=== PATIENT | female | born 1945 | race Caucasian/White ===

== ENCOUNTER → 2025-05-14 13:10 | Outpatient (REF) | payer MEDICARE, SELFPAY ==
[2025-05-14 14:29] LABS: % Basophils 0.3 % (0-2); % Eosinophils 0.1 % (0-6); % Immature Granulocytes 0.3 % (0-0.5); % Lymphocytes 11.7 % (20.5-51.1); % Monocytes 5.8 % (1.7-9.3); % Neutrophils 81.8 % (42.2-75.2); Absolute Lymphocytes 1.4 10^3/uL (1.2-3.4); Absolute Monocytes 0.7 10^3/uL (0.1-0.6); Absolute Neutrophils 9.8 10^3/uL (1.4-6.5); Hematocrit 43.5 % (37.0-47.0); Hemoglobin 14.5 g/dL (12.0-16.0); Mean Corp Hgb Conc. 33.3 g/dL (33.0-37.0); Mean Corpuscular Hgb 29.4 pg (27.0-31.0); Mean Corpuscular Volume 88.1 fL (81.0-99.0); Nucleated Red Blood Cells % 0 %; Platelet Count 439 10^3/uL (130-400); Red Blood Cell Count 4.94 10^6/uL (4.20-5.40); Red Cell Dist. Width 12.4 % (11.5-14.5); White Blood Cell Count 11.9 10^3/uL (4.8-10.8)
[2025-05-14 15:08] LABS: ALT (SGPT) 12 U/L (0-35); AST (SGOT) 21 U/L (14-36); Albumin 4.4 g/dl (3.5-5.0); Alkaline Phosphatase 45 U/L (38-126); Blood Urea Nitrogen 21 mg/dl (7-17); Calcium 9.8 mg/dl (8.4-10.2); Carbon Dioxide 26 mmol/L (22-30); Chloride 102 mmol/L (98-107); Glucose 108 mg/dl (70-99); Potassium 4.7 mmol/L (3.5-5.1); Sodium 138 mmol/L (135-145); Total Bilirubin 0.8 mg/dl (0.2-1.3); Total Protein 7.2 g/dl (6.3-8.2); eGFR > 60.00
== END ==
LOC: REG 13:10
PROVIDERS: ATTENDING PHYSICIAN Physician Assistant Medical
DX: R10.30 Lower abdominal pain, unspecified (principal); K59.09 Other constipation; K62.5 Hemorrhage of anus and rectum; R63.4 Abnormal weight loss; I95.89 Other hypotension; Z68.21 Body mass index [BMI] 21.0-21.9, adult
CPT/HCPCS: 36415; 80053; 85025

== ENCOUNTER → 2025-05-15 15:21 | Outpatient (REF) | payer MEDICARE, SELFPAY | LOC: RAD 15:21 | PROVIDERS: ATTENDING PHYSICIAN Physician Assistant Medical | DX: R10.30 Lower abdominal pain, unspecified (principal); K59.09 Other constipation; K62.5 Hemorrhage of anus and rectum; R63.4 Abnormal weight loss; I95.89 Other hypotension | CPT/HCPCS: 74177; Q9967 ==

== ENCOUNTER 2025-05-16 09:50 | Emergency (ER) | payer MEDICARE, SELFPAY ==
[2025-05-16 09:52] VITALS: BP 102/79
--- NOTE | 2025-05-16 10:05 | ED.GENMED ---
History of Present Illness
General
Chief Complaint: Abdominal Pain
Time Seen by Provider: 05/16/25 10:05
History of Present Illness
History of Present Illness:
TIME OF INITIAL EVALUATION
- 10:10 AM
REVIEW OF OLD RECORDS
- History of high blood pressure
I also reviewed the CAT scan report from yesterday that showed:
1. 4.9 cm mixed cystic and solid mass in the left ovary most consistent with LEFT OVARIAN MALIGNANCY (either extension of endometrial cancer or primary ovarian cancer).
2. Large 9.4 cm irregular shaped low-attenuation mass in the endometrium suggesting ENDOMETRIAL CANCER with extension through the uterine wall and into the right adnexa. A necrotic uterine leiomyoma is an alternative diagnostic possibility.
3. 5.4 cm RIGHT ADNEXAL MASS which could be extension of endometrial cancer or primary ovarian malignancy.
4. Minimal peritoneal fluid in the pelvis.
5. Mild colitis in the sigmoid colon and rectum.
6. Severe diverticulosis in the sigmoid colon.
7. Small enhancing hepatic lesions (metastases or small hemangiomas).
8. Severe discogenic degenerative disease at L5/S1.
Note:
CHIEF COMPLAINT(S)
Abdominal pain, weakness, but without palpitations.
HISTORY OF PRESENT ILLNESS
The patient is a 79-year-old female presenting with several months history of increasing weakness, significant abdominal pain, and vaginal bleeding, with a recent exacerbation of symptoms. There is associated anorexia and unintentional weight loss
(approximately 40 pounds). She reports a loss of taste and smell dating back to a previous COVID-19 infection. On a recent CT scan, findings suggest a possible malignancy originating in the uterus and spreading to the ovaries. The patient initially
consulted a primary care physician who recommended further evaluation and imaging. She was scheduled to follow up with an oncologist. However, she presented to the emergency department today due to worsening symptoms and anxiety surrounding the
imaging results.
The patient is currently experiencing supra ventricular tachycardia with a heart rate of approximately 200 beats per minute. She denies a history of atrial fibrillation or prior episodes of supra ventricular tachycardia. She was previously on
lisinopril for hypertension but has been discontinued on this medication for an unclear duration. She reports a recent blood pressure of 90/70 mmHg.
ADDITIONAL HISTORY OBTAINED FROM SOURCES OTHER THAN THE PATIENT
According to the patient, the CT scan findings were suggestive of cancer in the uterus and ovaries.
SOCIAL DETERMINANTS AFFECTING HEALTH
The patient mentioned residing within a close proximity to the hospital on [facility].
REVIEW OF SYSTEMS
- Cardiovascular: Reports palpitations; heart rate elevated at approximately 200 bpm.
- Gastrointestinal: Abdominal pain; no appetite; unintentional weight loss.
- Neurological: No reports of dizziness or altered mental status.
- General: Weakness; significant fatigue.
PHYSICAL EXAM
- Abdomen: Mild lower abdominal tenderness
- General: Well appearing in no distress
- HEENT: Moist oral mucosa
- Cardiovascular: No murmurs, tachycardic heart rate, regular rhythm, No chest wall tenderness
- Pulmonary: No respiratory distress, breath sounds are clear and equal
- Neurologic: Excellent strength all extremities, no coordination deficits
- Psychiatric: Appropriate mental status, normal insight and judgement
- Extremities: Nontender, no edema, moves all extremities equally
- Skin: No rash, no lesions
PLAN
1. Administer adenosine to manage the supra ventricular tachycardia.
2. Repeat blood work.
3. Address pain management as needed. Consider opioid prescription upon discharge if necessary.
4. Schedule follow-up with oncology as planned.
5. Consider additional imaging or referral as necessary based on current findings and response to initial interventions.
DIFFERENTIAL DIAGNOSIS
The Differential Diagnosis includes, in no particular order and is not limited to:
1. Uterine cancer
2. Ovarian cancer
3. Metastatic disease
4. Infection-related tachycardia
5. Hyperthyroidism
6. Anxiety-related palpitations
7. Cardiac arrhythmia (e.g., atrial fibrillation)
8. Ischemic heart disease
9. Adrenal insufficiency
10. Electrolyte imbalance
11. SVT
RADIOLOGY
- Not indicated
EKG
- SVT, rate of 198, QRS approximately 120 ms (I disagree with computer interpretation of 162 ms), left axis deviation
LABS
- White count 12.8, hemoglobin 16.1
UPDATE
- As I walked in the room initially, the ER nurses were trying vagal maneuvers however these were unsuccessful
- At 10:20 AM, the patient received 6 mg of adenosine and successfully converted to a sinus rhythm after a rather long pause, remains slightly hypotensive and hypotension was noted at the office 2 days ago and discontinued the lisinopril at that time
�She has a appointment to see Dr. Cárdenas on Sunday regarding the abnormal CT concerning for gynecologic malignancy
- Repeat EKG after chemical cardioversion showed sinus 102, inferior Q waves, poor R wave progression, QRS 74 ms
SUMMARY OF ENCOUNTER
The patient presented with increasing weakness, abdominal pain, and palpitations. Blood sugar was noted to be elevated over 200 mg/dL.
DISPOSITION
The patient was advised to schedule follow-ups with Dr. Boothe for abdominal concerns and a goggles assembler due to a history of supra ventricular tachycardia (SVT) episodes.
EMERGENCY TREATMENTS ADMINISTERED
A prescription for a narcotic pain medication was provided for pain management.
MEDICATION RECONCILIATION
The patient was taken off lisinopril and metformin recently. Prescription for pain was offered for abdominal discomfort.
PLAN
Prescribe a narcotic for pain management and recommend taking Merelax to prevent constipation if narcotics are used. Encourage follow-up with primary care doctor for elevated blood sugar management and goggles assembler for SVT follow-up.
FOLLOW-UP INSTRUCTIONS
Follow up with Dr. Cárdenas for continued abdominal pain management, and with a goggles assembler for SVT. Discuss elevated blood sugar with primary care physician.
MEDICAL DECISION MAKING
1. Number & Complexity of Problems: Chronic conditions affecting care include hypertension and potential newly uncontrolled blood sugar levels.
2. Data Reviewed: Blood test reviewed with elevated blood sugar level noted.
3. Risk: Consideration of outpatient management due to unremarkable work-up aside from blood sugar and pain management needs. Social determinants include proximity to hospital for follow-up accessibility.
PATHOLOGIES TO CONSIDER
- Uterine and ovarian cancer due to prior imaging suspicions.
- Uncontrolled diabetes due to elevated blood sugar.
- Cardiac arrhythmia due to supra ventricular tachycardia episode.
Did not place patient on beta-hernan or calcium channel hernan as blood pressure remains slightly low. I informed patient of the high blood sugar and need for PMD follow-up.
Past History
Past History
ED Past Medical History: HTN
ED Past Surgical History: None
Social History
Tobacco: Non-smoker
Phy Exam
Physical Exam
Physical Exam:
See HPI
Course
Orders/Labs/Results
Orders:
Orders
05/16/25 09:58
Electrocardiogram (*1) Urgent
Reason for Study: Tachycardia
EKG- Treatment ONCE
05/16/25 10:14
Complete Blood Count/With Diff Urgent
Comprehensive Metabolic Panel Urgent
Troponin I Urgent
05/16/25 10:17
Adenosine [Adenocard] 6 mg .ROUTE .STK-MED ONE
05/16/25 10:20
Adenosine [Adenocard] 6 mg IV NOW STA
05/16/25 10:23
Adenosine [Adenocard] 6 mg IV NOW STA
05/16/25 10:27
Electrocardiogram (*1) Urgent
Reason for Study: Tachycardia
EKG- Treatment ONCE
05/16/25 10:44
0.9% Sodium Chloride 1000 ml [Nss] 1,000 ml IV BOLUS
Abnormal Lab Results
05/16/25
10:14
WBC 12.8 H 10^3/uL
(4.8-10.8)
RBC 5.54 H 10^6/uL
(4.20-5.40)
Hgb 16.1 H g/dL
(12.0-16.0)
Hct 47.5 H %
(37.0-47.0)
MPV 10.5 H fL
(7.4-10.4)
Absolute Neuts (auto) 10.5 H 10^3/uL
(1.4-6.5)
Neutrophils % 81.5 H %
(42.2-75.2)
Lymphocytes % 13.4 L %
(20.5-51.1)
Carbon Dioxide 19 L mmol/L
(22-30)
BUN 19 H mg/dl
(7-17)
Glucose 219 H mg/dl
(70-99)
05/16/25 10:14
05/16/25 10:14
Vital Signs
Pulse: 98
Initial and Last Documented VS:
Initial Vital Signs
Temp Resp BP Pulse Ox
36.6 C 18 102/79 94
05/16/25 09:52 05/16/25 09:52 05/16/25 09:52 05/16/25 09:52
Last Documented Vital Signs
Temp Pulse Resp BP Pulse Ox
36.6 C 88 13 98/85 99
05/16/25 09:52 05/16/25 11:15 05/16/25 11:15 05/16/25 10:49 05/16/25 11:15
*Pulse Oximetry
SaO2: 94
Oxygen Mode of Delivery: Room air
Patient hypoxic: no
*Bilingual Speech Language Pathologist Interpretation
Rate: tachycardiac
Interpretation: abnormal
Heart Rate: 200
Rhythm: SVT
*Critical Care Note
Total Time (30-74mins, 75-104mins- exclusive of procedures): 60 minutes
comment:
The patient arrived with a heart rate of 200. She was mildly hypotensive. Adenosine emergently given successfully and heart rate markedly improved. Vital signs closely monitored throughout stay in the emergency department.
ED Attending Note
-
Portions of this chart may have been created with voice recognition software.� Occasional wrong word or��sound alike� substitutions may have occurred due to the inherent limitations of voice recognition software.
Discharge Plan
Departure
Patient Disposition: Home (Routine Discharge)
Date of Disposition: 05/16/25
Time of Disposition: 11:30
Patient with high blood pressure during this ER visit?: Yes
Discharge Problem:
SVT (supraventricular tachycardia)
Instructions: Supraventricular tachycardia (SVT)
Prescriptions:
New
tramadol 50 mg tablet
50 mg PO BID PRN (Reason: Pain) Qty: 20 0RF
No Action
hydrocodone-acetaminophen [[place]] 1 EACH tablet
1 ea PO Q8 PRN (Reason: Moderate to severe pain) Qty: 10 0RF
Referrals:
Sherry Kirby MD [Family Provider, Gynecology]
Bry Escoto MD [Active, Cardiology]
Aleksandr Cárdenas MD [Active, CREATIVE PERFUMER Oncology]
Activity Restrictions/Additional Instructions:
Your initial EKG showed a SVT rhythm with rate of 200. We gave you 6 mg of adenosine and you were converted back to a normal sinus rhythm. I have given you the contact information for a local goggles assembler to follow-up with. In order to prevent
SVT from recurring, I commonly placed people on medicine to slow your heart rate down. However your blood pressure remains a little bit too low to do this safely.
Your blood sugar is high and I would like you discuss metformin use with your primary care physician again. Your blood sugar here is 219.
I am sending a prescription for tramadol to help with the pain to your pharmacy�I recommend you take some like MiraLAX now prevent constipation.
Return here if worse or other concerns.
Interventions
Interventions:
*Risk Screen - Suicide Last Done: 05/16/25 09:52
*General Assessment Last Done: 05/16/25 09:52
*Neglect/Abuse Screening Last Done: 05/16/25 09:52
ZB-Xmomfs-Bppdtndxoj Assessment Last Done: 05/16/25 10:05
Discharge Date and Time
Print Language: ALBANIAN
[2025-05-16 10:20] VITALS: BMI 23.3
[2025-05-16] MEDS: ADENOCARD 6 MG IV (10:23)
[2025-05-16 10:24] LABS: % Basophils 0.2 % (0-2); % Eosinophils 0.2 % (0-6); % Immature Granulocytes 0.3 % (0-0.5); % Lymphocytes 13.4 % (20.5-51.1); % Monocytes 4.4 % (1.7-9.3); % Neutrophils 81.5 % (42.2-75.2); Absolute Lymphocytes 1.7 10^3/uL (1.2-3.4); Absolute Monocytes 0.6 10^3/uL (0.1-0.6); Absolute Neutrophils 10.5 10^3/uL (1.4-6.5); Hematocrit 47.5 % (37.0-47.0); Hemoglobin 16.1 g/dL (12.0-16.0); Mean Corp Hgb Conc. 33.9 g/dL (33.0-37.0); Mean Corpuscular Hgb 29.1 pg (27.0-31.0); Mean Corpuscular Volume 85.7 fL (81.0-99.0); Mean Platelet Volume 10.5 fL (7.4-10.4); Nucleated Red Blood Cells % 0 %; Platelet Count 329 10^3/uL (130-400); Red Blood Cell Count 5.54 10^6/uL (4.20-5.40); Red Cell Dist. Width 12.5 % (11.5-14.5); White Blood Cell Count 12.8 10^3/uL (4.8-10.8)
[2025-05-16 10:26] VITALS: BP 96/75
[2025-05-16] MEDS: NSS 1000 IV (10:44)
[2025-05-16 10:49] VITALS: BP 98/85
[2025-05-16 10:55] LABS: AST (SGOT) 23 U/L (14-36); Albumin 4.4 g/dl (3.5-5.0); Alkaline Phosphatase 51 U/L (38-126); Blood Urea Nitrogen 19 mg/dl (7-17); Calcium 9.9 mg/dl (8.4-10.2); Carbon Dioxide 19 mmol/L (22-30); Chloride 104 mmol/L (98-107); Estimated Creatinine Clearance 47 ml/min; Glucose 219 mg/dl (70-99); Potassium 4.6 mmol/L (3.5-5.1); Sodium 137 mmol/L (135-145); eGFR > 60.00
[2025-05-16 11:05] LABS: ALT (SGPT) < 30 U/L (0-35)
[2025-05-16 11:06] LABS: Troponin I < 0.012 ng/ml
[2025-05-16 12:01] VITALS: BP 103/67
== END 2025-05-16 12:03 | disposition home or self-care (01) ==
LOC: EMR 09:50
PROVIDERS: EMERGENCY PHYSICIAN Emergency Medicine; FAMILY PHYSICIAN Obstetrics & Gynecology Gynecology
DX: I47.10 Supraventricular tachycardia, unspecified (principal); I10 Essential (primary) hypertension; R10.9 Unspecified abdominal pain
CPT/HCPCS: 96374; 96361; 99284; 80053; 84484; 85025; 93005; J0153

== ENCOUNTER 2025-05-18 13:26 | Inpatient (IN) | payer MEDICARE, SELFPAY ==
[2025-05-18 09:59] VITALS: BP 152/93
[2025-05-18 10:40] LABS: % Basophils 0.3 % (0-2); % Eosinophils 0.3 % (0-6); % Immature Granulocytes 0.5 % (0-0.5); % Lymphocytes 11.2 % (20.5-51.1); % Monocytes 4.9 % (1.7-9.3); % Neutrophils 82.8 % (42.2-75.2); Absolute Immature Granulocytes 0.1 10^3/uL (0-0.05); Absolute Lymphocytes 1.1 10^3/uL (1.2-3.4); Absolute Monocytes 0.5 10^3/uL (0.1-0.6); Absolute Neutrophils 7.7 10^3/uL (1.4-6.5); Hematocrit 41.8 % (37.0-47.0); Hemoglobin 14.4 g/dL (12.0-16.0); Mean Corp Hgb Conc. 34.4 g/dL (33.0-37.0); Mean Corpuscular Hgb 29.3 pg (27.0-31.0); Mean Corpuscular Volume 85.1 fL (81.0-99.0); Mean Platelet Volume 10.1 fL (7.4-10.4); Nucleated Red Blood Cells % 0 %; Platelet Count 410 10^3/uL (130-400); Red Blood Cell Count 4.91 10^6/uL (4.20-5.40); Red Cell Dist. Width 12.2 % (11.5-14.5); White Blood Cell Count 9.4 10^3/uL (4.8-10.8)
--- NOTE | 2025-05-18 11:15 | ED.GENMED ---
History of Present Illness
General
Chief Complaint: Weakness
Source: patient and records
Exam Limitations: none
Time Seen by Provider: 05/18/25 10:58
History of Present Illness
History of Present Illness:
79yoF with a history of hypertension presenting for evaluation of weakness. Patient has been experiencing weight loss, lower abdominal discomfort, and vaginal bleeding for the past several months. She has lost about 50 to 60 pounds within the past
year. She was seen by her PCP and was sent for a CT scan which she completed [address] revealed 'Large 9.4 cm irregular shaped low-attenuation mass in the endometrium suggesting ENDOMETRIAL CANCER with extension through the uterine wall and
into the right adnexa. A necrotic uterine leiomyoma is an alternative diagnostic possibility. 4.9 cm mixed cystic and solid mass in the left ovary most consistent with LEFT OVARIAN MALIGNANCY (either extension of endometrial cancer or primary
ovarian cancer). 5.4 cm RIGHT ADNEXAL MASS which could be extension of endometrial cancer or primary ovarian malignancy.' Her PCP was going to reach out to broadcast traffic coordinator/onc today to help expedite an appointment. Patient became increasingly anxious at home
and states she has been feeling weaker so decided to come to the ED. She is not eating and is having issues with constipation. She was prescribed Tramadol 2 days ago for pain which does seem to help.
Past History
Past History
ED Past Medical History: HTN
ED Past Surgical History: None
Social History
Tobacco: Non-smoker
Phy Exam
Physical Exam
Physical Exam:
Chronically ill appearing, no apparent distress
General Physical Exam
General Presentation: no apparent distress
General Skin: warm and dry
General Habitus: normal
General Mental: alert
ENT Exam
ENT Exam: normocephalic
Cardiovascular Exam
Cardiovascular Exam: regular rate/rhythm
Pulmonary Exam
Pulmonary Exam: lungs clear, no respiratory distress, no rales, no crackles, no rhonchi and no wheezing
Gastrointestinal Exam
Gastrointestinal Exam: soft and other (+Lower abdominal tenderness)
Neurological Exam
Neurological Exam: alert
[place] Coma Scale
Eye Opening: Spontaneous
Verbal Response: Oriented
Motor Response: Obeys Commands
GCS Total Score: 15
Skin Exam
Skin Exam: warm/dry
Psychiatric Exam
Psychiatric Exam: anxious
Course
Orders/Labs/Results
Orders:
Orders
05/18/25 10:32
Complete Blood Count/With Diff Urgent
Comprehensive Metabolic Panel Urgent
TSH Urgent
Comment: ADD
05/18/25 11:01
Electrocardiogram (*1) Urgent
Reason for Study: Fatigue / Weakness
EKG- Treatment ONCE
05/18/25 13:10
D-Dimer Routine
05/18/25 13:19
Admit/Transfer Patient As Directed
Co-Sign Provider:
Level of Care: Inpatient admission
Assign to:: Telemetry
Physician / Group: Ellyn
Diagnosis: SVT, endometrial mass
Reason for Telemetry: Arrhythmia
Date to Stop Telemetry: 05/21/25
Time to Stop Telemetry: 11:00
Reason for Hospitalization: Gynecology consult, cardiology consult
Expected length of stay greater than two midnights?: Yes
ELOS- Estimated Length of Stay in days: 2
I certify the patient meets the requirements for IP care: Yes
PRN Pain Medication Management As Directed
May give lesser potent ordered pain med per pt: Yes
preference::
Protocol:: Medication orders for pain may be administered in a
manner that supports deferring to patient preference
when the pt is:
- Requesting an ordered lesser potent pain medication.
Least to most potent pain medications are defined
as: acetaminophen < NSAID < tramadol < opioids
(morphine, oxycodone, hydromorphone).
- Requesting a lesser dose of the same medication IF
ORDERED.
- Requesting a less intrusive route of administration
if both routes are prescribed by the provider (PO <
IV).
05/18/25 13:20
Code Status As Directed
Resuscitation Status: Full Code
05/18/25 13:22
Add On- LAB Routine
Tests Added?: TSH
05/21/25 11:00
DC Protocol for Telemetry ONCE
Abnormal Lab Results
05/18/25
10:32
Plt Count 410 H D 10^3/uL
(130-400)
Abs Immat Gran (auto) 0.1 H 10^3/uL
(0-0.05)
Absolute Neuts (auto) 7.7 H 10^3/uL
(1.4-6.5)
Absolute Lymphs (auto) 1.1 L 10^3/uL
(1.2-3.4)
Neutrophils % 82.8 H %
(42.2-75.2)
Lymphocytes % 11.2 L %
(20.5-51.1)
05/18/25 10:32
Vital Signs
Initial and Last Documented VS:
Initial Vital Signs
Temp Pulse Resp Pulse Ox
98.6 F 121 18 100
05/18/25 09:58 05/18/25 09:58 05/18/25 09:58 05/18/25 09:58
Last Documented Vital Signs
Temp Pulse Resp BP Pulse Ox
98.6 F 89 16 136/80 100
05/18/25 09:58 05/18/25 12:32 05/18/25 12:32 05/18/25 12:32 05/18/25 12:32
MDM/Problems Addressed
Differential Diagnosis Includes:
79yoF here with weakness. Has been having weight loss, vaginal bleeding, abd pain x several months. Outpatient CT 3 days ago showed evidence of endometrial vs. ovarian cancer. States she feels weaker and more anxious so came to the ED. HR 121 on
arrival. She is chronically ill appearing in no apparent distress. Differential diagnosis includes but is not limited to: malignancy, failure to thrive, dehydration
I called and spoke with Dr. Cárdenas. Given that she has had 2 ED visits in the past 48 hours with worsening weakness, will admit for further workup. Dr. Cárdenas is planning on a D&C this week for tissue diagnosis.
*Pulse Oximetry
SaO2: 99
Oxygen Mode of Delivery: Room air
Patient hypoxic: no (100%)
*Critical Care Note
Total Time (30-74mins, 75-104mins- exclusive of procedures): Not Applicable
ED Attending Note
-
Portions of this chart may have been created with voice recognition software.� Occasional wrong word or��sound alike� substitutions may have occurred due to the inherent limitations of voice recognition software.
Discharge Plan
Departure
Patient Disposition: Admit
Date of Disposition: 05/18/25
Time of Disposition: 12:08
Presentation/result/management discussed w/ accepting MD/DO: Hospitalist
Discharge Problem:
Generalized weakness, Uterine mass
Prescriptions:
No Action
hydrocodone-acetaminophen [[place]] 1 EACH tablet
1 ea PO Q8 PRN (Reason: Moderate to severe pain) Qty: 10 0RF
tramadol 50 mg tablet
50 mg PO BID PRN (Reason: Pain) Qty: 20 0RF
Referrals:
Justine Kirby PA-C [Family Provider, Family Practice]
Interventions
Interventions:
*Risk Screen - Suicide Last Done: 05/18/25 10:34
*General Assessment Last Done: 05/18/25 10:34
*Neglect/Abuse Screening Last Done: 05/18/25 10:34
*ED- Fall Risk Assessment Last Done: 05/18/25 10:34
*ED COVID-19 Vaccine History Last Done: 05/18/25 10:34
ED- Cardiac Assessment Last Done: 05/18/25 10:34
ED- Neurological Assessment Last Done: 05/18/25 10:34
ED- Pulmonary Assessment Last Done: 05/18/25 10:34
Discharge Date and Time
Print Language: BAHAMIAN
[2025-05-18 12:32] VITALS: BP 136/80
--- NOTE | 2025-05-18 13:22 | HPS.HSE ---
Family Physician
-
Family Physician: Justine Kirby
Chief Complaint
-
Weakness, weight loss, vaginal bleeding
History of Present Illness
79-year-old female complaining of 8 months worth of progressive weakness, weight loss and vaginal bleeding. States she has lost about 40 to 45 pounds over the past 8 months. Initially attributed the weight loss to loss of sense of taste and smell
from COVID infection several years ago. However, 2 months ago her appetite went down significantly. She does not eat organized meals during the day but snacks throughout the day and estimates she consumes 1500 audelia daily.
Started noticing vaginal bleeding over the past few months as well. Does not have a police service technician. Saw her primary care provider and a CT of the abdomen/pelvis was done last week that was concerning for possible endometrial versus ovarian cancer.
Primary care provider was trying to arrange for her to follow-up with gynecologic-oncology but patient decided to come into the emergency room today due to her concern.
Denies exertional chest pain or shortness of breath.
She was seen in the emergency room on May 16 for evaluation of abdominal pain. Noted to be in SVT that broke with adenosine. CT scan results were noted. She was discharged from the emergency room with a prescription for tramadol and
recommendation to follow-up with PCP regarding the abnormal CT finding.
Medical History
Past Medical History
Past Medical History: Reports None
Past Surgical History: Reports None
Social History
Tobacco: Non-smoker
Alcohol: Occasional
Drug: None
Personal:
Living: Alone
Family History
Family History: Not pertinent
Allergies / Home Medications
Allergies reflects when Allergies were last updated in [facility].
Home Medications with original date entered in [facility]
Allergy/Medication List:
Allergies
Allergy/AdvReac Type Severity Reaction Status Date / Time
Sulfa (Sulfonamide Allergy Unknown Verified 05/16/25 09:52
Antibiotics)
Home Medications
tramadol 50 mg tablet 50 mg PO BID PRN Pain #20 tabs 05/16/25
Review of Systems
-
History Source: Patient
A 12 point ROS was completed and negative except as noted: Yes
Physical Exam
Vital Signs
Vital Signs
Temp Pulse Resp BP Pulse Ox
98.6 F 89 16 136/80 100
05/18/25 09:58 05/18/25 12:32 05/18/25 12:32 05/18/25 12:32 05/18/25 12:32
Physical Exam
General: Well Developed, Well Nourished, No Apparent Distress and Comfortable
HEENT: NormoCephalic, Anicteric and Moist mucous membranes
Respiratory: Clear
Cardiac: S1/S2 and Regular Rhythm
Breast: Deferred by me
GI: Non Distended and Tender (Lower abdomen)
Genito-urinary: Deferred by me
Musculoskeletal: No Clubbing, No Cyanosis and No Edema
Skin: Warm and Dry
Neuro: AO x 3
Hematologic/Lymphatic: No Lymphadenopathy
Psych: Calm
Laboratory Results
-
05/18/25 10:32
Impression/Plan
-
Endometrial mass -concerning for primary endometrial cancer with extension to ovaries. CT scan results noted. Will admit to telemetry. Consult [facility] oncology. Anticipate D&C procedure possibly tomorrow. Discussed with Dr. Cárdenas.
Presentation with significant weight loss, generalized weakness, anorexia, vaginal bleeding concerning.
SVT -noted on recent evaluation in the emergency room. No recurrence. She denied any symptoms with the SVT. Check TSH. Monitor on telemetry. Check D-dimer and if elevated will check CT chest.
Full code
[2025-05-18 13:31] LABS: D-Dimer 0.42 ug/mlFEU (0.00-0.50)
[2025-05-18 13:34] LABS: ALT (SGPT) 16 U/L (0-35); AST (SGOT) 22 U/L (14-36); Albumin 4.4 g/dl (3.5-5.0); Alkaline Phosphatase 52 U/L (38-126); Blood Urea Nitrogen 12 mg/dl (7-17); Calcium 9.7 mg/dl (8.4-10.2); Carbon Dioxide 20 mmol/L (22-30); Chloride 104 mmol/L (98-107); Glucose 111 mg/dl (70-99); Potassium 3.9 mmol/L (3.5-5.1); Sodium 137 mmol/L (135-145); Total Bilirubin 0.9 mg/dl (0.2-1.3); eGFR > 60.00
--- NOTE | 2025-05-18 14:00 | CON.CAR ---
Addendum entered and electronically signed by Yaron Alonso MD 05/18/25 18:24:
79 yo female with PMH of paroxysmal SVT is admitted with concern for endometrial cancer. We are consulted for pre op risk assessment. She exercises regularly at gym and with development trainer, and had no anginal sxs. Exam with RRR, no murmurs, no edema. Echo:
EF 55%, mild AR. EKG: NSR.
She can proceed to parts sales manager surgery at low cardiac risk.
Paroxysmal SVT. Stable in sinus. Monitor on tele. Continue Toprol XL.
Original Note:
Consultation
Consultation Request
Date/Time Consultation Requested: 05/18/25 1313
Date/Time Consultation Performed: 05/18/25 1400
Requesting Provider: Chani HUNG
Performing Provider: Nilsa SRINIVASAN for Dr. Alonso
Reason for Consultation: SVT, pre-op cardiovascular risk assessment
Medical History
-
Chief Complaint: weakness, weight loss, pelvic pain, vaginal bleeding
History of Present Illness:
79 y/o with hypertension and preDM (lisinopril and metformin stopped recently) who presents for pelvic pain, weight loss (40 lbs), vaginal bleeding, and weakness noted over the past 6-8 months. She saw her PCP last week and CT scan was ordered and
showed ovarian and endometrial lesions (details below). Per ER provider, parts sales manager/onc is planning for D&C this admission. We are consulted since pSVT was noted at recent ER visit. She received adenosine as well as IV fluids. She was not symptomatic. EKG
shows SR here.
Past Medical History
Past Medical History: HTN and Other (as above)
Social History
Tobacco: Non-Smoker
Alcohol: Occasional
Personal:
Allergies / Home Medications
Allergy/AdvReac Type Severity Reaction Status Date / Time
Sulfa (Sulfonamide Allergy Unknown Verified 05/16/25 09:52
Antibiotics)
�Medication �Instructions �Recorded �Confirmed �Type
hydrocodone 5 mg-acetaminophen 325 1 ea PO Q8 PRN Moderate to severe 05/10/20 Rx
mg tablet (Animas) pain #10 tabs
tramadol 50 mg tablet 50 mg PO BID PRN Pain #20 tabs 05/16/25 Rx
Review of Systems
-
History Source: Patient
All other systems: Negative unless noted
Constitutional: Weight Loss
: Bleeding and Other (pelvic pain)
Neurological: Weakness
Physical Exam
Vital Signs
Temp Pulse Resp BP Pulse Ox
98.6 F 89 16 136/80 100
05/18/25 09:58 05/18/25 12:32 05/18/25 12:32 05/18/25 12:32 05/18/25 12:32
Lab Results
05/18/25 10:32
05/18/25 10:32
Physical Exam
General: Well Developed, Well Nourished and No Apparent Distress
HEENT: Normocephalic and Anicteric
Respiratory: Clear and Non Labored Respirations
Cardiac: Regular Rhythm
Musculoskeletal: No Edema
Skin: Warm and Dry
Neuro: AO x 3
Psych: Calm
Impression / Plan
-
Endometrial and ovarian lesions:
-concerning for cancer, which is threat to life
-Abdomen/Pelvis CT: 4.9 cm mixed cystic and solid mass in the left ovary most consistent with LEFT OVARIAN MALIGNANCY (either extension of endometrial cancer or primary ovarian cancer). Large 9.4 cm irregular shaped low-attenuation mass in the
endometrium suggesting ENDOMETRIAL CANCER with extension through the uterine wall and into the right adnexa. A necrotic uterine leiomyoma is an alternative diagnostic possibility. 5.4 cm RIGHT ADNEXAL MASS which could be extension of endometrial
cancer or primary ovarian malignancy. Minimal peritoneal fluid in the pelvis. Mild colitis in the sigmoid colon and rectum. Severe diverticulosis in the sigmoid colon. Small enhancing hepatic lesions (metastases or small hemangiomas). Severe
discogenic degenerative disease at L5/S1.
-parts sales manager/onc following and planned for D&C this admit. Pre-procedure cardiac risk assessment: patient denies any previous cardiac history (no hx CAD or CHF). She is quite active and goes to the gym routinely- last on Sunday. She does treadmill,
stairs, rowing and has no CP or SOB. SVT was demonstrated over the weekend. Will initiate metoprolol. We will obtain echo. Follow telemetry.
pSVT:
-noted on recent ER visit, s/p adenosine
-now in SR
-will start Toprol XL 25 mg PO daily
-TSH pending
-I ordered echo
HTN:
-lisinopril recently stopped as OP, but she did take a 20 mg pill today
-monitor with addition of metoprolol
Hx PreDM:
-no longer on metformin
Data Reviewed
-
EKG: Tracing Personally Visualized and interpreted (NSR)
CT Scan: Report Reviewed by me (CT scan as noted)
Medical Tests (Nuc Med, Echo etc): Other (echo)
Labs: Labs Reviewed by me
--- NOTE | 2025-05-18 14:02 | PHANOTE ---
05/18/2025, per pt., they were told to stop taking their Lisinopril 20 mg daily and their Metformin ER 500 mg Q48H last (05/14/2025) by their PCP.
--- NOTE | 2025-05-18 14:17 | CM ---
CM reviewed chart and met with pt bedside in ED. Pt lives alone, does not have any local family.
Multistory home, [address], first floor full BA, 2nd floor BR.
Independent in ADLs, personal care and ambulation at baseline. No DME in home. Still driving.
No hx VN or SNF, denies financial insecurities.
PCP: Justien Kirby
Pharmacy: [facility]
Discharge plan: Anticipate home pending ongoing medical evaluation
[2025-05-18 16:01] VITALS: BP 105/77
[2025-05-18] MEDS: TOPROL XL 25 MG PO (16:14)
--- NOTE | 2025-05-18 16:31 | PTCARENOTE ---
Pt arrived from ED at 1600. Pt walked from stretcher to bed. Pt was orientated to room/unit and assessed. Pt has no current complaints. Plan of care ongoing
--- NOTE | 2025-05-18 17:22 | W.CON.GYNONC ---
Consultation
-
Date/Time Consultation Requested: 05/18/2025
Date/Time Consultation Performed: 05/18/2025
Requesting Provider: Robyn
Performing Provider: Aleksandr Cárdenas
Reason for Consultation: Uterine malignancy
Chief Complaint
-
Postmenopausal bleeding, Left adnexal mass
History of Present Illness
79-year-old white female presents to ER with weakness, 2 days after she presented with similar findings, and had episode of SVT, treated with adenosine. She is actually complaining of 8 months worth of progressive weakness, weight loss and
vaginal bleeding. States she has lost about 40 to 45 pounds over the past 8 months. Initially attributed the weight loss to loss of sense of taste and smell from COVID infection several years ago. However, 2 months ago her appetite went down
significantly. She does not eat much of anything during the day but snacks throughout the day and estimates she consumes 1500 audelia daily.
Started noticing vaginal bleeding over the past few months as well. She cannot remember last time she saw a director of field coordination.
Saw her primary care provider and a CT of the abdomen/pelvis was done last week that was concerning for possible endometrial versus ovarian cancer.
Primary care provider was trying to arrange for her to follow-up with me but patient decided to come into the emergency room today due to her concern.
Denies exertional chest pain or shortness of breath.
As stated above, She was seen in the emergency room on May 16 for evaluation of abdominal pain. Noted to be in SVT that broke with adenosine.
Past Medical History: weight loss, SVT, HTN (was on lisinopril till last week), pre diabetes (on metformin)
Past Surgical History: Reports None
Social History
Tobacco: Non-smoker
Alcohol: Occasional
Drug: None
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
Living: Alone
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
Family History
Not pertinent
Allergies Sulfa
Meds: tramadol prn
Medical History
Family History
Family History: Reviewed & Not Pertinent
Allergies
Allergies reflect when allergies were last updated in [facility].
Sulfa (Sulfonamide Antibiotics) Allergy (Verified 05/16/25 09:52)
Unknown
Review of Systems
-
A 12 point Review of Systems was completed except as noted: Yes
Constitutional: Reports Weight Loss and Fatigue
Physical Exam
Vital Signs / I&O
Vitals
Temp Pulse Resp BP Pulse Ox
99.6 F 92 18 105/77 99
05/18/25 16:01 05/18/25 16:14 05/18/25 16:01 05/18/25 16:14 05/18/25 16:01
Physical Exam
General: Poor Appetite
Respiratory: Clear and Non Labored Respirations
Cardiac: S1/S2 and Regular Rhythm
GI: Soft, Non Tender and Non Distended
Genito-urinary: No Costovertebral Tend
Musculoskeletal: No Clubbing, No Cyanosis and No Edema
Skin: Warm and Dry
Neuro: Awake, Alert and Oriented
Hematologic/Lymphatic: No Lymphadenopathy
Psych: Calm and Intact Judgement
Results
-
05/18/25 10:32
05/18/25 10:32
[facility]
[address] [place] [address]
[phone]
Patient Name: ROVERTO SALAS
: 1945
Unit Number: [id number]
Age/Sex: 79/F
Patient
Location: RAD
Order Provider: Justine Ruiz
Exam Service Date: 05/15/25

Diagnostic Imaging Report
SignedOrder #:[id number]
Exams: CT Abd/pelvis W Iv Cont
CPT: 92201
PROCEDURES: CT Abd/pelvis W Iv Cont
CLINICAL INDICATION: Lower abdominal pain and constipation for 6 months.
TECHNIQUE: A CT examination of the abdomen and pelvis was performed following the administration of nonionic intravenous contrast. Oral contrast was not administered. Coronal and sagittal reformatted images were obtained. Automatic exposure control
radiation dose reduction technology was utilized.
COMPARISON: Comparison is made with a prior CT examination of the abdomen and pelvis performed 07/25/2022.
FINDINGS:
CHEST: The heart is normal in size. There is a small pericardial effusion. There is mild calcific atherosclerotic plaque and tortuosity in the thoracic aorta. There is a 7 mm calcified pulmonary granuloma in the anteromedial basilar segment of the
left lower lobe. There is no focal airspace opacity suspicious for pneumonia. There are no pleural effusions.
ABDOMEN: The liver is normal in size with the right lobe measuring 16.4 cm in length. There are small number of low attenuation cysts in the left lobe of the liver measuring up to 2.2 cm in size. There are 4.8 and 9.3 mm enhancing lesions in the
anterior segment of the right lobe the liver.
The gallbladder and bile ducts appear normal. There is mild diffuse pancreatic parenchymal atrophy. The spleen is normal in size. There is a small 4 mm splenule in the splenic hilum. There is no mesenteric lymphadenopathy.
The adrenal glands appear normal. There is mild bilateral renal cortical volume loss. There is no hydronephrosis in either kidney. There are small number of small subcentimeter bilateral renal cysts. There is no abnormal perinephric edema or fluid.
There is mild calcific atherosclerotic plaque in the abdominal aorta. There is no abdominal aortic aneurysm.
There is mild mucosal thickening and mucosal hyperenhancement in the gastric fundus and body. There is mild circumferential wall thickening in the gastric antrum. There is a 1.9 cm air-filled diverticulum protruding medially from the second portion
of duodenum. The jejunal small bowel loops appear normal. There is no upper abdominal ascites or pneumoperitoneum.
PELVIS: There is no abnormal small bowel wall thickening or distention. The appendix appears normal. There is a moderate amount of fecal material in the cecum and proximal ascending colon. There is mild circumferential wall thickening throughout the
transverse colon, descending colon, sigmoid colon, and rectum which is greatest in the distal sigmoid colon and rectum and most consistent with a mild colitis. There is severe diverticulosis throughout the sigmoid colon. There is a minimal amount of
peritoneal fluid in the pelvis.
There is a 4.7 x 4.9 x 4.7 cm mixed cystic and solid mass in the left ovary which appears to contain solid enhancing mural nodules consistent with malignancy. There is an irregular shaped low-attenuation mass in the endometrium measuring 4.0 x 5.3 x
9.4 cm in AP, transverse, and craniocaudal dimensions suggesting endometrial cancer which appears to extend through the right posterolateral wall of the uterus and into the right adnexa. A right adnexal mass located adjacent to the uterus measures
5.4 x 4.4 x 3.7 cm in size and contains small calcifications.
The urinary bladder appears normal. There is a mildly asymmetrically enlarged left-sided pelvic sidewall lymph node measuring 6 mm in size (axial image #68, series #201).
SKELETON: There is a mild right convex curvature of the lower thoracic spine and mild left convex curvature of the lower lumbar spine. There is moderate discogenic degenerative disease at L5/S1 and mild discogenic degenerative disease at the other
lumbar levels. There is mild multilevel discogenic degenerative disease throughout the lower thoracic spine. There is mild bilateral osteoarthritis of the sacroiliac joints. There are minimal degenerative changes of the pubic symphysis. There is
minimal bilateral osteoarthritis of the hips.
IMPRESSION:
1. 4.9 cm mixed cystic and solid mass in the left ovary most consistent with LEFT OVARIAN MALIGNANCY (either extension of endometrial cancer or primary ovarian cancer).
2. Large 9.4 cm irregular shaped low-attenuation mass in the endometrium suggesting ENDOMETRIAL CANCER with extension through the uterine wall and into the right adnexa. A necrotic uterine leiomyoma is an alternative diagnostic possibility.
3. 5.4 cm RIGHT ADNEXAL MASS which could be extension of endometrial cancer or primary ovarian malignancy.
4. Minimal peritoneal fluid in the pelvis.
5. Mild colitis in the sigmoid colon and rectum.
6. Severe diverticulosis in the sigmoid colon.
7. Small enhancing hepatic lesions (metastases or small hemangiomas).
8. Severe discogenic degenerative disease at L5/S1.
In accordance with Act 112, known as the Patient Test Results Information Act, a letter will be sent to the patient which notifies the patient that a significant abnormality may exist. The letter will be sent within approximately 20 days of the
date the results were sent to the ordering health care practitioner.
Electronically signed by Thomas Magaña MD, 05/15/2025 4:31 PM
Data Reviewed
-
Diagnostic Radiology: Image personally visualized and interpreted
CT Scan: Image personally visualized and interpreted
Medical Tests (Nuc Med, Echo, EKG etc): Image personally visualized and interpreted
Lab Data: Labs Reviewed
Impression / Plan
-
79 yo presenting with abnormal weight loss, vaginal bleeding, arrythmia
1. Endometrial mass
CT abnormality is noted
-concerning for primary endometrial cancer with extension to ovaries.
I plan to exam under anesthesia, pap, and also D&C procedure possibly tomorrow.
NPO after MN
need ancef for pre op antibiotics
2. Presentation with significant weight loss, generalized weakness, anorexia, I dont see advanced ca on CT, but needs further investgation including GI eval, TSH, CT chest
3. SVT -noted on recent evaluation in the emergency room. No recurrence. Check TSH. Monitor on telemetry. Check D-dimer and if elevated will check CT chest.
need a formal cardiology evaluation for pre op eval and clearance
4. Full code
[2025-05-18 18:00] LABS: TSH 1.45 uIU/ml (0.47-4.68)
[2025-05-18 19:15] VITALS: BP 117/72
[2025-05-18] MEDS: ULTRAM 50 MG PO (22:26)
[2025-05-18 23:24] VITALS: BP 106/68
[2025-05-19] VITALS (11 sets, daily range): BP systolic 99–141; BP diastolic 62–85; PULSE 77; O2SAT 100; BMI 22.0
[2025-05-19] MEDS: TOPROL XL 25 MG PO (07:28)
[2025-05-19 09:13] LABS: CEA 2.17 ng/ml
[2025-05-19 09:17] LABS: Glycohemoglobin (HgbA1c) 5.7 % (4.0-5.6)
--- NOTE | 2025-05-19 12:36 | CM ---
Patient seen at bedside
PT eval today-no needs
PLAN: home, no needs when medially stable
drove self
--- NOTE | 2025-05-19 12:55 | PTOTSP ---
Patient demonstrates safe and independent mobility, no skilled physical therapy needs at this time.
--- NOTE | 2025-05-19 13:07 | W.PN.HOSP.TC ---
Today's Communication/Plan
-
Await procedure
Discharge
Assessment / Plan
Assessment / Plan
Gen-AAOx3, NAD
HEENT-NC, AT, anicteric, clear oral mm
Neck-supple
CV-reg, no M, +S1/S2
Lungs-clear B/L
Abd-soft, NT, ND
Ext-no edema
Musculoskeletal-no cyanosis, clubbing
Skin-warm and dry
Neuro-grossly non-focal
Psych-calm, cooperative
Endometrial mass -presentation with postmenopausal vaginal bleeding, significant weight loss, generalized weakness, anorexia, vaginal bleeding concerning. Not anemic based on labs.
Imaging (CT & MRI) concerning for primary endometrial cancer with extension to ovaries. CT chest negative for PE, metastasis.
Awaiting D&C procedure today. NPO. Appreciate BUSINESS ADMINISTRATION PROFESSOR oncology input.
SVT -noted on recent evaluation in the emergency room. No recurrence. She denied any symptoms with the SVT. Continue Toprol-XL.
TSH 1.4. Echocardiogram with LVEF 55%, normal RV size and function, mild AR. Cardiology input noted.
Impaired fasting glucose -hemoglobin A1c improved, 5.7%. Taken off of metformin a week ago by PCP. Improvement in A1c likely attributed to significant weight loss.
Essential hypertension -improved with weight loss. Taken off of lisinopril last week by PCP.
Full code
Dispo -anticipate discharge later today after BUSINESS ADMINISTRATION PROFESSOR procedure. Close outpatient follow-up.
Anticipated Discharge: Today
Subjective/Interval History
-
Date of Service: May 19, 2025
Patient seen and examined. No complaints. Still with mild vaginal bleeding.
Objective Data
-
Vital Signs:
Vital Signs
Temp Pulse Resp BP Pulse Ox
98.3 F 73 19 110/75 98
05/19/25 10:58 05/19/25 10:58 05/19/25 10:58 05/19/25 10:58 05/19/25 10:58
I&O
05/18/25 05/19/25 05/20/25
06:59 06:59 06:59
Intake Total 240 / 240
Balance 240 / 240
Review of Systems
-
History Source: Patient
All other systems: Reviewed and negative
[2025-05-19 13:29] LABS: CA 125 33.3 U/mL (0-35)
[2025-05-19] MEDS: DILAUDID 0.25 MG IV ×2 (15:53→16:03)
--- NOTE | 2025-05-19 16:07 | W.PN.GYNONC ---
Today's Communication
-
This patient may be discharged following the procedure, I will make arrangements for her to return back to the office in 1 week for follow-up
Impression / Plan
-
79 yo presenting with abnormal weight loss, vaginal bleeding, arrythmia
1. Endometrial mass
I will proceed with a D&C and exam under anesthesia today to evaluate the abnormality involving the uterus but I do suspect malignancy.
Additional workup including chest CT does not reveal any evidence of metastatic disease and there is no pulmonary embolism
Etiology of the left adnexal mass is unclear, it may be a metastatic lesion from the uterine cancer, CA125 is within the normal range although slightly elevated at 33.
2. Presentation with significant weight loss, generalized weakness, anorexia,
I have discussed her CT scan findings including suggestion of diverticulitis with Dr. Rhina Vargas, she does not feel any urgent intervention while at the hospital is necessary however she will make arrangement for her to be seen in the office in 48
hours and hopefully a GI workup including EGD colonoscopy can be scheduled in an urgent manner to further assess the CT scan findings
3. SVT -noted on recent evaluation in the emergency room. No recurrence.
Formal evaluation including echocardiogram and note from Dr. Alonso was seen and reviewed
She appears to be stable for planned procedures, no significant abnormality was commented upon
4. Full code
Subjective / Interval History
-
Hospital day #2, she did not sleep well last night because of her roommate being uncomfortable and loud. She has had continued vaginal bleeding overnight. She was able to tolerate some dinner and has been n.p.o. most day
Objective Data
-
Lab Results:
05/18/25 10:32
05/18/25 10:32
MRI Pelvis:
UTERUS: The uterus measures 9.3 x 5.1 x 6.7 cm. There is a 3.3 x 1.7 x 2.7 cm T2 hypointense, hypoenhancing lesion within the posterior aspect of the uterine fundus which likely represents an intramural fibroid. There is a T1 and T2 heterogeneous
enhancing mass which measures approximately 4.7 x 4.3 x 5.9 cm within the endometrium which appears to extend towards the left adnexa.
RIGHT OVARY: No definite lesions.
LEFT OVARY: There is a 5.1 x 4.7 x 5.1 cm mixed cystic and solid mass of the left adnexa with an enhancing mural component. This lesion abuts the urinary bladder without definite invasion. Mildly prominent left pelvic/iliac lymph nodes measuring 7
mm in short axis (series 801 image 75) and 6 mm in short axis (series 801 image 65).

Diagnostic Imaging Report
SignedOrder #:[id number]
Exams: CT Chest PE Study
Contrast-enhanced CTA of the chest 05/18/2025 8:35 PM
History: Weight loss; ovarian/endometrial masses
Comparison: None
Technique: Contrast-enhanced CT of the chest with thin section, early arterial phase images according to the pulmonary embolism protocol. Patient received nonionic contrast. Sagittal and coronal reconstructed images are obtained. 3-D reconstruction
was performed with an independent workstation to better delineate the clinically suspected abnormality on CT of the pulmonary arteries. Automatic exposure control radiation dose reduction technology was utilized.
Findings:
No filling defects in the pulmonary arteries to suggest pulmonary embolism.
Branching Order Level of the Most Proximal Level of Pulmonary Embolus: None.
No thoracic aortic aneurysm. No pulmonary nodules, areas of airspace disease, pleural or pericardial effusions, or enlarged lymph nodes in the thorax. Heart is not enlarged.
Chronic proximal right humerus deformity.
Visualized portion of the upper abdomen is unremarkable.
IMPRESSION:
1. No evidence of pulmonary embolism.
2. No significant abnormality identified in the chest, as described above.
Physical Exam
Vital Signs / I&O
Vitals
Temp Pulse Resp BP Pulse Ox
98.1 F 71 13 109/63 100
05/19/25 15:40 05/19/25 16:00 06/24/25 16:00 05/19/25 16:00 05/19/25 16:00
I&O
05/17/25 05/18/25 05/19/25 05/20/25
06:59 06:59 06:59 06:59
Intake Total 240 / 240
Balance 240 / 240
Physical Exam
General: Well Developed and No Apparent Distress
Respiratory: Clear and Non Labored Respirations
Cardiac: S1/S2 and Regular Rhythm
GI: Soft, Non Tender and Non Distended
--- NOTE | 2025-05-19 16:12 | OR.RPT ---
Operative Report
Operative Report
Date of procedure: May 19, 2025
Primary Surgeon: Aleksandr Cárdenas
Assisting Surgeon: Tabatha Herr PA-C
Pre-op Diagnosis: Endometrial mass on CT imaging concerning for malignancy, postmenopausal vaginal bleeding
Post-op Diagnosis: Endometrial malignancy pending final pathology
Procedure Performed: Exam under anesthesia, LEEP biopsy of the cervix, fractional dilation and curettage, Pap smear
Anesthesia Type: General , LMA intubation
Specimen / Cultures: Tissue coming from cervical canal, Pap smear, endocervical curettage, endometrial curettage #1 and #2, LEEP biopsy of cervix at transformation zone
Estimated Blood Loss: 50 cc
Complications: None
Operative Findings: Exam under anesthesia reveals external genitalia including anus urethra and vulvar tissues within normal limits. Bimanual exam reveals the cervical tissue to be grossly normal with the cervical canal dilated, the cervix tissue
is very firm to palpation suggestive of tumor infiltration, parametria is without any evidence of disease and the uterus is otherwise mobile at 10 weeks size. There is prominence of left adnexa 5 to 6 cm in size, rectal canal is without any
evidence of mucosal abnormality and large amount of solid stool present in the vault. Urethral meatus has small caruncle, otherwise normal.
Procedure in detail. This patient was taken to the operating room and placed in supine position, general anesthesia was administered and LMA intubation was performed she was placed in lithotomy position using yellowfin stirrups I cleansed and scrub
the external genitalia and then performed an exam under anesthesia and Pap smear. I went ahead and prepped the vagina perineum and lower abdomen and upper thighs with Betadine solution and she was draped. Timeout procedure was carried out she
received 2 g of Ancef for prophylaxis. The findings are noted above. During the examination a large tubular tissue which might have been old clot was extracted from the endocervical canal as was submitted as tissue emanating from cervical canal.
Anterior lip of the cervix was grasped with single-tooth tenaculum. The cervical canal was gradually dilated up to 27 Hegar dilator easily there appears to be a masslike structure in the lower uterine segment on the right side deviating the canal
slightly to the left. Endocervical curetting was obtained and submitted separately to pathology. Sharp curettage of the endometrial canal was performed and tissue submitted in 2 separate specimens first 1 for frozen section which reveals a mixture
of solid and glandular area consistent with likely endometrial cancer, further histology to be determined on final pathology. Once the curettage was completed, we used a 10 mm loop and performed a biopsy of cervix at the level of transformation
zone and submitted that separately to pathology. I used a rollerball cautery to cauterize the bed of the LEEP biopsy procedure. Monsel solution was applied to the cervix. The cervix was visualized and observed and there was minimal to no
bleeding. All instruments were removed patient was awakened and returned back to recovery room stable awake and extubated condition. Counts of laps instruments and needle was correct x 2. I was present and scrubbed for entire procedure as
dictated.
Disposition: To PACU stable awake extubated
--- NOTE | 2025-05-19 16:44 | W.DS.TRANS ---
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
-
Discharge Instructions:
Discharge Diagnosis/Procedures Postmenopausal vaginal bleeding, endometrial
mass, supraventricular tachycardia
Diet Regular
Activity As tolerated
Driving Restrictions No driving for 24 hours
Bathing Restrictions None
Instructions:
Stand-Alone Forms:
Changes to Home Medications: No
Discharge Medications:
DC Medications w/original date entered in [facility]
tramadol 50 mg tablet 50 mg PO BIDPRN PRN lower abdominal pain 05/18/25
metoprolol succinate 25 mg tablet,extended release 24 hr 25 mg PO DAILY #30 tabs 05/19/25
Home Medication Changes
Pending Results: No
--- NOTE | 2025-05-19 16:45 | PTCARENOTE ---
Pt ordered d/c. Per doctor, pt cannot leave tonight unless picked up, due to getting anesthesia. Pt unable to get a ride from someone. Hospitalist notified that pt cannot get a ride and will have to stay the night.
[2025-05-20 03:00] VITALS: BP 134/78
[2025-05-20 07:00] VITALS: BP 116/73
[2025-05-20] MEDS: TOPROL XL 25 MG PO (09:15)
--- NOTE | 2025-05-20 09:25 | CM ---
MD entered order for discharge.
Spoke with pt she said she was ready
She said she will drive herself.
Offered VN she declined.
PLAN Home no needs
[2025-05-22 21:15] LABS: HPV, High Risk Not Detected; HPV, High Risk Source Cervical
--- NOTE | 2025-05-26 04:54 | W.CON.GYNONC ---
Consultation
-
Date/Time Consultation Performed: 05/26/2025 5 AM
Performing Provider: Aleksandr Cárdenas
Chief Complaint
-
endometrial ca
History of Present Illness
79�year�old�G0�white�female�who�was�initially�seen�in�the�hospital�Julianna�23,�2024,�admitted�through�the�emergency�room�with weakness�as�well�as�symptoms�of�vaginal�bleeding.�Of�note�the�patient�had�been�seen�in�the�emergency�room�2�days�prior�to�that
for�an�episode�of�SVT�which�was�treated�with�adenosine.�She�has�had�8�months�of�progressive�weakness�weight�loss�associated with�vaginal�bleeding�and�does�report�about�40�pound�weight�loss.�She�attributes�that�to�loss�of�taste�and�smell�from�COVID
infection�several�years�ago�that�has�not�resolved.�It�has�been�well�over�8�to�10�years�since�she�saw�her�law librarian�prior�to�moving to�this�area. Patient�had�a�CT�chest�abdomen�and�pelvis
MRI�of�the�pelvis�was�performed�revealing�uterus�to�be�9.3�x�5.1�x�6.7�cm,�there�is�a�3.3�cm�hypointense�lesion�posterior�aspect�of
the�uterus�likely�representing�a�fibroid.�There�is�an�enhancing�mass�measuring�4.7�x�5.9�cm�within�the�endometrium�toward�the�left
adnexa.�Left�ovary�is�5.1�cm�with�mixed�cystic�and�solid�region�and�enhancing�mural�nodules.�There�is�prominent�left�pelvic�and�iliac
lymph�nodes�measuring�7�mm�in�short�axis�and�6�mm�in�short�axis�bladder�is�without�any�distinct�lesions.�Overall�impression�is
that�there�is�a�heterogeneously�enhancing�mass�through�the�endometrium�extending�toward�left�adnexa�suggestive�of�malignancy.
Patient�was�taken�to�the�operating�room�for�D&C�on�Julianna�24,�findings�were�significant�for�normal�anus�urethra�and�vulva,�cervical
tissues�grossly�normal�but�the�cervix�is�very�firm�to�palpation�suggestive�of�tumor�infiltration,�uterus�is�about�10�weeks�in�size,�the
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
A. Endometrium, curettage (#1):
? Favor carcinosarcoma. See comment.
Comment: The curettage specimen shows a malignant biphasic cell proliferation composed of
carcinomatous elements (high-grade endometrioid endometrial carcinoma) admixed with more
solid necrotic sarcomatous-like elements. A panel of immunohistochemical stains is performed
on sections from block A2. Aleman-keratin is positive in the carcinomatous component and is
negative in the sarcomatous-like component. p16 is positive in the sarcomatous-like component
and is negative in the carcinomatous component. p53 shows wild-type (non-mutated) staining in
the endometrioid component and strong, diffuse positivity (mutated) in the sarcomatous
component. Vimentin is positive in both components and a desmin is negative in both
components. MSI testing by immunohistochemistry is interpreted as no loss of nuclear
expression of MMR
proteins (MLH1, MSH2, MSH6, and PMS2). These results show low probability of
microsatellite instability-high (MSI-H). Background nonneoplastic tissue/internal control with
intact nuclear expression are present.
Estrogen receptor (ER) status: POSITIVE (approximately 30% of cells with strong to moderate
nuclear positivity in endometrioid component, negative in sarcomatous component).
Progesterone receptor (UT) status: POSITIVE (approximately 30% of cells with strong to
moderate nuclear positivity in endometrioid component, negative in sarcomatous component).
B. Cervix, biopsy:
? Predominantly blood, fibrin, necrosis and scant tumor morphologically similar to part A
(both components).
C. Cervix, biopsy:
Patient: ROVERTO STARKEY Specimen #: [id number]
Medical Record #[id number]
2 of 3
? Tumor morphologically similar to the carcinomatous (endometrioid) component in part
A. See comment.
Comment: p16 is negative and vimentin shows areas of positivity.
D. Endocervix, curettage:
? Tumor morphologically similar to part A (carcinomatous endometrioid component).
E. Endometrium, curettage (#2):
? Tumor morphologically similar to part A (both components)
During�the�course�of�hospitalization�she�was�seen�by�cardiology�and�Dr.�Patient�commented�about�echocardiogram�which�was normal�indicating�EF�55%�mild�AR�and�normal�sinus�rhythm.�She�was�placed�on�Toprol�XL�during�the�course�of�hospital�stay.
Past�medical�history�weight�loss,�SVT,�hypertension�was�on�lisinopril,�prediabetes�previously�was�on�metformin
past�surgical�history�D&C�Julianna�23
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
family�history�negative
Medical History
Allergies
Allergies reflect when allergies were last updated in [facility].
Sulfa (Sulfonamide Antibiotics) Allergy (Verified 05/22/25 13:03)
RASH/HIGH TEMP
Physical Exam
Vital Signs / I&O
Vitals
Temp Pulse Resp BP Pulse Ox
97.4 F 68 17 116/73 98
05/20/25 07:00 05/20/25 09:15 05/20/25 07:00 05/20/25 09:15 05/20/25 07:00
Physical Exam
General:�Well�developed,�well�nourished�patient.�In�no�acute�distress. Head:�Atraumatic�and�normocephalic. Neck:�No�thyromegaly.�No�cervical�lymphadenopathy. Lungs:�Clear�to�auscultation.�Good�air�movement�bilaterally.
Cardiac:�Regular�rate.�Regular�rhythm.�No�murmurs�appreciated. Right�Breast:�No�masses�or�dimpling.�No�nipple�discharge. Left�Breast:�No�masses�or�dimpling.�No�nipple�discharge. Abdomen:�Abdomen�is�soft.�Non�tender�to�palpation.�Non�distended.
Extremities:�No�edema. Hematologic/Lymphatic:�No�palpable�lymphadenopathy. Roverto Martinez, 1945 Page 2 of 4 Musculoskeletal:�Normal�range�of�motion.�Strength�and�Tone�are�normal. Skin:Non�jaundiced.�No�petechia.�No�purpura.
Neurologic:�Speech�is�fluent.�Normal�gait�and�station.�Cranial�nerves�intact.
Results
-
05/18/25 10:32
05/18/25 10:32
Impression / Plan
-
This�patient�has�a�confirmed�diagnosis�of�carcinosarcoma�of�endometrium,�there�may�be�evidence�of�left�sided�ovarian�metastasis.
There�is�no�obvious�evidence�of�other�metastasis�as�per�CT�chest�abdomen�and�pelvis.�We�have�agreed�to�proceed�with�definitive
treatment�with�surgery�which�would�include�robotic�assisted�total�laparoscopic�hysterectomy�bilateral�salpingo�oophorectomy�pelvic washings,�excision�of�sentinel�lymph�nodes�omental�biopsy.
Risk�of�surgery�including�infection�bleeding�injury�to�adjacent�organs�DVT�pulmonary�embolism�and�cardiovascular�complications were�discussed�and�reviewed Surgery�is�tentatively�scheduled�for�Alison�
Instructions�related�to�the�surgery�was�provided�to�the�patient�in�written�format�and�the�patient�has�already�been�contacted�for�PAT
We�discussed�that�most�patients�with�a�diagnosis�of�uterine�carcinosarcoma�will�require�postoperative�adjuvant�treatment.�She�is aware�that�combination�of�chemotherapy�as�well�as�postoperative�adjuvant�treatment�may�be�necessary
--- NOTE | 2025-05-26 15:51 | W.SUR.PREOP ---
Pre-Operative Surgical Note
-
I have examined this patient prior to the performance of the scheduled procedure.
The patient's condition is unchanged from the time of the current History and
Physical and the patient is able to undergo the scheduled procedure.
--- NOTE | 2025-05-26 15:51 | OR.RPT ---
Operative Report
Operative Report
Date of procedure: May 26, 2025
Primary Surgeon: Aleksandr Cárdenas
Assisting Surgeon: Tabatha Herr PA-C
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
Procedure Performed:
Robotic assisted tumor cytoreduction including total laparoscopic hysterectomy, bilateral salpingo-oophorectomy, partial omentectomy, excision of multiple peritoneal surfaces pelvic washings [id number]
Injection of cervix with ICG dye, bilateral, for mapping and identification of sentinel lymph [id number]
Robotic assisted laparoscopic bilateral pelvic lymphadenectomy
Robotic assisted laparoscopic appendectomy
Mini laparotomy for extraction of specimens
Anesthesia Type: General Endotracheal intubation, TAP block
Specimen / Cultures: Pelvic washings, left and right gutter, anterior cul-de-sac, posterior cul-de-sac, right pelvic peritoneum, sacral promontory peritoneum, right and left pelvic lymph nodes, omentum, left tube and ovary, appendix, uterus with
cervix and right tube and ovary
Estimated Blood Loss: 150 cc
Complications: None
Operative Findings: Upper abdomen including liver stomach right and left diaphragms omentum right and left paracolic gutters are unremarkable. There is no evidence of ascites however there is evidence of peritoneal white nodularity involving right
and left paracolic gutter just at the level of pelvic brim, there is extension of disease in the anterior and posterior cul-de-sac as well as right pelvic peritoneum, retroperitoneal lymph nodes appear to be within normal limits. Appendix has a
curled appearance at its tip with evidence of tumor. There was evidence of tumor implant on the sacral promontory. I did not see any obvious omental involvement. Multiple loops of bowel were examined and there is some evidence of implants on loop
of ileum versus inflammation. At the completion of surgery all visible disease has been removed but given the extent of disease that was encountered I would not be surprised if there is additional peritoneal implants present.
Operative procedure in detail: This patient was taken to the operating room and placed in supine position. General anesthesia was administered and she was intubated without any difficulty, her arms were wrapped after appropriate IV placements with
foam and placed along the patient's side, her neck and head and shoulders were properly supported. She was placed in lithotomy position using yellowfin stirrups and prepped in the abdomen perineum and vagina. Patient was draped. Timeout procedure
was carried out, she received Ancef and Flagyl for prophylaxis. Brady catheter was inserted under sterile condition for drainage of the bladder. Following this uterine manipulator boiler operator helper type with 3.0 centimeter SHIRA ring was placed in the
uterine cavity wich sounded to 12 cm, and around the cervix, vaginal cuff occluder was insufflated. Prior to placement of uterine manipulator the cervix was injected with ICG dye on the right and left side, total of 4 cc at 3 and 9:00 stations and
will 5 and 10 mm deep locations.
Attention was turned abdominally. Veress needle was inserted in the left upper quadrant in the abdomen and insufflation with CO2 gas was performed. 8 mm Xi robotic port was inserted 25 mm cephalad to symphysis pubis and survey of the abdomen was
performed with the findings noted above. Under direct visualization 8 mm XI robotic ports were placed in the right and left upper abdomen as well as right and left lateral abdomen.
We then performed injection of the transverse abdominal plane block under direct visualization with ropivacaine and Decadron mixture 2 fingerbreadths below the right and left lateral subcostal margin as well as mid abdomen. Once this was completed
the patient was placed in Trendelenburg 28 degrees and robotic system was docked. First I excised portions of the peritoneum involving right and left paracolic gutter where there were visible areas of abnormality. I released the adhesions of the
sigmoid colon to the left pelvis and cecum to the right pelvis. Right and left round ligaments were sealed and divided anterior and posterior leaves of the broad ligament were dissected open the course of the ureter was identified bilaterally in
the retroperitoneum. Avascular window was created between ovary and ureter. There was evidence of tumor on the peritoneum covering both infundibulopelvic ligaments and this was resected as part of the bilateral salpingo-oophorectomy.On both sides
IP ligament was sealed and divided 3 times. The left ovary was enlarged at about 6 cm and the left tube and ovary was detached from the uterus and it was placed in an endoscopic bag and kept in the abdomen for future retrieval. This was eventually
removed through the vaginal cuff once the uterine specimen had been detached from the vagina. The right tube and ovary was somewhat stuck with tumor involvement grossly to the lateral aspect of the uterus and it was left attached to the uterus. I
was able to remove the entire peritoneum along the right pelvic sidewall opened the peritoneum in the posterior cul-de-sac and after development of bladder flap on the right side the ovary was able to be moved. I visualized the course of the ureter
on both sides while doing this and the ureter.
I attempted mapping the sentinel lymph node and I was unsuccessful in mapping the sentinel lymph node. I removed the entire lymphatic tissue between bifurcation of common iliac vessels down to the level of deep circumflex iliac artery and vein and
then removed lymph nodes in the obturator fossa bilaterally anterior to the obturator nerve and also along the hypogastric vessel and along the external iliac vein these lymph nodes were labeled as right and left pelvic lymph nodes none of the lymph
nodes were suspicious for malignancy. Good hemostasis was present. There was no injury to blood vessels nerves or ureter.
Bladder flap was sharply developed and advanced below the cervicovaginal junction. Portion of the anterior cul-de-sac was submitted to pathology because of involvement with tumor. I also explored the posterior cul-de-sac and was able to remove
substantial amount of tumor here without needing to actually perform a sigmoid resection I was able to remove some of the posterior cul-de-sac fat anterior to the rectosigmoid and submitted that together to pathology. Uterine vessels followed by
cardinal ligaments followed by uterosacral ligaments were serially sealed and divided circumferential incision was made over the SHIRA ring and the cervix was detached from the vagina. Uterus and cervix with bilateral tubes and ovaries were placed in
a specimen bag which was kept in the abdomen we could not remove the uterus because of size of it.
I performed an omentectomy for the infracolic portion of the omentum, I went ahead and removed the omentum through the vagina. Portions of the omentum was also attached to the cecum and this left in situ. I examined the appendix and noted presence
of tumor at the appendiceal tip. Mesoappendix was sealed and divided with vessel sealer. Stapler was introduced through the vagina and we stapled across the cecum using a vascular stapler and the appendix was removed and submitted to pathology.
Following this we turned our attention to the the vaginal cuff which was was repaired with 0 Vicryl suture ligature at the right and left apices using [id number] technique. I did use V-Loc suture to close the vagina from right to left and back
to left to right. Excellent hemostasis was present across all pedicles. good hemostasis was present throughout. The pelvis was irrigated copiously and all instruments were removed. Pneumoperitoneum was released. All instruments were removed
the port sites at the skin level were closed with 4-0 Monocryl in a subcuticular fashion. Vagina was inspected and there was no evidence of other lacerations. We went ahead and made an 8 cm low transverse incision 2 fingerbreadths above the
symphysis pubis on the abdomen and opened subcutaneous fat fascia and the rectus muscle and opened the peritoneum. We removed the specimen bag containing uterus cervix right tubes and ovaries and then repaired the fascia primarily with a
STRATAFIX symmetric suture in 2 layers. Subcutaneous tissue was closed with a 3-0 Monocryl in a subcutaneous fashion. Skin closure here was completed with 4-0 Monocryl in a subcuticular fashion. Brady catheter was removed. Patient was awakened
extubated and returned back to recovery room stable awake and extubated condition counts of laps instruments and needle was correct x 2. I was present and scrubbed for entire procedure as dictated above.
Disposition: To PACU stable awake and extubated
== END 2025-05-20 09:48 | disposition home or self-care (01) | DRG 744 ==
LOC: 3 WEST ACU 13:26
PROVIDERS: ADMITTING PHYSICIAN Hospitalist; CONSULT PHYSICIAN Hospitalist; CONSULT PHYSICIAN Internal Medicine; CONSULT PHYSICIAN Internal Medicine Cardiovascular Disease; CONSULT PHYSICIAN Obstetrics & Gynecology Gynecologic Oncology; EMERGENCY PHYSICIAN Student in an Organized Health Care Education/Training Program; FAMILY PHYSICIAN Physician Assistant Medical
PROC: 0UDB7ZX Extraction of Endometrium, Via Natural or Artificial Opening, Diagnostic (ICD-10-PCS; 2025-05-19)
PROC: 0UBC7ZX Excision of Cervix, Via Natural or Artificial Opening, Diagnostic (ICD-10-PCS; 2025-05-19)
DX: C54.1 Malignant neoplasm of endometrium (principal); I47.10 Supraventricular tachycardia, unspecified; D25.9 Leiomyoma of uterus, unspecified; I10 Essential (primary) hypertension; N95.0 Postmenopausal bleeding
CPT/HCPCS: 88305; 88332; 71275; 72197; 80053; 82378; 83036; 84443; 84484; 85025; 85379; 86304; 87624; 88331; 88341; 88342; 88360; 93005; 93306; 96361; 96374; 97161; 99284; A9575; G0123; Q9967

== ENCOUNTER 2025-05-26 06:43 | Day surgery (SDC) | payer MEDICARE, SELFPAY ==
--- NOTE | 2025-05-25 11:54 | PTCARENOTE ---
Abnormal ECG done 05/23/[address] Spencer, no futher interventions required.
[2025-05-26] VITALS (12 sets, daily range): BP systolic 104–147; BP diastolic 60–91; BMI 21.0
[2025-05-26] MEDS: NORMOSOL-R/PLASMALYTE-A 1000 IV (10:45)
[2025-05-26] MEDS: NEURONTIN 300 MG PO (10:53)
[2025-05-26] MEDS: TYLENOL 1000 MG PO (10:53)
[2025-05-26] MEDS: HEPARIN 5000 UNITS SC (12:20)
[2025-05-26 16:05] LABS: Glucose - Point of Care 121 mg/dl (70-99)
--- NOTE | 2025-05-26 16:34 | CON.CAR ---
Addendum entered and electronically signed by Bry Escoto MD 05/26/25 17:15:
I saw and examined the patient.
The [employer] 1 [employer]RU 6 VISITING TEACHER's note was reviewed and I agree with the note.
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 Surgery has been
completed. At the time of emergence from anesthesia, she had SVT, received adenosine, and converted.
She has no new symptoms.
- increase metop to bid
- being monitored over night
Original Note:
Consultation
Consultation Request
Date/Time Consultation Requested: 05/26/2025 16:00
Date/Time Consultation Performed: 05/26/2025 16:30
Requesting Provider: Dr. Cárdenas
Performing Provider: CRAIG Washington for Dr. Escoto
Reason for Consultation: PSVT
Medical History
-
Chief Complaint: SDS
History of Present Illness:
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
Surgery has been completed. At the time of emergence from anesthesia, she had SVT. She was given intravenous adenosine. Cardiology was asked to consult regarding her arrhythmia. She has no symptoms when she has SVT.
Past Medical History
Past Medical History: Arrhythmias (PSVT), HTN, Hypercholesterolemia and Other (Prediabetes)
Past Surgical History: Gynecological
Social History
Tobacco: Non-Smoker
Alcohol: Occasional
Personal:
Employment: Retired
Family History
Family History: Reviewed & Not Pertinent
Allergies / Home Medications
Allergy/AdvReac Type Severity Reaction Status Date / Time
Sulfa (Sulfonamide Allergy RASH/HIGH Verified 05/26/25 10:41
Antibiotics) TEMP
�Medication �Instructions �Recorded �Confirmed �Type
tramadol 50 mg tablet 50 mg PO BIDPRN PRN lower 05/18/25 05/26/25 History
abdominal pain
metoprolol succinate 25 mg 25 mg PO DAILY #30 tabs 05/19/25 05/26/25 Rx
tablet,extended release 24 hr
polyethylene glycol 3350 17 gram 17 g PO DAILY 05/26/25 05/26/25 History
oral powder packet (Miralax)
Physical Exam
Vital Signs
Temp Pulse Resp BP Pulse Ox
97.1 F 71 13 132/60 100
05/26/25 16:03 05/26/25 16:15 05/26/25 16:15 05/26/25 16:15 05/26/25 16:05
Physical Exam
General: Well Developed, Well Nourished, No Apparent Distress and Comfortable
HEENT: Normocephalic, Anicteric and Moist Mucous Membranes
Respiratory: Clear and Non Labored Respirations
Cardiac: S1/S2 and Regular Rhythm
Breast: Deferred by me
GI: Soft, Non Tender, Non Distended and Normal Bowel Sounds
Rectal: Deferred by Provider
Genito-urinary: No Costovertebral Tender
Musculoskeletal: No Clubbing, No Cyanosis and No Edema
Skin: Warm and Dry
Neuro: AO x 3
Hematologic/Lymphatic: No Lymphadenopathy
Psych: Calm
Impression / Plan
-
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
Outpatient chef de partie: Dr. Alonso
PSVT
- Given adenosine, now in sinus rhythm
- Increase metoprolol succinate from 25 mg daily to twice daily
- Consider ablation as an outpatient after she recovers from surgery
Uterine carcinosarcoma with metastasis to left ovary, peritoneum and appendix - OR 05/26/[address] Cárdenas
- Robotic assisted tumor cytoreduction including total laparoscopic hysterectomy, bilateral salpingo-oophorectomy, partial omentectomy, excision of multiple peritoneal surfaces pelvic washings
- Robotic assisted laparoscopic bilateral pelvic lymphadenectomy
- Robotic assisted laparoscopic appendectomy
- Mini laparotomy for extraction of specimens
Hypertension, BP stable current medical therapy, increase metoprolol as above
Prediabetes mellitus, per primary
SUBJECTIVE:
As above.
DATA:
Transthoracic echocardiogram, 04/2025:
Normal LV size and function with no regional wall motion abnormalities.
LVEF is 55% by visual estimation.
Normal right ventricular size and function.
Mild aortic regurgitation.
Estimated pulmonary artery pressure of 15-20 mmHg assuming a right atrial
pressure of 3 mmHg.
No prior study available for comparison.
Data Reviewed
-
EKG: Other (Ordered by me)
Medical Tests (Nuc Med, Echo etc): Report Reviewed by me
Labs: Labs Reviewed by me
Old Records: Reviewed
[2025-05-26 16:50] LABS: Hematocrit 43.0 % (37.0-47.0); Hemoglobin 14.3 g/dL (12.0-16.0); Mean Corp Hgb Conc. 33.3 g/dL (33.0-37.0); Mean Corpuscular Volume 87.8 fL (81.0-99.0); Nucleated Red Blood Cells % 0 %; Platelet Count 384 10^3/uL (130-400); Red Cell Dist. Width 12.4 % (11.5-14.5)
[2025-05-26] MEDS: DILAUDID 0.5 MG IV (17:00)
[2025-05-26 17:08] LABS: Blood Urea Nitrogen 13 mg/dl (7-17); Calcium 8.2 mg/dl (8.4-10.2); Carbon Dioxide 24 mmol/L (22-30); Chloride 102 mmol/L (98-107); Estimated Creatinine Clearance 63 ml/min; Glucose 134 mg/dl (70-99); Magnesium 2.0 mg/dl (1.6-2.3); Potassium 4.3 mmol/L (3.5-5.1); Sodium 135 mmol/L (135-145); eGFR > 60.00
--- NOTE | 2025-05-26 17:31 | CON.HOSP ---
Addendum entered and electronically signed by Dayne Baldwin MD 05/26/25 18:10:
Calcium minimally decreased but we do not have an albumin level to know corrected levels-as abundant of caution we will give 1 g of IV calcium gluconate.
Original Note:
Consultation
-
Date/Time Consultation Requested: 05/26/2025
Date/Time Consultation Performed: 05/26/2025
Requesting Provider: Aleksandr Meraz
Performing Provider: Dr. Baldwin
Reason for Consultation: SVT
Family Physician
-
Family Physician: Justine Kirby
Chief Complaint
-
SVT
History of Present Illness
Patient 79 years old female with history of SVT, hypertension, prediabetes mellitus, uterine carcinosarcoma with metastasis to the left ovary peritoneum and appendix, presented to the hospital for robotic assisted total assisted tumor cytoreduction
with total laparoscopic hysterectomy, bilateral salpingo-oophorectomy, partial omentectomy, extraction of multiple peritoneal surfaces pelvic washings, injection of cervix with ICG dye, bilateral, for mapping and identification of sentinel lymph
nodes, bilateral pelvic lymphadenectomy, appendectomy, mini laparotomy for extraction specimens. She presented back in April this year with postmenopausal vaginal bleed and underwent workup that led to this elective surgery. She underwent surgery
by ELECTRIC METER TESTER HELPER oncology today and after anesthesia patient had episode of SVT and she was giving adenosine and broke into normal sinus rhythm. She denies chest pain shortness of breath palpitations diaphoresis syncope or near syncope. Cardiology consulted
and hospitalist consulted as well for further evaluation.
Medical History
Past Medical History
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
Past Surgical History: Reports Other (Robotic assisted total laparoscopic hysterectomy.)
Social History
Tobacco: Non-smoker
Alcohol: Occasional
Drug: None
Family History
Family History: Reviewed & Not Pertinent
Allergies / Home Medications
Allergies reflects when Allergies were last updated in [facility].
Home Medications with original date entered in [facility]
Allergy/Medication List:
Allergies
Allergy/AdvReac Type Severity Reaction Status Date / Time
Sulfa (Sulfonamide Allergy RASH/HIGH Verified 05/26/25 10:41
Antibiotics) TEMP
Home Medications
tramadol 50 mg tablet 50 mg PO BIDPRN PRN lower abdominal pain 05/18/25
metoprolol succinate 25 mg tablet,extended release 24 hr 25 mg PO DAILY #30 tabs 05/19/25
polyethylene glycol 3350 17 gram oral powder packet (Miralax) 17 g PO DAILY 05/26/25
Review of Systems
-
A 12 point Review of Systems was completed except as noted: Yes
Physical Exam
Vital Signs
Vital Signs
Temp Pulse Resp BP Pulse Ox
97.1 F 80 9 137/85 100
05/26/25 16:03 05/26/25 17:15 05/26/25 17:15 05/26/25 17:15 05/26/25 17:15
Physical exam:
General: Acutely ill
HEENT: Normocephalic, Atraumatic and Moist Mucous Membranes
Respiratory: Clear to Auscultation; Negative Wheezes, Rales or Rhonchi
Cardiac: Regular Rhythm and S1/S2
GI: Soft, Nontender and Nondistended
Musculoskeletal: No Clubbing, No Cyanosis and No Edema
Neuro: Awake, Alert and Oriented, no gross neurological deficits
Psych: Calm
Physical Exam
General: Other
Laboratory Results
-
Laboratory Results
05/26/25 16:42
05/26/25 16:36
Data Reviewed
-
Lab Data: Labs Reviewed
Impression / Plan
-
IMPRESSION:
Patient 79 years old female history of multiple comorbidities came to the for elective surgery and complicated by SVT.
PLAN:
Perioperative supraventricular tachycardia:
Giving adenosine and back to NSR
Given high risk of recurrence increase beta-hernan, metoprolol succinate to 25 mg twice a day
Cardiac monitoring
Keep potassium above 4 and magnesium above 2
Reviewed latest echocardiogram last month with normal EF, mild aortic regurgitation.
Cardiology consulted
Discussed with oncology ELECTRIC METER TESTER HELPER today
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
Status post robotic assisted tumor cytoreduction with total laparoscopic hysterectomy, bilateral salpingo-oophorectomy, partial omentectomy, extraction of multiple peritoneal surfaces pelvic washings, bilateral pelvic lymphadenectomy, appendectomy,
mini laparotomy for extraction specimens.
Postop care
Oncology ELECTRIC METER TESTER HELPER on board
DVT prophylaxis:
Lovenox SQ
CODE STATUS:
Full code
Time spent 55 minutes
[2025-05-26] MEDS: CALCIUM GLUCONATE 100 IV (18:25)
[2025-05-26] MEDS: NSS 1000 IV (18:25)
--- NOTE | 2025-05-26 18:41 | PTCARENOTE ---
Patient admitted from PACu post total abdominal hysterectomy and BSO with appendectomy.She denies any pain. All laparoscopic sites are intact without drainage.Vital signs are stable.The patient is in her bed with the call bustillos in reach.
[2025-05-26] MEDS: TYLENOL 650 MG PO (19:29)
[2025-05-26] MEDS: MOTRIN 600 MG PO (19:29)
[2025-05-26] MEDS: TOPROL XL 25 MG PO (19:31)
[2025-05-26] MEDS: LOVENOX 40 MG SC (19:31)
[2025-05-26] MEDS: COLACE 100 MG PO (19:37)
[2025-05-26] MEDS: MOTRIN PO (21:44)
[2025-05-26] MEDS: TYLENOL PO (21:45)
[2025-05-27] MEDS: MOTRIN 600 MG PO ×3 (01:19→13:15)
[2025-05-27] MEDS: TYLENOL 650 MG PO ×3 (01:19→13:15)
[2025-05-27 03:25] VITALS: BP 96/58
--- NOTE | 2025-05-27 05:38 | W.PN.GYNONC ---
Today's Communication
-
check labs
awaiting input by cardiology and hospitalist teams
likely dc home
Impression / Plan
-
she is stable without further arrythmia overnight
check labs
will ask PT to evaluate
continue metoprolol,BID as per cardiology
dc home this afternoon
she has advanced uterine ca (endometrial ca, carcinosarcoma) and understands she will need systemic therapy (chemo and immune checkpoint inhibitor)
Subjective / Interval History
-
PODD1 s/p Robotic TLH BSO, Oment, Appy and tumor debulking, PLND
Operative findings and procedures discussed with patient
she was observed overnight due to SVT noted at emergence from anesthsia (also had an episode in ER on 05/16)
pain is under control, she is voiding ok
Objective Data
-
Lab Results:
labs drawn this am, pending
Physical Exam
Vital Signs / I&O
Vitals
Temp Pulse Resp BP Pulse Ox
98 F 67 16 96/58 99
05/27/25 03:25 05/27/25 03:25 05/27/25 03:25 05/27/25 03:25 05/27/25 03:25
I&O
05/24/25 05/25/25 05/26/25 05/27/25
06:59 06:59 06:59 06:59
Intake Total 400 / 400
Balance 400 / 400
Physical Exam
General: No Apparent Distress and Comfortable
Respiratory: Clear
Cardiac: S1/S2 and Regular Rhythm
GI: Soft, Non Tender and Other (port sites and minilap incision are intact)
Musculoskeletal: No Clubbing, No Cyanosis and No Edema
Skin: Warm
Neuro: AO x 3
[2025-05-27 06:06] LABS: Hematocrit 35.8 % (37.0-47.0); Hemoglobin 12.0 g/dL (12.0-16.0)
[2025-05-27 06:28] LABS: Blood Urea Nitrogen 20 mg/dl (7-17); Calcium 9.1 mg/dl (8.4-10.2); Carbon Dioxide 26 mmol/L (22-30); Chloride 106 mmol/L (98-107); Estimated Creatinine Clearance 55 ml/min; Glucose 146 mg/dl (70-99); Potassium 4.9 mmol/L (3.5-5.1); Sodium 135 mmol/L (135-145); eGFR > 60.00
[2025-05-27 07:05] VITALS: BP 105/73
[2025-05-27] MEDS: NSS IV (09:43)
[2025-05-27] MEDS: TOPROL XL 25 MG PO (09:44)
[2025-05-27] MEDS: COLACE 100 MG PO (09:44)
[2025-05-27] MEDS: PROTONIX 40 MG PO (09:44)
--- NOTE | 2025-05-27 10:06 | W.PN.CD ---
Today's Communication / Plan
-
stable from cardiac perspective on Torpol XL 25mg bid
we will arrange for follow up with us
please call us with additional questions
Impression / Plan
-
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
Outpatient sweet dough mixer: Dr. Alonso
Paroxysmal SVT
- Given adenosine post op, now in sinus rhythm
- Increased metoprolol succinate from 25 mg daily to twice daily
- Consider ablation as an outpatient after she recovers from surgery
Uterine carcinosarcoma with metastasis to left ovary, peritoneum and appendix - OR 05/26/[address] Cárdenas
- Robotic assisted tumor cytoreduction including total laparoscopic hysterectomy, bilateral salpingo-oophorectomy, partial omentectomy, excision of multiple peritoneal surfaces pelvic washings
- Robotic assisted laparoscopic bilateral pelvic lymphadenectomy
- Robotic assisted laparoscopic appendectomy
- Mini laparotomy for extraction of specimens
Hypertension, BP stable current medical therapy, increase metoprolol as above
Prediabetes mellitus, per primary
DATA:
Transthoracic echocardiogram, 04/2025:
Normal LV size and function with no regional wall motion abnormalities.
LVEF is 55% by visual estimation.
Normal right ventricular size and function.
Mild aortic regurgitation.
Estimated pulmonary artery pressure of 15-20 mmHg assuming a right atrial
pressure of 3 mmHg.
No prior study available for comparison.
Physical Exam
Vital Signs/Labs
Vital Signs
Temp Pulse Resp BP Pulse Ox
98.5 F 81 16 105/73 99
05/27/25 07:05 05/27/25 07:05 05/27/25 07:05 05/27/25 07:05 05/27/25 07:05
05/26/25 05/27/25 05/28/25
06:59 06:59 06:59
Actual Weight 59 kg
05/27/25 05:48
05/27/25 05:48
Magnesium 2.0 mg/dl (1.6-2.3) 05/26/25 16:36
Physical Exam
Constitutional: No acute distress and Comfortable
EENT: Moist mucous membranes
Cardiovascular: Rhythm & rate is regular, Pedal edema is absent, JVD pressure is normal and Systolic murmur absent
Respiratory: Respiratory effort normal and Lungs clear to auscul.
Neuro/Psych: AO x 3
Data Reviewed
-
Date of Service: May 27, 2025
EKG: Other (Tele: SR 80s)
Labs: Labs Reviewed by me
--- NOTE | 2025-05-27 10:21 | W.PN.HOSP.TC ---
Today's Communication/Plan
-
Discharge planning
Assessment / Plan
Assessment / Plan
Physical exam:
General: Well Developed, Well Nourished and No Apparent Distress
HEENT: Normocephalic, Atraumatic and Moist Mucous Membranes
Respiratory: Clear to Auscultation; Negative Wheezes, Rales or Rhonchi
Cardiac: Regular Rhythm and S1/S2
GI: Soft, Nontender and Nondistended
Musculoskeletal: No Clubbing, No Cyanosis and No Edema
Neuro: Awake, Alert and Oriented
Psych: Calm
A/P:
Perioperative supraventricular tachycardia:
Giving adenosine and back to NSR
Given high risk of recurrence increase beta-hernan, metoprolol succinate to 25 mg twice a day
Cardiac monitoring
Keep potassium above 4 and magnesium above 2
Reviewed latest echocardiogram last month with normal EF, mild aortic regurgitation.
Cardiology consulted
Discussed with oncology ENERGY EFFICIENCY SPECIALIST
Okay for discharge from our standpoint
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
Status post robotic assisted tumor cytoreduction with total laparoscopic hysterectomy, bilateral salpingo-oophorectomy, partial omentectomy, extraction of multiple peritoneal surfaces pelvic washings, bilateral pelvic lymphadenectomy, appendectomy,
mini laparotomy for extraction specimens.
Postop care
Oncology ENERGY EFFICIENCY SPECIALIST on board
DVT prophylaxis:
Lovenox SQ
CODE STATUS:
Full code
Anticipated Discharge: Today
Subjective/Interval History
-
Date of Service: May 27, 2025
No new complaints
Objective Data
-
Labs:
Laboratory Results
05/27/25
05:48
Hgb 12.0
Hct 35.8 L
Sodium 135
Potassium 4.9
Chloride 106
Carbon Dioxide 26
BUN 20 H
Creatinine 0.8
Glucose 146 H
Calcium 9.1
Vital Signs:
Vital Signs
Temp Pulse Resp BP Pulse Ox
98.5 F 81 16 105/73 99
05/27/25 07:05 05/27/25 07:05 05/27/25 07:05 05/27/25 07:05 05/27/25 07:05
I&O
05/26/25 05/27/25 05/28/25
06:59 06:59 06:59
Intake Total 400 / 400
Balance 400 / 400
--- NOTE | 2025-05-27 11:04 | PTCARENOTE ---
Patient ambulating in room with a steady gait. Patient tolerating regular diet. No c/o pain, just mild tenderness relieved with Tylenol & Motrin.
[2025-05-27 11:25] VITALS: BP 125/75; PULSE 70; O2SAT 100
--- NOTE | 2025-05-27 11:36 | PTOTSP ---
PATIENT INDEPENDENT WITH MOBILITY ON LEVEL SURFACES WELL ELEVATIONS. PATIENT WITHOUT COMPLAINTS OF PAIN ONLY 'PRESSURE' IN LOWER ABDOMEN. PATIENT DOES NOT APPEAR TO HAVE ANY CONCERNS REGARDING DISCHARGE TO HOME. WILL DISCHARGE FROM P.T.
SERVICES.
[2025-05-27 11:43] VITALS: BP 108/64
--- NOTE | 2025-05-27 15:56 | CM ---
Patient seen at bedside
IA completed
outpatient
discharged to home today
Lives alone in 2 story home, 1 step to enter, flight 12 steps to bed/bathroom
PLOF: Independent
Denies DME
Denies VN/Rehab
Denies insecurities
PCP: Justine Harding
Pharmacy: [facility]
PLAN: home, no needs
friend to transport
--- NOTE | 2025-06-01 22:22 | W.CON.GYNONC ---
Consultation
-
Date/Time Consultation Performed: 06/01/2025
Performing Provider: Lori Cárdenas
Reason for Consultation: epigastric pain
Chief Complaint
-
epigastric pain
History of Present Illness
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 She is presenting for evaluation of abdominal pain.
Patient states she has been doing well postoperatively. She has been taking Tylenol and ibuprofen which she has never taken in her life. She started to develop a 'discomfort' in her epigastric region yesterday. She denies any true pain in the
area. She is also experiencing some belching. Patient called me earlier and I told to go to the ED for evaluation.
Patient does not believe her pain is related to her surgery because she is not having any pain in the lower abdomen.
She denies any chest pain, shortness of breath, fevers, chills, vomiting, difficulty urinating, diarrhea.
She has been eating well until today and her Last bowel movement was yesterday.
Medical History
Past Medical History
Additional Past Medical History:
SVT, HTN
Past Surgical History: Reports Appendectomy and Gynocological
Social History
Tobacco: Non-smoker
Alcohol: Occasional
Drug: None
Personal:
Living: Alone
Employment: Retired
Allergies
Allergies reflect when allergies were last updated in [facility].
Sulfa (Sulfonamide Antibiotics) Allergy (Verified 05/26/25 10:41)
RASH/HIGH TEMP
Physical Exam
Vital Signs / I&O
Vitals
Temp Pulse Resp BP Pulse Ox
98.5 F 68 16 108/64 99
05/27/25 11:43 05/27/25 11:43 05/27/25 11:43 05/27/25 11:43 05/27/25 11:43
Physical Exam
General: Well Developed and No Apparent Distress
HEENT: Normocephalic
Respiratory: Clear and Non Labored Respirations
Cardiac: S1/S2 and Regular Rhythm
GI: Soft, Non Distended, Normal Bowel Sounds and Other (port incisions ok not draining, minilap incision is intact)
Neuro: Awake, Alert and Oriented
Results
-
05/27/25 05:48
05/27/25 05:48
[facility]
[address] [place] [address] ABHILASH Alvarez [address]
[phone]
Patient Name: ROVERTO STARKEY
: 1945
Unit Number: [id number]
Age/Sex: 79/F
Patient
Location: EMR
Order Provider: Chani Love PA-C
Exam Service Date: 06/01/25

Diagnostic Imaging Report
SignedOrder #:[id number]
Exams: CT Abd/pel W Iv And Oral Contr
CPT: 51581
PROCEDURES: CT Abd/pel W Iv And Oral Contr
CLINICAL INDICATION: Epigastric abdominal pain. Nausea. Weakness. Poor appetite. Recent hysterectomy, bilateral salpingo-oophorectomy, and appendectomy 05/25/2025.
TECHNIQUE: A CT examination of the abdomen and pelvis was performed following the administration of nonionic intravenous contrast. Oral contrast was administered. Coronal and sagittal reformatted images were obtained. Automatic exposure control
radiation dose reduction technology was utilized.
COMPARISON: Comparison is made with an MRI examination of the pelvis performed 05/18/[address] examination of the abdomen and pelvis performed 05/15/2025.
FINDINGS:
CHEST: The heart is normal in size. There is a small pericardial effusion. There is an 8 mm calcified pulmonary granuloma in the anteromedial basilar segment of the left lower lobe. There are no pleural effusions.
ABDOMEN: There is a small to moderate amount of pneumoperitoneum in the right upper quadrant of the abdomen anterior to the liver. The liver is top normal in size measuring 17.6 cm in length. There is mild diffusely decreased attenuation throughout
the liver suggesting mild diffuse hepatic steatosis. There is a 2.4 x 1.9 cm cyst in the medial segment of the left lobe of the liver and a small 5.5 mm low-attenuation lesion in the anterior segment of the right lobe of the liver.
The gallbladder, bile ducts, and pancreas appear normal. The spleen is normal in size. There is a small 4.2 mm splenule in the left upper quadrant of the abdomen. There is no mesenteric or retroperitoneal lymphadenopathy. There is mild calcific
atherosclerotic plaque in the abdominal aorta without evidence for aneurysmal dilatation. The adrenal glands appear normal. There is mild to moderate bilateral renal cortical volume loss. There is no hydronephrosis in either kidney. There are a
small number of small subcentimeter cysts in both kidneys.
The stomach is moderately distended with air and contrast material. There is a large amount of submucosal edema in the first and second portions of the duodenum which has markedly increased since 05/15/2025. There is a small amount of extraluminal
air around the gastric antrum and duodenum. There is no upper abdominal ascites.
The jejunal small bowel loops appear normal. There is a large amount of soft tissue emphysema in the right anterior abdominal wall and in the subcutaneous fat of the right flank.
PELVIS: There is no abnormal small bowel wall thickening or distention. There is been an appendectomy. Oral contrast reaches level of the terminal ileum. There is a mild amount of circumferential wall thickening in the cecum and ascending colon.
There is mild air distention of the transverse colon. There is moderate diverticulosis in the descending colon and sigmoid colon. The rectum is moderately distended with air.
There is evidence for recent hysterectomy and bilateral salpingo-oophorectomy (MICHELLE-BSO). There is a small amount of extraperitoneal air in the posterior pelvis posterior to the rectum. There is a 1.8 x 5.9 x 2.6 cm loculated fluid collection in the
pelvic cul-de-sac which appears to demonstrate rim enhancement. The urinary bladder appears normal. There is no pelvic lymphadenopathy.
SKELETON: There is a mild left convex curvature of the lower lumbar spine. There is moderate discogenic degenerative disease at L5/S1. There is mild discogenic degenerative disease in the lower thoracic spine. There is mild bilateral osteoarthritis
of the sacroiliac joints.
IMPRESSION:
1. MODERATE PNEUMOPERITONEUM in the right upper quadrant of the abdomen and new severe submucosal edema in the 1st and 2nd portions of the duodenum. Diagnostic possibilities are (1) an acute perforated duodenal or distal gastric ulcer or (2)
residual pneumoperitoneum from recent surgery.
2. Recent MICHELLE-BSO and appendectomy.
3. Large amount of soft tissue emphysema in the right anterior and lateral abdominal wall.
4. Mild extraperitoneal air in the pelvis.
5. 5.9 cm loculated fluid collection in the pelvic cul-de-sac (either an abscess or seroma).
6. Moderate diverticulosis in the descending and sigmoid colon.
The findings were communicated to Gemini Henao DO of the Emergency Department on 06/01/2025 at 9:17 PM through [facility].
Electronically signed by Thomas Magaña MD, 06/01/2025 9:26 PM
Impression / Plan
-
POD6 s/p robotic TLH BSO, Oment, APpy, PLND
she has epigastric pain, pneumoperitoneum, dilated stomach with A/F level
there is leukocytosis 17K, thrombocytosis 500k, labs looks like dehydrtaed
I am concerned about possible bowel perforation, but cannot see any extravsation of po contrast
air is more than i would expect 1 week post op but it is possible it is due to laparoscopy
I consulted general surgery , Dr Lambert
given she does not look toxic, and has normal pulse, no fever, I would manage non operatively with
NPO
NGT
IVF
Zosyn for empiric abx
blood and urine culture, add lactate
serial abdominal exam and repeat imaging
Planning to admit to hospitalist given issues she has had related to SVT (recurrent last 2 weeks)
Lori
== END 2025-05-27 14:16 | disposition home or self-care (01) ==
LOC: SDS 06:43
PROVIDERS: Student in an Organized Health Care Education/Training Program; ATTENDING PHYSICIAN Obstetrics & Gynecology Gynecologic Oncology; CONSULT PHYSICIAN Hospitalist; FAMILY PHYSICIAN Physician Assistant Medical
DX: C54.1 Malignant neoplasm of endometrium (principal); C79.62 Secondary malignant neoplasm of left ovary; C18.1 Malignant neoplasm of appendix; C77.5 Secondary and unspecified malignant neoplasm of intrapelvic lymph nodes; C79.61 Secondary malignant neoplasm of right ovary; C79.82 Secondary malignant neoplasm of genital organs; Z17.1 Estrogen receptor negative status [ER-]
CPT/HCPCS: 38571; 58571; 38900; 44970; 80048; 82330; 82962; 83735; 84100; 85014; 85018; 85025; 86900; 86901; 88112; 88304; 88305; 88307; 88309; 88341; 88342; 88360; 93005; 97116; 97162; J0153

== ENCOUNTER 2025-06-02 00:40 | Inpatient (IN) | payer MEDICARE, SELFPAY ==
[2025-06-01] VITALS (7 sets, daily range): BP systolic 130–151; BP diastolic 73–89; BMI 21.8
[2025-06-01 17:02] LABS: Hematocrit 40.1 % (37.0-47.0); Hemoglobin 13.7 g/dL (12.0-16.0); Mean Corp Hgb Conc. 34.2 g/dL (33.0-37.0); Mean Corpuscular Volume 85.5 fL (81.0-99.0); Nucleated Red Blood Cells % 0 %; Platelet Count 508 10^3/uL (130-400); Red Cell Dist. Width 12.6 % (11.5-14.5)
[2025-06-01 17:14] LABS: ALT (SGPT) 16 U/L (0-35); AST (SGOT) 18 U/L (14-36); Albumin 3.9 g/dl (3.5-5.0); Alkaline Phosphatase 54 U/L (38-126); Blood Urea Nitrogen 24 mg/dl (7-17); Calcium 10.5 mg/dl (8.4-10.2); Carbon Dioxide 23 mmol/L (22-30); Chloride 104 mmol/L (98-107); Glucose 149 mg/dl (70-99); Lipase 47 U/L (23-300); Potassium 4.2 mmol/L (3.5-5.1); Sodium 136 mmol/L (135-145); Total Protein 6.8 g/dl (6.3-8.2); eGFR > 60.00
--- NOTE | 2025-06-01 17:15 | ED.GENMED ---
History of Present Illness
<Chani Love PA-C - Last Filed: 06/01/25 23:19>
General
Chief Complaint: Abdominal Pain
Source: patient and records
Exam Limitations: none
Time Seen by Provider: 06/01/25 17:12
History of Present Illness
History of Present Illness:
79yoF with a history of uterine cancer s/p total hysterectomy on 05/26/[address] Cárdenas and hypertension presenting for evaluation of abdominal pain. Patient states she has been doing well postoperatively. She has been taking Tylenol and ibuprofen
which she has never taken in her life. She started to develop a 'discomfort' in her epigastric region yesterday. She denies any true pain in the area. She is also experiencing some belching. Patient called her surgeon and was told to go to the
ED for evaluation. Patient does not believe her pain is related to her surgery because she is not having any pain in the lower abdomen. She denies any chest pain, shortness of breath, fevers, chills, vomiting, difficulty urinating, diarrhea. Last
bowel movement was yesterday.
Past History
<Chani Love PA-C - Last Filed: 06/01/25 23:19>
Past History
ED Past Medical History: HTN
ED Past Surgical History: None
Social History
Tobacco: Non-smoker
Phy Exam
<Chani Love PA-C - Last Filed: 06/01/25 23:19>
General Physical Exam
General Presentation: well appearing and no apparent distress
General Skin: warm and dry
General Habitus: normal and elderly
General Mental: alert
ENT Exam
ENT Exam: normocephalic
Cardiovascular Exam
Cardiovascular Exam: regular rate/rhythm
Pulmonary Exam
Pulmonary Exam: lungs clear, no respiratory distress, no rales, no crackles, no rhonchi and no wheezing
Gastrointestinal Exam
Gastrointestinal Exam: non tender, soft, non distended, surgical scar and other (Surgical incisions c/d/i. Abdomen soft, non-distended. No significant tenderness to palpation.)
Neurological Exam
Neurological Exam: alert
[place] Coma Scale
Eye Opening: Spontaneous
Verbal Response: Oriented
Motor Response: Obeys Commands
GCS Total Score: 15
Skin Exam
Skin Exam: normal color and warm/dry
Psychiatric Exam
Psychiatric Exam: normal mood/affect
Course
<Chani Love PA-C - Last Filed: 06/01/25 23:19>
Orders/Labs/Results
Orders:
Orders
06/01/25 16:46
Complete Blood Count/With Diff Urgent
Comprehensive Metabolic Panel Urgent
Lipase Urgent
06/01/25 17:33
Electrocardiogram (*1) Urgent
Reason for Study: Abdominal Pain
CT Abd/pel W Iv And Oral Contr Urgent
Comment:
Reason For Exam: epigastric pain, recent hysterectomy
EKG- Treatment ONCE
Iohexol [Omnipaque] See Protocol PO NOW STA
06/01/25 18:07
Troponin I Urgent
06/01/25 18:57
Electrocardiogram (*1) Urgent
Reason for Study: Abdominal Pain
EKG- Treatment ONCE
06/01/25 21:17
Troponin I Urgent
06/01/25 21:59
0.9% Sodium Chloride 1000 ml [Nss] 1,000 ml IV BOLUS
Piperacillin/Tazo 4.5 Gram [Zosyn] 4.5 gram in 100 ml IV NOW
06/01/25 22:13
Lactate Level [Lactic Acid] Urgent
Blood Culture Q30M
[facility] Source: Blood/Venous
Specimen Description:
Blood Culture Q30M
[facility] Source: Blood/Venous
Specimen Description:
06/01/25 22:17
NG Tube [GI tube insertion- Treatment] ONCE
06/01/25 22:18
FOOD PRODUCTION MANAGER Oncology Consult Urgent
Consulting Provider: Aleksandr Cárdenas
Was physician already notified: Yes
06/01/25 22:34
Urinalysis Reflex To Culture Urgent
06/01/25 22:39
Pantoprazole [Protonix IV] 40 mg IV NOW STA
Abnormal Lab Results
06/01/25
16:46
WBC 17.2 H 10^3/uL
(4.8-10.8)
Plt Count 508 H D 10^3/uL
(130-400)
Abs Immat Gran (auto) 0.1 H 10^3/uL
(0-0.05)
Absolute Neuts (auto) 15.3 H 10^3/uL
(1.4-6.5)
Neutrophils % 88.7 H %
(42.2-75.2)
Lymphocytes % 6.9 L %
(20.5-51.1)
BUN 24 H mg/dl
(7-17)
Glucose 149 H mg/dl
(70-99)
Calcium 10.5 H mg/dl
(8.4-10.2)
06/01/25 16:46
06/01/25 16:46
Vital Signs
Initial and Last Documented VS:
Initial Vital Signs
Temp Pulse Resp BP Pulse Ox
98.3 F 94 18 130/89 99
06/01/25 15:19 06/01/25 15:19 06/01/25 15:19 06/01/25 15:19 06/01/25 15:19
Last Documented Vital Signs
Temp Pulse Resp BP Pulse Ox
98.4 F 75 16 136/86 97
06/01/25 22:05 06/01/25 22:05 06/01/25 20:15 06/01/25 22:05 06/01/25 22:05
<Lynda Brady MD - Last Filed: 06/01/25 22:03>
Orders/Labs/Results
Orders:
Orders
06/01/25 16:46
Complete Blood Count/With Diff Urgent
Comprehensive Metabolic Panel Urgent
Lipase Urgent
06/01/25 17:33
Electrocardiogram (*1) Urgent
Reason for Study: Abdominal Pain
CT Abd/pel W Iv And Oral Contr Urgent
Comment:
Reason For Exam: epigastric pain, recent hysterectomy
EKG- Treatment ONCE
Iohexol [Omnipaque] See Protocol PO NOW STA
06/01/25 18:07
Troponin I Urgent
06/01/25 18:57
Electrocardiogram (*1) Urgent
Reason for Study: Abdominal Pain
EKG- Treatment ONCE
06/01/25 21:17
Troponin I Urgent
06/01/25 21:59
0.9% Sodium Chloride 1000 ml [Nss] 1,000 ml IV BOLUS
Piperacillin/Tazo 4.5 Gram [Zosyn] 4.5 gram in 100 ml IV NOW
06/01/25 22:13
Lactate Level [Lactic Acid] Urgent
Blood Culture Q30M
[facility] Source: Blood/Venous
Specimen Description:
Blood Culture Q30M
[facility] Source: Blood/Venous
Specimen Description:
06/01/25 22:17
NG Tube [GI tube insertion- Treatment] ONCE
06/01/25 22:18
FOOD PRODUCTION MANAGER Oncology Consult Urgent
Consulting Provider: Aleksandr Cárdenas
Was physician already notified: Yes
06/01/25 22:34
Urinalysis Reflex To Culture Urgent
06/01/25 22:39
Pantoprazole [Protonix IV] 40 mg IV NOW STA
Abnormal Lab Results
06/01/25
16:46
WBC 17.2 H 10^3/uL
(4.8-10.8)
Plt Count 508 H D 10^3/uL
(130-400)
Abs Immat Gran (auto) 0.1 H 10^3/uL
(0-0.05)
Absolute Neuts (auto) 15.3 H 10^3/uL
(1.4-6.5)
Neutrophils % 88.7 H %
(42.2-75.2)
Lymphocytes % 6.9 L %
(20.5-51.1)
BUN 24 H mg/dl
(7-17)
Glucose 149 H mg/dl
(70-99)
Calcium 10.5 H mg/dl
(8.4-10.2)
06/01/25 16:46
06/01/25 16:46
Vital Signs
Initial and Last Documented VS:
Initial Vital Signs
Temp Pulse Resp BP Pulse Ox
98.3 F 94 18 130/89 99
06/01/25 15:19 06/01/25 15:19 06/01/25 15:19 06/01/25 15:19 06/01/25 15:19
Last Documented Vital Signs
Temp Pulse Resp BP Pulse Ox
98.4 F 75 16 136/86 97
06/01/25 22:05 06/01/25 22:05 06/01/25 20:15 06/01/25 22:05 06/01/25 22:05
Zaidalt;Chani Love PA-C - Last Filed: 06/01/25 23:19>
MDM/Problems Addressed
Differential Diagnosis Includes:
79yoF here with epigastric discomfort and belching x 1 day. Hx of hysterectomy 6 days ago. VSS. She is well appearing in no distress. Abdominal exam is benign without any significant tenderness or distention. Differential diagnosis includes but is
not limited to: GERD, PUD, pancreatitis, biliary colic, postoperative complication, ACS
Initial ED plan: Labs obtained in triage. Leukocytosis noted with a white count of 17.2. Lipase and LFTs are normal. Will check troponin/EKG and CT abdomen.
<Chani Love PA-C - Last Filed: 06/01/25 23:19>
*Pulse Oximetry
SaO2: 99
Oxygen Mode of Delivery: Room air
Patient hypoxic: no (99%)
*EKG
Interpreted by ED Provider?: Yes
EKG Intrepretation Date: 06/01/25
Heart Rate: 74
Rate: normal
Rhythm: sinus
[place]: normal axis
Interval: normal interval
QRS Pattern: low voltage
Ischemia: no ischemia
*Critical Care Note
Total Time (30-74mins, 75-104mins- exclusive of procedures): Not Applicable
<Chani Love PA-C - Last Filed: 06/01/25 23:19>
Update Note
Update Note:
EKG shows normal sinus rhythm with low voltage QRS. No ischemic changes appreciated. Initial troponin 0.027. CT reveals moderate pneumoperitoneum in the right upper quadrant with new severe submucosal edema of the 1st and 2nd portions of the
duodenum. Diagnostic possibilities include an acute perforated duodenal/gastric ulcer or residual pneumoperitoneum from recent surgery. I called and spoke with Dr. Cárdenas to discuss and Dr. Cárdenas spoke with Dr. Brown. Patient reports very mild
pain on reassessment, rating it as a 2-3/10 in severity. She describes feeling 'air' in her abdomen and feels that she needs Tums. Dr. Cárdenas recommends IV Zosyn, blood cultures, NPO, IV fluids, and NG tube. Patient admitted to the hospitalist
service for further management.
ED Attending Note
<Chani Love PA-C - Last Filed: 06/01/25 23:19>
-
Portions of this chart may have been created with voice recognition software.� Occasional wrong word or��sound alike� substitutions may have occurred due to the inherent limitations of voice recognition software.
<Lynda Brady MD - Last Filed: 06/01/25 22:03>
ED Attending Note
Patient seen and examined by attending physician: Yes
I performed the substantive portion of visit, reviewed & personally made and approve the management plan that is documented in note by myself or WANDA.: Yes
ED Attending Note:
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 She describes the discomfort as
a 2 out of 10, and slightly worse since arrival here. She says that she is burping a lot and it feels like the discomfort she has is 'like air'. She does not typically take nonsteroidals but has started postoperatively, estimates 1 tablet of Advil
4 times a day. She denies vomiting, fever, chills, chest pain, shortness of breath, back pain. On exam, patient awake alert pleasant. She has minimal epigastric tenderness to palpation without associated rebound or guarding. Incisions clean dry
and intact. No lower abdominal tenderness to palpation. CT report reviewed, labs reviewed. No fever, worsening leukocytosis noted along with curious CT report. Unclear correlation given minimal symptoms. Leilani HUNG discussed with FOOD PRODUCTION MANAGER surgeon
Tl who will discuss directly with general surgery.
Discharge Plan
Departure
Patient Disposition: Admit
Date of Disposition: 06/01/25
Time of Disposition: 22:33
Presentation/result/management discussed w/ accepting MD/DO: Hospitalist
Discharge Problem:
Pneumoperitoneum, Epigastric pain
Prescriptions:
No Action
tramadol 50 mg tablet
50 mg PO BIDPRN PRN (Reason: lower abdominal pain)
polyethylene glycol 3350 [Miralax] 17 gram Powder In Packet
17 g PO DAILY
metoprolol succinate 25 mg Tablet Extended Release 24 Hr
25 mg PO BID Qty: 60 0RF
Referrals:
Justine Kirby PA-C [Family Provider, Family Practice]
Interventions
Interventions:
*Risk Screen - Suicide Last Done: 06/01/25 15:19
*General Assessment Last Done: 06/01/25 15:19
*Neglect/Abuse Screening Last Done: 06/01/25 15:19
HI-Cozzzf-Vagvskjpaf Assessment Last Done: 06/01/25 18:00
Discharge Date and Time
Print Language: TELUGU
[2025-06-01] MEDS: OMNIPAQUE 50 ML PO (18:00)
[2025-06-01 18:54] LABS: Troponin I 0.027 ng/ml
[2025-06-01 21:51] LABS: Troponin I 0.026 ng/ml
[2025-06-01] MEDS: ZOSYN 100 IV (22:13)
[2025-06-01] MEDS: NSS 1000 IV (22:13)
[2025-06-01] MEDS: PROTONIX IV 40 MG IV (22:45)
--- NOTE | 2025-06-01 22:47 | HPS.HSE ---
Family Physician
-
Family Physician: Justine Kirby
Chief Complaint
-
Epigastric pain
History of Present Illness
The patient is a 79-year-old female with past medical history significant for endometrial cancer status post robotic TLH BSO on May [address] Cárdenas,who presents to the ED secondary to epigastric abdominal pain and belching, associated with nausea
and anorexia for prior 2. She notes that she was doing well postoperatively and has been taking Tylenol and ibuprofen (1 tablet of each, 4 x per day). She started having epigastric region abdominal discomfort yesterday. Her pain she calls
'discomfort level' is 2 out of 10. She called the surgeon who asked her to go to the emergency department for evaluation. In the emergency department she is found on CT scan to have moderate pneumoperitoneum in the right upper quadrant of the
abdomen and new severe submucosal edema in the 1st and 2nd portions of the duodenum, large amount of soft tissue emphysema in the right anterior and lateral abdominal wall, mild extraperitoneal air in the pelvis, 5.9 cm loculated fluid collection in
the pelvic cul-de-sac, moderate diverticulosis in the descending and sigmoid colon. The ED provider discussed the patient with Dr. Cárdenas and Dr. Brown (General Surgery) who discussed admission, n.p.o. status, IV Zosyn, NG tube. LA level is
normal.
Medical History
Past Medical History
Past Medical History: Reports Cancer (endometrial), HTN (not currently taking metoprolol) and Other (SVT)
Past Surgical History: Reports Gynocological (Robotic MICHELLE/BSO 05/26 )
Social History
Tobacco: Non-smoker
Alcohol: Occasional
Drug: None
Personal:
Living: Alone
Family History
Family History: Not pertinent
Allergies / Home Medications
Allergies reflects when Allergies were last updated in [facility].
Home Medications with original date entered in [facility]
Allergy/Medication List:
Allergies
Allergy/AdvReac Type Severity Reaction Status Date / Time
Sulfa (Sulfonamide Allergy RASH/HIGH Verified 05/26/25 10:41
Antibiotics) TEMP
Home Medications
tramadol 50 mg tablet 50 mg PO BIDPRN PRN lower abdominal pain 05/18/25
polyethylene glycol 3350 17 gram oral powder packet (Miralax) 17 g PO DAILY 05/26/25
metoprolol succinate 25 mg tablet,extended release 24 hr 25 mg PO BID #60 tabs 05/27/25 - not taking this currently
Review of Systems
-
A 12 point ROS was completed and negative except as noted: Yes
Physical Exam
Vital Signs
Vital Signs
Temp Pulse Resp BP Pulse Ox
98.4 F 75 16 136/86 97
06/01/25 22:05 06/01/25 22:05 06/01/25 20:15 06/01/25 22:05 06/01/25 22:05
Physical Exam
General: Well Developed, Well Nourished, No Apparent Distress, Comfortable and Conversant
HEENT: NormoCephalic, Anicteric and Moist mucous membranes
Respiratory: Clear
Cardiac: S1/S2 and Regular Rhythm
GI: Soft, Non Tender, Non Distended, Normal Bowel Sounds and Flat
Musculoskeletal: No Clubbing, No Cyanosis and No Edema
Skin: Warm and Dry
Neuro: AO x 3, No Motor Deficits and Nonfocal/grossly intact
Psych: Calm
Laboratory Results
-
06/01/25 16:46
06/01/25 16:46
Laboratory Results
Lactic Acid 1.2 mmol/L (0.7-2.0) 06/01/25 22:13
Total Bilirubin 0.9 mg/dl (0.2-1.3) 06/01/25 16:46
AST 18 U/L (14-36) 06/01/25 16:46
ALT 16 U/L (0-35) 06/01/25 16:46
Alkaline Phosphatase 54 U/L (38-126) 06/01/25 16:46
Troponin I 0.026 ng/ml 06/01/25 21:17
Lipase 47 U/L (23-300) 06/01/25 16:46
Data Reviewed
-
CT Scan: Report Reviewed by me (as per HPI)
Impression/Plan
-
IMPRESSION:
The patient is a 79-year-old female with past medical history significant for endometrial cancer status post robotic TLH BSO on May [address] Cárdenas,who presents to the ED secondary to epigastric abdominal pain and belching, associated with nausea
and anorexia. She notes that she was doing well postoperatively and has been taking Tylenol and ibuprofen. She started having epigastric region abdominal discomfort yesterday. Her pain level is 2 out of 10. She called the surgeon who asked her
to go to the emergency department for evaluation. In the emergency department she is found on CT scan to have moderate pneumoperitoneum in the right upper quadrant of the abdomen and new severe submucosal edema in the 1st and 2nd portions of the
duodenum, large amount of soft tissue emphysema in the right anterior and lateral abdominal wall, mild extraperitoneal air in the pelvis, 5.9 cm loculated fluid collection in the pelvic cul-de-sac, moderate diverticulosis in the descending and
sigmoid colon. The ED provider discussed the patient with Dr. Cárdenas and Dr. Brown who discussed admission, n.p.o. status, IV Zosyn, NG tube.
# Moderate pneumoperitoneum status post robotic TLH BSO on May 26 for endometrial cancer
- Dr. Cárdenas and Dr. Brown are aware of the patient and recommended the patient be admitted, n.p.o. status, NG tube placement, IV Zosyn
-LA level is normal, repeat if signs/symptoms warrant repeat lab
-blood and urine cx pending
-Consider GI consultation pending clinical course
-SUBSTATION OPERATOR HELPER GENERATION consultation is placed and appreciated and appreciated
-IV fluids 125 mL per hour x 2 bags and monitor I/O
-NG tube to intermittent (low) suction
-NPO
-supportive care prn
-BMP and Mg in am
# Endometrial CA s/p Robotic MICHELLE BSO 05/26
-Dr. Cárdenas on consult
#HTN-hold metoprolol for now and monitor BP, may requiring IV BP meds while NPO
#Hx SVT - tele monitoring overnight
DVT proph-SCDs
GERD proph-IV PPI
Full Code
[2025-06-02] VITALS (12 sets, daily range): BP systolic 119–147; BP diastolic 69–86
[2025-06-02] MEDS: NSS 1000 IV ×3 (01:51→23:21)
[2025-06-02 04:11] LABS: Hematocrit 34.2 % (37.0-47.0); Hemoglobin 11.5 g/dL (12.0-16.0); Mean Corp Hgb Conc. 33.6 g/dL (33.0-37.0); Mean Corpuscular Volume 86.6 fL (81.0-99.0); Nucleated Red Blood Cells % 0 %; Platelet Count 462 10^3/uL (130-400); Red Cell Dist. Width 12.5 % (11.5-14.5)
[2025-06-02 04:16] LABS: Urine Character Clear (Clear)
[2025-06-02 04:20] LABS: INR 1.10; PT 14.5 Sec (11.4-14.6)
[2025-06-02 04:30] LABS: Blood Urea Nitrogen 22 mg/dl (7-17); Calcium 9.0 mg/dl (8.4-10.2); Carbon Dioxide 22 mmol/L (22-30); Chloride 106 mmol/L (98-107); Estimated Creatinine Clearance 63 ml/min; Glucose 110 mg/dl (70-99); Magnesium 1.6 mg/dl (1.6-2.3); Potassium 4.0 mmol/L (3.5-5.1); Sodium 136 mmol/L (135-145); eGFR > 60.00
[2025-06-02 04:47] LABS: Urine Red Blood Cell None Seen /HPF (0-2); Urine Squamous Cell >30 /LPF (Few)
[2025-06-02] MEDS: ZOSYN 50 IV ×4 (06:32→23:22)
--- NOTE | 2025-06-02 07:43 | CON.GS ---
Addendum entered and electronically signed by Juvenal Marquez MD 06/02/25 16:50:
Patient seen and examined.
Patient is a 79 yo F with a PMH of HTN, SVT, and endometrial cancer s/p robotic MICHELLE, BSO, appendectomy, partial omentectomy, pelvic lymphadenectomy, and removal of peritoneal implants on 05/26/2025. Ms. Rhodes states that she has been
recovering well with little to no discomfort. On Sunday (05/30) she states that she began to develop upper abdominal discomfort and distention. No nausea or vomiting. No fevers or chills. Her symptoms worsened on Sunday prompting her to call
Dr. Boothe who referred her to the ED. She reports passing flatus as recent as today. Last bowel movement was yesterday. Currently her symptoms have completely resolved. She notes significant improvement after NGT placement.
Gen: NAD
HEENT: minimal gastric outputs
Abd: soft, NT/ND, non-peritoneal, incisions c/d/i - no erythema, ecchymosis or drainage
Labs, CT scan and rectal contrast enema reviewed
Patient is a 79 yo F p/w abdominal pain POD 7 after a robotic MICHELLE, BSO, appendectomy, partial omentectomy, pelvic lymphadenectomy, and removal of peritoneal implants by Dr. Cárdenas
Difficult to tell the exact source of her abdominal discomfort, however, given the location of her discomfort and rapid improvement following NGT placement, would have to say the most likely possibility is duodenitis with delayed gastric emptying
combined with residual pneumoperitoneum from her recent procedure. Given the degree of pneumoperitoneum (intra-abdominal, intramuscular, and subcutaneous), would expect that she would have significantly more pain and symptoms if this was due to a
true perforation. Would also not expect rapid improvement in her symptoms with NGT decompression and a single dose of PPI or antibiotics. Differential also includes potential injury to other viscera (SB or colon), however, also less likely given
the lack of leakage of oral contrast both on CT scan and contrast enema. Of note, she does have some fluid within the pelvis, which may represent a possible abscess especially in light of her rectal implant removal; no leakage or perforation seen
on contrast enema.
Given her completely normal and benign abdominal exam as well as improvement over the past 24 hours we will plan on an NGT clamp trial with potential removal if no residual symptoms. Would maintain on sips for today. Can advance diet as tolerated
tomorrow if no further symptoms. Would continue on a PPI to treat any potential gastritis or duodenitis. Would continue with abx given elevated WBC and pelvic fluid collection.
-- No plans for surgical intervention at this time
-- Clamp trial of NGT
-- Abx: Zosyn
-- GI: PPI
Original Note:
Medical History
-
Chief Complaint: abdominal pain
History of Present Illness:
79yoF [facility] endometrial cancer s/p H BSO 05/26/25 presenting with abdominal pain, anorexia, and reflux. CT demonstrating pneumoperitoneum, fluid, submucosal edema, and soft tissue emphysemal.
MODERATE PNEUMOPERITONEUM in the right upper quadrant of the abdomen and new severe submucosal edema in the 1st and 2nd portions of the duodenum. Diagnostic possibilities are (1) an acute perforated duodenal or distal gastric ulcer or (2) residual
pneumoperitoneum from recent surgery.
2. Recent MICHELLE-BSO and appendectomy.
3. Large amount of soft tissue emphysema in the right anterior and lateral abdominal wall.
4. Mild extraperitoneal air in the pelvis.
5. 5.9 cm loculated fluid collection in the pelvic cul-de-sac (either an abscess or seroma).
6. Moderate diverticulosis in the descending and sigmoid colon.
Pt recently had TSH BSO on 05/26/25 with appropriate post op healing. She reports she was able to resume normal activities and felt well until Sunday05/31/25 when she began feeling abdominal pain and severe reflux gradually build throughout the day.
Due to the onset of symptoms, her gynecologists instructed her to present to the ED.
Pt reports discomfort and pain subsided with placement of NG. Pt continued to have belching and reflux while in the room. NG draining dark brown fluid. Denies nausea, vomiting, pain. Continues to urinate appropriately. Regular BM except yesterday.
She reports she has been able to get up on her own for the bathroom and ambulate sufficiently. Denies recent medication changes. Since surgery, she reports taking 1 pill regular strength advil and 1 tylenol every 4 hours.
No PSH or PMH before hysterectomy last week. Takes no home medications.
Bout of SVT since surgery. Pt deneis palpitations or prior history.
Past Medical History
Past Medical History: Other (endometrial cancer)
Past Surgical History: Gynecological ([facility] BSO)
Allergies / Home Medications
Allergy/AdvReac Type Severity Reaction Status Date / Time
Sulfa (Sulfonamide Allergy RASH/HIGH Verified 05/26/25 10:41
Antibiotics) TEMP
�Medication �Instructions �Recorded �Confirmed �Type
tramadol 50 mg tablet 50 mg PO BIDPRN PRN lower 05/18/25 05/26/25 History
abdominal pain
polyethylene glycol 3350 17 gram 17 g PO DAILY 05/26/25 05/26/25 History
oral powder packet (Miralax)
metoprolol succinate 25 mg 25 mg PO BID #60 tabs 05/27/25 05/26/25 Rx
tablet,extended release 24 hr
Review of Systems
-
History Source: Patient
All other systems: Negative unless noted
Constitutional: No Symptoms
EENT: No Symptoms
Cardiac: No Symptoms
: No Symptoms
Musculoskeletal: No Symptoms
Skin: No Symptoms
Neurological: No Symptoms
A 10 point review of systems was completed, and was negative except as per HPI.
Physical Exam
Vital Signs
Temp Pulse Resp BP Pulse Ox
99 F 73 15 142/74 97
06/02/25 00:49 06/02/25 06:30 06/02/25 06:30 06/02/25 06:00 06/01/25 22:05
06/01/25 06/02/25 06/03/25
06:59 06:59 06:59
Actual Weight 61.3 kg
Body Mass Index (BMI) 21.8
Lab Results
06/02/25 03:55
06/02/25 03:55
WBC 15.3 10^3/uL (4.8-10.8) H 06/02/25 03:55
Hgb 11.5 g/dL (12.0-16.0) L 06/02/25 03:55
Hct 34.2 % (37.0-47.0) L 06/02/25 03:55
Plt Count 462 10^3/uL (130-400) H 06/02/25 03:55
Abs Immat Gran (auto) 0.1 10^3/uL (0-0.05) H 06/02/25 03:55
Neutrophils % 84.3 % (42.2-75.2) H 06/02/25 03:55
Physical Exam
General: No Apparent Distress and Comfortable
HEENT: Normocephalic, Anicteric, Moist Mucous Membranes and Atraumatic
Respiratory: Clear and Non Labored Respirations
GI: Soft, Non Tender, Non Distended and Incisions
Musculoskeletal: No Clubbing and No Edema
Skin: Warm and Dry
Neuro: Awake, Alert, Oriented, No Motor Deficits and Nonfocal/Grossly Intact
Psych: Calm
Assessment / Plan
-
79yoF [facility] endometrial cancer s/p [facility] BSO 05/26/25 here with new abdominal pain, pneumoperitoneum, submucosal edema, soft tissue emphysema nontoxic on exam.
Plan
Plan to manage nonoperatively
Bowel rest: NPO. NG to gravity
IV antibotics: zosyn
IV fluids.
If no change, rescan in 2 days
--- NOTE | 2025-06-02 08:42 | W.PN.GYNONC ---
Today's Communication
-
enema study and obstruction series
continue NPO, NGT, and IV Zosyn
Impression / Plan
-
patient looks well, non toxic. NGT output is low she feels much better,
It is hard to imagine she could have a viscous perforation based on CT findings, her Lactate was normal.
I have spoke to both general surgery and colorectal surgery and asked formally for consults.
Dr Kraft suggested performing a gastrograffin based enema study to establish if she has rectal perforation
At the end she might just have a pelvic abscess and ileus. she is on Zosyn and wbc is decreased.
continue NPO, NGT and await enema study and obstruction series.
Subjective / Interval History
-
HD2
she is feeling well this am and is actually hungry. epgastric pain is much improved after placement of NGT.She is passing flatus.
did not have chills or rigors.
Objective Data
-
Lab Results:
06/02/25 03:55
06/02/25 03:55
Physical Exam
Vital Signs / I&O
Vitals
Temp Pulse Resp BP Pulse Ox
98 F 78 16 140/75 100
06/02/25 07:00 06/02/25 07:00 06/02/25 07:00 06/02/25 07:00 06/02/25 07:00
Physical Exam
General: No Apparent Distress and Comfortable
Respiratory: Clear and Non Labored Respirations
Cardiac: S1/S2 and Regular Rhythm
GI: Soft, Non Tender, Non Distended and Other (lap incisions and low transverse incision is healing well, no erythema)
Neuro: AO x 3
Hematologic/Lymphatic: No Lymphadenopathy
Psych: Calm
Data Reviewed
-
Diagnostic Radiology: Image personally visualized and interpreted
CT Scan: Image personally visualized and interpreted
--- NOTE | 2025-06-02 08:56 | W.PN.HOSP.TC ---
Today's Communication/Plan
-
see plan
Assessment / Plan
Assessment / Plan
The patient is a 79-year-old female with past medical history significant for endometrial cancer status post robotic TLH BSO on May [address] Cárdenas,who presents to the ED secondary to epigastric abdominal pain and belching, associated with nausea
and anorexia for prior 2.
CT
IMPRESSION:
1. MODERATE PNEUMOPERITONEUM in the right upper quadrant of the abdomen and new severe submucosal edema in the 1st and 2nd portions of the duodenum. Diagnostic possibilities are (1) an acute perforated duodenal or distal gastric ulcer or (2)
residual pneumoperitoneum from recent surgery.
2. Recent MICHELLE-BSO and appendectomy.
3. Large amount of soft tissue emphysema in the right anterior and lateral abdominal wall.
4. Mild extraperitoneal air in the pelvis.
5. 5.9 cm loculated fluid collection in the pelvic cul-de-sac (either an abscess or seroma).
6. Moderate diverticulosis in the descending and sigmoid colon.
# Moderate pneumoperitoneum status post robotic TLH BSO on May 26 for endometrial cancer
Ileus
-LA level is normal
-NPO, NGT in place
-NS @ 100
-continue IV Zosyn
-appreciate consult by Dr. Cárdenas; CRS and GS consults
-enema study and obstruction series
# Endometrial CA s/p Robotic MICHELLE BSO 05/26
#HTN-hold metoprolol for now and monitor BP, may requiring IV BP meds while NPO
#Hx SVT - tele monitoring overnight
DVT proph-SCDs
GERD proph-IV PPI
Full Code
51 minutes spent on patient care
Anticipated Discharge: > 48 hours
Subjective/Interval History
-
Date of Service: June 02, 2025
feeling much better with NGT in place
denies pain
Objective Data
-
Labs:
Laboratory Results
06/02/25
03:55
WBC 15.3 H
Hgb 11.5 L
Hct 34.2 L
Plt Count 462 H
PT 14.5
INR 1.10
Sodium 136
Potassium 4.0
Chloride 106
Carbon Dioxide 22
BUN 22 H
Creatinine 0.7
Glucose 110 H
Calcium 9.0 D
Vital Signs:
Vital Signs
Temp Pulse Resp BP Pulse Ox
98 F 78 16 140/75 100
06/02/25 07:00 06/02/25 07:00 06/02/25 07:00 06/02/25 07:00 06/02/25 07:00
Review of Systems
-
History Source: Patient
All other systems: Reviewed and negative
Physical Exam
-
General: No Apparent Distress
HEENT: PERRLA and Other (NGT in place)
Respiratory: Clear to Auscultation; Negative Wheezes
Cardiac: Regular Rhythm and S1/S2
GI: Other (non-tender, incisions c/d/i)
Musculoskeletal: No Edema
Skin: Warm and Dry; Negative Rash
Neuro: AO x 3
Psych: Calm
Data Reviewed
-
Diagnostic Radiology: Report Reviewed by me
Labs: Labs Reviewed by me
[2025-06-02] MEDS: PROTONIX IV 40 MG IV (10:27)
[2025-06-02] MEDS: NSS (PRESERVATIVE FREE) 10 ML IV (10:27)
--- NOTE | 2025-06-02 11:09 | CM ---
Initial assessment completed with patient who had recent admission in March for hysterectomy and new Dx of uterine cancer. Patient lives alone in a 2 story home with no basement. B/B on but also has B/B on . 1 step to enter home. [employer]
patient was independent in ADL's and ambulation. No DME or in-home services. Declined HH RN after last admission. Does drive, has a personal investment adviser and a gym in her home. PA is Justine Kirby with [facility]. Pharmacy is [facility] on
[address] in [place]. Discharge POC: Anticipate home with no needs.
--- NOTE | 2025-06-02 11:19 | CON.CRS ---
Consultation
-
Date/Time Consultation Requested: 06/02/2025, 07:16
Date/Time Consultation Performed: 06/02/2025, 08:15
Requesting Provider: Aleksandr Cárdenas MD
Performing Provider: Yvon Mathew MD
Reason for Consultation: free air
Medical History
-
Chief Complaint: abdominal pain
History of Present Illness:
79yo female, who underwent a recent robotic assisted tumor cytoreduction including total laparoscopic hysterectomy, bilateral salpingo-oophorectomy, partial omentectomy, excision of multiple peritoneal surfaces pelvic washings as well as a robotic
assisted laparoscopic appendectomy by Dr. Cárdenas, presents the emergency room with abdominal pain as well as burping, nausea, and anorexia. She been doing well postoperatively but developed the pain about 2 days ago. She called Dr. Cárdenas who
advised her to go to the emergency department. CT of the abdomen pelvis showed a moderate pneumoperitoneum in the right upper quadrant the abdomen and new severe submucosal edema in the 1st and 2nd portions of the duodenum, large amount of soft
tissue emphysema in the right anterior and lateral abdominal wall, mild extraperitoneal air in the pelvis, a 5.9 cm loculated fluid collection in pelvis, moderate diverticulosis in the descending and sigmoid colon. In the ER she had an NG tube
placed. IV Zosyn was started. WBC was 17.2 and is 15.3 today. She has remained afebrile and her vitals have been normal. An x-ray was performed this morning which showed moderate volume free air in the right upper abdomen. Currently the patient
states she is in no abdominal pain but describes it more like a 'discomfort in her stomach'. She is having bowel movements. Given the findings of the CT, we have been asked to see the patient by Dr. Cárdenas.
Past Medical History
Past Medical History: Arrhythmias (SVT), Cancer (endometrial) and HTN
Past Surgical History: Appendectomy and Gynecological (robotic MICHELLE/BSO - 05/26/2025 Dr. Cárdenas)
Social History
Tobacco: Non-Smoker
Alcohol: Occasional
Drug: None
Personal:
Family History
Family History: Reviewed & Not Pertinent
Allergies / Home Medications
Allergy/AdvReac Type Severity Reaction Status Date / Time
Sulfa (Sulfonamide Allergy RASH/HIGH Verified 05/26/25 10:41
Antibiotics) TEMP
�Medication �Instructions �Recorded �Confirmed �Type
polyethylene glycol 3350 17 gram 17 g PO DAILYPRN PRN constipation 05/26/25 06/02/25 History
oral powder packet (Miralax)
metoprolol succinate 25 mg 25 mg PO BID #60 tabs 05/27/25 06/02/25 Rx
tablet,extended release 24 hr
acetaminophen 325 mg tablet 650 mg PO Q6HPRN PRN mild pain 06/02/25 06/02/25 History
(Tylenol)
Review of Systems
-
History Source: Patient
Abdomen/GI: Abdominal Pain
A 10 point review of systems was completed, and was negative except as per HPI.
Physical Exam
Vital Signs
Temp 98 F 06/02/25 07:00
Pulse 78 06/02/25 07:00
Resp Rate 16 06/02/25 07:00
Blood pressure 140/75 06/02/25 07:00
SaO2 100 06/02/25 07:00
06/01/25 06/02/25 06/03/25
06:59 06:59 06:59
Actual Weight 61.3 kg
Body Mass Index (BMI) 21.8
Lab Results / Allergies
06/02/25 03:55
06/02/25 03:55
WBC 15.3 10^3/uL (4.8-10.8) H 06/02/25 03:55
Hgb 11.5 g/dL (12.0-16.0) L 06/02/25 03:55
Hct 34.2 % (37.0-47.0) L 06/02/25 03:55
Plt Count 462 10^3/uL (130-400) H 06/02/25 03:55
Abs Immat Gran (auto) 0.1 10^3/uL (0-0.05) H 06/02/25 03:55
Neutrophils % 84.3 % (42.2-75.2) H 06/02/25 03:55
Allergy/AdvReac Type Severity Reaction Status Date / Time
Sulfa (Sulfonamide Allergy RASH/HIGH Verified 05/26/25 10:41
Antibiotics) TEMP
Physical Exam
General: Well Developed, Well Nourished and No Apparent Distress
GI: Soft, Non Tender and Non Distended
Neuro: AO x 3
Data Reviewed
-
Radiology: Image Personally Visualized and interpreted, Report Reviewed by me and Discussed with Patient
CT Scan: Image Personally Visualized and interpreted, Report Reviewed by me and Discussed with Patient
Labs: Labs Reviewed by me, Discussed with Physician and Discussed with Patient
Old Records: Reviewed
Assessment / Plan
-
Assessment:79-year-old female with recent surgery by Dr. Cárdenas on 05 26 for endometrial cancer, presents to the ER complaining of abdominal pain and found to have moderate pneumoperitoneum in the right upper quadrant, severe submucosal edema in the
1st and 2nd portions of the duodenum, mild extraperitoneal air in the pelvis, and a loculated fluid collection in the cul-de-sac
Plan:
-Recommend Gastrografin enema to determine if there is any extravasation of contrast in the rectum
-Remain NPO with NGT
-IVFs
-Continue IV zosyn
-Await study for further plans
--- NOTE | 2025-06-02 19:14 | PTCARENOTE ---
Dr. Marquez made aware patient only had ~10ml of NGT output after 3 hour clamping trial. Ordered NGT to be dc'd and okay'd sips of clear liquids. NGT removed. Patient updated on plan.
[2025-06-03] MEDS: MELATONIN 5 MG PO (00:22)
[2025-06-03 03:55] VITALS: BP 126/79
[2025-06-03] MEDS: ZOSYN 50 IV ×2 (05:31→11:59)
[2025-06-03] MEDS: NSS (PRESERVATIVE FREE) 10 ML IV (07:13)
[2025-06-03] MEDS: PROTONIX IV 40 MG IV (07:13)
--- NOTE | 2025-06-03 07:24 | W.PN.GYNONC ---
Today's Communication
-
advance diet as tolerated
Impression / Plan
-
patient looks well, non toxic.
NGT out for 12 hrs
I appreciate input by hospitalists, colorectal surgery and gen surg
advance diet today
hopefully dc home within next 24 hrs
continue DVT and GI prophylaxis
Subjective / Interval History
-
she feels well, denies any vomiting
she has no pain
passing flatus
slept ok
Physical Exam
Vital Signs / I&O
Vitals
Temp Pulse Resp BP Pulse Ox
97.7 F 80 16 126/79 99
06/03/25 03:55 06/03/25 03:55 06/03/25 03:55 06/03/25 03:55 06/03/25 03:55
I&O
06/01/25 06/02/25 06/03/25 06/04/25
06:59 06:59 06:59 06:59
Intake Total 1000 / 1000
Output Total 150 / 150
Balance 850 / 850
Physical Exam
General: No Apparent Distress and Comfortable
Respiratory: Clear and Non Labored Respirations
Cardiac: S1/S2 and Regular Rhythm
GI: Soft, Non Tender and Non Distended
Neuro: Awake, Alert and Oriented
Psych: Calm
[2025-06-03 08:00] VITALS: BP 139/74
[2025-06-03 08:11] LABS: Hematocrit 31.9 % (37.0-47.0); Hemoglobin 10.7 g/dL (12.0-16.0); Mean Corp Hgb Conc. 33.5 g/dL (33.0-37.0); Mean Corpuscular Volume 88.4 fL (81.0-99.0); Nucleated Red Blood Cells % 0 %; Platelet Count 381 10^3/uL (130-400); Red Cell Dist. Width 12.7 % (11.5-14.5)
[2025-06-03 08:31] LABS: Blood Urea Nitrogen 14 mg/dl (7-17); Calcium 8.3 mg/dl (8.4-10.2); Carbon Dioxide 24 mmol/L (22-30); Chloride 109 mmol/L (98-107); Estimated Creatinine Clearance 63 ml/min; Glucose 74 mg/dl (70-99); Magnesium 1.6 mg/dl (1.6-2.3); Potassium 3.5 mmol/L (3.5-5.1); Sodium 137 mmol/L (135-145); eGFR > 60.00
--- NOTE | 2025-06-03 08:58 | W.PN.HOSP.TC ---
Today's Communication/Plan
-
see plan
Assessment / Plan
Assessment / Plan
The patient is a 79-year-old female with past medical history significant for endometrial cancer status post robotic TLH BSO on May [address] Cárdenas,who presents to the ED secondary to epigastric abdominal pain and belching, associated with nausea
and anorexia for prior 2.
CT
IMPRESSION:
1. MODERATE PNEUMOPERITONEUM in the right upper quadrant of the abdomen and new severe submucosal edema in the 1st and 2nd portions of the duodenum. Diagnostic possibilities are (1) an acute perforated duodenal or distal gastric ulcer or (2)
residual pneumoperitoneum from recent surgery.
2. Recent MICHELLE-BSO and appendectomy.
3. Large amount of soft tissue emphysema in the right anterior and lateral abdominal wall.
4. Mild extraperitoneal air in the pelvis.
5. 5.9 cm loculated fluid collection in the pelvic cul-de-sac (either an abscess or seroma).
6. Moderate diverticulosis in the descending and sigmoid colon.
CHEST/ABDOMEN X-RAY
IMPRESSION:
Moderate volume free air is seen particularly in the right upper abdomen, difficult to compare volume to CT of preceding day in light of differences of imaging modalities.
Nasogastric tube with tip in proximal stomach. Tube could be passed further into the body of the stomach.
Barium Enema
FINDINGS/impression:
Initially with the patient in the left lateral decubitus position, and under continuous as well as intermittent fluoroscopic observation, water-soluble contrast material was administered by rectal catheter. Images were obtained in the left lateral
decubitus position, the right and left posterior oblique position, the right lateral decubitus position, and AP position.
No demonstrable extraluminal extravasation of contrast material is identified involving the rectosigmoid colon.
Incidental findings include distal descending colon and sigmoid colon mild to moderate diverticulosis.
# Moderate pneumoperitoneum status post robotic TLH BSO on May 26 for endometrial cancer
Ileus
Pelvic fluid collection
-LA level is normal, -barium enema study without extraluminal extravasation;
-s/p NGT, now out since yesterday evening and patient without abdominal pain
-s/p 2L running IVF
-CLD, possibly advance later today
-continue IV Zosyn
-appreciate consult by Dr. Cárdenas; CRS and GS consults
# Endometrial CA s/p Robotic MICHELLE BSO 05/26
#HTN-resume [facility] metoprolol
#Hx SVT - tele monitoring overnight
-resume [facility] Metoprolol
DVT proph-SCDs
GERD proph-IV PPI
Full Code
51 minutes spent on patient care
Anticipated Discharge: Within 24 hours
Subjective/Interval History
-
Date of Service: June 03, 2025
overall feeling well
denies pain
just received a plate of clears
no nausea/vomiting
Objective Data
-
Labs:
Laboratory Results
06/03/25
07:44
WBC 10.3
Hgb 10.7 L
Hct 31.9 L
Plt Count 381
Sodium 137
Potassium 3.5
Chloride 109 H
Carbon Dioxide 24
BUN 14
Creatinine 0.7
Glucose 74
Calcium 8.3 L
Vital Signs:
Vital Signs
Temp Pulse Resp BP Pulse Ox
97.7 F 80 16 126/79 99
06/03/25 03:55 06/03/25 03:55 06/03/25 03:55 06/03/25 03:55 06/03/25 03:55
I&O
06/02/25 06/03/25 06/04/25
06:59 06:59 06:59
Intake Total 1000 / 1000
Output Total 150 / 150
Balance 850 / 850
Review of Systems
-
History Source: Patient
All other systems: Reviewed and negative
Physical Exam
-
General: No Apparent Distress
HEENT: PERRLA
Respiratory: Clear to Auscultation; Negative Wheezes
Cardiac: Regular Rhythm and S1/S2
GI: Soft and Nontender
Musculoskeletal: No Edema
Skin: Warm and Dry; Negative Rash
Neuro: AO x 3
Psych: Calm
Data Reviewed
-
Diagnostic Radiology: Report Reviewed by me
Labs: Labs Reviewed by me
--- NOTE | 2025-06-03 09:30 | CM ---
Addendum entered by Araceli Guaman 06/03/25 15:34:
CM noted dc order
Bedside meeting with pt
Neighbor will be driving her home
Original Note:
CM reviewed chart
Pt noted to be independent in room
No dc needs anticipated at this time
CM will continue to follow for dc planning
Discharge Disposition- home, no needs anticipated
[2025-06-03] MEDS: NSS 1000 IV (09:59)
[2025-06-03] MEDS: TOPROL XL 25 MG PO (10:02)
--- NOTE | 2025-06-03 10:09 | W.PN.GS2 ---
Addendum entered and electronically signed by Shawn Morrison MD 06/03/25 12:30:
I saw and examined the patient.
The resident's note was reviewed and I agree with the note.
Comment: Improving. Passing flatus and BM. Abd pain improved. Abd exam nt, nd. Agree with ADAT to LRD. Pls call with ?s
Original Note:
Today's Communication / Plan
-
Plan reviewed with attending
Assessment / Plan
-
79yoF with endometrial cancer s/p robotic MICHELLE, BSO, appendectomy, partial omentectomy, pelvic lymphadenectomy, and removal of peritoneal implants on 05/26/2025 here for abdominal discomfort beginning 06/01/25. Pt reports resolution of symptoms after
bowel rest and NG tube. Due to normalized white count, there is a lower suspicion for abscess or infectious etiology. Start on clear liquids. Plan to escalate diet as tolerated.
Plan
Advance diet as tolerated. Start with clear liquid breakfast.
Continue PPI for any continued concern of gastritis or duodenitis
Discontinue abx zosyn
Subjective Data
-
Date of Service: June 03, 2025
79yoF with endometrial cancer s/p robotic MICHELLE, BSO, appendectomy, partial omentectomy, pelvic lymphadenectomy, and removal of peritoneal implants on 05/26/[address] abd and Contrast enema demonstrated no concern for
perforation.
Today, pt reports resolved pain and discomfort. NG clamp trial last night with 10ml after. NG pulled with continued resolved symptoms. Denies fever, chills, nausea, vomiting. Pt reports formed BM.
Objective Data
-
Intake and Output
06/02/25 06/03/25 06/04/25
06:59 06:59 06:59
Intake Total 1000 / 1000
Output Total 150 / 150
Balance 850 / 850
Intake:
IV fluids (Total) 900 / 900
IV piggybacks 100 / 100
Amount instilled into GI Tube ( 0 / 0
Total)
[place] Sump 0 / 0
Output:
Gastrointestinal tube output ( 150 / 150
Total)
[place] Sump 150 / 150
Other:
Number of approximated MODERATE 1
amounts of urine
Vital Signs
Temp Pulse Resp BP Pulse Ox
98.2 F 81 18 139/74 100
06/03/25 08:00 06/03/25 08:00 06/03/25 08:00 06/03/25 08:00 06/03/25 08:00
Lab Results
06/03/25 07:44
06/03/25 07:44
Calcium 8.3 mg/dl (8.4-10.2) L 06/03/25 07:44
Magnesium 1.6 mg/dl (1.6-2.3) 06/03/25 07:44
Total Bilirubin 0.9 mg/dl (0.2-1.3) 06/01/25 16:46
AST 18 U/L (14-36) 06/01/25 16:46
ALT 16 U/L (0-35) 06/01/25 16:46
Alkaline Phosphatase 54 U/L (38-126) 06/01/25 16:46
Total Protein 6.8 g/dl (6.3-8.2) 06/01/25 16:46
Albumin 3.9 g/dl (3.5-5.0) 06/01/25 16:46
Physical Exam
-
General: No Apparent Distress and Comfortable
HEENT: Normocephalic and Atraumatic
Respiratory: Clear and Non Labored Respirations
GI: Soft, Non Tender, Non Distended. Incisions clean, dry, intact.
Musculoskeletal: No Clubbing and No Edema
Skin: Warm and Dry
Neuro: Awake, Alert, Oriented, No Motor Deficits and Nonfocal/Grossly Intact
Patient has a berman catheter: No
Patient has a central line: No
[2025-06-03 12:00] VITALS: BP 147/84
--- NOTE | 2025-06-03 12:30 | W.DCSUMMARY ---
Discharge Summary
Discharge Data
Date of Admission: 06/02/25
Date of Discharge: 06/03/25
-
Pending Results: No
Hospital Course
Discharging Physician : Dr. Dee Harding
Disposition : Home
Primary care physician : Dr. Justine Kirby
Principal Discharge diagnosis : Ileus, Pelvic fluid collection post robotic MICHELLE BSO 05/26/25.
Hospital Course :
Ms. Eun Rivera is a 79 yo woman with hx essential HTN, SVT, endometrial CA s/p robotic MICHELLE/BSO on 05/26/25 presents to the ER on 06/01 complaining of epigastric pain and belching. Triage vitals stable. Labs significant for WBC 17.2. CT A/P
with findings of moderate pneumoperitoneum and submucosal edema in 1st and 2nd portions of duodenum with differential including residual pneumoperitoneum from recent surgery versus acute perforated duodenal distal gastric ulcer. Concern raised for
colon perforation given nodules were excised from rectum, although patient had no lower abdominal pain. She was admitted to medicine with Tree Surgeon Helper/Onc, General surgery and CRS consulting.
An NGT was placed with concern for ileus, and patient had improvement in pain post placement. She was started on IV Zosyn given pelvic fluid collection and leukocytosis. Barium contrast enema study showed no extraluminal extravasation. Most
likely presentation was 2/2 duodenitis with delayed gastric emptying combined with residual pneumoperitoneum from recent procedure. She tolerated NGT removal and advancement of diet prior to discharge without pain. Her leukocytosis resolved.
She is discharged with new prescription for Protonix daily given finding of duodenitis. She is referred to GI.
She is prescribed one week Augmentin for possible infected fluid collection, discussed plan with Dr. Cárdenas. She will follow up with her PCP and Dr. Cárdenas.
Time spent on discharge was 40 minutes.
Important imaging findings :
CT
IMPRESSION:
1. MODERATE PNEUMOPERITONEUM in the right upper quadrant of the abdomen and new severe submucosal edema in the 1st and 2nd portions of the duodenum. Diagnostic possibilities are (1) an acute perforated duodenal or distal gastric ulcer or (2)
residual pneumoperitoneum from recent surgery.
2. Recent MICHELLE-BSO and appendectomy.
3. Large amount of soft tissue emphysema in the right anterior and lateral abdominal wall.
4. Mild extraperitoneal air in the pelvis.
5. 5.9 cm loculated fluid collection in the pelvic cul-de-sac (either an abscess or seroma).
6. Moderate diverticulosis in the descending and sigmoid colon.
CHEST/ABDOMEN X-RAY
IMPRESSION:
Moderate volume free air is seen particularly in the right upper abdomen, difficult to compare volume to CT of preceding day in light of differences of imaging modalities.
Nasogastric tube with tip in proximal stomach. Tube could be passed further into the body of the stomach.
Barium Enema
FINDINGS/impression:
Initially with the patient in the left lateral decubitus position, and under continuous as well as intermittent fluoroscopic observation, water-soluble contrast material was administered by rectal catheter. Images were obtained in the left lateral
decubitus position, the right and left posterior oblique position, the right lateral decubitus position, and AP position.
No demonstrable extraluminal extravasation of contrast material is identified involving the rectosigmoid colon.
Incidental findings include distal descending colon and sigmoid colon mild to moderate diverticulosis.
Procedure findings :
Discharge Plan
-
Patient Disposition: Home (Routine Discharge)
Discharge Diagnosis/Procedures: Ileus, fluid collection
Diet: Low Residue
Activity: As tolerated
Driving Restrictions: As prior to admission
Bathing Restrictions: None
Referrals:
Justine Kirby PA-C [Family Provider, Family Practice] - in less than 1 week
Keysha Mcbride DO [Active, Gastroenterology] - in one to two weeks
Referral Note: admitted 06/01-06/03 with finding of duodenitis treated with PPI and tolerating diet prior to DC. surgical team was involved as CT saw pneumoperitoneum but this was from recent surgery. pain free at discharge.
Aleksandr Cárdenas MD [Active, [facility]] - in one week
Prescriptions:
New
pantoprazole [Protonix] 40 mg tablet,delayed release (DR/EC)
40 mg PO DAILY Qty: 30 0RF
amoxicillin-pot clavulanate 875-125 mg tablet
1 tab PO BID Qty: 14 0RF
Continued
polyethylene glycol 3350 [Miralax] 17 gram Powder In Packet
17 g PO DAILYPRN PRN (Reason: constipation)
metoprolol succinate 25 mg Tablet Extended Release 24 Hr
25 mg PO BID Qty: 60 0RF
acetaminophen [Tylenol] 325 mg Tablet
650 mg PO Q6HPRN PRN (Reason: mild pain)
Discharge Orders:
Discharge Patient (As Directed); Ordered 06/03/25
Ordered By: Dee Harding
Discharge Date and Time
Print Language: SAMI
== END 2025-06-03 16:58 | disposition home or self-care (01) | DRG 389 ==
LOC: 1 ACUTE 00:40
PROVIDERS: Emergency Medicine; Physician Assistant; ADMITTING PHYSICIAN Internal Medicine; ATTENDING PHYSICIAN Student in an Organized Health Care Education/Training Program; EMERGENCY PHYSICIAN Emergency Medicine; FAMILY PHYSICIAN Physician Assistant Medical; OTHER PHYSICIAN Surgery
PROC: 0D9670Z Drainage of Stomach with Drainage Device, Via Natural or Artificial Opening (ICD-10-PCS; 2025-06-01)
DX: K56.7 Ileus, unspecified (principal); I47.10 Supraventricular tachycardia, unspecified; K29.80 Duodenitis without bleeding; T81.82XA Emphysema (subcutaneous) resulting from a procedure, initial encounter; I10 Essential (primary) hypertension; D72.829 Elevated white blood cell count, unspecified; K57.30 Diverticulosis of large intestine without perforation or abscess without bleeding; C54.1 Malignant neoplasm of endometrium; K21.9 Gastro-esophageal reflux disease without esophagitis; K66.8 Other specified disorders of peritoneum; Y83.8 Other surgical procedures as the cause of abnormal reaction of the patient, or of later complication, without mention of misadventure at the time of the procedure; Y92.9 Unspecified place or not applicable; Z60.2 Problems related to living alone; Z90.710 Acquired absence of both cervix and uterus; Z88.2 Allergy status to sulfonamides
CPT/HCPCS: 74022; 74177; 74270; 80048; 80053; 81003; 81015; 83605; 83690; 83735; 84484; 85025; 85610; 87040; 87086; 93005; 96374; 99285; Q9967

== ENCOUNTER 2025-09-22 18:32 | Inpatient (IN) | payer MEDICARE, SELFPAY ==
[2025-09-22 10:53] VITALS: BP 111/74
[2025-09-22 11:36] VITALS: BMI 23.5
--- NOTE | 2025-09-22 11:52 | ED.GENMED ---
History of Present Illness
<CRAIG Gaviria - Last Filed: 09/22/25 16:54>
General
Chief Complaint: Abdominal Pain
Source: patient
Exam Limitations: none
Time Seen by Provider: 09/22/25 11:31
Nursing documentation reviewed up to this point in time: agreed with
History of Present Illness
History of Present Illness:
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 Patient at
that time was discharged on Protonix.
Patient presents to the ER today for evaluation of abdominal discomfort. She reports ever since her surgery she has not felt she is urinating normally. She denies any actual pain but reports' it feels different.'
She did urinate this morning. She denies any fevers .she has had a decreased appetite. intermittent constipation and abd discomfort/back pain for the past several weeks.
Past History
<CRAIG Gaviria - Last Filed: 09/22/25 16:54>
Past History
ED Past Medical History: HTN
ED Past Surgical History: None
Social History
Tobacco: Non-smoker
Phy Exam
<CRAIG Gaviria - Last Filed: 09/22/25 16:54>
General Physical Exam
General Presentation: no apparent distress
General age: appears stated age
General Skin: warm and dry
General Habitus: normal
General Mental: alert
General Hydration: appears well hydrated
Cardiovascular Exam
Cardiovascular Exam: regular rate/rhythm, no murmur and normal peripheral pulses
Pulmonary Exam
Pulmonary Exam: lungs clear and no respiratory distress
Gastrointestinal Exam
Gastrointestinal Exam: other (abd firm and distended very tender on exam )
Course
<CRAIG Gaviria - Last Filed: 09/22/25 16:54>
Orders/Labs/Results
Orders:
Orders
09/22/25 11:55
Complete Blood Count/With Diff Urgent
Comprehensive Metabolic Panel Urgent
Lipase Urgent
09/22/25 12:00
Bladder Scan- Treatment ONCE
09/22/25 12:11
0.9% Sodium Chloride 1000 ml [Nss] 1,000 ml IV BOLUS
09/22/25 12:16
UA Reflex to Culture [Urinalysis Reflex To Culture] Urgent
Date Specimen was Collected: 09/22/25
Time Specimen was Collected: 12:06
Urine Microscopic Reflex Cult Urgent
09/22/25 12:20
Brady Placement- Treatment ONCE
Reason for insertion: Acute Retention
09/22/25 12:57
CT Abd/pel Without Iv Or Oral Urgent
Comment:
Reason For Exam: abd pain , urinary retention hx of hysterectomy
09/22/25 16:12
CT Angio Abd/Pelvis w/wo IV [CT Abd/pelvis Angio W/wo Iv] Urgent
Comment:
Reason For Exam: concern for hemorrhage
09/22/25 16:19
0.9% Sodium Chloride 1000 ml [Nss] 1,000 ml IV BOLUS
Abnormal Lab Results
09/22/25 09/22/25
11:55 12:16
WBC 11.6 H 10^3/uL
(4.8-10.8)
Hct 36.8 L %
(37.0-47.0)
Plt Count 447 H 10^3/uL
(130-400)
Absolute Neuts (auto) 10.4 H 10^3/uL
(1.4-6.5)
Absolute Lymphs (auto) 0.5 L 10^3/uL
(1.2-3.4)
Neutrophils % 90.1 H %
(42.2-75.2)
Lymphocytes % 4.4 L %
(20.5-51.1)
Sodium 132 L mmol/L
(135-145)
Chloride 97 L mmol/L
(98-107)
Carbon Dioxide 19 L mmol/L
(22-30)
BUN 58 H mg/dl
(7-17)
Creatinine 2.8 H mg/dL
(0.6-1.0)
Glucose 102 H mg/dl
(70-99)
Ur Occult Blood Reflex 2+ A
(Negative)
Urine RBC 3-6 A /HPF
(0-2)
Urine Bacteria (Reflex) Few A
(Negative)
09/22/25 11:55
09/22/25 11:55
Vital Signs
Initial and Last Documented VS:
Initial Vital Signs
Temp Pulse Resp BP
97.8 F 89 16 111/74
09/22/25 10:53 09/22/25 10:53 09/22/25 10:53 09/22/25 10:53
Last Documented Vital Signs
Temp Pulse Resp BP Pulse Ox
97.8 F 74 20 114/73 99
09/22/25 10:53 09/22/25 15:51 09/22/25 15:51 09/22/25 12:22 09/22/25 13:04
Tree Topper consulted with Physician
Tree Topper consulted with physician?: Yes
Name of Physician Consulted: Mario
<Sd Martin, DO - Last Filed: 09/22/25 16:11>
Orders/Labs/Results
Orders:
Orders
09/22/25 11:55
Complete Blood Count/With Diff Urgent
Comprehensive Metabolic Panel Urgent
Lipase Urgent
09/22/25 12:00
Bladder Scan- Treatment ONCE
09/22/25 12:11
0.9% Sodium Chloride 1000 ml [Nss] 1,000 ml IV BOLUS
09/22/25 12:16
UA Reflex to Culture [Urinalysis Reflex To Culture] Urgent
Date Specimen was Collected: 09/22/25
Time Specimen was Collected: 12:06
Urine Microscopic Reflex Cult Urgent
09/22/25 12:20
Brady Placement- Treatment ONCE
Reason for insertion: Acute Retention
09/22/25 12:57
CT Abd/pel Without Iv Or Oral Urgent
Comment:
Reason For Exam: abd pain , urinary retention hx of hysterectomy
09/22/25 16:12
CT Angio Abd/Pelvis w/wo IV [CT Abd/pelvis Angio W/wo Iv] Urgent
Comment:
Reason For Exam: concern for hemorrhage
09/22/25 16:19
0.9% Sodium Chloride 1000 ml [Nss] 1,000 ml IV BOLUS
Abnormal Lab Results
09/22/25 09/22/25
11:55 12:16
WBC 11.6 H 10^3/uL
(4.8-10.8)
Hct 36.8 L %
(37.0-47.0)
Plt Count 447 H 10^3/uL
(130-400)
Absolute Neuts (auto) 10.4 H 10^3/uL
(1.4-6.5)
Absolute Lymphs (auto) 0.5 L 10^3/uL
(1.2-3.4)
Neutrophils % 90.1 H %
(42.2-75.2)
Lymphocytes % 4.4 L %
(20.5-51.1)
Sodium 132 L mmol/L
(135-145)
Chloride 97 L mmol/L
(98-107)
Carbon Dioxide 19 L mmol/L
(22-30)
BUN 58 H mg/dl
(7-17)
Creatinine 2.8 H mg/dL
(0.6-1.0)
Glucose 102 H mg/dl
(70-99)
Ur Occult Blood Reflex 2+ A
(Negative)
Urine RBC 3-6 A /HPF
(0-2)
Urine Bacteria (Reflex) Few A
(Negative)
09/22/25 11:55
09/22/25 11:55
Vital Signs
Initial and Last Documented VS:
Initial Vital Signs
Temp Pulse Resp BP
97.8 F 89 16 111/74
09/22/25 10:53 09/22/25 10:53 09/22/25 10:53 09/22/25 10:53
Last Documented Vital Signs
Temp Pulse Resp BP Pulse Ox
97.8 F 74 20 114/73 99
09/22/25 10:53 09/22/25 15:51 09/22/25 15:51 09/22/25 12:22 09/22/25 13:04
<CRAIG Gaviria - Last Filed: 09/22/25 16:54>
MDM/Problems Addressed
Differential Diagnosis Includes:
Not limited to UTI urinary retention diverticulitis obstruction, constipation
MDM/Problems Addressed:
Patient is a 80-year-old female status post hysterectomy May 26 presents for abdominal pain intermittently for the past 1 to 2 weeks. Poor historian feels that her urination is off but cannot quite describe her symptoms. She has had decreased
appetite. Intermittent constipation. On exam patient was very distended with firm tender abdomen bladder scan for over 700 cc of urine. Urinary catheter was placed with greater than 1000 cc of urine. Patient slight improvement. Patient's reveal
acute renal failure with a BUN of 58 and a creatinine of 2.8 likely from retention will order a CT noncontrast to further evaluate any additional causes for patient's discomfort
CAT scan read: Concerning heterogeneous fluid centered within the pelvis most consistent with intraperitoneal hemorrhage small [place] hemorrhage adjacent to the liver and spleen possible sentinel clot near the mesentery which may indicate a source of
bleeding intraperitoneal hemorrhage is new compared to CAT scan May 2025. Case reviewed with Dr. Santiago who evaluated patient. Patient is stable normotensive nontachycardic stable hemoglobin of 12.2.
Case reviewed with vascular on-call Dr. Aparicio who does recommend stat CT abdomen angio pelvis with and without IV contrast. Patient was given fluids already with new onset renal failure again had urinary retention which may be possible because of
renal failure. Will also give a second bolus after ct.
1635: Dr Aparicio looked at CT angio he does not see any active bleeding
Pt remains stable. will admit for furhter eval.
Chronic conditions affecting care:
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
<CRAIG Gaviria - Last Filed: 09/22/25 16:54>
*Radiology
Radiology exam reviewed: radiology read reviewed
*Pulse Oximetry
SaO2: 100
Oxygen Mode of Delivery: Room air
Patient hypoxic: no
*Critical Care Note
Total Time (30-74mins, 75-104mins- exclusive of procedures): Not Applicable
Data Reviewed
Review of Other/Old Records Reveals: Labs and Discharge Summary
Source: patient
<CRAIG Gaviria - Last Filed: 09/22/25 16:54>
Patient Management
Discussion with other providers: Flight Superintendent (DR Aparicio )
ED Attending Note
<CRAIG Gaviria - Last Filed: 09/22/25 16:54>
-
Portions of this chart may have been created with voice recognition software.� Occasional wrong word or��sound alike� substitutions may have occurred due to the inherent limitations of voice recognition software.
<Sd Martin DO - Last Filed: 09/22/25 16:11>
ED Attending Note
Patient seen and examined by attending physician: Yes
ED Attending Note:
I have reviewed and agree with history treatment plan by CRAIG Lowery. My exam revealed 80-year-old female in no acute distress, mild firmness in suprapubic region. No rebound or guarding. Patient with urinary retention and acute renal
failure. CT scan concerning for intraperitoneal hemorrhage. Will discuss with vascular surgery for further treatment and admit patient.
Discharge Plan
Departure
Patient Disposition: Admit
Date of Disposition: 09/22/25
Time of Disposition: 16:42
Admit to: Med/Surg
Admit to doctor: hospitalist
Presentation/result/management discussed w/ accepting MD/DO: Hospitalist
Patient with high blood pressure during this ER visit?: No
Condition: Fair
Covid-19: Not Applicable
Discharge Problem:
Acute renal failure, Acute urinary retention, Abdominal pain
Prescriptions:
No Action
polyethylene glycol 3350 [Miralax] 17 gram Powder In Packet
17 g PO DAILYPRN PRN (Reason: constipation)
metoprolol succinate 25 mg Tablet Extended Release 24 Hr
25 mg PO BID Qty: 60 0RF
acetaminophen [Tylenol] 325 mg Tablet
650 mg PO Q6HPRN PRN (Reason: mild pain)
pantoprazole [Protonix] 40 mg tablet,delayed release (DR/EC)
40 mg PO DAILY Qty: 30 0RF
amoxicillin-pot clavulanate 875-125 mg tablet
1 tab PO BID Qty: 14 0RF
Referrals:
Sherry Kirby MD [Family Provider, Gynecology]
Interventions
Interventions:
*Risk Screen - Suicide Last Done: 09/22/25 10:53
*General Assessment Last Done: 09/22/25 11:36
*Neglect/Abuse Screening Last Done: 09/22/25 10:53
*ED- Fall Risk Assessment Last Done: 09/22/25 11:36
*ED COVID-19 Vaccine History Last Done: 09/22/25 11:36
*ED Influenza Vaccine History Last Done: 09/22/25 11:36
ZK-Bieksc-Eskwrshwmy Assessment Last Done: 09/22/25 11:36
Discharge Date and Time
Print Language: BURKINAN
[2025-09-22 12:09] LABS: Hematocrit 36.8 % (37.0-47.0); Hemoglobin 12.2 g/dL (12.0-16.0); Mean Corp Hgb Conc. 33.2 g/dL (33.0-37.0); Mean Corpuscular Volume 82.1 fL (81.0-99.0); Nucleated Red Blood Cells % 0 %; Platelet Count 447 10^3/uL (130-400); Red Cell Dist. Width 13.2 % (11.5-14.5)
[2025-09-22] MEDS: NSS 1000 IV ×2 (12:17→16:38)
[2025-09-22 12:21] LABS: ALT (SGPT) 12 U/L (0-35); AST (SGOT) 21 U/L (14-36); Albumin 3.9 g/dl (3.5-5.0); Alkaline Phosphatase 47 U/L (38-126); Blood Urea Nitrogen 58 mg/dl (7-17); Calcium 9.7 mg/dl (8.4-10.2); Carbon Dioxide 19 mmol/L (22-30); Chloride 97 mmol/L (98-107); Estimated Creatinine Clearance 16 ml/min; Glucose 102 mg/dl (70-99); Lipase 115 U/L (23-300); Potassium 3.7 mmol/L (3.5-5.1); Sodium 132 mmol/L (135-145); Total Protein 7.0 g/dl (6.3-8.2); eGFR 16.76
[2025-09-22 12:22] VITALS: BP 114/73
[2025-09-22 12:42] LABS: Urine Character Clear (Clear)
[2025-09-22 12:55] LABS: Urine Squamous Cell 0-2 /LPF (Few)
[2025-09-22 12:56] LABS: Urine White Cell 0-2 /HPF (0-5)
--- NOTE | 2025-09-22 16:41 | W.PN.UPDATE ---
Update Note
Progress Note Update
I was called by the emergency room staff regarding this patient after noncontrast CT scan had been done. CT scan had reported possibility of intra peritoneal hemorrhage. I instructed emergency room to immediately proceed with CT angiogram if any
concern for intra-abdominal active bleeding. CT angiogram completed. I reviewed the images myself. I do not see any definitive extravasation. I do not see any aneurysms. No visceral aneurysms. Delayed imaging also does not demonstrate any
definitive extravasation. The only bright opacity noted within the mass or pelvic fluid collection is best seen on image 106, series 401. There is a bright opacity. Initially I thought this might be contrast. But I reviewed the noncontrast CT
scan that had been done prior and this spot was present exactly the same on that scan as well. Therefore this does not represent contrast extravasation but rather an opacity or calcification. Therefore I do not think any acute vascular findings or
acute/active arterial bleeding here based on the scan images. I relayed the findings to the ER staff. Discussed with them to follow-up with radiologist regarding definitive interpretation.
--- NOTE | 2025-09-22 16:49 | HPS.HSE ---
Family Physician
<CRAIG Caban - Last Filed: 09/22/25 18:13>
-
Family Physician: Sherry Kirby
Chief Complaint
<CRAIG Caban - Last Filed: 09/22/25 18:13>
-
abdominal pain
History of Present Illness
Patient is a 80-year-old female with past medical history significant for endometrial cancer, hypertension and SVT who presented to [facility] ED for evaluation of abdominal pain that radiated around back. Patient reports pain has been present for 2 weeks
and would wax and wean in intensity. Pain is described as constantly there but does change in intensity, was unable to describe in detail. She reports that she was having difficulty urinating and was having constipation. She utilized PRN Miralax and
Colace successfully and had a bowel movement, last one yesterday 09/21/25. She notes that she had total hysterectomy on May 26, 2025 and feels that urination and bowel movements have not been the same since. Denies any recent known sick contact,
illness, fever, chills, cough, shortness of breath, chest pain, nausea, vomiting or diarrhea.
<Sunil Oliva MD - Last Filed: 09/22/25 18:53>
History of Present Illness
80F HX significant for endometrial CA , HTN and SVT seen at ER who presented to [facility] ED for evaluation of abdominal pain that radiated around back. Patient reports pain has been present for 2 weeks and would wax and wean in intensity. Pain is
described as constantly there but does change in intensity, was unable to describe in detail. She reports that she was having difficulty urinating and was having constipation. She utilized PRN Miralax and Colace successfully and had a bowel
movement, last one yesterday 09/21/25. She notes that she had total hysterectomy on May 26, 2025 and feels that urination and bowel movements have not been the same since. Denies any recent known sick contact, illness, fever, chills, cough,
shortness of breath, chest pain, nausea, vomiting or diarrhea.
Medical History
<CRAIG Caban - Last Filed: 09/22/25 18:13>
Past Medical History
Past Medical History: Reports Other
Additional Past Medical History:
endometrial cancer
hypertension
SVT
Past Surgical History: Reports Other
Additional Past Surgical History:
Robotic MICHELLE/BSO 05/26
Social History
Tobacco: Non-smoker
Alcohol: Occasional
Drug: None
Personal:
Living: Alone
Family History
Family History: Not pertinent
Allergies / Home Medications
Allergies reflects when Allergies were last updated in [facility].
Home Medications with original date entered in [facility]
Allergy/Medication List:
Allergies
Allergy/AdvReac Type Severity Reaction Status Date / Time
Sulfa (Sulfonamide Allergy RASH/HIGH Verified 09/22/25 10:51
Antibiotics) TEMP
Home Medications
metoprolol succinate 25 mg tablet,extended release 24 hr 25 mg PO BID #60 tabs 05/27/25
Review of Systems
<CRAIG Caban - Last Filed: 09/22/25 18:13>
-
History Source: Patient
Constitutional: Denies Fever or Chills
EENT: Denies Sore Throat, Mouth Pain or Mouth Swelling
Respiratory: Denies Cough, Hemoptysis or Trouble Breathing
Cardiac: Denies Chest Pain, Diaphoresis, Palpitations or Syncope
Abdomen/GI: Reports Abdominal Pain (radiated around to back bilaterally ) and Constipated; Denies Nausea, Vomiting or Diarrhea
: Reports Frequency and Difficulty Voiding; Denies Dysuria or Urgency
Musculoskeletal: Denies Joint Pain or Joint Swelling
Skin: Denies Rash
Neurological: Denies Dizzy, Headache, Weakness or Numbness
Endocrine: Denies Polyuria or Polydipsia
Hematologic/Lymphatic: Denies Bleeding
Physical Exam
<CRAIG Caban - Last Filed: 09/22/25 18:13>
Vital Signs
Vital Signs
Temp Pulse Resp BP Pulse Ox
97.8 F 74 20 114/73 99
09/22/25 10:53 09/22/25 15:51 09/22/25 15:51 09/22/25 12:22 09/22/25 13:04
Physical Exam
General: Well Developed, Well Nourished, No Apparent Distress, Comfortable, Conversant and Appears Chronically Ill
HEENT: NormoCephalic, PERRLA, Ears Appear Normal and Hearing Impaired; No Moist mucous membranes
Respiratory: Clear and Non Labored Respirations; No Wheezes, Rales or Rhonchi
Cardiac: S1/S2 and Regular Rhythm; No Murmur or Peripheral Edema
GI: Soft, Non Distended, Normal Bowel Sounds and Tender (mildly tender )
Genito-urinary: Brady (hematuria present in bag )
Musculoskeletal: No Clubbing, No Cyanosis and No Edema
Skin: Warm and IV/Catheter Site
Neuro: Awake and AO x 3
Psych: Calm and Intact Judgment/Insight
Laboratory Results
<CRAIG Caban - Last Filed: 09/22/25 18:13>
-
09/22/25 11:55
09/22/25 11:55
Laboratory Results
Total Bilirubin 0.7 mg/dl (0.2-1.3) 09/22/25 11:55
AST 21 U/L (14-36) 09/22/25 11:55
ALT 12 U/L (0-35) 09/22/25 11:55
Alkaline Phosphatase 47 U/L (38-126) 09/22/25 11:55
Lipase 115 U/L (23-300) 09/22/25 11:55
Data Reviewed
<CRAIG Caban - Last Filed: 09/22/25 18:13>
-
CT Scan: Report Reviewed by me (ABD/PEL see report: ABD/PEL CTA: see report )
Lab Data: Labs Reviewed by me (WBC 11.6, neut 90.1, Na+ 132, BUN 58, Creat 2.8, est CrCl 16, eGFR 16.76)
Impression/Plan
<CRAIG Caban - Last Filed: 09/22/25 18:13>
-
IMPRESSION/PLAN:
#abdominal pain with radiation around back 2/2 urinary retention vs. constipation vs. kidney stone
WBC 11.6, neut 90.1
UA: unremarkable
Urine Cx: pending
Abd/Pel CT: 1. Heterogeneous fluid centered within the pelvis, most consistent with intraperitoneal hemorrhage. Small amount of hemorrhage adjacent to the liver and spleen.
2. Possible sentinel clot near the root of the mesentery as detailed above, which may indicate source of bleeding.
3. Intraperitoneal hemorrhage is new compared to prior CT dated 06/01/2025. Etiology of the bleeding is unclear, and neoplasm is not excluded. Consider contrast enhanced follow-up CT after resolution of the hemorrhage.
4. Bilateral hydroureteronephrosis, ureters are dilated to the level of the pelvic fluid collection.
Abd/Pel CTA: 1. 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
2. No CT evidence for active bleed or significant peritoneal hemorrhage.
3. Mild bilateral hydroureteronephrosis likely secondary to mass effect on the urinary bladder/ureterovesical junctions.
4. No abdominal aortic aneurysm or dissection.
- Admit to med/surg
- Consult to Vascular Surgery for potential hemorrhage
- Abd/pel CTA angio completed
- Consult Oncology for necrotic pelvic tumor found on CTA
#acute kidney injury
Na+ 132, BUN 58, Creat 2.8, est CrCl 16, eGFR 16.76
- IVF given in ED
- trend BMP
- Consult Nephrology
#acute urinary retention
bladder scanned for >700 cc in ED
ED placed Brady for acute retention and obtained 1000cc urine
- Brady for acute retention
- hematuria present, will monitor for continued bleeding
- Consult Urology
- consider change to a continuous bladder irrigation if Brady stops draining
#endometrial cancer
follows with [facility], Dr. Melgar
s/p total hysterectomy with Dr. Cárdenas 05/26/2025
patient has not accepted traditional radiation or chemo therapy was hoping for more holistic approach, now thinking she will do traditional treatments
- continue to follow up out patient
#hypertension
#SVT
- continue metoprolol
Code status: DNR
DVT prophylaxis: SCDs
--- NOTE | 2025-09-22 18:22 | W.PN.UPDATE ---
Update Note
Progress Note Update
This note serves as an addendum to the H&P by print support specialist WANDA�
Shae Malik
HPI�
80F HX endometrial CA, HTN, HX SVT for evaluation of waxing weaning abdominal pain that radiated around back for 2 weeks. She reports having difficulty urinating and was having constipation.
At ER:
Noted ESTRELLA ( Creat 2.8, est CrCl 16, eGFR 16.76)
AUR with bladder scanned for >700 cc in ED
ED placed Brady for acute retention and obtained 1000cc urine
Relevant VS;
Temp Pulse Resp BP Pulse Ox
97.8 F 70 14 114/73 98
09/22/25 10:53 09/22/25 17:30 09/22/25 17:30 09/22/25 12:22 09/22/25 17:00
PE
Physical Exam
General: No Apparent Distress, Conversant and Appears Chronically Ill
HEENT: Hearing Impaired; No Moist mucous membranes
Resp: Clear and Non Labored Respirations
Cardiac: S1/S2 and RRR
GI: Soft, Non Distended, Normal Bowel Sounds and Tender (mildly tender )
Brady (hematuria present in bag )
Neuro: Awake and AO x 3
Psych: Calm and Intact Judgment/Insight
Relevant Data�
06/03/25 09/22/25
07:44 11:55
WBC 11.6 H
Plt Count 381 447 H
Sodium 132 L
Chloride 109 H 97 L
Carbon Dioxide 24 19 L
BUN 14 58 H
Creatinine 0.7 2.8 H
eGFR > 60.00 16.76
Calcium 9.7
UA: unremarkable
Urine Cx: pending
CT AP
1. Heterogeneous fluid centered within the pelvis, most consistent with intraperitoneal hemorrhage. Small amount of hemorrhage adjacent to the liver and spleen.
2. Possible sentinel clot near the root of the mesentery as detailed above, which may indicate source of bleeding.
3. Intraperitoneal hemorrhage is new compared to prior CT dated 06/01/2025. Etiology of the bleeding is unclear, and neoplasm is not excluded.
Consider contrast enhanced follow-up CT after resolution of the hemorrhage.
4. Bilateral hydroureteronephrosis, ureters are dilated to the level of the pelvic fluid collection.
CTA AP
1. 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
2. No CT evidence for active bleed or significant peritoneal hemorrhage.
3. Mild bilateral hydroureteronephrosis likely secondary to mass effect on the urinary bladder/ureterovesical junctions.
4. No abdominal aortic aneurysm or dissection.
ASSESSMENT & PLAN
Abdominal pain with radiation around back
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
Intraperitoneal hemorrhage is new compared to prior CT dated 06/01/2025 however No CTA evidence for active bleed or significant peritoneal hemorrhage.
Endometrial CA follows with [facility],
S/p total hysterectomy with Dr. Cárdenas 05/26/2025
- She declined traditional XRT or chemo and was hoping for more holistic approach previusly
- Consulted to Vascular Surgery for potential hemorrhage
- Consult: Oncology for necrotic pelvic tumor found on CTA ( known to Dr. Melgar )
ESTRELLA suspect post obstructed
Acute urinary retention with bladder scanned for >700 cc in ED
ED placed Brady for acute retention and obtained 1000cc urine
- Gross hematuria drainage from F Cath
- consider change to a CBI if Brady stops draining or passage of clots
- Consult Urology
Essential HTN
HX SVT
- c/w metoprolol
DVT Px: SCD
DNR
IP MS
[2025-09-22 19:38] VITALS: BP 123/67
[2025-09-22 19:41] VITALS: BMI 22.5
--- NOTE | 2025-09-22 20:35 | PTCARENOTE ---
Pt arrived from ED via stretcher to room 324. Notified that the pt needed to be started on CBI right away with [address] berman. Pt brought up currently with regular berman and dark bloody urine output with clots. Regular cath removed and 3 way placed
with 1 attempt. CBI tx started and flowing. Pt c/o pain and feeling uncomfortable. Stat valium ordered by CRAIG Perdomo.
[2025-09-22] MEDS: TOPROL XL 25 MG PO (20:53)
[2025-09-22] MEDS: VALIUM 2 MG PO (20:53)
[2025-09-22] MEDS: TYLENOL 650 MG PO (22:16)
[2025-09-22 23:00] VITALS: BP 120/68
[2025-09-23] MEDS: MELATONIN 5 MG PO ×2 (01:59→22:59)
[2025-09-23 06:34] LABS: Hematocrit 31.5 % (37.0-47.0); Hemoglobin 10.2 g/dL (12.0-16.0); Mean Corp Hgb Conc. 32.4 g/dL (33.0-37.0); Mean Corpuscular Volume 84.2 fL (81.0-99.0); Platelet Count 374 10^3/uL (130-400); Red Cell Dist. Width 13.4 % (11.5-14.5)
[2025-09-23 07:04] LABS: Blood Urea Nitrogen 54 mg/dl (7-17); Calcium 8.1 mg/dl (8.4-10.2); Carbon Dioxide 17 mmol/L (22-30); Chloride 102 mmol/L (98-107); Estimated Creatinine Clearance 16 ml/min; Glucose 71 mg/dl (70-99); Potassium 3.6 mmol/L (3.5-5.1); Sodium 132 mmol/L (135-145); eGFR 16.76
[2025-09-23 07:49] VITALS: BP 118/67
[2025-09-23] MEDS: TOPROL XL 25 MG PO ×2 (07:56→21:03)
--- NOTE | 2025-09-23 09:32 | W.PN.HOSP.TC ---
Addendum entered and electronically signed by Hazel Celestin MD 09/23/25 10:22:
d/w IR for BL PCN placement- will attempt later today or tmr.
IR also informed of incidental PE of RLL- addendum to be added by radiologist.
Pt currently does not have any respiratory compromise- last documented sat 99% on RA.
Due to pt's current gross hematuria, I do not feel strongly about starting AC, and feel IVF filter is the safer approach.
D/w finding with Onc Dr Sifuentes, who feels the same way (recc IVF filter and not AC).
Will also CS pulm for finding of acute PE.
Original Note:
Today's Communication/Plan
-
see A/P
Assessment / Plan
Assessment / Plan
HPI: 80-year-old female with past medical history significant for endometrial cancer, hypertension, SVT; who presented with abdominal pain ongoing for 2 weeks. Pain is described as constant but does change in intensity.
She also reported difficulty with urinating and was having constipation. Of note, she has had total hysterectomy on May 26, 2025.
Abd/Pel CT: 1. Heterogeneous fluid centered within the pelvis, most consistent with intraperitoneal hemorrhage. Small amount of hemorrhage adjacent to the liver and spleen.
2. Possible sentinel clot near the root of the mesentery as detailed above, which may indicate source of bleeding.
3. Intraperitoneal hemorrhage is new compared to prior CT dated 06/01/2025. Etiology of the bleeding is unclear, and neoplasm is not excluded. Consider contrast enhanced follow-up CT after resolution of the hemorrhage.
4. Bilateral hydroureteronephrosis, ureters are dilated to the level of the pelvic fluid collection.
Abd/Pel CTA: 1. 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
2. No CT evidence for active bleed or significant peritoneal hemorrhage.
3. Mild bilateral hydroureteronephrosis likely secondary to mass effect on the urinary bladder/ureterovesical junctions.
4. No abdominal aortic aneurysm or dissection.
A/P:
# Mild diffuse abdominal pain with urination difficulty/urinary retention, 2/2 endometrial cancer
# Postrenal ESTRELLA with bilateral hydroureteronephrosis secondary to mass effect on the urinary bladder/ureterovesical junctions from endometrial cancer
# endometrial cancer s/p total hysterectomy on May 26, 2025.
Follow Urine Cx which was sent from admission
SCr 2.8 from baseline 0.7
d/w Uro, recc IR CS for BL PCN.
Cont berman for now
Per Uro, hematuria is expected in setting of bladder contraction with berman
Appreciate Oncology input
intraperitoneal hemorrhage has been ruled out with CTA. No need for vascular eval
# Endometrial cancer
follows with [facility], Dr. Melgar
s/p total hysterectomy with Dr. Cárdenas 05/26/2025
patient has not accepted traditional radiation or chemo therapy was hoping for more holistic approach,
continue to follow up outpatient with Onc
# Hypertension
# SVT
continue metoprolol
Code status: DNR
DVT prophylaxis: SCDs
DW RN
extensive discussion with Uro, Onc
total time 51 min
Anticipated Discharge: > 48 hours
Subjective/Interval History
-
Date of Service: September 23, 2025
Objective Data
-
Labs:
Laboratory Results
09/23/25
05:25
WBC 11.0 H
Hgb 10.2 L
Hct 31.5 L
Plt Count 374
Sodium 132 L
Potassium 3.6
Chloride 102
Carbon Dioxide 17 L
BUN 54 H
Creatinine 2.8 H
Glucose 71
Calcium 8.1 L D
Vital Signs:
Vital Signs
Temp Pulse Resp BP Pulse Ox
36.3 C 73 16 118/67 99
09/23/25 07:49 09/23/25 07:56 09/23/25 07:49 09/23/25 07:56 09/23/25 07:49
I&O
09/22/25 09/23/25 09/24/25
06:59 06:59 06:59
Intake Total 480 / 480
Output Total 2950 / 2950
Balance -2470 / -2470
Review of Systems
-
History Source: Patient
Abdomen/GI: Reports Abdominal Pain (improved )
Physical Exam
-
General: Well Developed, No Apparent Distress, Comfortable and Conversant
HEENT: Normocephalic and Atraumatic
Respiratory: Clear to Auscultation and Non Labored Respirations; Negative Accessory Resp Muscle Use
Cardiac: Regular Rhythm and S1/S2
GI: Soft, Nondistended and Tender (mild)
Genito-urinary: Berman and Continuous Bladder Irrigation
Musculoskeletal: No Edema
Skin: Warm and Dry; Negative Rash
Neuro: Awake and Alert
Psych: Calm and Intact Judgement/Insight
Data Reviewed
-
CT Scan: Report Reviewed by me
Labs: Labs Reviewed by me
[2025-09-23] MEDS: TYLENOL 650 MG PO ×2 (11:14→23:13)
--- NOTE | 2025-09-23 11:21 | CON.ONC ---
Consultation
-
Date Consultation Requested: 09/22/25
Date Consultation Performed: 09/23/25
Requesting Provider: Shae Malik
Performing Provider: Isaac Sifuentes MD; So, Justine Ball MD
Reason for Consultation: Pelvic mass, concern for metastases 2 endometrial carcinosarcoma
Impression
Impression
Stage IV carcinosarcoma of the endometrium, stage IVb
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
Right lower lobe Pulmonary Embolism
Plan
Plan
--Given the large size and extent of the pelvic mass, radiation therapy is unlikely to provide meaningful benefit at this time.
-Recommend chemotherapy/immunotherapy consistent with prior recommendations of paclitaxel, carboplatin, and dostarlimab, likely six cycles, followed by dostarlimab maintenance for up to three years (per the IFTIKHAR trial regimen) as outpatient.
--Her rising creatinine in the setting of bilateral hydroureteronephrosis due to obstructive mass will need percutaneous nephrostomy tubes should she proceed with chemotherapy/immunotherapy, as recommended by urology. This was discussed in detail
with the patient, along with treatment option.
--Palliative care option was also discussed. The patient at this time appears leaning toward chemotherapy/immunotherapy.
--Plan for outpatient oncology follow-up to initiate treatment.
--Agree with IVC filter placement in regards to Right Lower lobe Pulmonary Embolism as patient is clot risk due to active cancer. Concurrent hematuria and low hemoglobin suggest active bleeding, which could worsen with anticoagulation.
--Primary team updated.
--Will continue to follow with you
Patient History
History of Present Illness
80-year-old female with history of endometrial carcinosarcoma status post total laparoscopic hysterectomy with bilateral salpingo-oophorectomy, partial omentectomy, RAL pelvic lymphadenectomy, and appendectomy (05/26/2025). Initial presentation at
[facility] was notable for weakness, postmenopausal vaginal bleeding, and weight loss. Preoperative imaging demonstrated a large (9.4 cm) endometrial mass with extension to the uterine wall and right adnexa, a 5.4 cm right adnexal mass, and a 4.9 cm
cystic and solid left ovarian mass. 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
tissue. A separate stage T1aN0 clear cell carcinoma of the left ovary was also identified.�
She was seen in follow-up by Dr. Cárdenas, who recommended PET/CT evaluation, port placement, and chemotherapy with paclitaxel + carboplatin + dostarlimab, likely for 6 cycles, followed by dostarlimab maintenance for 3 years. At oncology visit with
Dr. Melgar on 09/04/2025, treatment options were reviewed, but the patient was hesitant to proceed with chemotherapy/immunotherapy.
She now presents with a 1-week history of worsening lower abdominal pain, described as constant, pressure like band associated with urinary difficulty and retention. She also has had recent onset of constipation, but otherwise felt competely fine
after the surgery. CT abdomen/pelvis on admission reveals a 17.0 x 13.5 x 16.6 cm heterogeneous pelvic mass with areas of necrosis, adjacent free peritoneal fluid, and mild bilateral hydroureteronephrosis, concerning for disease progression.
Past-Medical/Surgical History
Endometrial carcinosarcoma with metastases involving the omentum, bilateral pelvic lymph nodes, pelvic peritoneum, cul-de-sac, sacral promontory, appendiceal wall, and periappendiceal adipose tissue s/p bilateral salpingo-oophorectomy, partial
omentectomy, RAL pelvic lymphadenectomy, and appendectomy (05/26/2025)
Stage 1a Clear cell carcinoma of the left ovary
Hypertension
Patient Medication
�Medication �Instructions �Recorded �Confirmed �Last Taken �Type
metoprolol succinate 25 mg 25 mg PO BID #60 tabs 05/27/25 09/22/25 09/22/25 Rx
tablet,extended release 24 hr
Active Medications
Generic Name Dose Route Start Last Admin
Trade Name Freq PRN Reason Stop Dose Admin
Acetaminophen 650 mg 09/22/25 19:16 09/23/25 11:14
Acetaminophen 325 Mg Tablet PO 10/20/25 19:15 650 mg
Q4HPRN PRN Administration
mild pain/NIELSEN/temp> 100.4F
Bisacodyl 10 mg 09/22/25 19:16
Bisacodyl 10 Mg Rectal Suppository RECTAL 10/20/25 19:15
[id number] PRN
constipation
Metoprolol Succinate 25 mg 09/22/25 20:00 09/23/25 07:56
Metoprolol 25 Mg Extended Release Tablet PO 10/20/25 19:59 25 mg
BID CHELI Administration
Polyethylene Glycol 17 grams 09/22/25 19:16
Polyethylene Glycol Powder 17 Grams Packet PO 10/20/25 19:15
DAILYPRN PRN
constipation
Senna/Docusate Sodium 1 tablet 09/22/25 19:16
Docusate W/Senna (Martha-Colace) Tablet PO 10/20/25 19:15
BIDPRN PRN
constipation
Sodium Chloride 0 flush 09/22/25 20:00
Sodium Chloride 0.9% (Flush) Syringe IV 10/20/25 19:59
PER PROTOCOL CHELI
Review of Systems
-
History Source: Patient
Constitutional: Reports Weight Loss; Denies Fever or Weakness
EENT: Reports No Symptoms
Respiratory: Denies Trouble Breathing
Cardiac: Reports No Symptoms
GI: Reports Abdominal Pain and Constipated
: Reports Difficulty Voiding and Other (on Brady catheter)
Musculoskeletal: Reports No Symptoms
Skin: Reports No Symptoms
Neuro: Reports No Symptoms
Endocrine: Reports No Symptoms
Hematologic/Lymphatic: Reports No Symptoms
Allergy / Immunology: Reports No Symptoms
Physical Exam
-
General: Conversant and Appears Chronically Ill
Cardiology: Normal Sinus Rhythm, S1 and S2
Pulmonary: Clear
GI: Soft, Distended and Other ((+) tender, hypogastric mass)
Genito-Urinary: Bloody Urine
Musculoskeletal: No Cyanosis, No Edema and No Atrophy
Extremities: Pulses Present
Skin: Warm
Psych: Calm
Labs
Lab Results
WBC 11.0 10^3/uL (4.8-10.8) H 09/23/25 05:25
RBC 3.74 10^6/uL (4.20-5.40) L 09/23/25 05:25
Hgb 10.2 g/dL (12.0-16.0) L 09/23/25 05:25
Hct 31.5 % (37.0-47.0) L 09/23/25 05:25
MCV 84.2 fL (81.0-99.0) 09/23/25 05:25
MCH 27.3 pg (27.0-31.0) 09/23/25 05:25
MCHC 32.4 g/dL (33.0-37.0) L 09/23/25 05:25
RDW 13.4 % (11.5-14.5) 09/23/25 05:25
Plt Count 374 10^3/uL (130-400) 09/23/25 05:25
MPV 10.2 fL (7.4-10.4) 09/23/25 05:25
Abs Immat Gran (auto) 0.0 10^3/uL (0-0.05) 09/22/25 11:55
Absolute Neuts (auto) 10.4 10^3/uL (1.4-6.5) H 09/22/25 11:55
Absolute Lymphs (auto) 0.5 10^3/uL (1.2-3.4) L 09/22/25 11:55
Absolute Monos (auto) 0.6 10^3/uL (0.1-0.6) 09/22/25 11:55
Absolute Eos (auto) 0.0 10^3/uL (0-0.7) 09/22/25 11:55
Absolute Basos (auto) 0.0 10^3/uL (0-0.2) 09/22/25 11:55
Immature Gran % 0.3 % (0-0.5) 09/22/25 11:55
Neutrophils % 90.1 % (42.2-75.2) H 09/22/25 11:55
Lymphocytes % 4.4 % (20.5-51.1) L 09/22/25 11:55
Monocytes % 4.8 % (1.7-9.3) 09/22/25 11:55
Eosinophils % 0.2 % (0-6) 09/22/25 11:55
Basophils % 0.2 % (0-2) 09/22/25 11:55
Creatinine 2.8 mg/dL (0.6-1.0) H 09/23/25 05:25
Vital Signs
Vital Signs
Temp Pulse Resp BP Pulse Ox
97.4 F 73 16 118/67 99
09/23/25 07:49 09/23/25 07:56 09/23/25 07:49 09/23/25 07:56 09/23/25 07:49
[2025-09-23 11:34] LABS: INR 1.10; PT 14.7 Sec (11.4-14.6)
--- NOTE | 2025-09-23 12:11 | W.PN.URO.CBU ---
Today's Communication / Plan
-
teach pt berman and leg ag care no stop cbi if no major clots
Assessment / Plan
-
Pt with sarcoma he=ad clear urine but 1000cc drained from bladder andthen heamturia also b=nl crat is 1.0 now 2.8 with nbilateral hydro despite foey indicating supravesiacl obstruction for now leave berman through discharge will [place] inut
from heme onc but if palnning intavenous tx will need bilateral perc tubes as jj stents will occlude with masive pelvic tumor burden henaturia is stiopping and will stop cbi but needs to go home with foly for outpatient evaluatio to remove
berman
Diagnosis
-
Date of Service: September 23, 2025
-
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
Post Op Day:
Subjective
-
LESS ABD PAIN WITH BERMAN 1000 CC DRAINED
Objective
-
Vital Signs
Temp Pulse Resp BP Pulse Ox
97.4 F 73 16 118/67 99
09/23/25 07:49 09/23/25 07:56 09/23/25 07:49 09/23/25 07:56 09/23/25 07:49
Intake and Output
09/22/25 09/23/25 09/24/25
06:59 06:59 06:59
Intake Total 480 / 480
Output Total 2950 / 2950
Balance -2470 / -2470
Intake:
Oral fluids 480 / 480
Output:
Urine, Berman 1425 / 1425
True Urine Output from CBI 1525 / 1525
Laboratory Results
09/23/25 05:25
09/23/25 05:25
Review of Systems
-
Abdomen/GI: Abdominal Pain
: Difficulty Voiding and Bleeding
Physical Exam
-
General - well developed, well nourished, no acute distress
Chest - clear bilaterally
Abdomen - soft, non-tender, positive bowel sounds, no CVAT, no incisional pain or distention
Genitalia - normal
Rectal - normal
Skin - warm & dry with no rash
Neuro - AOx3, no motor deficits
Extremities - no clubbing, no cyanosis, no edema
Incision - clean, dry
Dressing - clean, dry, intact
Care Review
Data Reviewed
Discussed with: Hospitalist, Internal Medicine (heme onc), Nursing and IRAD
CT Scan: Image Pers Reviewed
Total Time Spent with Patient (in minutes): 65 monutes
--- NOTE | 2025-09-23 14:36 | W.CON.NEPH ---
Consultation
-
Date/Time Consultation Requested: 09/22/25 191
Date/Time Consultation Performed: 09/23/25 1730
Requesting Provider: Sunil Mahajan
Performing Provider: Dania Weaver
Reason for Consultation: ESTRELLA
Medical History
-
Chief Complaint: abd pain
History of Present Illness:
Patient is a 80-year-old female with past medical history significant for endometrial cancer, hypertension and SVT who presented to [facility] ED for evaluation of abdominal pain that radiated around back. Patient reports pain has been present for 2 weeks
and would wax and wean in intensity. Pain is described as constantly there but does change in intensity, was unable to describe in detail. She reports that she was having difficulty urinating and was having constipation. She utilized PRN Miralax and
Colace successfully and had a bowel movement, last one yesterday 09/21/25. She notes that she had total hysterectomy on May 26, 2025 and felt really well. However lately she noticed lower abd discomfort for 2weeks. Denies any recent known sick
contact, illness, fever, chills, cough, shortness of breath, chest pain, nausea, vomiting or diarrhea. No NSAIDs use.
CT abd mild bilat hydronephrosis from mass effect of tumor in pelvis. CT angio noted PE and necrotic mass in pelvis measuring 17cm, incidental PE. Due to gross hematuria post berman she had been on CBI earlier. She is now s/p PCN and IVCF.
Her cr on admit was at 2.8 wiht out change today, from baseline 0.7 in May. Nephrology asked to eval ESTRELLA.
Past Medical History
endometrial cancer
hypertension
SVT
Past Surgical History: Other (Robotic MICHELLE/BSO 05/26 )
Social History
Tobacco: Non-Smoker
Alcohol: Occasional
Drug: None
Personal:
Living: Alone
Family History
no CKD
Family History: Not Pertinent
Allergies / Home Medications
Allergy/AdvReac Type Severity Reaction Status Date / Time
Sulfa (Sulfonamide Allergy RASH/HIGH Verified 09/22/25 10:51
Antibiotics) TEMP
�Medication �Instructions �Recorded �Confirmed �Type
metoprolol succinate 25 mg 25 mg PO BID #60 tabs 05/27/25 09/22/25 Rx
tablet,extended release 24 hr
Review of Systems
-
All other systems: Negative unless noted
Physical Exam
Vital Signs
Vital Signs
Temp Pulse Resp BP Pulse Ox
97.4 F 73 16 118/67 99
09/23/25 07:49 09/23/25 07:56 09/23/25 07:49 09/23/25 07:56 09/23/25 07:49
Lab Results
WBC 11.0 10^3/uL (4.8-10.8) H 09/23/25 05:25
RBC 3.74 10^6/uL (4.20-5.40) L 09/23/25 05:25
Hgb 10.2 g/dL (12.0-16.0) L 09/23/25 05:25
Hct 31.5 % (37.0-47.0) L 09/23/25 05:25
Plt Count 374 10^3/uL (130-400) 09/23/25 05:25
Sodium 132 mmol/L (135-145) L 09/23/25 05:25
Potassium 3.6 mmol/L (3.5-5.1) 09/23/25 05:25
Chloride 102 mmol/L (98-107) 09/23/25 05:25
Carbon Dioxide 17 mmol/L (22-30) L 09/23/25 05:25
BUN 54 mg/dl (7-17) H 09/23/25 05:25
Creatinine 2.8 mg/dL (0.6-1.0) H 09/23/25 05:25
eGFR 16.76 09/23/25 05:25
Glucose 71 mg/dl (70-99) 09/23/25 05:25
Calcium 8.1 mg/dl (8.4-10.2) L D 09/23/25 05:25
Albumin 3.9 g/dl (3.5-5.0) 09/22/25 11:55
Physical Exam
General: Awake, Alert, Oriented, AOx3, No Distress and Nontoxic
HEENT: EOMI, Anicteric and Facial Symmetry
Respiratory: Clear, Normal Excursion and Nonlabored Respirations
Abdomen: Soft, Nontender and Other (mass palpable lower abd, bilat PCN draining reddish urine)
Musculoskeletal: Edema (1+)
Skin: No Rash
Neuro: Nonfocal/Grossly Intact
Psych: Mood/afflect pleasant, Insight/judgement good and Appropriate
Assessment/Plan
-
IMP:
Mild diffuse abdominal pain
urination difficulty/urinary retention
Recurrent necrotic pelvic tumor-endometrial cancer
ESTRELLA with bilateral hydroureteronephrosis secondary to mass effect on the urinary bladder/ureterovesical junctions from endometrial cancer
PE
Endometrial cancer s/p total hysterectomy on May 26, 2025.
Hypertension
h/o SVT
PLan:
A/w abd alexandr, noted recurrent pelvic tumor -known endometrial cancer s/p surg in May
ESTRELLA-suspect post obst with bilat hydro from mass effect
UA mild microhematuria
gross hematuria post berman managed by with CBI
need close monitoring of cr post contrast exposure on 09/22
s/p PCN today by IR
she also has PE, s/p IVCF too today
ok for IVF if needed
BP stable
mild hyponatremia suspect in setting of malignancy ADH mediated, check U osmo
monitor met acidosis
d/w pt
[2025-09-23 14:45] VITALS: BP 114/77; BP_SYST 70
[2025-09-23] MEDS: STERILE WATER FOR INJECTION 20 ML IV (15:25)
[2025-09-23] MEDS: ROCEPHIN 2000 MG IV (15:25)
--- NOTE | 2025-09-23 17:17 | W.PN.UPDATE ---
Update Note
Progress Note Update
- Bilateral nephrostomy tubes placed. 8.5F tubes. US images showed mild hydronephrosis.
- Retrievable ALN IVC filter also placed.
- Indication: PE with inability to anticoagulate (hematuria).
- Unremarkable venogram with patent IVC
[2025-09-23 17:30] VITALS: BP 115/65
[2025-09-23 18:25] VITALS: BP 134/65
--- NOTE | 2025-09-23 18:32 | PTCARENOTE ---
Assumed care of pt at 1814. Pt in IR and Ultrasound from [id number] for IVC filter and nephro tube placement. Unable to appropriately measure output of pt's CBI. Documented current I&O'S
[2025-09-23 23:00] VITALS: BP 122/70
[2025-09-24 07:10] LABS: Hematocrit 32.5 % (37.0-47.0); Hemoglobin 10.6 g/dL (12.0-16.0); Mean Corp Hgb Conc. 32.6 g/dL (33.0-37.0); Mean Corpuscular Volume 84.2 fL (81.0-99.0); Platelet Count 363 10^3/uL (130-400); Red Cell Dist. Width 13.8 % (11.5-14.5)
[2025-09-24 07:34] VITALS: BP 103/64
[2025-09-24 08:17] LABS: Blood Urea Nitrogen 43 mg/dl (7-17); Calcium 8.3 mg/dl (8.4-10.2); Carbon Dioxide 18 mmol/L (22-30); Chloride 104 mmol/L (98-107); Estimated Creatinine Clearance 24 ml/min; Glucose 70 mg/dl (70-99); Magnesium 1.8 mg/dl (1.6-2.3); Potassium 3.6 mmol/L (3.5-5.1); Sodium 136 mmol/L (135-145); eGFR 28.48
[2025-09-24] MEDS: TOPROL XL PO ×2 (08:56→20:31)
--- NOTE | 2025-09-24 09:16 | CON.PUL ---
Addendum entered and electronically signed by Shellie Sykes MD 09/24/25 13:59:
Outpatient follow-up with pulmonary clinic in 4 to 6 weeks
Patient hemodynamically stable, saturating well on room air, status post IVC filter.
Pulmonary service will sign off, please call as needed.
Original Note:
Consultation
Consultation Request
Date/Time Consultation Requested: 09/23/2025
Date/Time Consultation Performed: 09/24/2025
Medical History
-
Chief Complaint: Incidental PE
History of Present Illness:
Patient is a very pleasant 80-year-old female who recently admitted to the hospital for abdominal pain and difficulty urinating. Patient had a Brady catheter placement followed by hematuria for which continuous bladder irrigation was started.
Patient had additional workup including abdominal CT which showed bilateral hydronephrosis. Patient also had an incidental finding of right lower lobe pulmonary embolism. Pulmonary consultation was requested for further input.
Patient denies any recent travel. She does report history of hysterectomy earlier this year around April/May but was discharged to home soon after and has not reported decreased mobility since. Denies any previous history of DVT or pulmonary
embolism. Patient denies any shortness of breath, cough, pleuritic discomfort, near-syncope or dizziness. No shortness of breath. Patient was saturating well on room air.
Past Medical History
Endometrial cancer
hypertension
SVT
Past Surgical History: Other (Robotic MICHELLE/BSO 05/26 )
Social History
Tobacco: Non-Smoker, no occupational exposure. No exposure to birds.
Alcohol: Occasional
Drug: None
Personal:
Living: Alone
Family History
No CKD
Family History: Not Pertinent. No h/o VTE or Lung cancer in family
Allergies / Home Medications
Allergies / Home Medications
Allergies
Allergy/AdvReac Type Severity Reaction Status Date / Time
Sulfa (Sulfonamide Allergy RASH/HIGH Verified 09/22/25 10:51
Antibiotics) TEMP
Home Medications
�Medication �Instructions �Recorded �Confirmed �Last Taken �Type
metoprolol succinate 25 mg 25 mg PO BID #60 tabs 05/27/25 09/22/25 09/22/25 Rx
tablet,extended release 24 hr
Review of Systems
-
Hematologic/Lymphatic: Other (All 14 systems reviewed and negative except as stated above in the history of present illness.)
Vitals / Labs / Diagnostic Testing
Vital Signs
Temp Pulse Resp BP Pulse Ox
98.8 F 70 20 114/77 100
09/23/25 14:45 09/23/25 14:45 09/23/25 14:45 09/23/25 14:45 09/23/25 14:45
Lab Data
09/23/25 05:25
09/23/25 05:25
Laboratory Results
09/23/25
11:09
PT 14.7 H
INR 1.10
Diagnostic Testing:
Physical Exam
-
HEENT: Normocephalic and Other (Pale conjunctiva)
Cardiovascular: S1/S2
Respiratory: Clear
GI: Soft and Non Distended
Neurology: Awake and Alert
Skin: Warm
General: Comfortable
Assessment
-
#1. Newly diagnosed PE.
- Patient currently hemodynamically stable, saturating well on room air. No respiratory distress on exam
- Limited CT cuts reviewed, no obvious evidence of right ventricular strain. No indication for thrombolytic therapy
- Patient has ongoing hematuria. Discussed with urology service 09/23, not a good candidate for current anticoagulation in view of hematuria and large tumor.
- Discussed with interventional radiology service, proceeded with IVC filter placement in view of inability to anticoagulate safely, 09/23.
- Negative lower extremity Dopplers for DVT. Patient is hemodynamically stable, on room air with absence of RV strain on CT scan, can hold off echocardiogram for now
- Suspect pulmonary embolism is provoked in the setting of underlying malignancy, likely will need long-term anticoagulation, defer final duration recommendation to hematology oncology service
- Patient might have additional pulmonary embolism in other areas of lung considering CT abdomen pelvis is only limited. At this point, management will not change and patient already has acute kidney injury, will hold off giving additional contrast
exposure as it will further increase the risk of acute kidney injury.
- Out patient follow up with Pulmonary clinic. Once she is able to tolerate anticoagulation, will plan for IVC filter removal.
Other medical diagnoses:
- ESTRELLA on CKD, obstructive uropathy
- Hematuria, on CBI, resolving
- Stage IV, Endometrial cancer, s/p hysterectomy, local recurrence with mass effect and obstructive hydronephrosis
- Stage Ia Clear cell CA
Total time spent on this consultation/encounter _65___ minutes which includes review of history, physical exam, medications, laboratory data, personal review of imaging, extensive review of outpatient records, discussion with care team and
respiratory therapy.
Data:
S/p IVC filter placement, b/l Nephrostomy placement: 09/23/2025
US LE 09/23/2025: No DVT
CT A/P 08/2025: There is partially visualized pulmonary embolism within right lower lobe segmental pulmonary arteries.
1. 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
2. No CT evidence for active bleed or significant peritoneal hemorrhage.
3. Mild bilateral hydroureteronephrosis likely secondary to mass effect on the urinary bladder/ureterovesical junctions.
4. No abdominal aortic aneurysm or dissection.
ECHO 04/2025: Normal LV size and function with no regional wall motion abnormalities.
LVEF is 55% by visual estimation.
Normal right ventricular size and function.
Mild aortic regurgitation.
Estimated pulmonary artery pressure of 15-20 mmHg assuming a right atrial pressure of 3 mmHg.
No prior study available for comparison.
--- NOTE | 2025-09-24 10:15 | W.PN.ONC ---
Today's Communication / Plan
-
Follow up with oncology as outpatient
Impression
Impression
Stage IV carcinosarcoma of the endometrium, stage IVb
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
Right lower lobe Pulmonary Embolism
Plan
Plan
-Given the large size and extent of the pelvic mass, radiation therapy is unlikely to provide meaningful benefit at this time.
-Creatinine and BUN downtrending with Brady catheter, now on Bilateral Percutaneous Nephrostomy Tube
-Successful IVC filter placement for Right pulmonary embolism� denies SOB, dyspnea.
-Plan for outpatient oncology follow-up for chemotherapy/immunotherapy treatment initiation.
Subjective/Objective
Subjective/Objective
The patient has no specific concerns today. Her abdominal pain continues to improve. She's tolerating Percutaneous Nephrostomy Tube well. Denies SOB, fever.
Gen: NAD, AFVSS
Heart: S1S2, Regular
Lungs: Clear
Abdomen: (+) palpable, tender, mid abdominal mass, NBS
Ext: (-) edema
Vital Signs:
Vital Signs
Temp Pulse Resp BP Pulse Ox
97.7 F 70 16 103/64 98
09/24/25 07:34 09/24/25 07:34 09/24/25 07:34 09/24/25 08:56 09/24/25 07:34
Lab Results:
Laboratory Data
WBC 11.6 10^3/uL (4.8-10.8) H 09/24/25 06:45
Hgb 10.6 g/dL (12.0-16.0) L 09/24/25 06:45
Plt Count 363 10^3/uL (130-400) 09/24/25 06:45
PT 14.7 Sec (11.4-14.6) H 09/23/25 11:09
INR 1.10 09/23/25 11:09
eGFR 28.48 09/24/25 06:45
--- NOTE | 2025-09-24 10:15 | PN.CDI ---
CDI
- -
CDI:
Physician Documentation Request
Admit Date: 09/22/25 18:32
Dear Doctor Fawad,
Please review the following and provide your response in the progress notes.
Clinical Indicators:
- Patient admit for ESTRELLA, recurrent endometrial cancer, PE
- 2L IVF given
Laboratory Tests
09/22/25 09/23/25 09/24/25
11:55 05:25 06:45
Sodium 132 L 132 L 136
Please provide a diagnosis for the above lab values that were monitored and treatment rendered:
Hyponatremia
Abnormal lab value only
Other (please specify)
Use of terms such as suspected, likely, concern for, or probable (associated with a specific diagnosis that is being evaluated, monitored, or treated as if it exists) are acceptable and can be coded in the inpatient setting, when documented at the
time of discharge.
Thank you,
Rizwana Sexton RN
CDI Specialist
Please use your independent medical judgment in providing your response.
--- NOTE | 2025-09-24 10:44 | W.PN.HOSP.TC ---
Addendum entered and electronically signed by Hazel Celestin MD 09/24/25 13:51:
# Hyponatremia
Original Note:
Today's Communication/Plan
-
see AP
Assessment / Plan
Assessment / Plan
HPI: 80-year-old female with past medical history significant for endometrial cancer, hypertension, SVT; who presented with abdominal pain ongoing for 2 weeks. Pain is described as constant but does change in intensity.
She also reported difficulty with urinating and was having constipation. Of note, she has had total hysterectomy on May 26, 2025.
Abd/Pel CT: 1. Heterogeneous fluid centered within the pelvis, most consistent with intraperitoneal hemorrhage. Small amount of hemorrhage adjacent to the liver and spleen.
2. Possible sentinel clot near the root of the mesentery as detailed above, which may indicate source of bleeding.
3. Intraperitoneal hemorrhage is new compared to prior CT dated 06/01/2025. Etiology of the bleeding is unclear, and neoplasm is not excluded. Consider contrast enhanced follow-up CT after resolution of the hemorrhage.
4. Bilateral hydroureteronephrosis, ureters are dilated to the level of the pelvic fluid collection.
Abd/Pel CTA: 1. 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
2. No CT evidence for active bleed or significant peritoneal hemorrhage.
3. Mild bilateral hydroureteronephrosis likely secondary to mass effect on the urinary bladder/ureterovesical junctions.
4. No abdominal aortic aneurysm or dissection.
A/P:
# Mild diffuse abdominal pain with urination difficulty/urinary retention, 2/2 recurrent endometrial carcinosarcoma
# Postrenal ESTRELLA with bilateral hydroureteronephrosis secondary to mass effect on the urinary bladder/ureterovesical junctions from endometrial cancer
# endometrial cancer s/p total hysterectomy on May 26, 2025.
Follow Urine Cx which was sent from admission
s/p CBI
Cont berman for now until further directed by Uro
s/p BL PCN placement 09/23
Per Uro, hematuria is expected in setting of bladder contraction with berman, monitor hematuria
SCr 2.8 -> 1.8 today; from baseline 0.7
Appreciate Uro, Oncology input
intraperitoneal hemorrhage has been ruled out with CTA. No need for vascular eval
# Endometrial cancer
follows with [facility], Dr. Melgar
s/p total hysterectomy with Dr. Cárdenas 05/26/2025
patient has not accepted traditional radiation or chemo therapy was hoping for more holistic approach,
continue to follow up outpatient with Onc
# Small PE without RH strain, in setting of acute cancer
No respiratory insufficiency
Not a candidate for AC in setting of gross hematuria
s/p IVF filter placement 09/23
No DVT on US
Appreciate onc and pulm input
# Mild leucocytosis likely reactive
# Hypertension
# SVT
continue metoprolol
Code status: DNR
DVT prophylaxis: SCDs
DW Pulm
DW Renal
DW Uro, pending recc for Berman
Anticipated Discharge: 24 - 48 hours
Subjective/Interval History
-
Date of Service: September 24, 2025
Objective Data
-
Labs:
Laboratory Results
09/24/25
06:45
WBC 11.6 H
Hgb 10.6 L
Hct 32.5 L
Plt Count 363
Sodium 136
Potassium 3.6
Chloride 104
Carbon Dioxide 18 L
BUN 43 H
Creatinine 1.8 H
Glucose 70
Calcium 8.3 L
Vital Signs:
Vital Signs
Temp Pulse Resp BP Pulse Ox
36.5 C 70 16 103/64 98
09/24/25 07:34 09/24/25 07:34 09/24/25 07:34 09/24/25 08:56 09/24/25 07:34
I&O
09/23/25 09/24/25 09/25/25
06:59 06:59 06:59
Intake Total 480 / 480 970 / 970
Output Total 2950 / 2950 1685 / 1685 850 / 850
Balance -2470 / -2470 -715 / -715 -850 / -850
Review of Systems
-
History Source: Patient
Abdomen/GI: Reports Abdominal Pain (improved )
Physical Exam
-
General: Well Developed, No Apparent Distress, Comfortable and Conversant (speak in full sentences )
HEENT: Normocephalic and Atraumatic
Respiratory: Clear to Auscultation and Non Labored Respirations; Negative Accessory Resp Muscle Use
Cardiac: Regular Rhythm and S1/S2
GI: Soft, Nondistended and Tender (mild)
Genito-urinary: Berman and Nephrostomy Tubes (BL ); Negative Continuous Bladder Irrigation
Musculoskeletal: No Edema
Skin: Warm and Dry; Negative Rash
Neuro: Awake and Alert
Psych: Calm and Intact Judgement/Insight
Data Reviewed
-
CT Scan: Report Reviewed by me
Ultrasound: Report Reviewed by me
Labs: Labs Reviewed by me
[2025-09-24] MEDS: KCL 40 MEQ PO (11:27)
--- NOTE | 2025-09-24 11:40 | W.PN.URO.CBU ---
Today's Communication / Plan
-
home when stable
Assessment / Plan
-
Pt with sarcoma he=ad clear urine but 1000cc drained from bladder andthen heamturia also b=nl crat is 1.0 now 2.8 with nbilateral hydro despite foey indicating supravesiacl obstruction for now leave berman through discharge will [place] inut
from heme onc but if palnning intavenous tx will need bilateral perc tubes as jj stents will occlude with masive pelvic tumor burden henaturia is stiopping and will stop cbi but needs to go home with foly for outpatient evaluatio to remove
berman
Diagnosis
-
Date of Service: September 24, 2025
-
Patient Diagnosis:
Post Op Day:
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
Post Op Day:
Subjective
-
feelijng better hematuria resolved
Objective
-
Vital Signs
Temp Pulse Resp BP Pulse Ox
97.7 F 70 16 103/64 98
09/24/25 07:34 09/24/25 07:34 09/24/25 07:34 09/24/25 08:56 09/24/25 07:34
Intake and Output
09/23/25 09/24/25 09/25/25
06:59 06:59 06:59
Intake Total 480 / 480 970 / 970
Output Total 2950 / 2950 1685 / 1685 850 / 850
Balance -2470 / -2470 -715 / -715 -850 / -850
Intake:
Oral fluids 480 / 480 720 / 720
IV fluids (Total) 250 / 250
NSS 250 / 250
Output:
Urinary Drain Output (Total) 1725 / 1725
Left Nephrostomy 775 / 775
Right Nephrostomy 950 / 950
Urine, Berman 1425 / 1425
True Urine Output from CBI 1525 / 1525 -40 / -40 850 / 850
Laboratory Results
09/24/25 06:45
09/24/25 06:45
Review of Systems
-
: Difficulty Voiding
Physical Exam
-
General - well developed, well nourished, no acute distress
Chest - clear bilaterally
Abdomen - soft, non-tender, positive bowel sounds, no CVAT, no incisional pain or distention
Genitalia - normal
Rectal - normal
Skin - warm & dry with no rash
Neuro - AOx3, no motor deficits
Extremities - no clubbing, no cyanosis, no edema
Incision - clean, dry
Dressing - clean, dry, intact
Counseling
-
teach berman leg bag care
--- NOTE | 2025-09-24 12:13 | W.PN.NEPH.PH ---
Today's Communication / Plan
-
po bicarb, prn IVF
Assessment/Plan
-
IMP:
Mild diffuse abdominal pain
urination difficulty/urinary retention
Recurrent necrotic pelvic tumor-endometrial cancer
ESTRELLA with bilateral hydroureteronephrosis secondary to mass effect on the urinary bladder/ureterovesical junctions from endometrial cancer
PE
Endometrial cancer s/p total hysterectomy on May 26, 2025.
Hypertension
h/o SVT
PLan:
A/w leesa strange, noted recurrent pelvic tumor -known endometrial cancer s/p surg in May
ESTRELLA-suspect post obst with bilat hydro from mass effect
cr improving post PCN bilat
gross hematuria post berman managed by with CBI
she also has PE, s/p IVCF
ok for IVF if needed
start po bicarb for met acidosis
BP stable
mild hyponatremia improved, pending U osmo
d/w pt
-
-
Date of Service: September 24, 2025
CC / HPI / ROS
-
Chief Complaint:
ESTRELLA
History of Present Illness:
cr better at 1.8, non oliguric with bilat pCN, berman
sodium normal 136
Bp stable
Review of Systems:
no cp or sob at rest
abd disocnfort better
Labs
-
Labs:
WBC 11.6 10^3/uL (4.8-10.8) H 09/24/25 06:45
RBC 3.86 10^6/uL (4.20-5.40) L 09/24/25 06:45
Hgb 10.6 g/dL (12.0-16.0) L 09/24/25 06:45
Hct 32.5 % (37.0-47.0) L 09/24/25 06:45
Plt Count 363 10^3/uL (130-400) 09/24/25 06:45
Sodium 136 mmol/L (135-145) 09/24/25 06:45
Potassium 3.6 mmol/L (3.5-5.1) 09/24/25 06:45
Chloride 104 mmol/L (98-107) 09/24/25 06:45
Carbon Dioxide 18 mmol/L (22-30) L 09/24/25 06:45
BUN 43 mg/dl (7-17) H 09/24/25 06:45
Creatinine 1.8 mg/dL (0.6-1.0) H 09/24/25 06:45
eGFR 28.48 09/24/25 06:45
Glucose 70 mg/dl (70-99) 09/24/25 06:45
Calcium 8.3 mg/dl (8.4-10.2) L 09/24/25 06:45
Albumin 3.9 g/dl (3.5-5.0) 09/22/25 11:55
Physical Exam
-
Vital Signs:
Vital Signs
Temp Pulse Resp BP Pulse Ox
97.7 F 70 16 103/64 98
09/24/25 07:34 09/24/25 07:34 09/24/25 07:34 09/24/25 08:56 09/24/25 07:34
Cardiovascular:: Regular rate and rhythm
Respiratory:: Bilateral: CTA
Lung Excursion:: Normal
Abdomen:: Nontender and Soft (palpable masss lower abd)
Extremity Edema:: None: Bilateral: (trace)
Berman Catheter: Yes
[2025-09-24 14:24] VITALS: BP 104/63; PULSE 84; O2SAT 98
[2025-09-24 15:28] VITALS: BP 104/63
[2025-09-24] MEDS: TYLENOL 650 MG PO (15:44)
[2025-09-24] MEDS: ALPRAZOLAM ODT 0.25 MG PO (16:22)
--- NOTE | 2025-09-24 19:44 | PTCARENOTE ---
pt medicated with PRN Tylenol for c/o low back pain and PRN Xanax for c/o feeling anxious. sat oob to chair for about 30min after working with therapy. [address] way Brady with CBI infusing draining pink clear colored urine. b/l nephrostomy tubes
intact. right side draining pink tinged urine and left side draining bloody urine, vss, metoprolol held this am per parameters, will continue to monitor.
[2025-09-24] MEDS: SODIUM BICARBONATE PO (20:28)
[2025-09-24] MEDS: MELATONIN 5 MG PO (21:42)
[2025-09-24 23:00] VITALS: BP 105/67
--- NOTE | 2025-09-25 00:11 | PTCARENOTE ---
Upon entering the room large amount of urine noted on the ground. 3 way CBI bag appeared to be broken. CBI bag replaced with new bag. Pt does not complain of any pain, urine clear with no clots. Will continue ongoing care.
[2025-09-25] MEDS: TYLENOL 650 MG PO (00:18)
[2025-09-25] MEDS: ULTRAM 25 MG PO (02:13)
[2025-09-25 07:13] LABS: Hematocrit 31.6 % (37.0-47.0); Hemoglobin 10.3 g/dL (12.0-16.0); Mean Corp Hgb Conc. 32.6 g/dL (33.0-37.0); Mean Corpuscular Volume 84.7 fL (81.0-99.0); Platelet Count 336 10^3/uL (130-400); Red Cell Dist. Width 13.8 % (11.5-14.5)
[2025-09-25 07:30] VITALS: BP 112/72
[2025-09-25 07:39] LABS: Blood Urea Nitrogen 26 mg/dl (7-17); Calcium 8.3 mg/dl (8.4-10.2); Carbon Dioxide 25 mmol/L (22-30); Chloride 107 mmol/L (98-107); Estimated Creatinine Clearance 39 ml/min; Glucose 93 mg/dl (70-99); Potassium 3.8 mmol/L (3.5-5.1); Sodium 137 mmol/L (135-145); eGFR 51.43
[2025-09-25] MEDS: TOPROL XL 25 MG PO (07:58)
[2025-09-25] MEDS: SODIUM BICARBONATE PO (08:00)
[2025-09-25] MEDS: SODIUM BICARBONATE 650 MG PO (08:04)
--- NOTE | 2025-09-25 08:34 | W.PN.URO.CBU ---
Today's Communication / Plan
-
teach pt berman andleg bag care stop cbi
Assessment / Plan
-
Pt with sarcoma had clear urine but 1000cc drained from bladder Miquel go home with foleyandfdo outpatient eval Creatinine now baseline
Diagnosis
-
Date of Service: September 25, 2025
-
Patient Diagnosis:
Post Op Day:
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
Post Op Day:
Subjective
-
feeling better
Objective
-
Vital Signs
Temp Pulse Resp BP Pulse Ox
98.1 F 85 16 112/72 96
09/25/25 07:30 09/25/25 07:58 09/25/25 07:30 09/25/25 07:58 09/25/25 07:30
Intake and Output
09/24/25 09/25/25 09/26/25
06:59 06:59 06:59
Intake Total 970 / 970 1140 / 1140
Output Total 1685 / 1685 750 / 750
Balance -715 / -715 390 / 390
Intake:
Oral fluids 720 / 720 1140 / 1140
IV fluids (Total) 250 / 250
NSS 250 / 250
Output:
Urinary Drain Output (Total) 1725 / 1725 1075 / 1075
Left Nephrostomy 775 / 775 425 / 425
Right Nephrostomy 950 / 950 650 / 650
True Urine Output from CBI -40 / -40 -325 / -325
Laboratory Results
09/25/25 06:13
09/25/25 06:12
Review of Systems
-
: Difficulty Voiding
Physical Exam
-
General - well developed, well nourished, no acute distress
Chest - clear bilaterally
Abdomen - soft, non-tender, positive bowel sounds, no CVAT, no incisional pain or distention
Genitalia - normal
Rectal - normal
Skin - warm & dry with no rash
Neuro - AOx3, no motor deficits
Extremities - no clubbing, no cyanosis, no edema
Incision - clean, dry
Dressing - clean, dry, intact
Care Review
Data Reviewed
Discussed with: Nursing
--- NOTE | 2025-09-25 10:49 | W.PN.HOSP.TC ---
Today's Communication/Plan
-
DC home with HH
Assessment / Plan
Assessment / Plan
HPI: 80-year-old female with past medical history significant for endometrial cancer, hypertension, SVT; who presented with abdominal pain ongoing for 2 weeks. Pain is described as constant but does change in intensity.
She also reported difficulty with urinating and was having constipation. Of note, she has had total hysterectomy on May 26, 2025.
Abd/Pel CT: 1. Heterogeneous fluid centered within the pelvis, most consistent with intraperitoneal hemorrhage. Small amount of hemorrhage adjacent to the liver and spleen.
2. Possible sentinel clot near the root of the mesentery as detailed above, which may indicate source of bleeding.
3. Intraperitoneal hemorrhage is new compared to prior CT dated 06/01/2025. Etiology of the bleeding is unclear, and neoplasm is not excluded. Consider contrast enhanced follow-up CT after resolution of the hemorrhage.
4. Bilateral hydroureteronephrosis, ureters are dilated to the level of the pelvic fluid collection.
Abd/Pel CTA: 1. 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
2. No CT evidence for active bleed or significant peritoneal hemorrhage.
3. Mild bilateral hydroureteronephrosis likely secondary to mass effect on the urinary bladder/ureterovesical junctions.
4. No abdominal aortic aneurysm or dissection.
A/P:
# Mild diffuse abdominal pain with urination difficulty/urinary retention, 2/2 recurrent endometrial carcinosarcoma
# Postrenal ESTRELLA with bilateral hydroureteronephrosis secondary to mass effect on the urinary bladder/ureterovesical junctions from endometrial cancer
# endometrial cancer s/p total hysterectomy on May 26, 2025.
Follow Urine Cx which was sent from admission
s/p CBI
Cont berman for now, d/w Uro who recc to cont berman and follow up outpt for voiding trial
s/p BL PCN placement 09/23
Per Uro, hematuria is expected in setting of bladder contraction with berman, monitor hematuria
SCr 2.8 -> 1.1 today; from baseline 0.7. Check repeat BMP outpt
Appreciate Uro, Oncology input
intraperitoneal hemorrhage has been ruled out with CTA. No need for vascular eval
# Endometrial cancer
follows with [facility], Dr. Melgar
s/p total hysterectomy with Dr. Cárdenas 05/26/2025
patient has not accepted traditional radiation or chemo therapy was hoping for more holistic approach,
continue to follow up outpatient with Onc
# Small PE without RH strain, in setting of acute cancer
No respiratory insufficiency
Not a candidate for AC in setting of gross hematuria
s/p IVF filter placement 09/23
No DVT on US
Appreciate onc and pulm input
Pt can follow up with Pulm outpt to discuss when to retrieve IVC filter
# Mild leucocytosis likely reactive
# Hypertension
# SVT
continue metoprolol
Code status: DNR
DVT prophylaxis: SCDs
Anticipated Discharge: Today
Subjective/Interval History
-
Date of Service: September 25, 2025
Objective Data
-
Labs:
Laboratory Results
09/25/25 09/25/25
06:12 06:13
WBC 10.5
Hgb 10.3 L
Hct 31.6 L
Plt Count 336
Sodium 137
Potassium 3.8
Chloride 107
Carbon Dioxide 25
BUN 26 H
Creatinine 1.1 H
Glucose 93
Calcium 8.3 L
Vital Signs:
Vital Signs
Temp Pulse Resp BP Pulse Ox
36.7 C 85 16 112/72 96
09/25/25 07:30 09/25/25 07:58 09/25/25 07:30 09/25/25 07:58 09/25/25 07:30
I&O
09/24/25 09/25/25 09/26/25
06:59 06:59 06:59
Intake Total 970 / 970 1140 / 1140
Output Total 1685 / 1685 750 / 750
Balance -715 / -715 390 / 390
Review of Systems
-
History Source: Patient
Abdomen/GI: Denies Abdominal Pain (resolved )
Physical Exam
-
General: Well Developed, No Apparent Distress, Comfortable and Conversant (speak in full sentences )
HEENT: Normocephalic and Atraumatic
Respiratory: Clear to Auscultation and Non Labored Respirations; Negative Accessory Resp Muscle Use
Cardiac: Regular Rhythm and S1/S2
GI: Soft, Nontender and Nondistended
Genito-urinary: Berman and Nephrostomy Tubes (BL ); Negative Continuous Bladder Irrigation
Musculoskeletal: No Edema
Skin: Warm and Dry; Negative Rash
Neuro: Awake and Alert
Psych: Calm and Intact Judgement/Insight
Data Reviewed
-
CT Scan: Report Reviewed by me
Ultrasound: Report Reviewed by me
Labs: Labs Reviewed by me
--- NOTE | 2025-09-25 13:49 | CM ---
Addendum entered by Radha Snyder 09/25/25 16:30:
IMM explained & signed. In chart
Original Note:
patient seen at bedside
IA Completed
CM Consult completed VN
patient prefer [facility]
referral in [facility]
Lives alone 2 story home, 1 [address], full bath 1st floor, 8 steps to bedroom
PLOF: Independent
Denies DME
denies vn/rehab
PCP: Faiza Kirby
Pharmacy: [facility]
PLAN: Home with [facility]
Fax #: [phone]
friend to transport
--- NOTE | 2025-09-25 13:49 | W.DCSUMMARY ---
Discharge Summary
Discharge Data
Date of Admission: 09/22/25
Date of Discharge: 09/25/25
Total time spent discharging patient (in min): 40
-
Pending Results: No
Hospital Course
Principal Diagnosis:
Mild diffuse abdominal pain with urinary retention and postrenal ESTRELLA with bilateral hydroureteronephrosis secondary to mass effect on the urinary bladder/ureterovesical junctions from metastatic endometrial cancer.
Small PE without RH strain, in setting of acute cancer
Chronic Diagnoses:�
Endometrial cancer, s/p total hysterectomy with Dr. Cárdenas 05/26/2025
Hypertension with SVT, continue metoprolol
Consultations:�
Oncology
Interventional radiology
Urology
Pulmonary
Procedures:�
s/p bilateral percutaneous nephrostomy tubes placement 09/23
IVC filter placement 09/23
Clinical course:�
This is a 80-year-old female with past medical history as stated above, who presented with abdominal pain ongoing for 2 weeks. She also reported difficulty with urination and was having constipation.
Problem 1:
Mild diffuse abdominal pain with urinary retention and postrenal ESTRELLA with bilateral hydroureteronephrosis, secondary to mass effect on the urinary bladder/ureterovesical junctions from metastatic endometrial cancer.
Her urine culture from admission grew mixed jose l, likely contaminated.
She initially received CBI for gross hematuria; CBI was later discontinued and gross hematuria resolved.
Brady was placed on admission which she should continue going forward. She has been informed to follow-up with urology outpatient for voiding trial.
She also underwent bilateral percutaneous nephrostomy tubes placement on 09/23 by IR.
Her serum creatinine improved from 2.8 on admission, to 1.1 on the day of discharge. She can check repeat BMP in 1 week, result to her PCP.
Problem 2:
Small PE without RH strain, in setting of active cancer.
She unfortunately is not a candidate for anticoagulation in the setting of gross hematuria on admission.
She underwent IVF filter placement on 09/23.
She does not have DVT on leg ultrasound.
She has been informed to follow-up with her oncologist or pulmonary outpatient, to discuss when to retrieve her IVC filter.
As for the rest of her medical problems, they were stable during her hospital stay.
Discharge Plan
-
Patient Disposition: Home with Home Care
Discharge Diagnosis/Procedures: Postrenal ESTRELLA/obstructive uropathy with urinary retention due to recurrent metastatic endometrial carcinosarcoma;
Bilateral hydroureteronephrosis secondary to mass effect (status post bilateral PCN placement 09/23)
Resolved gross hematuria;
Small Pulmonary embolism without Right heart strain in setting of acute cancer (status post IVF filter placement 09/23)
Condition: Fair
Diet: As tolerated
Activity: As tolerated
Driving Restrictions: As prior to admission
Blood Work: BMP in 1week, result to PCP
Activity Restrictions/Additional Instructions:
Follow up with Urologist Dr Hurley for voiding trial
You can follow up with Pulm Dr Sykes or your oncologist to discuss when to retrieve the IVC filter
Referrals:
Shellie Sykes MD [Active, Pulmonary Medicine] - in four to six weeks
Sherry Kirby MD [Family Provider, Gynecology]
Raphael Hurley MD [Active, Urology]
Referral Note: call Dr Hurley urologmaggie when arrive at home [phone] to schedule evaluation and attempt removal bladder catheter
Prescriptions:
New
(DME) BMP
See Rx Instructions .Route .MEDSUPPLY Qty: 1 0RF
Rx Instructions:
BMP 09/28-10/09, result to PCP
# Post renal ESTRELLA
polyethylene glycol 3350 17 gram Powder In Packet
17 g PO DAILY PRN (Reason: constipation) Qty: 30 0RF
sennosides-docusate sodium [Senna Plus] 8.6-50 mg Tablet
1 tab PO BIDPRN PRN (Reason: constipation) Qty: 30 0RF
Continued
metoprolol succinate 25 mg Tablet Extended Release 24 Hr
25 mg PO BID Qty: 60 0RF
Discharge Orders:
Discharge Patient (As Directed); Ordered 09/25/25
Ordered By: Hazel Celestin
Discharge Date and Time
Print Language: PRYDEINIG
--- NOTE | 2025-09-25 13:55 | VNURNOTE ---
Home Health Liaison met with patient at bedside to discuss HH nurse/therapy, visits, schedule and homebound status. Reviewed with patient that our partner HH agency, [facility] can see her over the weekend. Patient is agreeable to [facility] and understands that visits at home will be 2-3 x per week to assess and teach medical and drain management. Patient is aware that HH will contact them for start of care in 1-2 days after discharge from . Planning on SOC Sun. Provided
contact number for [facility].
[facility] referral completed in [facility].
[2025-09-25 13:57] VITALS: BP 105/68
--- NOTE | 2025-09-25 14:04 | W.PN.NEPH.PH ---
Today's Communication / Plan
-
dc
Assessment/Plan
-
IMP:
Mild diffuse abdominal pain
urination difficulty/urinary retention
Recurrent necrotic pelvic tumor-endometrial cancer
ESTRELLA with bilateral hydroureteronephrosis secondary to mass effect on the urinary bladder/ureterovesical junctions from endometrial cancer
PE
Endometrial cancer s/p total hysterectomy on May 26, 2025.
Hypertension
h/o SVT
PLan:
for dc
follow BMP as outpatient.
-
-
Date of Service: September 25, 2025
CC / HPI / ROS
-
Chief Complaint:
ESTRELLA
History of Present Illness:
cr better at 1.1, non oliguric with bilat PCN, berman
sodium normal 137
Bp stable
bilateral PCN and berman draining
Review of Systems:
no cp or sob at rest
abd disocnfort better
Labs
-
Labs:
WBC 10.5 10^3/uL (4.8-10.8) 09/25/25 06:13
RBC 3.73 10^6/uL (4.20-5.40) L 09/25/25 06:13
Hgb 10.3 g/dL (12.0-16.0) L 09/25/25 06:13
Hct 31.6 % (37.0-47.0) L 09/25/25 06:13
Plt Count 336 10^3/uL (130-400) 09/25/25 06:13
Sodium 137 mmol/L (135-145) 09/25/25 06:12
Potassium 3.8 mmol/L (3.5-5.1) 09/25/25 06:12
Chloride 107 mmol/L (98-107) 09/25/25 06:12
Carbon Dioxide 25 mmol/L (22-30) 09/25/25 06:12
BUN 26 mg/dl (7-17) H 09/25/25 06:12
Creatinine 1.1 mg/dL (0.6-1.0) H 09/25/25 06:12
eGFR 51.43 09/25/25 06:12
Glucose 93 mg/dl (70-99) 09/25/25 06:12
Calcium 8.3 mg/dl (8.4-10.2) L 09/25/25 06:12
Albumin 3.9 g/dl (3.5-5.0) 09/22/25 11:55
Physical Exam
-
Vital Signs:
Vital Signs
Temp Pulse Resp BP Pulse Ox
98.0 F 76 18 105/68 95
09/25/25 13:57 09/25/25 13:57 09/25/25 13:57 09/25/25 13:57 09/25/25 13:58
Cardiovascular:: Regular rate and rhythm
Respiratory:: Bilateral: CTA
Lung Excursion:: Normal
Abdomen:: Nontender and Soft
Bowel Sounds:: Normal
Extremity Edema:: None: Bilateral:
== END 2025-09-25 15:46 | disposition home health service (06) | DRG 754 ==
LOC: 3 WEST ACU 18:32
PROVIDERS: Nurse Practitioner; Nurse Practitioner Family; Radiology Diagnostic Radiology; ADMITTING PHYSICIAN Internal Medicine; ATTENDING PHYSICIAN Internal Medicine; CONSULT PHYSICIAN Internal Medicine; CONSULT PHYSICIAN Specialist; EMERGENCY PHYSICIAN Emergency Medicine; FAMILY PHYSICIAN Obstetrics & Gynecology Gynecology; OTHER PHYSICIAN Internal Medicine; OTHER PHYSICIAN Internal Medicine Hematology & Oncology
PROC: 06H03DZ Insertion of Intraluminal Device into Inferior Vena Cava, Percutaneous Approach (ICD-10-PCS; 2025-09-23)
PROC: 0T9430Z Drainage of Left Kidney Pelvis with Drainage Device, Percutaneous Approach (ICD-10-PCS; 2025-09-23)
DX: C54.1 Malignant neoplasm of endometrium (principal); I26.99 Other pulmonary embolism without acute cor pulmonale; K66.1 Hemoperitoneum; C79.62 Secondary malignant neoplasm of left ovary; N13.30 Unspecified hydronephrosis; N17.9 Acute kidney failure, unspecified; I47.10 Supraventricular tachycardia, unspecified; E87.1 Hypo-osmolality and hyponatremia; R31.0 Gross hematuria; I10 Essential (primary) hypertension; Z88.2 Allergy status to sulfonamides; Z90.710 Acquired absence of both cervix and uterus; Z66 Do not resuscitate; Z90.49 Acquired absence of other specified parts of digestive tract
CPT/HCPCS: 37191; 50432; 51702; 51798; 74174; 74176; 80048; 80053; 81003; 81015; 83690; 83735; 83935; 84300; 85025; 85027; 85610; 93970; 96360; 96361; 97163; 97530; 99152; 99153; 99285; C1729; C1769; Q9967

== ENCOUNTER 2025-09-28 09:28 | Inpatient (IN) | payer MEDICARE, SELFPAY ==
[2025-09-25] VITALS (34 sets, daily range): BP systolic 87–112; BP diastolic 60–100; BMI 22.6; BMI 22.4
--- NOTE | 2025-09-25 17:12 | ED.GENMED ---
History of Present Illness
<Chani Love PA-C - Last Filed: 09/25/25 23:07>
General
Chief Complaint: Fainting/Passed Out
Source: patient and records
Exam Limitations: none
Time Seen by Provider: 09/25/25 17:00
History of Present Illness
History of Present Illness:
80yoF with history of uterine carcinosarcoma, SVT, hypertension presenting via EMS for evaluation after syncopal episode. Patient was hospitalized from 09/22-09/25/25 and was just discharged 1 hour ago. Patient had bilateral nephrostomy tubes
placed due to hydronephrosis secondary to mass effect. She also underwent CBI for gross hematuria. A small segmental pulmonary embolism was noted upon admission although she was not anticoagulated due to the hematuria. She was walking into her
home after discharge and went up 1 step when she suddenly started to feel unwell and weak. Family member states that she was slurring her words and then lost consciousness. She had another near syncopal episode on EMS arrival. She is found to be
tachycardic with heart rate in the 190s. She received 6 mg IV adenosine for SVT with conversion to sinus rhythm. Patient is now feeling improved but does feel generally weak. She feels that she was discharged too soon. She denies any chest pain
or shortness of breath.
Past History
<Chani Love PA-C - Last Filed: 09/25/25 23:07>
Past History
ED Past Medical History: HTN
ED Past Surgical History: None
Social History
Tobacco: Non-smoker
Phy Exam
<Chani Love PA-C - Last Filed: 09/25/25 23:07>
Physical Exam
Physical Exam:
Chronically ill appearing female in no acute distress, laughing and conversant
General Physical Exam
General Presentation: no apparent distress
General Skin: warm and dry
General Habitus: normal
General Mental: alert
ENT Exam
ENT Exam: normocephalic
Cardiovascular Exam
Cardiovascular Exam: regular rate/rhythm
Pulmonary Exam
Pulmonary Exam: lungs clear, no respiratory distress, no rales, no crackles, no rhonchi and no wheezing
Gastrointestinal Exam
Gastrointestinal Exam: other (Bilateral nephrostomy tubes in place)
Neurological Exam
Neurological Exam: alert
[place] Coma Scale
Eye Opening: Spontaneous
Verbal Response: Oriented
Motor Response: Obeys Commands
GCS Total Score: 15
Skin Exam
Skin Exam: normal color and warm/dry
Psychiatric Exam
Psychiatric Exam: normal mood/affect
Course
<Chani Love PA-C - Last Filed: 09/25/25 23:07>
Orders/Labs/Results
Orders:
Orders
09/25/25 Breakfast
Regular
At Your Request: Full Participation
09/25/25 17:04
Electrocardiogram (*1) Urgent
Reason for Study: Tachycardia
EKG- Treatment ONCE
09/25/25 17:11
0.9% Sodium Chloride 1000 ml [Nss] 1,000 ml IV BOLUS
09/25/25 17:36
Complete Blood Count/With Diff Urgent
Comprehensive Metabolic Panel Urgent
Magnesium Urgent
TSH Reflex To Free T4 Urgent
Troponin I Urgent
09/25/25 18:56
Admit/Transfer Patient As Directed
Co-Sign Provider:
Level of Care: Observation services
Assign to:: Telemetry
Physician / Group: jesus
Diagnosis: SVT
Reason for Telemetry: Arrhythmia
Date to Stop Telemetry: 09/28/25
Time to Stop Telemetry: 11:00
Code Status As Directed
Resuscitation Status: Do not resuscitate
Reached after discussion with pt or family/Healthcare POA: Yes
DNR Bracelet Application ONCE
PRN Pain Medication Management As Directed
May give lesser potent ordered pain med per pt: Yes
preference::
Protocol:: Medication orders for pain may be administered in a
manner that supports deferring to patient preference
when the pt is:
- Requesting an ordered lesser potent pain medication.
Least to most potent pain medications are defined
as: acetaminophen < NSAID < tramadol < opioids
(morphine, oxycodone, hydromorphone).
- Requesting a lesser dose of the same medication IF
ORDERED.
- Requesting a less intrusive route of administration
if both routes are prescribed by the provider (PO <
IV).
09/25/25 21:07
0.9% Sodium Chloride 1000 ml [Nss] 1,000 ml IV 80 mls/hr
Acetaminophen [Tylenol] 650 mg PO Q4HPRN PRN
Bisacodyl [Dulcolax] 10 mg RECTAL [id number] PRN
Docusate W/Senna [Senokot-S] 1 tablet PO BIDPRN PRN
Magnesium Oxide 400 mg PO NOW STA
Metoprolol Xl [Toprol Xl] 25 mg PO BID
Polyethylene Glycol Powder [Miralax] 17 grams PO DAILYPRN PRN
09/25/25 21:07
Activity As Directed
Activity Level: As Tolerated
Pneumatic Compression Sleeves As Directed
Type: Knee high
Vital Signs As Directed
Frequency: Per unit guidelines
DX Deep Vein Thrombosis Video Routine
09/26/25 06:00
Basic Metabolic Panel IN AM
Complete Blood Count/No Diff IN AM
09/28/25 11:00
DC Protocol for Telemetry ONCE
Abnormal Lab Results
09/25/25
17:36
WBC 14.4 H 10^3/uL
(4.8-10.8)
RBC 4.04 L 10^6/uL
(4.20-5.40)
Hgb 10.8 L g/dL
(12.0-16.0)
Hct 32.7 L %
(37.0-47.0)
MCV 80.9 L fL
(81.0-99.0)
MCH 26.7 L pg
(27.0-31.0)
Abs Immat Gran (auto) 0.1 H 10^3/uL
(0-0.05)
Absolute Neuts (auto) 13.4 H 10^3/uL
(1.4-6.5)
Absolute Lymphs (auto) 0.5 L 10^3/uL
(1.2-3.4)
Immature Gran % 0.7 H %
(0-0.5)
Neutrophils % 92.9 H %
(42.2-75.2)
Lymphocytes % 3.3 L %
(20.5-51.1)
BUN 24 H mg/dl
(7-17)
Creatinine 1.2 H mg/dL
(0.6-1.0)
Glucose 178 H mg/dl
(70-99)
Magnesium 1.5 L mg/dl
(1.6-2.3)
Total Protein 5.9 L g/dl
(6.3-8.2)
Albumin 3.1 L g/dl
(3.5-5.0)
09/25/25 17:36
09/25/25 17:36
Vital Signs
Initial and Last Documented VS:
Initial Vital Signs
Temp Pulse Resp BP Pulse Ox
97.8 F 87 18 90/67 98
09/25/25 16:51 09/25/25 16:51 09/25/25 16:51 09/25/25 16:51 09/25/25 16:51
Last Documented Vital Signs
Temp Pulse Resp BP Pulse Ox
98.0 F 177 20 101/85 99
09/25/25 22:35 09/25/25 22:01 09/25/25 22:35 09/25/25 22:01 09/25/25 22:35
<Sd Martin, DO - Last Filed: 09/25/25 19:24>
Orders/Labs/Results
Orders:
Orders
09/25/25 Breakfast
Regular
At Your Request: Full Participation
09/25/25 17:04
Electrocardiogram (*1) Urgent
Reason for Study: Tachycardia
EKG- Treatment ONCE
09/25/25 17:11
0.9% Sodium Chloride 1000 ml [Nss] 1,000 ml IV BOLUS
09/25/25 17:36
Complete Blood Count/With Diff Urgent
Comprehensive Metabolic Panel Urgent
Magnesium Urgent
TSH Reflex To Free T4 Urgent
Troponin I Urgent
09/25/25 18:56
Admit/Transfer Patient As Directed
Co-Sign Provider:
Level of Care: Observation services
Assign to:: Telemetry
Physician / Group: jesus
Diagnosis: SVT
Reason for Telemetry: Arrhythmia
Date to Stop Telemetry: 09/28/25
Time to Stop Telemetry: 11:00
Code Status As Directed
Resuscitation Status: Do not resuscitate
Reached after discussion with pt or family/Healthcare POA: Yes
DNR Bracelet Application ONCE
PRN Pain Medication Management As Directed
May give lesser potent ordered pain med per pt: Yes
preference::
Protocol:: Medication orders for pain may be administered in a
manner that supports deferring to patient preference
when the pt is:
- Requesting an ordered lesser potent pain medication.
Least to most potent pain medications are defined
as: acetaminophen < NSAID < tramadol < opioids
(morphine, oxycodone, hydromorphone).
- Requesting a lesser dose of the same medication IF
ORDERED.
- Requesting a less intrusive route of administration
if both routes are prescribed by the provider (PO <
IV).
09/25/25 21:07
0.9% Sodium Chloride 1000 ml [Nss] 1,000 ml IV 80 mls/hr
Acetaminophen [Tylenol] 650 mg PO Q4HPRN PRN
Bisacodyl [Dulcolax] 10 mg RECTAL [id number] PRN
Docusate W/Senna [Senokot-S] 1 tablet PO BIDPRN PRN
Magnesium Oxide 400 mg PO NOW STA
Metoprolol Xl [Toprol Xl] 25 mg PO BID
Polyethylene Glycol Powder [Miralax] 17 grams PO DAILYPRN PRN
09/25/25 21:07
Activity As Directed
Activity Level: As Tolerated
Pneumatic Compression Sleeves As Directed
Type: Knee high
Vital Signs As Directed
Frequency: Per unit guidelines
DX Deep Vein Thrombosis Video Routine
09/26/25 06:00
Basic Metabolic Panel IN AM
Complete Blood Count/No Diff IN AM
09/28/25 11:00
DC Protocol for Telemetry ONCE
Abnormal Lab Results
09/25/25
17:36
WBC 14.4 H 10^3/uL
(4.8-10.8)
RBC 4.04 L 10^6/uL
(4.20-5.40)
Hgb 10.8 L g/dL
(12.0-16.0)
Hct 32.7 L %
(37.0-47.0)
MCV 80.9 L fL
(81.0-99.0)
MCH 26.7 L pg
(27.0-31.0)
Abs Immat Gran (auto) 0.1 H 10^3/uL
(0-0.05)
Absolute Neuts (auto) 13.4 H 10^3/uL
(1.4-6.5)
Absolute Lymphs (auto) 0.5 L 10^3/uL
(1.2-3.4)
Immature Gran % 0.7 H %
(0-0.5)
Neutrophils % 92.9 H %
(42.2-75.2)
Lymphocytes % 3.3 L %
(20.5-51.1)
BUN 24 H mg/dl
(7-17)
Creatinine 1.2 H mg/dL
(0.6-1.0)
Glucose 178 H mg/dl
(70-99)
Magnesium 1.5 L mg/dl
(1.6-2.3)
Total Protein 5.9 L g/dl
(6.3-8.2)
Albumin 3.1 L g/dl
(3.5-5.0)
09/25/25 17:36
09/25/25 17:36
Vital Signs
Initial and Last Documented VS:
Initial Vital Signs
Temp Pulse Resp BP Pulse Ox
97.8 F 87 18 90/67 98
09/25/25 16:51 09/25/25 16:51 09/25/25 16:51 09/25/25 16:51 09/25/25 16:51
Last Documented Vital Signs
Temp Pulse Resp BP Pulse Ox
98.0 F 177 20 101/85 99
09/25/25 22:35 09/25/25 22:01 09/25/25 22:35 09/25/25 22:01 09/25/25 22:35
Zaidalt;Chani Love PA-C - Last Filed: 09/25/25 23:07>
MDM/Problems Addressed
Differential Diagnosis Includes:
80yoF presenting after a syncopal episode. Just discharged 1 hour ago. Went home and felt unwell followed by LOC. HR 190 on EMS on arrival and she was in SVT. Received adenosine with conversion. Now feeling improved but c/o weakness. BP 90/67 on
arrival. Remainder of vitals stable. She is well appearing in no distress. Differential diagnosis includes: SVT/arrhythmia, dehydration, vasovagal episode
Initial ED plan: Check cardiac labs, TSH, magnesium, and EKG. IV fluid bolus.
<Chani Love PA-C - Last Filed: 09/25/25 23:07>
*Pulse Oximetry
SaO2: 98
Oxygen Mode of Delivery: Room air
Patient hypoxic: no
*EKG
Interpreted by ED Provider?: Yes
EKG Intrepretation Date: 09/25/25
Heart Rate: 81
Rate: normal
Rhythm: sinus
[place]: left axis deviation
QRS Pattern: low voltage
Ischemia: no ischemia
*Critical Care Note
Total Time (30-74mins, 75-104mins- exclusive of procedures): Not Applicable
<Chani Love PA-C - Last Filed: 09/25/25 23:07>
Update Note
Update Note:
EKG shows normal sinus rhythm and troponin within normal limits. White count elevated at 14.4. Renal function stable from earlier today. Blood pressure persistently soft although improved with IV fluids. She is feeling too weak to go home. No
limit for further management.
ED Attending Note
<Chani Love PA-C - Last Filed: 09/25/25 23:07>
-
Portions of this chart may have been created with voice recognition software.� Occasional wrong word or��sound alike� substitutions may have occurred due to the inherent limitations of voice recognition software.
<Sd Martin DO - Last Filed: 09/25/25 19:24>
ED Attending Note
Patient seen and examined by attending physician: Yes
ED Attending Note:
I have reviewed and agree with history treatment plan by Chani Love PA-C, NILAY. My exam revealed
Physical Exam
General: no apparent distress, not acutely ill
Neck: supple. no meningeal signs. normal posterior pharynx
Heart: s1/s2 regular rate and rhythm, no murmur. equal radial
pulses.
HEENT: Pupils equal round reactive to light, EOMI
Lungs: no acute respiratory distress. clear bilaterally
Abdomen: normal bowel sounds. not tender. no CVAT, bilateral nephrostomy tubes, and Brady
Neuro: alert and oriented. no focal neurological deficits cranial nerves II through XII intact
Skin: no rash
Psychiatric: well kept. interactive and cooperative
Extremities: no edema. no calf tenderness. negative homans. good distal pulses
72-year-old female with syncope, likely due to SVT. Unclear cause of leukocytosis. Admitted for further evaluation and monitoring.
Discharge Plan
Departure
Patient Disposition: Admit
Date of Disposition: 09/25/25
Time of Disposition: 18:26
Presentation/result/management discussed w/ accepting MD/DO: Hospitalist
Discharge Problem:
Syncope, SVT (supraventricular tachycardia), Generalized weakness
Interventions
Interventions:
*Risk Screen - Suicide Last Done: 09/25/25 16:51
*General Assessment Last Done: 09/25/25 16:51
*Neglect/Abuse Screening Last Done: 09/25/25 16:51
*ED- Fall Risk Assessment Last Done: 09/25/25 20:30
*ED COVID-19 Vaccine History Last Done: 09/25/25 20:30
*ED Influenza Vaccine History Last Done: 09/25/25 20:30
*Nursing Disposition Last Done: 09/25/25 20:46
ED- Cardiac Assessment Last Done: 09/25/25 17:20
ED- Neurological Assessment Last Done: 09/25/25 17:20
Discharge Date and Time
Discharge Date/Time: 09/25/25 20:46
[2025-09-25] MEDS: NSS 1000 IV ×2 (17:27→21:24)
[2025-09-25 18:02] LABS: ALT (SGPT) 11 U/L (0-35); AST (SGOT) 17 U/L (14-36); Albumin 3.1 g/dl (3.5-5.0); Alkaline Phosphatase 44 U/L (38-126); Blood Urea Nitrogen 24 mg/dl (7-17); Calcium 8.5 mg/dl (8.4-10.2); Carbon Dioxide 23 mmol/L (22-30); Chloride 106 mmol/L (98-107); Glucose 178 mg/dl (70-99); Magnesium 1.5 mg/dl (1.6-2.3); Potassium 3.6 mmol/L (3.5-5.1); Sodium 135 mmol/L (135-145); Total Protein 5.9 g/dl (6.3-8.2); eGFR 46.33
[2025-09-25 18:03] LABS: Hematocrit 32.7 % (37.0-47.0); Hemoglobin 10.8 g/dL (12.0-16.0); Mean Corp Hgb Conc. 33.0 g/dL (33.0-37.0); Mean Corpuscular Volume 80.9 fL (81.0-99.0); Nucleated Red Blood Cells % 0 %; Red Cell Dist. Width 14.0 % (11.5-14.5)
[2025-09-25 18:13] LABS: Troponin I 0.029 ng/ml
--- NOTE | 2025-09-25 18:34 | HPS.HSE ---
Addendum entered and electronically signed by Ella Araya MD 09/25/25 19:55:
This is an addendum to H&P written by Christel Hodges on 09/25/2025. �Patient seen and examined independently with [employer]PER.
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
percutaneous nephrostomies, recent hematuria, SVT, hypertension, recently discovered small pulmonary embolism status post IVC filter not on anticoagulation due to hematuria, presenting with weakness with slurred speech and was close to passing out.
Upon arrival of EMS heart rate 190s and she was noted to be in SVT and received adenosine with conversion.
Blood pressure in ER 90s systolic. �Received IV fluids in the ER.
Labs show magnesium 1.5. �Troponin of 0.029. �Leukocytosis of 14.
Patient with SVT likely triggered from hypovolemia now resolved although with residual hypotension. �Continue IV fluids.
Original Note:
Family Physician
-
Family Physician: NOT KNOW UNKNOWN - PT DOES
Chief Complaint
-
nera syncope.
History of Present Illness
80yoF with history of uterine carcinosarcoma, SVT, hypertension presenting via EMS for evaluation after near syncopal episode. Patient was hospitalized from 09/22-09/25/25 and was just discharged 1 hour ago. Patient had bilateral nephrostomy
tubes placed due to hydronephrosis secondary to mass effect. She also underwent CBI for gross hematuria. A small segmental pulmonary embolism was noted upon admission although she was not anticoagulated due to the hematuria.
she got discharged from here, got home and sat on the chair. she felt weak in her body. she was slurring on her speech. and almost lost the level of consciousness. denied lightheaded, dizzy. Patient denied any chest pain, palpitation. Patient
denied any fever, chills, cough, congestion. Patient denied eye pain, nausea, vomiting or diarrhea.
Upon arrival, she is found to be tachycardic with heart rate in the 190s. She received 6 mg IV adenosine for SVT with conversion to sinus rhythm. Patient is now feeling improved but does feel generally weak. She feels that she was discharged too
soon.
Admitted for further management
Medical History
Past Medical History
Past Medical History: Reports Other
Additional Past Medical History:
Primary hypertension, hyperlipidemia
Past Surgical History: Reports Other
Additional Past Surgical History:
Tonsillectomy
Social History
Tobacco: Non-smoker
Alcohol: None
Drug: None
Personal: Single
Living: Alone
Family History
Family History: Not pertinent
Allergies / Home Medications
Allergies reflects when Allergies were last updated in [facility].
Home Medications with original date entered in [facility]
Allergy/Medication List:
Allergies
Allergy/AdvReac Type Severity Reaction Status Date / Time
Sulfa (Sulfonamide Allergy RASH/HIGH Verified 09/22/25 10:51
Antibiotics) TEMP
Home Medications
metoprolol succinate 25 mg tablet,extended release 24 hr 25 mg PO BID Heart Disease/Condition 09/25/25
polyethylene glycol 3350 17 gram oral powder packet 17 g PO DAILYPRN PRN constipation 09/25/25
sennosides 8.6 mg-docusate sodium 50 mg tablet (Senna Plus) 1 tab PO BIDPRN PRN constipation #30 tabs 09/25/25
Review of Systems
-
Constitutional: Reports No Symptoms
EENT: Reports No Symptoms
Respiratory: Reports No Symptoms
Cardiac: Reports No Symptoms
Abdomen/GI: Reports No Symptoms
: Reports No Symptoms
Musculoskeletal: Reports No Symptoms
Skin: Reports No Symptoms
Neurological: Reports No Symptoms
Endocrine: Reports No Symptoms
Hematologic/Lymphatic: Reports No Symptoms
Psych: Reports No Symptoms
Physical Exam
Vital Signs
Vital Signs
Temp Pulse Resp BP Pulse Ox
97.8 F 87 18 90/67 98
09/25/25 16:51 09/25/25 16:51 09/25/25 16:51 09/25/25 16:51 09/25/25 17:14
Physical Exam
General: Well Developed, Well Nourished and No Apparent Distress
HEENT: NormoCephalic, Moist mucous membranes and Atraumatic
Respiratory: Clear
Cardiac: S1/S2 and Regular Rhythm; No Murmur or Rub
GI: Soft, Non Tender, Non Distended and Normal Bowel Sounds; No Organomegaly
Rectal: Deferred by Provider
Genito-urinary: Brady and Nephrostomy Tubes
Musculoskeletal: No Clubbing, No Cyanosis and No Edema
Skin: No Rash
Neuro: AO x 3 and Nonfocal/grossly intact
Psych: Calm
Laboratory Results
-
09/25/25 17:36
09/25/25 17:36
Laboratory Results
Total Bilirubin 0.4 mg/dl (0.2-1.3) 09/25/25 17:36
AST 17 U/L (14-36) 09/25/25 17:36
ALT 11 U/L (0-35) 09/25/25 17:36
Alkaline Phosphatase 44 U/L (38-126) 09/25/25 17:36
Troponin I 0.029 ng/ml 09/25/25 17:36
Data Reviewed
-
Lab Data: Labs Reviewed by me
Impression/Plan
-
# Syncope likely secondary to SVT
# History of SVT
- Patient received adenosine with conversion to sinus rhythm
- Fluids continued
- PT/OT consult
# Leukocytosis likely reactive
- WBCs 14.4, patient is afebrile
- Continue to monitor
# Anemia of chronic disease
- Hemoglobin stable at 10.8, no active bleeding
- Continue to monitor
# Acute kidney injury secondary to hydroureteronephrosis
- creatinine 1.2 which is improved
#hypomagnesemia
- Magnesium 1.5
- Continue to monitor
-oral mag
# History of endometrial carcinoma status post total hysterectomy on May 26, 2025
- Follows with [facility]
# Bilateral hydroureteronephrosis
- Status post bilateral PCN placement on 09/23
- Brady in place
# Small PE without RV strain in setting of acute cancer
-s/p IVF filter placement 09/23
# Hypertension
# SVT
continue metoprolol
Code status: DNR
DVT prophylaxis: SCDs
[2025-09-25 18:39] LABS: Platelet Count 379 10^3/uL (130-400)
--- NOTE | 2025-09-25 21:31 | PTCARENOTE ---
Addendum entered by Bee Kraft RN 09/26/25 00:01:
Pt NSR with HR 70's on admission. At 2140 pt was back into SVT rhythm, HR high 170's, asymptomatic, bp 101/85, Pox 99% RA. prefabricated houses trimmer ELECTRONICS PROCESSING SUPERVISOR made aware, 5mg IV metoprolol ordered and given, HR 160's. ELECTRONICS PROCESSING SUPERVISOR at bedside to assess pt.
Original Note:
Adm pt to 2244 from ED, able to walk from stretcher to bed with stand by assist, steady gait, no c/o dizziness or lightheadedness. B/l Nephrostomy tubings intact with serosanguineous output,berman cath in place. Pt denies palpitations or cp. IVF's
initiated. Oriented pt to room and call light.
[2025-09-25] MEDS: MAGNESIUM OXIDE 400 MG PO (21:44)
[2025-09-25] MEDS: TOPROL XL PO (22:01)
[2025-09-25] MEDS: LOPRESSOR 5 MG IV (22:01)
--- NOTE | 2025-09-25 23:03 | W.PN.UPDATE ---
Update Note
Progress Note Update
~ 21:45 Rcd TT, patient HR 177 sustained, EKG showed SVT. BP 101/85, 99% on room air. Patient examined, patient denies dizziness, lightheadedness, palpitations. She states she feel better than when she arrived tonight.
Ordered Metoprolol 5 mg IV x 1, HR 165 after Lopressor given.
~ 22:45 HR remains at 165, BP 105/80. Ordered Cardizem 10 mg IV bolus and start Cardizem gtt, titrate as per protocol.
~ 23:25 Pt converted to NSR, HR 72, BP 103/64. Cardizem gtt not started.
~ 3:30 Pt heart rate 140-150's, BP 96/69, started Cardizem gtt.
~ 4:30 Pt heart rate 160-170's, BP 90/64. TT'd precision printing worker Cardiology, Dr. Marin, appreciate his recommendations, stop Cardizem gtt and start Amiodarone bolus 150 mg over 30 minutes and start Amiodarone gtt per protocol. When RN to stop Cardizem gtt,
noted HR 77 and in NSR. Converted at 5:[address] Marin to update on HR/rhythm, per Dr. Marin, continue Cardizem gtt at this time, do not start Amiodarone. He will be in to see patient soon.
[2025-09-25] MEDS: CARDIZEM 10 MG IV (23:10)
--- NOTE | 2025-09-25 23:15 | PTCARENOTE ---
HR sustaining at 160's, IV Cardizem 10mg bolus and 5mg/hr infusion ordered. HR 70's shortly after 10 mg bolus was given, Cardizem gtt was not initiated. IVF's infusing, bp stable. Pt remains asymptomatic. Updated on POC, call light within reach.
[2025-09-26] VITALS (27 sets, daily range): BP systolic 82–111; BP diastolic 53–82
[2025-09-26] MEDS: MELATONIN 3 MG PO ×2 (01:18→22:03)
--- NOTE | 2025-09-26 01:39 | PTCARENOTE ---
Assumed care of patient at approx 23:30. Pt AAOx3, tele remains NSR, and sating 100% RA. Denies any pain. BP soft, pt denies any dizziness. Call bustillos in reach.
[2025-09-26 03:50] LABS: Hematocrit 30.9 % (37.0-47.0); Hemoglobin 9.8 g/dL (12.0-16.0); Mean Corp Hgb Conc. 31.7 g/dL (33.0-37.0); Mean Corpuscular Volume 84.7 fL (81.0-99.0); Platelet Count 296 10^3/uL (130-400); Red Cell Dist. Width 14.0 % (11.5-14.5)
[2025-09-26] MEDS: CARDIZEM 125 IV (04:03)
[2025-09-26 04:08] LABS: Blood Urea Nitrogen 21 mg/dl (7-17); Calcium 8.0 mg/dl (8.4-10.2); Carbon Dioxide 23 mmol/L (22-30); Chloride 108 mmol/L (98-107); Estimated Creatinine Clearance 43 ml/min; Glucose 94 mg/dl (70-99); Magnesium 1.5 mg/dl (1.6-2.3); Potassium 3.9 mmol/L (3.5-5.1); Sodium 138 mmol/L (135-145); eGFR 57.66
--- NOTE | 2025-09-26 05:26 | PTCARENOTE ---
At approx 03:16 patients HR went into SVT, HR in the 150-160's at rest. EKG confirms SVT. Patient asymptomatic and laying in bed. BP 96/69. Morning labs collected and sent. Kacie Rojas FLOWER CUTTER made aware and at bedside. Patients Brady w/ no urine
output since being admitted to IVU. Bladder scanned patient w/ a result of 426. Patient denies bladder discomfort or back pain. Upon further assessment patients lower abdomen distended and firm. David KITCHEN performed hand irrigation to the
catheter. Urine dark red w/ small clots. Brady reconnected to drainage bag. David KITCHEN instructed RN to start Cardizem gtt d/t elevated HR. Cardizem started at 04:04, BP remains soft. FLOWER CUTTER instructed RN to maintain gtt if MAP remains above 65.
Patient spontaneously converted back to NSR w/ HR in the 70's at 05:19. Patient remains CP free. Mag 1.5, Valencia Rojas FLOWER CUTTER aware. New IV placed in Left forearm. Reviewed POC w/ patient. Call bustillos in reach.
--- NOTE | 2025-09-26 06:01 | CON.CAR ---
Consultation
Consultation Request
Date/Time Consultation Requested: 09/26/2025 5:15 AM
Date/Time Consultation Performed: 09/26/2025 and 6 cm
Requesting Provider: Hospitalist
Performing Provider: Dr. Marin
Reason for Consultation: Narrow complex tachycardia
Medical History
-
History of Present Illness:
79-year-old woman with history of PSVT, pre-DM, endometrial carcinoma. Patient had recent hospitalization with abdominal pain and difficulty urination requiring Brady catheter. Patient also noted to have hematuria and bilateral hydronephrosis.
Incidental pulmonary embolism noted on CT. Patient required bilateral percutaneous nephrostomy tubes 09/23/2025. And had an IVC filter placed 09/23/2025. Due to the issues above patient not felt to be anticoagulation candidate. Patient
discharged on 09/25/2025 and then Jeanne presented to the ER. With weakness and presyncopal symptoms. Patient reportedly had SVT with heart rates in the 190s that converted with adenosine which was administered by EMS. Patient had relatively low
blood pressures and has received IV fluids. Overnight patient had recurrent SVT was given small bolus of IV Cardizem followed by low-dose drip. Patient had some recurrent SVT with rates in the 160s this morning and again converted back to sinus
rhythm.
In May patient had laparoscopic hysterectomy bilateral salpingo oophorectomy and partial omenectomy. Patient had some SVT treated with adenosine and then was placed on metoprolol. With consideration for ablation after she recovers
Echocardiogram ejection fraction 55 to 60%
ECG 09/26/2025 SVT heart rate 163
ECG 09/25/2025 sinus rhythm heart rate 81
Past Medical History
Past Medical History: Other (As above)
Social History
Tobacco: Non-Smoker
Family History
Family History: Reviewed & Not Pertinent
Allergies / Home Medications
Allergy/AdvReac Type Severity Reaction Status Date / Time
Sulfa (Sulfonamide Allergy RASH/HIGH Verified 09/22/25 10:51
Antibiotics) TEMP
�Medication �Instructions �Recorded �Confirmed �Type
metoprolol succinate 25 mg 25 mg PO BID Heart 09/25/25 09/25/25 History
tablet,extended release 24 hr Disease/Condition
polyethylene glycol 3350 17 gram 17 g PO DAILYPRN PRN constipation 09/25/25 09/25/25 History
oral powder packet
sennosides 8.6 mg-docusate sodium 1 tab PO BIDPRN PRN constipation 09/25/25 09/25/25 Rx
50 mg tablet (Senna Plus) #30 tabs
Review of Systems
-
All other systems: Negative unless noted
Physical Exam
Vital Signs
Temp Pulse Resp BP Pulse Ox
98.1 F 78 20 96/73 97
09/26/25 03:42 09/26/25 05:23 09/26/25 03:42 09/26/25 05:23 09/26/25 03:42
Lab Results
09/26/25 03:36
09/26/25 03:36
Troponin I 0.029 ng/ml 09/25/25 17:36
Physical Exam
General: Well Developed and Well Nourished
HEENT: Normocephalic and Other (No JVD no bruit)
Respiratory: Other (No wheezes rales or rhonchi)
Cardiac: Regular Rhythm
GI: Soft, Non Tender, Non Distended, Normal Bowel Sounds and Other
Musculoskeletal: No Clubbing, No Cyanosis and No Edema
Neuro: Awake, Alert and Oriented
Psych: Calm
Impression / Plan
-
.
SVT
-History of SVT. Patient was on low-dose metoprolol. Presents with recurrent SVT with rapid rates and is now rehospitalized shortly after discharge-
-initial response to adenosine by EMS. Recurrent SVT this hospitalization. Patient given IV Cardizem which is now discontinued due to lower blood pressures.
-Due to low blood pressures and recurrent rhythms the medication options are limited. Will add amiodarone p.o. If recurrence then we will use amiodarone IV
PE
- Recent incidental finding of small PE on CT
- Not on anticoagulation due to recent admission with hematuria and nephrostomy tube placement
- IVC filter
.
Urinary retention with ESTRELLA and bilateral hydroureteronephrosis secondary to mass effect
- Bilateral nephrostomy tube placement 09/23/2025
.
Anemia. Hemoglobin 9.8. 10.8 on admission which was similar to recent hospitalization. Continue to monitor
.
Ovarian cancer status post MICHELLE/BSO 05/2025
Data Reviewed
-
EKG: Tracing Personally Visualized and interpreted
Radiology: Report Reviewed by me
Ultrasound: Report Reviewed by me
Labs: Labs Reviewed by me and Other (disccused with hospitalist EGG PASTEURIZER)
[2025-09-26] MEDS: MAGNESIUM SULFATE 102 GRAMS IV (06:15)
--- NOTE | 2025-09-26 06:27 | PTCARENOTE ---
Mag 1.5. David HAT BAND ATTACHER ordered Mag Sulfate 1gm IV Now, medication administered at 06:15. Dr. Marin at bedside, and instructed RN to stop Cardizem gtt.
[2025-09-26] MEDS: SENOKOT-S 1 TABLET PO (08:56)
[2025-09-26] MEDS: PACERONE 400 MG PO ×2 (08:56→20:36)
[2025-09-26] MEDS: TOPROL XL PO (08:56)
[2025-09-26] MEDS: MAGNESIUM SULFATE 50 IV (09:28)
[2025-09-26] MEDS: NSS 1000 IV (09:28)
--- NOTE | 2025-09-26 09:55 | W.PN.HOSP.TC ---
Today's Communication/Plan
-
see A/P
Assessment / Plan
Assessment / Plan
HPI: 80-year-old female with past medical history significant for endometrial cancer, hypertension, SVT, recent postrenal ESTRELLA s/p BL PCN and Berman placement, small PE s/p IVC filter, who was discharged the day before and returned due to weakness and
tachycardia, noted to be in SVT.
She received adenosine and was converted to NSR.
A/P:
# SVT
initial response to adenosine by EMS.
Recurrent SVT this hospitalization and was given IV Cardizem which is now discontinued due to lower blood pressures.
PO amiodarone 400 mg BID added per card
Cont [employer]ICAL [employer] ASSOCIATE Toprol 25 mg BID with hold parameter
# Hypomagnesemia
replete IV
# Postrenal ESTRELLA with bilateral hydroureteronephrosis secondary to mass effect from metastatic endometrial cancer.
s/p bilateral percutaneous nephrostomy tubes placement 09/23
Cont berman catheter
SCr today at 1.0
Bladder scan was performed by RN, noted high residual which is felt likely 2/2 cancer
uro on board, per Dr Hurley, he will order kidney US
# Small PE without RH strain in setting of acute cancer
No DVT
s/p IVC filter placement 09/23
# Endometrial cancer
follows with [facility] Dr. Melgar
s/p total hysterectomy with Dr. Cárdenas 05/26/2025
patient has not accepted traditional radiation or chemo therapy was hoping for more holistic approach,
continue to follow up outpatient with Onc
# Mild leucocytosis likely reactive
# Hypertension
continue metoprolol
Code status: DNR
DVT prophylaxis: SCDs
DW RN
DW Uro
total time 51 min
Anticipated Discharge: 24 - 48 hours
Subjective/Interval History
-
Date of Service: September 26, 2025
Objective Data
-
Labs:
Laboratory Results
09/26/25
03:36
WBC 12.2 H
Hgb 9.8 L
Hct 30.9 L
Plt Count 296 D
Sodium 138
Potassium 3.9
Chloride 108 H
Carbon Dioxide 23
BUN 21 H
Creatinine 1.0
Glucose 94
Calcium 8.0 L
Vital Signs:
Vital Signs
Temp Pulse Resp BP Pulse Ox
37.2 C 81 18 96/52 98
09/26/25 06:52 09/26/25 08:56 09/26/25 06:52 09/26/25 08:56 09/26/25 06:52
I&O
09/25/25 09/26/25 09/27/25
06:59 06:59 05:59
Intake Total 975 / 975
Output Total 355 / 355 325 / 325
Balance 620 / 620 -325 / -325
Review of Systems
-
History Source: Patient
Abdomen/GI: Reports Abdominal Pain (mild abd pain)
Physical Exam
-
General: Well Developed, No Apparent Distress, Comfortable, Conversant (speak in full sentences ) and Appears Chronically Ill
HEENT: Normocephalic and Atraumatic
Respiratory: Clear to Auscultation and Non Labored Respirations; Negative Accessory Resp Muscle Use
Cardiac: Regular Rhythm and S1/S2
GI: Soft, Nontender and Nondistended
Genito-urinary: Berman and Nephrostomy Tubes (BL ); Negative Continuous Bladder Irrigation
Musculoskeletal: No Edema
Skin: Warm and Dry; Negative Rash
Neuro: Awake and Alert
Psych: Calm and Intact Judgement/Insight
Data Reviewed
-
Labs: Labs Reviewed by me
--- NOTE | 2025-09-26 10:32 | W.PN.URO.CBU ---
Today's Communication / Plan
-
for bladder u/s
Assessment / Plan
-
pressure probably both from spasms and from pelvic cancer will obtain bladder u/s to see if draining
Diagnosis
-
Date of Service: September 26, 2025
-
Patient Diagnosis:urinary retention earlier in week 1000 cc drained first yellow then hematuria foey left as had retention now suprapiibic pressure 100cc inrtilled and 100cc drained but blader ccan possible 350cc in bladder
Post Op Day:
Subjective
-
suprapubic pressure with berman and pelvic mass
Objective
-
Vital Signs
Temp Pulse Resp BP Pulse Ox
99 F 81 18 96/52 98
09/26/25 06:52 09/26/25 08:56 09/26/25 06:52 09/26/25 08:56 09/26/25 06:52
Intake and Output
09/25/25 09/26/25 09/27/25
06:59 06:59 05:59
Intake Total 975 / 975 1000 / 1000
Output Total 355 / 355 325 / 325
Balance 620 / 620 675 / 675
Intake:
Oral fluids 240 / 240
IV fluids (Total) 735 / 735 1000 / 1000
Cardizem 15 / 15
Nss 1,000 ml @ 80 mls/hr IV . 720 / 720 1000 / 1000
[id number] [facility] Rx#:[id number]
Output:
Urinary Drain Output (Total) 275 / 275 175 / 175
Left Nephrostomy 225 / 225 175 / 175
Right Nephrostomy 50 / 50
Urine, Berman 30 / 30 150 / 150
True urine output from hand 50 / 50
irrigation
Laboratory Results
09/26/25 03:36
09/26/25 03:36
Review of Systems
-
: Difficulty Voiding and Other (pressure)
Physical Exam
-
General - well developed, well nourished, no acute distress
Chest - clear bilaterally
Abdomen - soft, non-tender, positive bowel sounds, no CVAT, no incisional pain or distention
Genitalia - normal
Rectal - normal
Skin - warm & dry with no rash
Neuro - AOx3, no motor deficits
Extremities - no clubbing, no cyanosis, no edema
Incision - clean, dry
Dressing - clean, dry, intact
Care Review
Data Reviewed
Discussed with: Hospitalist and Nursing
[2025-09-26] MEDS: TYLENOL 650 MG PO ×2 (13:48→21:40)
--- NOTE | 2025-09-26 16:44 | PTCARENOTE ---
09/26/25 Received patient this AM in bed, adult probation officer reading NSR. Pt Afebrile, BP stable, Pt is AAO x4. B/L Nephrostomy tubes in place draining L>R serosanguineous, Pt with Brady in place with yellow-blood tinged at times. Pt complains of flank
pain and lower abdominal pain at times, Tylenol received. Urology consulted-US Bladder ordered and done. Pt resting comfortably throughout day.
[2025-09-26] MEDS: TOPROL XL 25 MG PO (20:35)
[2025-09-27] VITALS (7 sets, daily range): BP systolic 107–119; BP diastolic 70–77
--- NOTE | 2025-09-27 01:18 | PTCARENOTE ---
assumed care of patient at the change of shift. AAOx3. lower abdominal pain per patient- Tylenol given, see matt. SR on [id number]. no ectopy noted. bp stable. berman intact- blood tinged urine. b/l nephrostomy tubes. dressings intact.
serosanguineous drainage. comfort measures provided. assisted patient with repositioning in bed. reviewed plan of care with patient and verbalized understanding. call bustillos within reach. makes needs known.
[2025-09-27] MEDS: TYLENOL 650 MG PO ×3 (03:02→22:06)
[2025-09-27 03:32] LABS: Hematocrit 29.7 % (37.0-47.0); Hemoglobin 9.8 g/dL (12.0-16.0); Mean Corp Hgb Conc. 33.0 g/dL (33.0-37.0); Mean Corpuscular Volume 83.4 fL (81.0-99.0); Platelet Count 321 10^3/uL (130-400); Red Cell Dist. Width 14.0 % (11.5-14.5)
[2025-09-27 03:54] LABS: Blood Urea Nitrogen 17 mg/dl (7-17); Calcium 8.3 mg/dl (8.4-10.2); Carbon Dioxide 25 mmol/L (22-30); Chloride 108 mmol/L (98-107); Estimated Creatinine Clearance 43 ml/min; Glucose 95 mg/dl (70-99); Magnesium 2.0 mg/dl (1.6-2.3); Potassium 3.7 mmol/L (3.5-5.1); Sodium 139 mmol/L (135-145); eGFR 57.66
--- NOTE | 2025-09-27 07:59 | W.PN.CD ---
Today's Communication / Plan
-
Blood pressures improved off IV Cardizem.
Continue with oral amiodarone and monitor on telemetry
If recurrent sustained SVT while in hospital then will administer IV amiodarone
Impression / Plan
-
.
SVT
-History of SVT. Patient was on low-dose metoprolol. Presents with recurrent SVT with rapid rates and is now rehospitalized shortly after discharge-
-initial response to adenosine by EMS. Recurrent SVT this hospitalization. Patient given IV Cardizem which is now discontinued due to lower blood pressures.
-Due to low blood pressures and recurrent rhythms the medication options are limited. Amiodarone added.
-Continue oral amiodarone
-Follow-up ECG
-Continue low-dose beta-hernan
.
PE
- Recent incidental finding of small PE on CT
- Not on anticoagulation due to recent admission with hematuria and nephrostomy tube placement
- IVC filter
.
Urinary retention with ESTRELLA and bilateral hydroureteronephrosis secondary to mass effect
- Bilateral nephrostomy tube placement 09/23/2025
.
Anemia. Hemoglobin 9.8. 10.8 on admission which was similar to recent hospitalization. Continue to monitor
.
Ovarian cancer status post MICHELLE/BSO 05/2025
Physical Exam
Vital Signs/Labs
Vital Signs
Temp Pulse Resp BP Pulse Ox
97.7 F 74 16 119/70 97
09/27/25 07:05 09/27/25 07:05 09/27/25 07:05 09/27/25 02:58 09/27/25 07:05
09/26/25 09/27/25 09/28/25
06:59 05:59 06:59
Actual Weight 63 kg
09/27/25 03:05
09/27/25 03:05
Magnesium 2.0 mg/dl (1.6-2.3) 09/27/25 03:05
LAB Results
09/25/25
17:36
Troponin I 0.029
Physical Exam
Constitutional: No acute distress
Cardiovascular: Rhythm & rate is regular
Respiratory: Rhonchi Absent
GI: Soft and Non tender
Neuro/Psych: Alert and Oriented
Data Reviewed
-
Date of Service: September 27, 2025
Medical Decision Making: Reviewed Test Results
Medical Tests (PFT, Pathology etc): Report Reviewed by me
Labs: Labs Reviewed by me
[2025-09-27] MEDS: SENOKOT-S 1 TABLET PO (08:17)
[2025-09-27] MEDS: TOPROL XL 25 MG PO ×2 (08:17→20:49)
[2025-09-27] MEDS: PACERONE 400 MG PO ×2 (08:17→20:49)
--- NOTE | 2025-09-27 09:01 | W.PN.HOSP.TC ---
Today's Communication/Plan
-
see A/P
Assessment / Plan
Assessment / Plan
HPI: 80-year-old female with past medical history significant for endometrial cancer, hypertension, SVT, recent postrenal ESTRELLA s/p BL PCN and Berman placement, small PE s/p IVC filter, who was discharged the day before and returned due to weakness and
tachycardia, noted to be in SVT.
She received adenosine and was converted to NSR.
A/P:
# SVT
initial response to adenosine by EMS.
Recurrent SVT this hospitalization and was given IV Cardizem which is now discontinued due to lower blood pressures.
PO amiodarone 400 mg BID added per card , dosing per card
Cont [employer] Toprol 25 mg BID with hold parameter
# Hypomagnesemia
repleted IV
# Postrenal ESTRELLA with bilateral hydroureteronephrosis secondary to mass effect from metastatic endometrial cancer.
s/p bilateral percutaneous nephrostomy tubes placement 09/23
Cont berman catheter
SCr today at 1.0
Bladder scan was performed by RN, noted high residual which is felt likely 2/2 cancer
Urinary bladder showed decompressed bladder with Berman catheter.
uro on board
# Small PE without RH strain in setting of acute cancer
No DVT
s/p IVC filter placement 09/23
# Endometrial cancer
follows with [facility] Dr. Melgar
s/p total hysterectomy with Dr. Cárdenas 05/26/2025
patient has not accepted traditional radiation or chemo therapy was hoping for more holistic approach,
continue to follow up outpatient with Onc
# Hypertension
continue metoprolol
Code status: DNR
DVT prophylaxis: SCDs
DW RN
DW card
Anticipated Discharge: Within 24 hours
Subjective/Interval History
-
Date of Service: September 27, 2025
Objective Data
-
Labs:
Laboratory Results
09/27/25
03:05
WBC 9.5
Hgb 9.8 L
Hct 29.7 L
Plt Count 321
Sodium 139
Potassium 3.7
Chloride 108 H
Carbon Dioxide 25
BUN 17
Creatinine 1.0
Glucose 95
Calcium 8.3 L
Vital Signs:
Vital Signs
Temp Pulse Resp BP Pulse Ox
36.5 C 74 16 119/70 97
09/27/25 07:05 09/27/25 07:05 09/27/25 07:05 09/27/25 02:58 09/27/25 07:05
I&O
09/26/25 09/27/25 09/28/25
06:59 05:59 06:59
Intake Total 975 / 975 1000 / 1000
Output Total 355 / 355 985 / 985
Balance 620 / 620
Review of Systems
-
History Source: Patient
All other systems: Reviewed and negative
Physical Exam
-
General: Well Developed, No Apparent Distress, Comfortable, Conversant (speak in full sentences ) and Appears Chronically Ill
HEENT: Normocephalic and Atraumatic
Respiratory: Clear to Auscultation and Non Labored Respirations; Negative Accessory Resp Muscle Use
Cardiac: Regular Rhythm and S1/S2
GI: Soft, Nontender and Nondistended
Genito-urinary: Berman and Nephrostomy Tubes (BL ); Negative Continuous Bladder Irrigation
Musculoskeletal: No Edema
Skin: Warm and Dry; Negative Rash
Neuro: Awake and Alert
Psych: Calm and Intact Judgement/Insight
Data Reviewed
-
Ultrasound: Report Reviewed by me
Labs: Labs Reviewed by me
--- NOTE | 2025-09-27 11:47 | W.PN.URO.CBU ---
Today's Communication / Plan
-
irad consulted for perc tube checks mon
Assessment / Plan
-
pressure probably both from spasms and from pelvic cancer bladder u/s empty will obtain antegrade bilaterl nephrostogramd to try and cap or remove either or both perc tubes needs blader berman
Diagnosis
-
Date of Service: September 27, 2025
-
Patient Diagnosis:
Post Op Day:
Patient Diagnosis:urinary retention earlier in week 1000 cc drained first yellow then hematuria foey left as had retention now suprapiibic pressure 100cc inrtilled and 100cc drained but blader ccan possible 350cc in bladder
Post Op Day:
Subjective
-
no hematuria
Objective
-
Vital Signs
Temp Pulse Resp BP Pulse Ox
97.9 F 71 16 119/70 99
09/27/25 11:22 09/27/25 11:22 09/27/25 11:22 09/27/25 02:58 09/27/25 11:22
Intake and Output
09/26/25 09/27/25 09/28/25
06:59 05:59 06:59
Intake Total 975 / 975 1000 / 1000
Output Total 355 / 355 985 / 985
Balance 620 / 620
Intake:
Oral fluids 240 / 240
IV fluids (Total) 735 / 735 1000 / 1000
Cardizem
Nss 1,000 ml @ 80 mls/hr IV . 720 / 720 1000 / 1000
[id number] [facility] Rx#:[id number]
Output:
Urinary Drain Output (Total) 275 / 275 510 / 510
Left Nephrostomy 225 / 225 485 / 485
Right Nephrostomy 50 / 50
Urine, Berman 30 / 30 475 / 475
True urine output from hand 50 / 50
irrigation
Laboratory Results
09/27/25 03:05
09/27/25 03:05
Review of Systems
-
: Difficulty Voiding
Physical Exam
-
General - well developed, well nourished, no acute distress
Chest - clear bilaterally
Abdomen - soft, non-tender, positive bowel sounds, no CVAT, no incisional pain or distention
Genitalia - normal
Rectal - normal
Skin - warm & dry with no rash
Neuro - AOx3, no motor deficits
Extremities - no clubbing, no cyanosis, no edema
Incision - clean, dry
Dressing - clean, dry, intact
Care Review
Data Reviewed
Discussed with: Hospitalist and IRAD
Ultrasound: Image Pers Reviewed
--- NOTE | 2025-09-27 15:20 | PTCARENOTE ---
09/27/25 Assumed care of patient from previous shift. Pt resting comfortably in bed, rail bonder NSR 60-70 without ectopy. Pt has no complaints of pain or discomfort. Pt out of bed to chair today for 1 hour- use of walker. Pt with b/l nephrostomy
tubes, L>R drainage. Brady intact, care provided-urine- hesham to red at times. Pt able to make needs known.
[2025-09-27] MEDS: MELATONIN 3 MG PO (22:06)
[2025-09-28] VITALS (9 sets, daily range): BP systolic 91–113; BP diastolic 56–72
--- NOTE | 2025-09-28 00:21 | PTCARENOTE ---
assumed care of patient at the change of shift. AAOx3. complaining of lower abdominal discomfort- Tylenol given, see matt. SR on tele 60s-70s. bp stable. blood tinged urine from berman. b/l nephrostomy tubes intact. turn/reposition patient. skin
intact. answered all questions. call bustillos within reach. makes needs known.
[2025-09-28 04:36] LABS: Hematocrit 32.9 % (37.0-47.0); Hemoglobin 10.1 g/dL (12.0-16.0); Mean Corp Hgb Conc. 30.7 g/dL (33.0-37.0); Mean Corpuscular Volume 85.9 fL (81.0-99.0); Platelet Count 313 10^3/uL (130-400); Red Cell Dist. Width 14.4 % (11.5-14.5)
[2025-09-28 04:57] LABS: Blood Urea Nitrogen 19 mg/dl (7-17); Calcium 8.4 mg/dl (8.4-10.2); Carbon Dioxide 25 mmol/L (22-30); Chloride 106 mmol/L (98-107); Estimated Creatinine Clearance 29 ml/min; Glucose 105 mg/dl (70-99); Potassium 3.9 mmol/L (3.5-5.1); Sodium 138 mmol/L (135-145); eGFR 35.45
[2025-09-28] MEDS: TOPROL XL 25 MG PO ×2 (08:29→20:04)
[2025-09-28] MEDS: PACERONE 400 MG PO ×2 (08:29→20:04)
[2025-09-28] MEDS: SENOKOT-S 1 TABLET PO (08:29)
[2025-09-28] MEDS: MIRALAX 17 GRAMS PO (09:52)
[2025-09-28] MEDS: TYLENOL 650 MG PO ×3 (09:58→23:44)
--- NOTE | 2025-09-28 10:00 | W.PN.URO.CBU ---
Today's Communication / Plan
-
for blateral perc tube checks
Assessment / Plan
-
pressure probably both from spasms and from pelvic cancer bladder u/s empty will obtain antegrade bilaterl nephrostogramd to try and cap or remove either or both perc tubes needs blader berman Creatinine up but no obstruction review for
nephrotoxicities or prerenal etiologuy
Diagnosis
-
Date of Service: September 28, 2025
-
Patient Diagnosis:
Post Op Day:
Patient Diagnosis:
Post Op Day:
Patient Diagnosis:urinary retention earlier in week 1000 cc drained first yellow then hematuria foey left as had retention now suprapiibic pressure 100cc inrtilled and 100cc drained but blader ccan possible 350cc in bladder
Post Op Day:
Subjective
-
feels well
Objective
-
Vital Signs
Temp Pulse Resp BP Pulse Ox
97.9 F 70 20 110/69 97
09/28/25 07:05 09/28/25 08:00 09/28/25 07:05 09/28/25 07:05 09/28/25 07:05
Intake and Output
09/27/25 09/28/25 09/29/25
05:59 06:59 06:59
Intake Total 1000 / 1000
Output Total 985 / 985 525 / 525
Balance 15 / 15 -525 / -525
Intake:
IV fluids (Total) 1000 / 1000
Nss 1,000 ml @ 80 mls/hr IV . 1000 / 1000
[id number] [facility] Rx#:[id number]
Output:
Urinary Drain Output (Total) 510 / 510 250 / 250
Left Nephrostomy 485 / 485 225 / 225
Right Nephrostomy
Urine, Berman 475 / 475 275 / 275
Laboratory Results
09/28/25 03:57
09/28/25 03:57
Review of Systems
-
: Difficulty Voiding
Physical Exam
-
General - well developed, well nourished, no acute distress
Chest - clear bilaterally
Abdomen - soft, non-tender, positive bowel sounds, no CVAT, no incisional pain or distention
Genitalia - normal
Rectal - normal
Skin - warm & dry with no rash
Neuro - AOx3, no motor deficits
Extremities - no clubbing, no cyanosis, no edema
Incision - clean, dry
Dressing - clean, dry, intact
Care Review
Data Reviewed
Discussed with: Hospitalist, Nursing and IRAD
[2025-09-28] MEDS: XANAX 0.25 MG PO (10:49)
[2025-09-28] MEDS: DULCOLAX 10 MG RECTAL (13:42)
--- NOTE | 2025-09-28 13:43 | CM ---
Addendum entered by Liya De Paz RN 09/28/25 15:21:
Correction patient is current with [facility]. Referral sent to [facility] to resume.
Original Note:
Chart reviewed. Patient is independent of ADLS, lives alone in a [address] [facility], 1 [facility], 0 DME. Patient current with [facility], although services never started. Referral sent to resume services. Plan is for the patient to return home with [facility]. CM to follow
--- NOTE | 2025-09-28 15:12 | VNURNOTE ---
Chart reviewed. TOWER WATCHMAN pt was due to sign on with [facility]. IVU CM updated.
--- NOTE | 2025-09-28 16:38 | W.PN.HOSP.TC ---
Today's Communication/Plan
-
Abdominal tenderness, check abdominal ultrasound
Bowel regimen, patient has not had BM in 5 days, usually goes daily
Increased creatinine, urology ordering tube study
Assessment / Plan
Assessment / Plan
80F with endometrial cancer s/p hysterectomy, hypertension, SVT, recent postrenal ESTRELLA s/p b/l PCN and Berman placement, small PE s/p IVC filter, who was discharged the day before and returned due to weakness and tachycardia, noted to be in SVT. She
received adenosine and was converted to NSR.
A/P:
SVT
initial response to adenosine by EMS.
Recurrent SVT this hospitalization and was given IV Cardizem which is now discontinued due to lower blood pressures.
PO amiodarone 400 mg BID added per card , dosing per card
Cont Toprol 25 mg BID with hold parameter
Abdominal pain
Constipation
Bowel regimen
check abd US
Hypomagnesemia
repleted IV
Postrenal ESTRELLA
with bilateral hydroureteronephrosis secondary to mass effect from metastatic endometrial cancer.
s/p bilateral percutaneous nephrostomy tubes placement 09/23
Cont berman catheter
Bladder scan was performed by RN, noted high residual which is felt likely 2/2 cancer
Urinary bladder showed decompressed bladder with Berman catheter.
initial improvement in Cr. Today Cr worsened to 1.5, tube checks ordered per urology
Small PE
without RH strain, in setting of acute cancer
No DVT
s/p IVC filter placement 09/23
Endometrial cancer
follows with [facility] Dr. Melgar
s/p total hysterectomy with Dr. Cárdenas 05/26/2025
patient has not accepted traditional radiation or chemo therapy was hoping for more holistic approach
continue to follow up outpatient with Onc
Hypertension
continue metoprolol
Code status: DNR
DVT prophylaxis: SCDs
Anticipated Discharge: 24 - 48 hours
Subjective/Interval History
-
Date of Service: September 28, 2025
Patient notes constipation and some abdominal discomfort. Denies n/v. Has been passing gas.
Objective Data
-
Labs:
Laboratory Results
09/28/25
03:57
Sodium 138
Potassium 3.9
Chloride 106
Carbon Dioxide 25
BUN 19 H
Creatinine 1.5 H
Glucose 105 H
Calcium 8.4
Vital Signs:
Vital Signs
Temp Pulse Resp BP Pulse Ox
97.3 F 68 20 91/65 97
09/28/25 15:48 09/28/25 12:00 09/28/25 15:48 09/28/25 11:16 09/28/25 15:48
I&O
09/27/25 09/28/25 09/29/25
05:59 06:59 06:59
Intake Total 1000 / 1000
Output Total 985 / 985 525 / 525
Balance 15 -525 / -525
Review of Systems
-
All other systems: Reviewed and negative
Physical Exam
-
General: No Apparent Distress
HEENT: Moist Mucous Membranes, Anicteric and PERRLA
Respiratory: Clear to Auscultation; Negative Wheezes, Rales or Rhonchi
Cardiac: Regular Rhythm and S1/S2; Negative Murmur, Rub or Gallop
GI: Soft, Nondistended, Normal Bowel Sounds (maybe hyperactive) and Tender
Musculoskeletal: No Edema
Skin: Warm and Dry; Negative Rash, Ulcers or Lesions
Neuro: Awake and AO x 3
Hematologic / Lymphatic: No Lymphadenopathy
Psych: Calm
Data Reviewed
-
Labs: Labs Reviewed by me, Discussed with Physician and Discussed with Patient
[2025-09-28] MEDS: MELATONIN 3 MG PO (21:07)
[2025-09-29] VITALS (7 sets, daily range): BP systolic 105–125; BP diastolic 67–77
[2025-09-29 05:16] LABS: Hematocrit 33.3 % (37.0-47.0); Hemoglobin 10.3 g/dL (12.0-16.0); Mean Corp Hgb Conc. 30.9 g/dL (33.0-37.0); Mean Corpuscular Volume 86.3 fL (81.0-99.0); Nucleated Red Blood Cells % 0 %; Platelet Count 310 10^3/uL (130-400); Red Cell Dist. Width 14.6 % (11.5-14.5)
[2025-09-29 05:36] LABS: ALT (SGPT) 11 U/L (0-35); AST (SGOT) 19 U/L (14-36); Albumin 3.2 g/dl (3.5-5.0); Alkaline Phosphatase 53 U/L (38-126); Blood Urea Nitrogen 31 mg/dl (7-17); Calcium 8.9 mg/dl (8.4-10.2); Carbon Dioxide 20 mmol/L (22-30); Chloride 103 mmol/L (98-107); Estimated Creatinine Clearance 21 ml/min; Glucose 101 mg/dl (70-99); Lipase 56 U/L (23-300); Potassium 4.5 mmol/L (3.5-5.1); Sodium 135 mmol/L (135-145); Total Protein 6.1 g/dl (6.3-8.2); eGFR 23.67
--- NOTE | 2025-09-29 05:58 | PTCARENOTE ---
Received pt resting in bed at change of shift, denies any pain or discomfort. SR on [id number]. bp stable. Berman cath intact- dark bloody urine, decreased output. b/l nephrostomy tubes in place with dressings intact, min drainage, see I&O. Bladder
scan per protocol d/t decreased output and showing 355cc at bedtime, repeated bladder scan again this morning and 595cc. Pt denies suprapubic tenderness or discomfort. mail caller [employer] made aware, order to irrigate berman in place. Irrigated with sterile
water, came out what was instilled and repeat bladder scan still showing ~500cc. mail caller [employer]PER[employer] made aware again, Dr. Gutierrez will be notified. Call bustillos within reach. Pt NPO since midnight for scheduled Abd US this morning.
[2025-09-29] MEDS: TOPROL XL 25 MG PO ×2 (08:33→20:06)
[2025-09-29] MEDS: PACERONE 400 MG PO ×2 (08:35→20:06)
--- NOTE | 2025-09-29 09:45 | PTCARENOTE ---
monitor shows NSR, VSS. INT x 2 flushed and working. Bilat. nephrostomy tubes draining small amount. patient has Brady intact, draining brown/dark, reddened urine. patient ambulated to BR with walker and assist of 1, had liquid BM. patient to abd.
U/S and then went to IR.
--- NOTE | 2025-09-29 10:18 | W.PN.CD ---
Addendum entered and electronically signed by Bry Escoto MD 09/29/25 17:23:
I saw and evaluated the patient, and I provided the substantive portion of the medical decision making.
I reviewed and agree with the note by Ms Cates and it accurately reflects our care.
I personally performed the medical decision making of the this encounter and my assessment and plan is below:
SVT controlled cont meds
Original Note:
Today's Communication / Plan
-
Continue amiodarone and metoprolol.
Follow telemetry
Impression / Plan
-
I/P: 80F with PSVT, prediabetes mellitus, uterine carcinosarcoma, postrenal ESTRELLA status post bilateral PCN and Brady placement, & PEs presented with abdominal pain and associated urinary difficulties. She was discharged 24 hours prior to admission.
She presented back with weakness and tachycardia. She was in SVT. She received adenosine. Cardiology was consulted for PSVT.
Primary Administrative Assistant: would be Dr. Escoto (has not followed up in the outpatient setting)
SVT
-History of SVT. Patient was on low-dose metoprolol. Presents with recurrent SVT with rapid rates and is now rehospitalized shortly after discharge-
-Initially given adenosine by EMS response to adenosine by EMS.
-Recurrent SVT this hospitalization. Patient given IV Cardizem which is now discontinued due to lower blood pressures.
-Amiodarone was added. Plan is for short-term use of amiodarone (200 mg twice daily for 14 days then 200 mg daily for a total of 30 days). EP evaluation tomorrow.
-Continue low-dose beta-hernan
Leukocytosis, being evaluated by hospitalist
PE
- Recent incidental finding of small PE on CT (09/22/2025)
- Not on anticoagulation due to recent admission with hematuria and nephrostomy tube placement
- IVC filter placed 09/23/2025
Post renal ESTRELLA
- Urinary retention with ESTRELLA and bilateral hydroureteronephrosis secondary to mass effect
- Creatinine worsened, now 2.1, perhaps related to contrast
- Bilateral nephrostomy tube placement 09/23/2025
Anemia
- Denies bleeding. Per primary service.
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
- S/p MICHELLE/BSO by Dr. Cárdenas (05/2025)
- CT 09/22/2025: Suspect large heterogeneously enhancing and necrotic pelvic tumor, likely reflecting recurrent neoplasm (carcinosarcoma).
- Follows with Dr. Melgar, initially wanted holistic treatment, oncology recommended chemo/XRT/immunotherapy
SUBJECTIVE:
Denies palpitations, shortness of breath, and dizziness.
Physical Exam
Vital Signs/Labs
Vital Signs
Temp Pulse Resp BP Pulse Ox
98.7 F 68 16 108/67 96
09/29/25 08:44 09/29/25 08:44 09/29/25 08:44 09/29/25 08:44 09/29/25 08:44
09/29/25 04:07
09/29/25 04:07
Magnesium 2.0 mg/dl (1.6-2.3) 09/27/25 03:05
Physical Exam
Constitutional: No acute distress and Comfortable
EENT: Anicteric and Moist mucous membranes
Cardiovascular: Rhythm & rate is regular, Pedal edema is absent and S1S2 is normal
Respiratory: Respiratory effort normal and Lungs clear to auscul.
GI: Soft, Distention absent, Flat, Non tender and Normal bowel sounds
Neuro/Psych: Alert and Oriented
Other: Skin (Warm and dry without edema)
Data Reviewed
-
Date of Service: September 29, 2025
--- NOTE | 2025-09-29 12:23 | PTCARENOTE ---
patient returned from IR they capped the right nephrostomy tube and the left left was not open to bladder so IR advanced the catheter and placed new dressing and bag according to report from IR.
--- NOTE | 2025-09-29 12:29 | W.PN.URO.CBU ---
Today's Communication / Plan
-
FOLLOW CREATINIE
Assessment / Plan
-
pressure probably both from spasms and from pelvic cancer bladder u/s empty LEFT PERC TUBE MALPOSITIONED NOW REPLACED RT PARC TUBE CLAMPED NO OBSTRUCYIO CREATINIR=]E INCREASE MAY BE PRERENAL OR NEPHROTOXICITY BUT ALSO MALPOSIONED LEFT
PERC TUBE MAY ADD TO CREATININE NOW DRAINING WELL
Diagnosis
-
Date of Service: September 29, 2025
-
Patient Diagnosis:
Post Op Day:
Patient Diagnosis:
Post Op Day:
Patient Diagnosis:
Post Op Day:
Patient Diagnosis:urinary retention earlier in week 1000 cc drained first yellow then hematuria foey left as had retention now suprapiibic pressure 100cc inrtilled and 100cc drained but blader ccan possible 350cc in bladder
Post Op Day:
Subjective
-
SOME ABRD PAIN
Objective
-
Vital Signs
Temp Pulse Resp BP Pulse Ox
98.8 F 68 18 108/67 99
09/29/25 11:05 09/29/25 08:44 09/29/25 11:05 09/29/25 08:44 09/29/25 11:05
Intake and Output
09/28/25 09/29/25 09/30/25
06:59 06:59 06:59
Intake Total 240 / 240
Output Total 525 / 525 380 / 380
Balance -525 / -525 -140 / -140
Intake:
Oral fluids 240 / 240
Output:
Urinary Drain Output (Total) 250 / 250 30 / 30
Left Nephrostomy 225 / 225 20 / 20
Right Nephrostomy 25 / 25 10
Urine, Brady 275 / 275 200 / 200
Urine, Voided 150 / 150
True urine output from hand 0 / 0
irrigation
Laboratory Results
09/29/25 04:07
09/29/25 04:07
Review of Systems
-
Abdomen/GI: Abdominal Pain
: Difficulty Voiding
Physical Exam
-
General - well developed, well nourished, no acute distress
Chest - clear bilaterally
Abdomen - soft, non-tender, positive bowel sounds, no CVAT, no incisional pain or distention
Genitalia - normal
Rectal - normal
Skin - warm & dry with no rash
Neuro - AOx3, no motor deficits
Extremities - no clubbing, no cyanosis, no edema
Incision - clean, dry
Dressing - clean, dry, intact
Counseling
-
FOLOW CREATININE
Care Review
Data Reviewed
Discussed with: Cardiology, Nursing and IRAD
CT Scan: Image Pers Reviewed
Ultrasound: Image Pers Reviewed
--- NOTE | 2025-09-29 13:31 | CM ---
Chart reviewed. Patient is independent of ADLS, lives alone in a [address], 1 HANNA, 0 DME. Plan is for the patient to return home with Jimmy JIMENEZ CM to follow
--- NOTE | 2025-09-29 14:12 | W.PN.HOSP.TC ---
Today's Communication/Plan
-
Abdominal tenderness, checked abdominal ultrasound, no acute issue noted, there is gall bladder sludge
Having BMs now
Increased creatinine, IR performed tube check and repositioned L PCN, recheck BMP
Assessment / Plan
Assessment / Plan
80F with endometrial cancer s/p hysterectomy, hypertension, SVT, recent postrenal ESTRELLA s/p b/l PCN and Berman placement, small PE s/p IVC filter, who was discharged the day before and returned due to weakness and tachycardia, noted to be in SVT. She
received adenosine and was converted to NSR.
A/P:
SVT
initial response to adenosine by EMS.
Recurrent SVT this hospitalization and was given IV Cardizem which is now discontinued due to lower blood pressures.
PO amiodarone 400 mg BID added per card , dosing per card (200 mg twice daily for 14 days then 200 mg daily for a total of 30 days)
EP evaluation pending
Cont Toprol 25 mg BID with hold parameter
Abdominal pain
Constipation
Bowel regimen so far is working and patient is having bowel movement
checked abd US, since due to ESTRELLA cannot have contrast CT. There is no acute issue that explains her symptoms
Hypomagnesemia
repleted IV
Postrenal ESTRELLA
with bilateral hydroureteronephrosis secondary to mass effect from metastatic endometrial cancer.
s/p bilateral percutaneous nephrostomy tubes placement 09/23
Cont berman catheter
Bladder scan was performed by RN, noted high residual which is felt likely 2/2 cancer
Urinary bladder showed decompressed bladder with Berman catheter.
initial improvement in Cr. Today Cr worsened to 2.1,
tube checks ordered per . L PCN was repositioned, had distal obstruction, right PCN was capped, no obstruction. Follow-up repeat BMP
Small PE
without RH strain, in setting of acute cancer
No DVT
s/p IVC filter placement 09/23
Endometrial cancer
follows with [facility] Dr. Melgar
s/p total hysterectomy with Dr. Cárdenas 05/26/2025
patient has not accepted traditional radiation or chemo therapy was hoping for more holistic approach
continue to follow up outpatient with Onc
Hypertension
continue metoprolol
Code status: DNR
DVT prophylaxis: SCDs
Anticipated Discharge: 24 - 48 hours
Subjective/Interval History
-
Date of Service: September 29, 2025
Patient was seen this morning after ultrasound and after IR study. She reports having had a large bowel movement yesterday and a small 1 today, says her abdominal pain is a bit better although not completely gone. Denies any nausea or vomiting.
Discussed with RN at bedside, patient having bloody urine from Berman.
Objective Data
-
Labs:
Laboratory Results
09/29/25
04:07
WBC 15.5 H
Hgb 10.3 L
Hct 33.3 L
Plt Count 310
Sodium 135
Potassium 4.5
Chloride 103
Carbon Dioxide 20 L
BUN 31 H
Creatinine 2.1 H
Glucose 101 H
Calcium 8.9
Total Bilirubin 0.4
AST 19
ALT 11
Alkaline Phosphatase 53
Vital Signs:
Vital Signs
Temp Pulse Resp BP Pulse Ox
98.8 F 68 18 108/67 99
09/29/25 11:05 09/29/25 08:44 09/29/25 11:05 09/29/25 08:44 09/29/25 11:05
I&O
09/28/25 09/29/25 09/30/25
06:59 06:59 06:59
Intake Total 240 / 240
Output Total 525 / 525 380 / 380
Balance -525 / -525 -140 / -140
Review of Systems
-
All other systems: Reviewed and negative
Physical Exam
-
General: No Apparent Distress
HEENT: Moist Mucous Membranes, Anicteric and PERRLA
Respiratory: Clear to Auscultation; Negative Wheezes, Rales or Rhonchi
Cardiac: Regular Rhythm and S1/S2; Negative Murmur, Rub or Gallop
GI: Soft, Nondistended, Normal Bowel Sounds (maybe hyperactive) and Tender
Musculoskeletal: No Edema
Skin: Warm and Dry; Negative Rash, Ulcers or Lesions
Neuro: Awake and AO x 3
Hematologic / Lymphatic: No Lymphadenopathy
Psych: Calm
Data Reviewed
-
Ultrasound: Report Reviewed by me
Labs: Labs Reviewed by me, Discussed with Physician and Discussed with Patient
[2025-09-29] MEDS: TYLENOL 650 MG PO (17:21)
--- NOTE | 2025-09-29 17:22 | PTCARENOTE ---
left nephrostomy tube removed in IR, dsg. D/I. discomfort at site, Tylenol po given as ordered. left nephrostomy tube draining straw color, 60cc. berman draining brow, red very dark urine 220cc.
--- NOTE | 2025-09-29 21:19 | PTCARENOTE ---
Received pt AAOx3. VSS. Pt in Sinus Rhythm. PCN dressing clean, dry and intact.
[2025-09-29] MEDS: MELATONIN 3 MG PO (21:48)
[2025-09-30] VITALS (12 sets, daily range): BP systolic 93–115; BP diastolic 58–87; PULSE 71; O2SAT 98
[2025-09-30] MEDS: TYLENOL 650 MG PO ×2 (02:43→18:16)
[2025-09-30 03:11] LABS: Hematocrit 33.5 % (37.0-47.0); Hemoglobin 10.6 g/dL (12.0-16.0); Mean Corp Hgb Conc. 31.6 g/dL (33.0-37.0); Mean Corpuscular Volume 85.9 fL (81.0-99.0); Nucleated Red Blood Cells % 0 %; Platelet Count 298 10^3/uL (130-400); Red Cell Dist. Width 14.6 % (11.5-14.5)
[2025-09-30 03:44] LABS: Blood Urea Nitrogen 42 mg/dl (7-17); Calcium 9.2 mg/dl (8.4-10.2); Carbon Dioxide 21 mmol/L (22-30); Chloride 101 mmol/L (98-107); Estimated Creatinine Clearance 26 ml/min; Glucose 113 mg/dl (70-99); Potassium 4.9 mmol/L (3.5-5.1); Sodium 131 mmol/L (135-145); eGFR 30.50
[2025-09-30] MEDS: PACERONE 400 MG PO ×2 (08:00→20:08)
--- NOTE | 2025-09-30 09:23 | W.PN.HOSP.TC ---
Today's Communication/Plan
-
Cr improving
HR stable, missed BB dose this morning due to lower BP
still with abd tenderness will d/w radiology which imaging may be most helpful
Assessment / Plan
Assessment / Plan
80F with endometrial cancer s/p hysterectomy, hypertension, SVT, recent postrenal ESTRELLA s/p b/l PCN and Berman placement, small PE s/p IVC filter, who was discharged the day before and returned due to weakness and tachycardia, noted to be in SVT. She
received adenosine and was converted to NSR.
A/P:
SVT
initial response to adenosine by EMS.
Recurrent SVT this hospitalization and was given IV Cardizem which is now discontinued due to lower blood pressures.
PO amiodarone 400 mg BID added per card , dosing per card (200 mg twice daily for 14 days then 200 mg daily for a total of 30 days)
EP evaluation pending
Cont Toprol 25 mg BID with hold parameter, was held this morning due to lower BP
Abdominal pain
Constipation
Bowel regimen so far is working and patient is having bowel movements
checked abd US, since due to ESTRELLA cannot have IV contrast CT. There is no acute issue that explains her symptoms
will d/w radiology about other tests that may be helpgul (CT with oral contrast or abd MRI)
Hypomagnesemia
repleted IV
Postrenal ESTRELLA
with bilateral hydroureteronephrosis secondary to mass effect from metastatic endometrial cancer.
s/p bilateral percutaneous nephrostomy tubes placement 09/23
Cont berman catheter
Bladder scan was performed by RN, noted high residual which is felt likely 2/2 cancer
Urinary bladder showed decompressed bladder with Berman catheter.
initial improvement in Cr.
tube checks ordered per . L PCN was repositioned, had distal obstruction, right PCN was capped, no obstruction.
Cr worsened to 2.1, now improving to 1.7
Small PE
without RH strain, in setting of acute cancer
No DVT
s/p IVC filter placement 09/23
Endometrial cancer
follows with [facility] Dr. Melgar
s/p total hysterectomy with Dr. Cárdenas 05/26/2025
patient has not accepted traditional radiation or chemo therapy was hoping for more holistic approach
continue to follow up outpatient with Onc
Hypertension
continue metoprolol
Code status: DNR
DVT prophylaxis: SCDs
Anticipated Discharge: 24 - 48 hours
Subjective/Interval History
-
Date of Service: September 30, 2025
Patient feeling a little better, having BMs, eating some, still with abdominal tenderness.
Objective Data
-
Labs:
Laboratory Results
09/30/25
02:50
WBC 15.7 H
Hgb 10.6 L
Hct 33.5 L
Plt Count 298
Sodium 131 L
Potassium 4.9
Chloride 101
Carbon Dioxide 21 L
BUN 42 H
Creatinine 1.7 H
Glucose 113 H
Calcium 9.2
Vital Signs:
Vital Signs
Temp Pulse Resp BP Pulse Ox
97.9 F 66 20 98/61 98
09/30/25 08:12 09/30/25 08:00 09/30/25 08:48 09/30/25 08:00 09/30/25 08:48
I&O
09/29/25 09/30/25 10/01/25
06:59 06:59 06:59
Intake Total 240 / 240 1000 / 1000
Output Total 380 / 380 530 / 530
Balance -140 / -140 470 / 470
Review of Systems
-
All other systems: Reviewed and negative
Physical Exam
-
General: No Apparent Distress
HEENT: Moist Mucous Membranes, Anicteric and PERRLA
Respiratory: Clear to Auscultation; Negative Wheezes, Rales or Rhonchi
Cardiac: Regular Rhythm and S1/S2; Negative Murmur, Rub or Gallop
GI: Soft, Nondistended, Normal Bowel Sounds (maybe hyperactive) and Tender
Musculoskeletal: No Edema and Other
Skin: Warm (legs cool but pulses palpable, patient reports she keeps blanket off because she likes them cold) and Dry; Negative Rash, Ulcers or Lesions
Neuro: Awake and AO x 3
Hematologic / Lymphatic: No Lymphadenopathy
Psych: Calm
Data Reviewed
-
Ultrasound: Report Reviewed by me
Labs: Labs Reviewed by me, Discussed with Physician and Discussed with Patient
--- NOTE | 2025-09-30 09:37 | W.PN.CD ---
Today's Communication / Plan
-
continue metoprolol and amiodarone
Impression / Plan
-
I/P: 80F with PSVT, prediabetes mellitus, uterine carcinosarcoma, postrenal ESTRELLA status post bilateral PCN and Brady placement, & PEs presented with abdominal pain and associated urinary difficulties. She was discharged 24 hours prior to admission.
She presented back with weakness and tachycardia. She was in SVT. She received adenosine. Cardiology was consulted for PSVT.
Primary Environmental Education Specialist: would be Dr. Escoto (has not followed up in the outpatient setting)
SVT, paroxysmal
-History of SVT. Patient was on low-dose metoprolol. Presents with recurrent SVT with rapid rates and is now rehospitalized
-Initially given adenosine by EMS
-Recurrent SVT this hospitalization. Patient given IV Cardizem which was discontinued due to low blood pressures.
-Amiodarone was added. Plan is for short-term use of amiodarone (400 mg twice daily for 14 days then 200 mg daily for a total of 30 days). EP evaluation inpatient vs outpatient
-Continue low-dose beta-hernan
Leukocytosis, being evaluated by hospitalist
PE
- Recent incidental finding of small PE on CT (09/22/2025)
- Not on anticoagulation due to recent admission with hematuria and nephrostomy tube placement
- IVC filter placed 09/23/2025
Post renal ESTRELLA
- Urinary retention with ESTRELLA and bilateral hydroureteronephrosis secondary to mass effect
- Bilateral nephrostomy tube placement 09/23/2025
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
- S/p MICHELLE/BSO by Dr. Cárdenas (05/2025)
- CT 09/22/2025: Suspect large heterogeneously enhancing and necrotic pelvic tumor, likely reflecting recurrent neoplasm (carcinosarcoma).
- Follows with Dr. Melgar, initially wanted holistic treatment, oncology recommended chemo/XRT/immunotherapy
Echo 04/2025: EF 555, mild AR
Physical Exam
Vital Signs/Labs
Vital Signs
Temp Pulse Resp BP Pulse Ox
97.9 F 66 20 98/61 98
09/30/25 08:12 09/30/25 08:00 09/30/25 08:48 09/30/25 08:00 09/30/25 08:48
09/30/25 02:50
09/30/25 02:50
Magnesium 2.0 mg/dl (1.6-2.3) 09/27/25 03:05
Physical Exam
Constitutional: No acute distress and Comfortable
EENT: Moist mucous membranes
Cardiovascular: Rhythm & rate is regular, Pedal edema is absent, JVD pressure is normal and Systolic murmur absent
Respiratory: Respiratory effort normal and Lungs clear to auscul.
Neuro/Psych: AO x 3
Data Reviewed
-
Date of Service: September 30, 2025
EKG: Other (Tele: SR 60s)
Labs: Labs Reviewed by me
--- NOTE | 2025-09-30 09:38 | W.PN.URO.CBU ---
Today's Communication / Plan
-
REMOVE SANTOS REPLACE PRN NO VOID BY 5PM OR PAIN DISTESION BEFOTRE IOR IF CANNOT CVOID
Assessment / Plan
-
pressure probably both from spasms and from pelvic cancer bladder u/s empty LEFT PERC TUBE MALPOSITIONED NOW REPLACED RT PARC TUBE CLAMPED NO OBSTRUCTION CREATININE DOWN WILL TR VOIDINBG TRIAL TO SEE IF SANTOS CAN BE REMOVED
BUT DOUBT THAT SHE WILL PASS TRIAL BUT WILL TRY
Diagnosis
-
Date of Service: September 30, 2025
-
Patient Diagnosis:
Post Op Day:
Patient Diagnosis:
Post Op Day:
Patient Diagnosis:
Post Op Day:
Patient Diagnosis:
Post Op Day:
Patient Diagnosis:urinary retention earlier in week 1000 cc drained first yellow then hematuria foey left as had retention now suprapiibic pressure 100cc inrtilled and 100cc drained but blader ccan possible 350cc in bladder
Post Op Day:
Subjective
-
feeling better but weak
Objective
-
Vital Signs
Temp Pulse Resp BP Pulse Ox
97.9 F 66 20 98/61 98
09/30/25 08:12 09/30/25 08:00 09/30/25 08:48 09/30/25 08:00 09/30/25 08:48
Intake and Output
09/29/25 09/30/25 10/01/25
06:59 06:59 06:59
Intake Total 240 / 240 1000 / 1000
Output Total 380 / 380 530 / 530
Balance -140 / -140 470 / 470
Intake:
Oral fluids 240 / 240 1000 / 1000
Output:
Urinary Drain Output (Total) 30 / 30 210 / 210
Left Nephrostomy 20 / 20 210 / 210
Right Nephrostomy
Urine, Santos 200 / 200 320 / 320
Urine, Voided 150 / 150
True urine output from hand 0 / 0
irrigation
Laboratory Results
09/30/25 02:50
09/30/25 02:50
Review of Systems
-
Constitutional: Fatigue
Abdomen/GI: Abdominal Pain
: Difficulty Voiding and Bleeding
Physical Exam
-
General - well developed, well nourished, no acute distress
Chest - clear bilaterally
Abdomen - soft, non-tender, positive bowel sounds, no CVAT, no incisional pain or distention
Genitalia - normal
Rectal - normal
Skin - warm & dry with no rash
Neuro - AOx3, no motor deficits
Extremities - no clubbing, no cyanosis, no edema
Incision - clean, dry
Dressing - clean, dry, intact
Counseling
-
VOIDING TRIAL
Care Review
Data Reviewed
Discussed with: Nursing
[2025-09-30] MEDS: TOPROL XL 25 MG PO (09:50)
--- NOTE | 2025-09-30 10:22 | PTCARENOTE ---
Pt is AOx3, no complaints of pain or discomfort. Brady removed @ 1000 per orders. Due to void at 1600. SR w/ HB on tele monitor. Call bustillos within reach.
--- NOTE | 2025-09-30 11:43 | CM ---
Chart reviewed. Patient is independent of ADLS, lives alone in a [address], 1 HANNA, 0 DME. Referral sent to resume VN with [facility]. Patient was complaining of feeling weak. PT evaluation requested. CM to follow
--- NOTE | 2025-09-30 18:20 | PTCARENOTE ---
20F catheter placed per Dr Hurley orders.
[2025-09-30] MEDS: TOPROL XL PO (21:50)
[2025-09-30] MEDS: MELATONIN 3 MG PO (21:51)
[2025-09-30] MEDS: XANAX 0.25 MG PO (21:51)
[2025-10-01] VITALS (9 sets, daily range): BP systolic 90–105; BP diastolic 58–70; PULSE 67; O2SAT 98
[2025-10-01] MEDS: DILAUDID 0.25 MG IV (00:04)
--- NOTE | 2025-10-01 00:58 | PTCARENOTE ---
Received pt @ change of shift. Resting in bed, eyes closed, breathing rhythmically. Arousal to tactile stimulation. Brady catheter in place-- red/brown discharge. Left nephrostomy tube in place-- yellow discharge. C/o feeling constipated-- discussed
plan to take Senokot in morning. Pt also c/o right leg feeling heavy and swollen-- informed Cayetano Perdomo, CEMENT SIDE LASTER-- discussed order for ultrasound. Metoprolol was held @ initial medication time-- given late due to BPs. Discussed plan of care for rest of
evening. Pt verbalizes understanding. Call bustillos within reach.
[2025-10-01 03:06] LABS: Hematocrit 29.5 % (37.0-47.0); Hemoglobin 9.7 g/dL (12.0-16.0); Mean Corp Hgb Conc. 32.9 g/dL (33.0-37.0); Mean Corpuscular Volume 81.5 fL (81.0-99.0); Nucleated Red Blood Cells % 0 %; Platelet Count 262 10^3/uL (130-400); Red Cell Dist. Width 14.6 % (11.5-14.5)
[2025-10-01 03:31] LABS: Blood Urea Nitrogen 50 mg/dl (7-17); Calcium 9.2 mg/dl (8.4-10.2); Carbon Dioxide 23 mmol/L (22-30); Chloride 100 mmol/L (98-107); Estimated Creatinine Clearance 23 ml/min; Glucose 113 mg/dl (70-99); Potassium 4.8 mmol/L (3.5-5.1); Sodium 129 mmol/L (135-145); eGFR 26.69
[2025-10-01] MEDS: PACERONE 400 MG PO ×2 (08:17→19:56)
[2025-10-01] MEDS: TOPROL XL PO (08:17)
--- NOTE | 2025-10-01 08:17 | W.PN.URO.CBU ---
Today's Communication / Plan
-
jkeep berman vn consult
Assessment / Plan
-
pressure probably both from spasms and from pelvic cancer bladder u/s empty LEFT PERC TUBE MALPOSITIONED NOW REPLACED RT PARC TUBE CLAMPED NO OBSTRUCTION CREATININE DOWN but still1.9 no obstruction Pt failed voiding trial
home with berman
Diagnosis
-
Date of Service: October 01, 2025
-
Patient Diagnosis:
Post Op Day:
Patient Diagnosis:
Post Op Day:
Patient Diagnosis:
Post Op Day:
Patient Diagnosis:
Post Op Day:
Patient Diagnosis:
Post Op Day:
Patient Diagnosis:urinary retention earlier in week 1000 cc drained first yellow then hematuria foey left as had retention now suprapiibic pressure 100cc inrtilled and 100cc drained but blader ccan possible 350cc in bladder
Post Op Day:
Subjective
-
failed voiding trial
Objective
-
Vital Signs
Temp Pulse Resp BP Pulse Ox
97.9 F 67 20 95/60 100
10/01/25 07:12 10/01/25 07:11 10/01/25 07:12 10/01/25 07:11 10/01/25 07:12
Intake and Output
09/30/25 10/01/25 10/02/25
06:59 06:59 06:59
Intake Total 1000 / 1000
Output Total 530 / 530 505 / 505
Balance 470 / 470 -505 / -505
Intake:
Oral fluids 1000 / 1000
Output:
Urinary Drain Output (Total) 210 / 210 275 / 275
Left Nephrostomy 210 / 210 275 / 275
Urine, Berman 320 / 320 230 / 230
Laboratory Results
10/01/25 02:48
10/01/25 02:48
Review of Systems
-
: Difficulty Voiding
Physical Exam
-
General - well developed, well nourished, no acute distress
Chest - clear bilaterally
Abdomen - soft, non-tender, positive bowel sounds, no CVAT, no incisional pain or distention
Genitalia - normal
Rectal - normal
Skin - warm & dry with no rash
Neuro - AOx3, no motor deficits
Extremities - no clubbing, no cyanosis, no edema
Incision - clean, dry
Dressing - clean, dry, intact
Counseling
-
vn consult
Care Review
Data Reviewed
Discussed with: Nursing
[2025-10-01] MEDS: SENOKOT-S 1 TABLET PO (08:19)
--- NOTE | 2025-10-01 08:22 | W.PN.URO.CBU ---
Today's Communication / Plan
-
leave berman
Assessment / Plan
-
pressure probably both from spasms and from pelvic cancer bladder u/s empty LEFT PERC TUBE MALPOSITIONED NOW REPLACED RT PARC TUBE CLAMPED NO OBSTRUCTION CREATININE DOWN but still1.9 no obstruction Pt failed voiding trial
home with berman
Diagnosis
-
Date of Service: October 01, 2025
-
Patient Diagnosis:
Post Op Day:
Patient Diagnosis:
Post Op Day:
Patient Diagnosis:
Post Op Day:
Patient Diagnosis:
Post Op Day:
Patient Diagnosis:
Post Op Day:
Patient Diagnosis:
Post Op Day:
Patient Diagnosis:urinary retention earlier in week 1000 cc drained first yellow then hematuria foey left as had retention now suprapiibic pressure 100cc inrtilled and 100cc drained but blader ccan possible 350cc in bladder
Post Op Day:
Objective
-
Vital Signs
Temp Pulse Resp BP Pulse Ox
97.9 F 67 20 95/60 100
10/01/25 07:12 10/01/25 07:11 10/01/25 07:12 10/01/25 07:11 10/01/25 07:12
Intake and Output
09/30/25 10/01/25 10/02/25
06:59 06:59 06:59
Intake Total 1000 / 1000
Output Total 530 / 530 505 / 505
Balance 470 / 470 -505 / -505
Intake:
Oral fluids 1000 / 1000
Output:
Urinary Drain Output (Total) 210 / 210 275 / 275
Left Nephrostomy 210 / 210 275 / 275
Urine, Berman 320 / 320 230 / 230
Laboratory Results
10/01/25 02:48
10/01/25 02:48
Physical Exam
-
General - well developed, well nourished, no acute distress
Chest - clear bilaterally
Abdomen - soft, non-tender, positive bowel sounds, no CVAT, no incisional pain or distention
Genitalia - normal
Rectal - normal
Skin - warm & dry with no rash
Neuro - AOx3, no motor deficits
Extremities - no clubbing, no cyanosis, no edema
Incision - clean, dry
Dressing - clean, dry, intact
--- NOTE | 2025-10-01 09:19 | W.PN.CD ---
Today's Communication / Plan
-
amiodarone: 400 mg twice daily for 14 days then 200 mg daily to start on 10/10
Toprol XL 25mg qHS
we discussed topic of ablation: she will think about it, and we will arrange for EP consult as outpatient if she is agreeable when we see her in follow up
we will arrange for outpatient follow up. please call us with additional questions
Impression / Plan
-
I/P: 80F with PSVT, prediabetes mellitus, uterine carcinosarcoma, postrenal ESTRELLA status post bilateral PCN and Brady placement, & PEs presented with abdominal pain and associated urinary difficulties. She was discharged 24 hours prior to admission.
She presented back with weakness and tachycardia. She was in SVT. She received adenosine. Cardiology was consulted for PSVT.
Primary Senior Clinician: would be Dr. Escoto (has not followed up in the outpatient setting)
SVT, paroxysmal
-History of SVT. Patient was on low-dose metoprolol. Presents with recurrent SVT with rapid rates and is now rehospitalized
-Initially given adenosine by EMS
-Recurrent SVT this hospitalization. Patient given IV Cardizem which was discontinued due to low blood pressures.
-Amiodarone was added. Plan is for short-term use of amiodarone 400 mg twice daily for 14 days then 200 mg daily. EP evaluation outpatient.
-Continue low-dose beta-hernan: reduced to Toprol XL 25mg qHS, limited by BP
Leukocytosis, being evaluated by hospitalist
PE
- Recent incidental finding of small PE on CT (09/22/2025)
- Not on anticoagulation due to recent admission with hematuria and nephrostomy tube placement
- IVC filter placed 09/23/2025
Post renal ESTRELLA
- Urinary retention with ESTRELLA and bilateral hydroureteronephrosis secondary to mass effect
- Bilateral nephrostomy tube placement 09/23/2025
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
- S/p MICHELLE/BSO by Dr. Cárdenas (05/2025)
- CT 09/22/2025: Suspect large heterogeneously enhancing and necrotic pelvic tumor, likely reflecting recurrent neoplasm (carcinosarcoma).
- Follows with Dr. Melgar, initially wanted holistic treatment, oncology recommended chemo/XRT/immunotherapy
Echo 04/2025: EF 55%, mild AR
Physical Exam
Vital Signs/Labs
Vital Signs
Temp Pulse Resp BP Pulse Ox
97.9 F 67 20 95/60 100
10/01/25 07:12 10/01/25 07:11 10/01/25 07:12 10/01/25 07:11 10/01/25 07:12
10/01/25 02:48
10/01/25 02:48
Magnesium 2.0 mg/dl (1.6-2.3) 09/27/25 03:05
Physical Exam
Constitutional: No acute distress and Comfortable
EENT: Moist mucous membranes
Cardiovascular: Rhythm & rate is regular, Pedal edema is absent, JVD pressure is normal and Systolic murmur absent
Respiratory: Respiratory effort normal and Lungs clear to auscul.
Neuro/Psych: AO x 3
Data Reviewed
-
Date of Service: October 01, 2025
EKG: Other (Tele: NSR 60s)
Labs: Labs Reviewed by me
--- NOTE | 2025-10-01 09:32 | W.PN.HOSP.TC ---
Today's Communication/Plan
-
see A/P
Assessment / Plan
Assessment / Plan
80F with endometrial cancer s/p hysterectomy, hypertension, SVT, recent postrenal ESTRELLA s/p b/l PCN and Berman placement, small PE s/p IVC filter, who was discharged the day before and returned due to weakness and tachycardia, noted to be in SVT. She
received adenosine and was converted to NSR.
A/P:
SVT
initial response to adenosine by EMS.
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
PO amiodarone 400 mg BID added per card , dosing per card (400 mg twice daily for 14 days then 200 mg daily to start on 10/10)
Cont Toprol XL 25mg qHS with holding parameter
EP consult as outpatient
Abdominal discomfort related to constipation, improved
Bowel regimen so far is working and patient is having bowel movements
Abd US largely unrevealing
Hypomagnesemia
repleted IV
Postrenal ESTRELLA
with bilateral hydroureteronephrosis secondary to mass effect from metastatic endometrial cancer.
s/p bilateral percutaneous nephrostomy tubes placement 09/23
Cont berman catheter
Bladder scan was performed by RN, noted high residual which is felt likely 2/2 cancer
Urinary bladder showed decompressed bladder with Berman catheter.
initial improvement in Cr.
tube check was ordered: L PCN was repositioned, had distal obstruction, right PCN was capped, no obstruction.
Cr 2.1 -> 1.7 -> 1.9 today
Cont to monitor SCr
Small PE
without RH strain, in setting of acute cancer
No DVT
s/p IVC filter placement 09/23
Endometrial cancer
follows with [facility] Dr. Melgar
s/p total hysterectomy with Dr. Cárdenas 05/26/2025
patient has not accepted traditional radiation or chemo therapy was hoping for more holistic approach
continue to follow up outpatient with Onc
Hypertension
continue metoprolol
Code status: DNR
DVT prophylaxis: SCDs
Dispo: PT recc SNF
Anticipated Discharge: 24 - 48 hours
Subjective/Interval History
-
Date of Service: October 01, 2025
Objective Data
-
Labs:
Laboratory Results
10/01/25
02:48
WBC 16.0 H
Hgb 9.7 L
Hct 29.5 L
Plt Count 262
Sodium 129 L
Potassium 4.8
Chloride 100
Carbon Dioxide 23
BUN 50 H
Creatinine 1.9 H
Glucose 113 H
Calcium 9.2
Vital Signs:
Vital Signs
Temp Pulse Resp BP Pulse Ox
36.6 C 67 20 95/60 100
10/01/25 07:12 10/01/25 07:11 10/01/25 07:12 10/01/25 07:11 10/01/25 07:12
I&O
09/30/25 10/01/25 10/02/25
06:59 06:59 06:59
Intake Total 1000 / 1000
Output Total 530 / 530 505 / 505
Balance 470 / 470 -505 / -505
Review of Systems
-
All other systems: Reviewed and negative
Physical Exam
-
General: No Apparent Distress, Comfortable and Conversant
HEENT: Normocephalic, Atraumatic, Moist Mucous Membranes and Anicteric
Respiratory: Clear to Auscultation and Non Labored Respirations; Negative Wheezes, Rales, Rhonchi or Accessory Resp Muscle Use
Cardiac: Regular Rhythm and S1/S2; Negative Murmur, Rub or Gallop
GI: Soft, Nondistended and Normal Bowel Sounds
Genito-urinary: Berman and Nephrostomy Tubes (right is capped, L is draining )
Musculoskeletal: No Edema
Skin: Warm (legs cool but pulses palpable, patient reports she keeps blanket off because she likes them cold) and Dry
Neuro: Awake and AO x 3
Psych: Calm and Intact Judgement/Insight
Data Reviewed
-
Ultrasound: Report Reviewed by me
Labs: Labs Reviewed by me
--- NOTE | 2025-10-01 12:17 | CM ---
Chart reviewed. Patient is independent of ADLS, lives alone in a [address], 1 HANNA, 0 DME. Patient with recent referral sent to [facility], but was only home for a few hours prior to coming back to the hospital. PT evaluation recommending
SNF. Patient requesting [facility]. Referral sent. Plan is for the patient to go to SNF when medically stable. CM to follow
[2025-10-01] MEDS: MIRALAX 17 GRAMS PO (12:49)
--- NOTE | 2025-10-01 20:00 | PTCARENOTE ---
Received pt from previous shift. Systems reviewed, see flowsheets. Pt lying comfortably in bed. NSR with 1st degree HB on heart monitor. Brday draining blood-tinged urine. L nephrostomy draining clear yellow urine. SCDs in place, pt only able to
tolerate them for short stints at a time. Education provided on SCDs for blood clot prevention. Pt reported feeling constipated. LBM documented at 09/30. Senokot and Miralax given during the day; pt does not want additional medication at this time.
Will continue to monitor.
[2025-10-01] MEDS: TYLENOL 650 MG PO (20:08)
[2025-10-01] MEDS: TOPROL XL 25 MG PO (21:41)
[2025-10-01] MEDS: XANAX 0.25 MG PO (21:41)
[2025-10-01] MEDS: MELATONIN 3 MG PO (21:41)
[2025-10-02] VITALS (8 sets, daily range): BP systolic 98–109; BP diastolic 56–70; PULSE 72; O2SAT 98
[2025-10-02] MEDS: MELATONIN 3 MG PO ×2 (00:49→22:08)
[2025-10-02 03:38] LABS: Hematocrit 33.3 % (37.0-47.0); Hemoglobin 10.1 g/dL (12.0-16.0); Mean Corp Hgb Conc. 30.3 g/dL (33.0-37.0); Mean Corpuscular Volume 86.7 fL (81.0-99.0); Nucleated Red Blood Cells % 0 %; Platelet Count 304 10^3/uL (130-400); Red Cell Dist. Width 14.6 % (11.5-14.5)
[2025-10-02 04:01] LABS: Blood Urea Nitrogen 59 mg/dl (7-17); Calcium 9.1 mg/dl (8.4-10.2); Carbon Dioxide 20 mmol/L (22-30); Chloride 99 mmol/L (98-107); Estimated Creatinine Clearance 27 ml/min; Glucose 97 mg/dl (70-99); Magnesium 2.2 mg/dl (1.6-2.3); Potassium 5.1 mmol/L (3.5-5.1); Sodium 131 mmol/L (135-145); eGFR 32.81
[2025-10-02] MEDS: PACERONE 400 MG PO ×2 (08:22→19:45)
--- NOTE | 2025-10-02 08:44 | W.PN.HOSP.TC ---
Today's Communication/Plan
-
see A/P
Assessment / Plan
Assessment / Plan
80F with endometrial cancer s/p hysterectomy, hypertension, SVT, recent postrenal ESTRELLA s/p b/l PCN and Berman placement, small PE s/p IVC filter, who was discharged the day before and returned due to weakness and tachycardia, noted to be in SVT. She
received adenosine and was converted to NSR.
A/P:
SVT
initial response to adenosine by EMS.
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
PO amiodarone 400 mg BID added per card , dosing per card (400 mg twice daily for 14 days then 200 mg daily to start on 10/10)
Cont Toprol XL 25mg qHS with holding parameter
EP consult as outpatient
Abdominal discomfort related to constipation, improved
Bowel regimen so far is working and patient is having bowel movements
Abd US largely unrevealing
Hypomagnesemia
repleted IV
Postrenal ESTRELLA
with bilateral hydroureteronephrosis secondary to mass effect from metastatic endometrial cancer.
s/p bilateral percutaneous nephrostomy tubes placement 09/23
Cont berman catheter
Bladder scan was performed by RN, noted high residual which is felt likely 2/2 cancer
Urinary bladder showed decompressed bladder with Berman catheter.
initial improvement in Cr.
tube check was ordered: L PCN was repositioned, had distal obstruction, right PCN was capped, no obstruction.
Cr 2.1 -> ... -> 1.6 today
Cont to monitor SCr
Small PE
without RH strain, in setting of acute cancer
No DVT
s/p IVC filter placement 09/23
Endometrial cancer
follows with [facility] Dr. Melgar
s/p total hysterectomy with Dr. Cárdenas 05/26/2025
patient has not accepted traditional radiation or chemo therapy was hoping for more holistic approach
continue to follow up outpatient with Onc
Hypertension
continue metoprolol
Code status: DNR
DVT prophylaxis: SCDs
Dispo: PT recc SNF
DW RN
Anticipated Discharge: 24 - 48 hours
Subjective/Interval History
-
Date of Service: October 02, 2025
Objective Data
-
Labs:
Laboratory Results
10/02/25
02:53
WBC 12.6 H
Hgb 10.1 L
Hct 33.3 L
Plt Count 304
Sodium 131 L
Potassium 5.1
Chloride 99
Carbon Dioxide 20 L
BUN 59 H
Creatinine 1.6 H
Glucose 97
Calcium 9.1
Vital Signs:
Vital Signs
Temp Pulse Resp BP Pulse Ox
36.5 C 69 20 99/56 100
10/02/25 08:18 10/02/25 08:22 10/02/25 08:18 10/02/25 08:22 10/02/25 08:18
I&O
10/01/25 10/02/25 10/03/25
06:59 06:59 06:59
Output Total 505 / 505 365 / 365
Balance -505 / -505 -365 / -365
Review of Systems
-
All other systems: Reviewed and negative
Abdomen/GI: Denies Abdominal Pain
Physical Exam
-
General: No Apparent Distress, Comfortable, Conversant and Appears Chronically Ill
HEENT: Normocephalic, Atraumatic, Moist Mucous Membranes and Anicteric
Respiratory: Clear to Auscultation and Non Labored Respirations; Negative Wheezes, Rales, Rhonchi or Accessory Resp Muscle Use
Cardiac: Regular Rhythm and S1/S2; Negative Murmur, Rub or Gallop
GI: Soft, Nondistended and Normal Bowel Sounds
Genito-urinary: Berman and Nephrostomy Tubes (right is capped, L is draining )
Musculoskeletal: No Edema
Skin: Warm (legs cool but pulses palpable, patient reports she keeps blanket off because she likes them cold) and Dry
Neuro: Awake and AO x 3
Psych: Calm and Intact Judgement/Insight
Data Reviewed
-
Ultrasound: Report Reviewed by me
Labs: Labs Reviewed by me
[2025-10-02] MEDS: TYLENOL 650 MG PO ×2 (11:07→17:41)
--- NOTE | 2025-10-02 12:34 | W.PN.URO.CBU ---
Today's Communication / Plan
-
keep berman outpatient eval
Assessment / Plan
-
pressure probably both from spasms and from pelvic cancer bladder u/s empty LEFT PERC TUBE MALPOSITIONED NOW REPLACED RT PARC TUBE CLAMPED NO OBSTRUCTION CREATININE DOWN but still1.9 no obstruction Pt failed voiding trial
home with berman
Diagnosis
-
Date of Service: October 02, 2025
-
Patient Diagnosis:
Post Op Day:
Patient Diagnosis:
Post Op Day:
Patient Diagnosis:
Post Op Day:
Patient Diagnosis:
Post Op Day:
Patient Diagnosis:
Post Op Day:
Patient Diagnosis:
Post Op Day:
Patient Diagnosis:urinary retention earlier in week 1000 cc drained first yellow then hematuria foey left as had retention now suprapiibic pressure 100cc inrtilled and 100cc drained but blader ccan possible 350cc in bladder
Post Op Day:
Subjective
-
urinary retention
Objective
-
Vital Signs
Temp Pulse Resp BP Pulse Ox
97.9 F 66 20 99/56 100
10/02/25 11:23 10/02/25 10:00 10/02/25 11:23 10/02/25 08:22 10/02/25 11:23
Intake and Output
10/01/25 10/02/25 10/03/25
06:59 06:59 06:59
Output Total 505 / 505 365 / 365 425 / 425
Balance -505 / -505 -365 / -365 -425 / -425
Output:
Urinary Drain Output (Total) 275 / 275 265 / 265 125 / 125
Left Nephrostomy 275 / 275 265 / 265 125 / 125
Urine, Berman 230 / 230 100 / 100 300 / 300
Laboratory Results
10/02/25 02:53
10/02/25 02:53
Review of Systems
-
Abdomen/GI: Constipated
: Difficulty Voiding
Physical Exam
-
General - well developed, well nourished, no acute distress
Chest - clear bilaterally
Abdomen - soft, non-tender, positive bowel sounds, no CVAT, no incisional pain or distention
Genitalia - normal
Rectal - normal
Skin - warm & dry with no rash
Neuro - AOx3, no motor deficits
Extremities - no clubbing, no cyanosis, no edema
Incision - clean, dry
Dressing - clean, dry, intact
Counseling
-
keep berman
--- NOTE | 2025-10-02 13:51 | CM ---
Chart reviewed. Patient is independent of ADLS, lives alone in a [address], 1 HANNA, 0 DME. PT evaluation recommending SNF. Patient agreeable. Patient requesting [facility]. Referral sent and accepted. No beds available until Sunday. Plan is for
the patient to go to [facility] when medically stable. CM to follow
--- NOTE | 2025-10-02 19:00 | PTCARENOTE ---
~9911-2460: Handoff report received from jacqueline RN. Pt Aox4, NSr 1st degree AVB 60s on tele, SBP 90s, RA satting 100%. Pt c/o generalized 'discomfort' at this time, PRN tylenol given. Pt also c/o feeling a bit constipated but passing flatus, PRN
miralax given. R flank dressing CDI, L nephrostemy dressing CDI with tube putting out clear yellow drainage. Brady intact and draining blood tinged urine with clots present.
~1100-7899: Pateint resting in bed at this time and OOB as tolerated. Pt c/o generalized pain, PRN tylenol given for 6/10 pain. Patient does not want anything stronger at this time. All needs met, call bustillos within reach. Handoff report given to
jacqueline RN.
[2025-10-02] MEDS: TOPROL XL 25 MG PO (22:08)
[2025-10-02] MEDS: XANAX 0.25 MG PO (22:09)
--- NOTE | 2025-10-02 22:24 | PTCARENOTE ---
Received patient at change of shift. SR with a first degree on the monitor, HR in the 60s. Brady with blood tinged urine, L nephrostomy with clear yellow urine. R flank dressing CDI. Pt requested PRN Xanax HS. Patient complains of generalized
discomfort but would not like anything at this time. Repositioned pt for comfort. Call bustillos within reach.
[2025-10-03] VITALS (7 sets, daily range): BP systolic 95–129; BP diastolic 59–73; BMI 22.4
[2025-10-03] MEDS: TYLENOL 650 MG PO ×2 (01:34→17:39)
[2025-10-03 05:26] LABS: Hematocrit 29.5 % (37.0-47.0); Hemoglobin 9.7 g/dL (12.0-16.0); Mean Corp Hgb Conc. 32.9 g/dL (33.0-37.0); Mean Corpuscular Volume 82.9 fL (81.0-99.0); Nucleated Red Blood Cells % 0 %; Platelet Count 336 10^3/uL (130-400); Red Cell Dist. Width 14.5 % (11.5-14.5)
[2025-10-03 05:35] LABS: Blood Urea Nitrogen 61 mg/dl (7-17); Calcium 9.4 mg/dl (8.4-10.2); Carbon Dioxide 21 mmol/L (22-30); Chloride 99 mmol/L (98-107); Estimated Creatinine Clearance 23 ml/min; Glucose 100 mg/dl (70-99); Magnesium 2.2 mg/dl (1.6-2.3); Potassium 4.9 mmol/L (3.5-5.1); Sodium 128 mmol/L (135-145); eGFR 26.69
[2025-10-03] MEDS: SENOKOT-S 1 TABLET PO (09:42)
[2025-10-03] MEDS: MIRALAX 17 GRAMS PO (09:42)
[2025-10-03] MEDS: PACERONE 400 MG PO ×2 (09:43→19:53)
[2025-10-03] MEDS: NSS 1000 IV (09:44)
--- NOTE | 2025-10-03 10:00 | W.PN.HOSP.TC ---
Today's Communication/Plan
-
IV fluid
Ensure
Suppository
Assessment / Plan
Assessment / Plan
80F with endometrial cancer s/p hysterectomy, hypertension, SVT, recent postrenal ESTRELLA s/p b/l PCN and Berman placement, small PE s/p IVC filter, who was discharged the day before and returned due to weakness and tachycardia, noted to be in SVT. She
received adenosine and was converted to NSR.
A/P:
SVT
initial response to adenosine by EMS.
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
PO amiodarone 400 mg BID added per card , dosing per card (400 mg twice daily for 14 days then 200 mg daily to start on 10/10)
Cont Toprol XL 25mg qHS with holding parameter
EP consult as outpatient
Abdominal discomfort related to constipation
Bowel regimen. Added suppository
Abd US largely unrevealing
Postrenal ESTRELLA
with bilateral hydroureteronephrosis secondary to mass effect from metastatic endometrial cancer.
s/p bilateral percutaneous nephrostomy tubes placement 09/23
Cont berman catheter
Bladder scan was performed by RN, noted high residual which is felt likely 2/2 cancer
Urinary bladder showed decompressed bladder with Berman catheter.
initial improvement in Cr.
tube check was ordered: L PCN was repositioned, had distal obstruction, right PCN was capped, no obstruction.
Cr 2.1 -> 1.9. IV fluid trial as below
Cont to monitor SCr
Hyponatremia
Mild, asymptomatic
131->128
Check urine sodium, osmolarity
Patient has poor p.o. intake per history
Trial 1 bag IV NS
Small PE
without RH strain, in setting of acute cancer
No DVT
s/p IVC filter placement 09/23
Endometrial cancer
follows with [facility] Dr. Melgar
s/p total hysterectomy with Dr. Cárdenas 05/26/2025
patient has not accepted traditional radiation or chemo therapy was hoping for more holistic approach
continue to follow up outpatient with Onc
Hypertension
Patient has actually been hypotensive
continue metoprolol
Poor p.o. intake
Nutrition consult
Ensure 3 times daily
Code status: DNR
DVT prophylaxis: SCDs
Dispo: PT recc SNF
Anticipated Discharge: 24 - 48 hours
Subjective/Interval History
-
Date of Service: October 03, 2025
Patient complaining of constipation, poor p.o. intake due to loss of taste and smell from COVID 5 years ago
Objective Data
-
Labs:
Laboratory Results
10/03/25
04:40
WBC 11.6 H
Hgb 9.7 L
Hct 29.5 L
Plt Count 336
Sodium 128 L
Potassium 4.9
Chloride 99
Carbon Dioxide 21 L
BUN 61 H
Creatinine 1.9 H
Glucose 100 H
Calcium 9.4
Vital Signs:
Vital Signs
Temp Pulse Resp BP Pulse Ox
98.1 F 61 16 95/59 100
10/03/25 09:33 10/03/25 04:34 10/03/25 09:33 10/03/25 04:34 10/03/25 09:33
I&O
10/02/25 10/03/25 10/04/25
06:59 06:59 06:59
Output Total 365 / 365 825 / 825
Balance -365 / -365 -825 / -825
Review of Systems
-
All other systems: Reviewed and negative
Abdomen/GI: Denies Abdominal Pain
Physical Exam
-
General: No Apparent Distress, Comfortable, Conversant and Appears Chronically Ill
HEENT: Normocephalic, Atraumatic, Moist Mucous Membranes and Anicteric
Respiratory: Clear to Auscultation and Non Labored Respirations; Negative Wheezes, Rales, Rhonchi or Accessory Resp Muscle Use
Cardiac: Regular Rhythm and S1/S2; Negative Murmur, Rub or Gallop
GI: Soft, Nondistended and Normal Bowel Sounds
Genito-urinary: Berman and Nephrostomy Tubes (right is capped, L is draining )
Musculoskeletal: No Edema
Skin: Warm (legs cool but pulses palpable, patient reports she keeps blanket off because she likes them cold) and Dry
Neuro: Awake and AO x 3
Psych: Calm and Intact Judgement/Insight
Data Reviewed
-
Ultrasound: Report Reviewed by me
Labs: Labs Reviewed by me and Discussed with Patient
--- NOTE | 2025-10-03 12:27 | PTCARENOTE ---
assessment as documented - no complaints. encouraging pt to increase PO and be OOB more
--- NOTE | 2025-10-03 13:07 | W.PN.URO.CBU ---
Today's Communication / Plan
-
- Trend renal function
- Will consider reopening R PCN to gravity if fluid challenge not effective
Assessment / Plan
-
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
s/p b/l percutaneous nephrostomy tubes
High volume urinary retention approx 1000cc, failed voiding trial
L PCN replaced due to malposition and R PCN capped
- Some persistent elevated creatinine despite respositioning L PCN, however the R was capped at the same time. Though there was flow through to bladder, there was clear significant external compression and hydronephrosis. R ureter may still be
obstructed enough to impact renal function, though urine output from R side into berman is adequate
- Will consider reopening R PCN to gravity if fluid challenge not effective
- Maintain berman
Diagnosis
-
Date of Service: October 03, 2025
-
Post Op Day:
Patient Diagnosis:
Malignant ureteral obstruction
Urinary retention
Hematuria
ESTRELLA
Dr. Hurley's note: urinary retention 1000 cc drained first yellow then hematuria foey left as had retention now suprapiibic pressure 100cc inrtilled and 100cc drained but blader ccan possible 350cc in bladder
Post Op Day:
Subjective
-
No events or new sx
Objective
-
Vital Signs
Temp Pulse Resp BP Pulse Ox
98.0 F 64 18 110/73 100
10/03/25 11:32 10/03/25 12:00 10/03/25 11:32 10/03/25 11:21 10/03/25 11:32
Intake and Output
10/02/25 10/03/25 10/04/25
06:59 06:59 06:59
Output Total 365 / 365 825 / 825
Balance -365 / -365 -825 / -825
Output:
Urinary Drain Output (Total) 265 / 265 200 / 200
Left Nephrostomy 265 / 265 200 / 200
Urine, Berman 100 / 100 625 / 625
Laboratory Results
10/03/25 04:40
10/03/25 04:40
Physical Exam
-
General - well developed, well nourished, no acute distress
Chest - clear bilaterally
Abdomen - soft, non-tender
PCNs in place
Berman clear urine
[2025-10-03] MEDS: DULCOLAX 10 MG RECTAL (16:50)
--- NOTE | 2025-10-03 17:43 | PTCARENOTE ---
Pt received at 1500 with no c/o of any pain or sob. No change in status from assessment.
[2025-10-03] MEDS: TOPROL XL 25 MG PO (21:52)
[2025-10-03] MEDS: MELATONIN 3 MG PO (21:52)
[2025-10-03] MEDS: XANAX 0.25 MG PO (21:52)
[2025-10-04] MEDS: TYLENOL 650 MG PO ×5 (00:12→21:48)
--- NOTE | 2025-10-04 00:28 | PTCARENOTE ---
Rec'd pt. AAOx3, VSS, NSR with first degree AVB on the monitor. OOB with assist x 1 & RW to use bathroom, had a couple of very small loose BM's at beginning of shift (laxatives administered by previous shift). Brady patent draining blood tinged
urine with sediment. Left nephrostomy tube intact draining yellow urine. Complaining of generalized whole body aches/pains, Tylenol given per pt. request. Pt. resting quietly.
[2025-10-04 02:38] VITALS: BP 92/62
[2025-10-04 03:46] LABS: Hematocrit 29.7 % (37.0-47.0); Hemoglobin 9.7 g/dL (12.0-16.0); Mean Corp Hgb Conc. 32.7 g/dL (33.0-37.0); Mean Corpuscular Volume 82.5 fL (81.0-99.0); Platelet Count 365 10^3/uL (130-400); Red Cell Dist. Width 15.0 % (11.5-14.5)
[2025-10-04 04:07] LABS: ALT (SGPT) 11 U/L (0-35); AST (SGOT) 21 U/L (14-36); Albumin 3.2 g/dl (3.5-5.0); Alkaline Phosphatase 63 U/L (38-126); Blood Urea Nitrogen 59 mg/dl (7-17); Calcium 9.2 mg/dl (8.4-10.2); Carbon Dioxide 20 mmol/L (22-30); Chloride 100 mmol/L (98-107); Estimated Creatinine Clearance 26 ml/min; Glucose 110 mg/dl (70-99); Potassium 5.3 mmol/L (3.5-5.1); Sodium 128 mmol/L (135-145); Total Protein 6.3 g/dl (6.3-8.2); eGFR 30.50
[2025-10-04 08:07] VITALS: BP 96/62
[2025-10-04] MEDS: PACERONE 400 MG PO ×2 (08:40→21:42)
[2025-10-04 11:47] VITALS: BP 99/67
--- NOTE | 2025-10-04 12:24 | W.PN.HOSP.TC ---
Today's Communication/Plan
-
IV fluid for hyponatremia and ESTRELLA
Assessment / Plan
Assessment / Plan
80F with endometrial cancer s/p hysterectomy, hypertension, SVT, recent postrenal ESTRELLA s/p b/l PCN and Berman placement, small PE s/p IVC filter, who was discharged the day before and returned due to weakness and tachycardia, noted to be in SVT. She
received adenosine and was converted to NSR.
A/P:
SVT
initial response to adenosine by EMS.
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
PO amiodarone 400 mg BID added per card , dosing per card (400 mg twice daily for 14 days then 200 mg daily to start on 10/10)
Cont Toprol XL 25mg qHS with holding parameter
EP consult as outpatient
Abdominal discomfort related to constipation
Bowel regimen. Added suppository
Abd US largely unrevealing
Postrenal ESTRELLA
with bilateral hydroureteronephrosis secondary to mass effect from metastatic endometrial cancer.
s/p bilateral percutaneous nephrostomy tubes placement 09/23
Cont berman catheter
Bladder scan was performed by RN, noted high residual which is felt likely 2/2 cancer
Urinary bladder showed decompressed bladder with Berman catheter.
initial improvement in Cr.
tube check was ordered: L PCN was repositioned, had distal obstruction, right PCN was capped, no obstruction.
Cr 2.1 -> 1.7. IV fluid trial as below
Cont to monitor SCr
Hyponatremia
Mild, asymptomatic
131->128
Very low urine sodium, normal osmolarity
Patient has poor p.o. intake per history
Continue with normal saline
Small PE
without RH strain, in setting of acute cancer
No DVT
s/p IVC filter placement 09/23
Endometrial cancer
follows with [facility] Dr. [place]
s/p total hysterectomy with Dr. Cárdenas 05/26/2025
patient has not accepted traditional radiation or chemo therapy was hoping for more holistic approach
continue to follow up outpatient with Onc
Hypertension
Patient has actually been hypotensive
continue metoprolol with hold parameters
Poor p.o. intake
Nutrition consult
Ensure 3 times daily
Code status: DNR
DVT prophylaxis: SCDs due to bleeding
Dispo: PT rec SNF
Anticipated Discharge: 24 - 48 hours
Subjective/Interval History
-
Date of Service: October 04, 2025
Patient states she is feeling better today because she had a bowel movement
Objective Data
-
Labs:
Laboratory Results
10/04/25
02:48
WBC 15.6 H
Hgb 9.7 L
Hct 29.7 L
Plt Count 365
Sodium 128 L
Potassium 5.3 H
Chloride 100
Carbon Dioxide 20 L
BUN 59 H
Creatinine 1.7 H
Glucose 110 H
Calcium 9.2
Total Bilirubin 0.5
AST 21
ALT 11
Alkaline Phosphatase 63
Vital Signs:
Vital Signs
Temp Pulse Resp BP Pulse Ox
97.2 F 62 20 96/62 99
10/04/25 11:47 10/04/25 08:40 10/04/25 11:47 10/04/25 08:40 10/04/25 11:47
I&O
10/03/25 10/04/25 10/05/25
06:59 06:59 06:59
Intake Total 300 / 300
Output Total 825 / 825 350 / 350
Balance -825 / -825 -50 / -50
Review of Systems
-
All other systems: Reviewed and negative
Abdomen/GI: Denies Abdominal Pain
Physical Exam
-
General: No Apparent Distress, Comfortable, Conversant and Appears Chronically Ill
HEENT: Normocephalic, Atraumatic, Moist Mucous Membranes and Anicteric
Respiratory: Clear to Auscultation and Non Labored Respirations; Negative Wheezes, Rales, Rhonchi or Accessory Resp Muscle Use
Cardiac: Regular Rhythm and S1/S2; Negative Murmur, Rub or Gallop
GI: Soft, Nondistended and Normal Bowel Sounds
Genito-urinary: Berman and Nephrostomy Tubes (right is capped, L is draining )
Musculoskeletal: No Edema
Skin: Warm (legs cool but pulses palpable, patient reports she keeps blanket off because she likes them cold) and Dry
Neuro: Awake and AO x 3
Psych: Calm and Intact Judgement/Insight
Data Reviewed
-
Ultrasound: Report Reviewed by me
Labs: Labs Reviewed by me and Discussed with Patient
[2025-10-04] MEDS: NSS 1000 IV (12:53)
--- NOTE | 2025-10-04 14:30 | PTCARENOTE ---
~[id number]: Handoff report received from nightshift RN. Pt AOx4, NSR 1st degree AVB 60s, SBP 90s, RA satting 100%. Patient Ax1 walker OOB. Patient in bed at this time. Patient c/o low back 6/10 'discomfort,' PRN tylenol given. SCDs on, education
provided. +2 edema BLE, +2 radial/doppler DP pulses. Berman intact and draining rust colored urine. L nephrostomy tube in place and draining concentrated yellow urine, dressing CDI. R nephrostomy site dressing CDI, sutures intact underneath.
Contacted Dr. Gutierrez about patient lab work results this AM, no new orders at this time. Patient encouraged on importance to move and get OOB to chair to keep strength up, patient voices understanding. All needs met at this time, call bustillos within
reach.
~[id number]: Multiple calls placed in attempt to get nephrostomy drainage back to attach to R nephrostomy tube, awaiting supplies at this time.
~[id number]: Nephrostomy drainage tube received and attached to R nephrostomy tube, draining yellow urine. I/Os charted from berman and L nephrostomy. Pt OOB in chair. Liquid BM in toilet, to prevent skin breakdown, sacral foam applied. All needs met
at this time, call bustillos within reach.
~[id number]: Pt c/o pain, PRN tylenol given. NSS infusing per order. Pt in bed at this time. All needs met at this time, call bustillos within reach.
~[id number]: Report called to receiving nurse. Patient and belongings transported via wheelchair to new room on 4W.
--- NOTE | 2025-10-04 14:44 | W.PN.URO.CBU ---
Today's Communication / Plan
-
R PCN uncapped to maximize drainage
Trend renal function
Assessment / Plan
-
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
s/p b/l percutaneous nephrostomy tubes
High volume urinary retention approx 1000cc, failed voiding trial
L PCN replaced due to malposition and R PCN capped
- Some persistent elevated creatinine despite respositioning L PCN, however the R was capped at the same time. Though there was flow through to bladder, there was clear significant external compression and hydronephrosis. R ureter may still be
obstructed enough to impact renal function, though urine output from R side into berman is adequate
- Given minimal renal function improvement, R PCN replaced to gravity drainage today
- Maintain berman
- Trend renal function
Diagnosis
-
Date of Service: October 04, 2025
-
Patient Diagnosis:
Post Op Day:
Post Op Day:
Patient Diagnosis:
Malignant ureteral obstruction
Urinary retention
Hematuria
ESTRELLA
Dr. Hurley's note: urinary retention 1000 cc drained first yellow then hematuria foey left as had retention now suprapiibic pressure 100cc inrtilled and 100cc drained but blader ccan possible 350cc in bladder
Post Op Day:
Subjective
-
No new sx
tolerating drains
Objective
-
Vital Signs
Temp Pulse Resp BP Pulse Ox
97.2 F 64 20 99/67 99
10/04/25 11:47 10/04/25 12:00 10/04/25 11:47 10/04/25 11:47 10/04/25 11:47
Intake and Output
10/03/25 10/04/25 10/05/25
06:59 06:59 06:59
Intake Total 300 / 300
Output Total 825 / 825 350 / 350 200 / 200
Balance -825 / -825 -50 / -50 -200 / -200
Intake:
IV fluids (Total) 300 / 300
Nss 1,000 ml @ 75 mls/hr IV . 300 / 300
[id number] [facility] Rx#:[id number]
Output:
Urinary Drain Output (Total) 200 / 200 200 / 200 100 / 100
Left Nephrostomy 200 / 200 200 / 200 100 / 100
Urine, Berman 625 / 625 150 / 150 100 / 100
Other:
Number of unmeasured liquid
stools
Rectum 2
Laboratory Results
10/04/25 02:48
10/04/25 02:48
Physical Exam
-
General - well developed, well nourished, no acute distress
Chest - clear
Abdomen - soft, non-tender
PCNs in place, clear urine
berman clear urine
[2025-10-04 14:48] VITALS: BP 107/71
[2025-10-04 19:37] VITALS: BP 103/53
[2025-10-04] MEDS: MELATONIN 3 MG PO (21:42)
[2025-10-04] MEDS: TOPROL XL 25 MG PO (21:42)
[2025-10-04] MEDS: XANAX 0.25 MG PO (21:48)
[2025-10-04 22:18] VITALS: BP 88/57
[2025-10-05] VITALS (7 sets, daily range): BP systolic 89–111; BP diastolic 54–69
[2025-10-05] MEDS: NSS 1000 IV ×2 (01:07→15:52)
[2025-10-05] MEDS: TYLENOL 650 MG PO ×4 (02:47→23:33)
[2025-10-05 08:09] LABS: Hematocrit 29.3 % (37.0-47.0); Hemoglobin 9.7 g/dL (12.0-16.0); Mean Corp Hgb Conc. 33.1 g/dL (33.0-37.0); Mean Corpuscular Volume 83.7 fL (81.0-99.0); Platelet Count 368 10^3/uL (130-400); Red Cell Dist. Width 15.1 % (11.5-14.5)
[2025-10-05 08:35] LABS: ALT (SGPT) 11 U/L (0-35); AST (SGOT) 22 U/L (14-36); Albumin 3.3 g/dl (3.5-5.0); Alkaline Phosphatase 64 U/L (38-126); Blood Urea Nitrogen 62 mg/dl (7-17); Calcium 8.9 mg/dl (8.4-10.2); Carbon Dioxide 19 mmol/L (22-30); Chloride 101 mmol/L (98-107); Estimated Creatinine Clearance 27 ml/min; Glucose 78 mg/dl (70-99); Potassium 5.5 mmol/L (3.5-5.1); Sodium 129 mmol/L (135-145); Total Protein 6.4 g/dl (6.3-8.2); eGFR 32.81
--- NOTE | 2025-10-05 10:02 | W.PN.HOSP.TC ---
Today's Communication/Plan
-
see A/P
Assessment / Plan
Assessment / Plan
HPI: 80 yo F with endometrial cancer s/p hysterectomy, hypertension, SVT, recent postrenal ESTRELLA s/p b/l PCN and Berman placement, small PE s/p IVC filter, who was discharged the day before and returned due to weakness and tachycardia, noted to be in
SVT. She received adenosine and was converted to NSR.
A/P:
# SVT
initial response to adenosine by EMS.
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
Cont PO amiodarone 400 mg BID per card , dosing per card (400 mg twice daily for 14 days then 200 mg daily to start on 10/10)
Cont Toprol XL 25mg qHS with holding parameter
EP consult as outpatient
# Abdominal discomfort related to constipation vs pressure effect from metastatic endometrial cancer
Bowel regimen. Added suppository. Pt states that she has been having BM.
Abd US largely unrevealing
Check Abd XR 10/05
# Postrenal ESTRELLA
with bilateral hydroureteronephrosis secondary to mass effect from metastatic endometrial cancer.
s/p bilateral percutaneous nephrostomy tubes placement 09/23
Cont berman catheter per Uro
Bladder scan was performed by RN, noted high residual which is felt likely 2/2 cancer. Urinary bladder showed decompressed bladder with Berman catheter.
tube check was ordered: L PCN was repositioned, had distal obstruction, right PCN was capped, no obstruction.
Cr 2.1 -> 1.6 today
Cont IV fluid trial , decrease rate to 60 cc/hr
Cont to monitor SCr
# Intermittent hematuria related to metastatic endometrial cancer.
Cont berman per Uro
Pt c/o BL LE swelling which I feel is related to pressure exertion from metastatic endometrial cancer.
# Hyponatremia
Mild, asymptomatic
Sodium level 131 -> 129 today
Patient has poor p.o. intake per history
Continue with normal saline
# Hyperkalemia
monitor
# Leucocytosis, chronic and suspect reactive in setting of active cancer
no fever noted
# Small PE
without RH strain, in setting of acute cancer
No DVT
s/p IVC filter placement 09/23
Outpt follow up with Onc/Pulm for timing of retrieval
# Endometrial cancer
follows with [facility] Dr. Melgar
s/p total hysterectomy with Dr. Cárdenas 05/26/2025
patient has not accepted traditional radiation or chemo therapy was hoping for more holistic approach
continue to follow up outpatient with Onc
# Hypertension, now hypotensive
continue metoprolol with hold parameters
# Poor p.o. intake
Nutrition consult
Ensure 3 times daily
Code status: DNR
DVT prophylaxis: SCDs due to bleeding
Dispo: PT rec SNF
DW RN
Offered to update family. Pt politely declined. She states that she has been updating her family herself and appears to wish to continue to do so .
total time 51 min
Anticipated Discharge: 24 - 48 hours
Subjective/Interval History
-
Date of Service: October 05, 2025
Objective Data
-
Labs:
Laboratory Results
10/05/25
07:24
WBC 14.6 H
Hgb 9.7 L
Hct 29.3 L
Plt Count 368
Sodium 129 L
Potassium 5.5 H
Chloride 101
Carbon Dioxide 19 L
BUN 62 H
Creatinine 1.6 H
Glucose 78
Calcium 8.9
Total Bilirubin 0.5
AST 22
ALT 11
Alkaline Phosphatase 64
Vital Signs:
Vital Signs
Temp Pulse Resp BP Pulse Ox
36.5 C 63 12 97/59 100
10/05/25 07:02 11/10/25 07:02 10/05/25 07:02 10/05/25 07:02 10/05/25 07:02
I&O
10/04/25 10/05/25 10/06/25
06:59 06:59 06:59
Intake Total 300 / 300 480 / 480
Output Total 350 / 350 200 / 200
Balance -50 / -50 280 / 280
Review of Systems
-
All other systems: Reviewed and negative
Abdomen/GI: Reports Abdominal Pain (discomfort which appears to be chronic )
Physical Exam
-
General: No Apparent Distress, Comfortable, Conversant and Appears Chronically Ill
HEENT: Normocephalic, Atraumatic, Moist Mucous Membranes and Anicteric
Respiratory: Clear to Auscultation and Non Labored Respirations; Negative Accessory Resp Muscle Use
Cardiac: Regular Rhythm and S1/S2; Negative Murmur, Rub or Gallop
GI: Soft, Nondistended and Normal Bowel Sounds
Genito-urinary: Berman and Nephrostomy Tubes (right is capped, L is draining )
Musculoskeletal: No Edema, Edema, Right Lower Extrem (mild) and Edema, Left Lower Extrem (mild)
Skin: Warm and Dry
Neuro: Awake and AO x 3
Psych: Calm and Intact Judgement/Insight
Data Reviewed
-
Ultrasound: Report Reviewed by me
Labs: Labs Reviewed by me and Discussed with Patient
--- NOTE | 2025-10-05 12:54 | CM ---
CM reviewed chart, patient seen bedside.
CM discussed per Hospitalist, patient medically stable for d.c.
Patient reports she does not feel medically stable. CM discussed no beds at [facility], need to explore additional facilities.
Patient reports she does not want to go anywhere else. CM discussed cannot hold patient in hospital waiting for facility of [facility] to have a bed.
CM discussed additional facilities- patient agreeable to [facility], referral placed in [facility].
CM will continue to follow for all d/c planning needs.
Plan; SNF, referral to [facility] placed
[2025-10-05] MEDS: PACERONE PO (13:12)
[2025-10-05] MEDS: PACERONE 400 MG PO (20:09)
[2025-10-05] MEDS: XANAX 0.25 MG PO (21:16)
[2025-10-05] MEDS: MELATONIN 3 MG PO (21:16)
[2025-10-05] MEDS: TOPROL XL 25 MG PO (23:33)
[2025-10-06] VITALS (7 sets, daily range): BP systolic 93–114; BP diastolic 55–67; PULSE 67; O2SAT 100
[2025-10-06] MEDS: TYLENOL 1000 MG PO (03:37)
[2025-10-06 07:55] LABS: Hematocrit 29.7 % (37.0-47.0); Hemoglobin 9.0 g/dL (12.0-16.0); Mean Corp Hgb Conc. 30.3 g/dL (33.0-37.0); Mean Corpuscular Volume 88.4 fL (81.0-99.0); Platelet Count 373 10^3/uL (130-400); Red Cell Dist. Width 15.3 % (11.5-14.5)
[2025-10-06] MEDS: PACERONE 400 MG PO ×2 (08:01→20:13)
[2025-10-06] MEDS: NSS 1000 IV (08:02)
[2025-10-06 08:32] LABS: Blood Urea Nitrogen 57 mg/dl (7-17); Calcium 8.8 mg/dl (8.4-10.2); Carbon Dioxide 21 mmol/L (22-30); Chloride 102 mmol/L (98-107); Estimated Creatinine Clearance 27 ml/min; Glucose 88 mg/dl (70-99); Magnesium 2.1 mg/dl (1.6-2.3); Potassium 5.1 mmol/L (3.5-5.1); Sodium 130 mmol/L (135-145); eGFR 32.81
--- NOTE | 2025-10-06 09:34 | W.PN.HOSP.TC ---
Addendum entered and electronically signed by Hazel Celestin MD 10/06/25 10:09:
Stop IVF and start trial of midodrine for BP support
Original Note:
Today's Communication/Plan
-
see A/P
Assessment / Plan
Assessment / Plan
HPI: 80 yo F with endometrial cancer s/p hysterectomy, hypertension, SVT, recent postrenal ESTRELLA s/p b/l PCN and Berman placement, small PE s/p IVC filter, who was discharged the day before and returned due to weakness and tachycardia, noted to be in
SVT. She received adenosine and was converted to NSR.
A/P:
# SVT
initial response to adenosine by EMS.
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
Cont PO amiodarone per card (400 mg twice daily for 14 days then 200 mg daily to start on 10/10)
Cont Toprol XL 25mg qHS with holding parameter
EP consult as outpatient
# Abdominal discomfort related to constipation vs pressure effect from metastatic endometrial cancer
Bowel regimen. Added suppository. Pt states that she has been having BM.
Abd US largely unrevealing
Abd XR 10/05: Nonobstructive bowel gas pattern. No significant colonic stool burden.
# Postrenal ESTRELLA
with bilateral hydroureteronephrosis secondary to mass effect from metastatic endometrial cancer.
s/p bilateral percutaneous nephrostomy tubes placement 09/23
Cont berman catheter per Uro
Bladder scan was performed by RN, noted high residual which is felt likely 2/2 cancer. Urinary bladder showed decompressed bladder with Berman catheter.
tube check was ordered: L PCN was repositioned, had distal obstruction, right PCN was capped, no obstruction.
Cr 2.1 -> 1.6 today
Cont IV fluid trial at 60 cc/hr
Cont to monitor SCr
# Intermittent hematuria related to metastatic endometrial cancer.
Cont berman per Uro
Pt c/o BL LE swelling which I feel is related to pressure exertion from metastatic endometrial cancer.
# Hyponatremia
Mild, asymptomatic
Sodium level 131 -> 130 today
Patient has poor p.o. intake per history
Continue with normal saline as above
# Hyperkalemia
monitor
# Leucocytosis, chronic and suspect reactive in setting of active cancer
no fever noted
# Small PE
without RH strain, in setting of acute cancer
No DVT
s/p IVC filter placement 09/23
Outpt follow up with Onc/Pulm for timing of retrieval
# Endometrial cancer
follows with [facility] Dr. Melgar
s/p total hysterectomy with Dr. Cárdenas 05/26/2025
patient has not accepted traditional radiation or chemo therapy was hoping for more holistic approach
continue to follow up outpatient with Onc
# Hypertension, now hypotensive
continue metoprolol with hold parameters
# Poor p.o. intake
Nutrition consult
Ensure 3 times daily
Code status: DNR
DVT prophylaxis: SCDs due to bleeding
Dispo: PT rec SNF
Discussed with pt about dispo planning. Currently she is refusing to be discharged to SNF and her reasoning is that she is still too weak to go to SNF.
Unfortunately, she is indeed very weak and hospice discussion may be reasonable at this point, although I do not feel that she is mentally ready for this conversation.
GOC discussion is also going to be challenging since she has refused us to update her family.
Pt has warned that if she goes to SNF too soon, she would return very quickly, which I agree. I feel that she would return very quickly whether she goes to SNF this week or delay by another week. And if this happens, would need to bring up GOC
discussion.
total time 51 min
Anticipated Discharge: 24 - 48 hours
Subjective/Interval History
-
Date of Service: October 06, 2025
Objective Data
-
Labs:
Laboratory Results
10/06/25
07:28
WBC 13.1 H
Hgb 9.0 L
Hct 29.7 L
Plt Count 373
Sodium 130 L
Potassium 5.1
Chloride 102
Carbon Dioxide 21 L
BUN 57 H
Creatinine 1.6 H
Glucose 88
Calcium 8.8
Vital Signs:
Vital Signs
Temp Pulse Resp BP Pulse Ox
36.4 C 62 16 93/55 100
10/06/25 07:10 10/06/25 07:10 10/06/25 07:10 10/06/25 07:10 10/06/25 07:10
I&O
10/05/25 10/06/25 10/07/25
06:59 06:59 06:59
Intake Total 480 / 480 830 / 830
Output Total 200 / 200 715 / 715
Balance 280 / 280 115 / 115
Review of Systems
-
All other systems: Reviewed and negative
Constitutional: Reports No Symptoms
Physical Exam
-
General: No Apparent Distress, Comfortable, Conversant and Appears Chronically Ill
HEENT: Normocephalic, Atraumatic, Moist Mucous Membranes and Anicteric
Respiratory: Clear to Auscultation and Non Labored Respirations; Negative Accessory Resp Muscle Use
Cardiac: Regular Rhythm and S1/S2; Negative Murmur, Rub or Gallop
GI: Soft, Nondistended and Normal Bowel Sounds
Genito-urinary: Berman and Nephrostomy Tubes (right is capped, L is draining )
Musculoskeletal: No Edema, Edema, Right Lower Extrem (mild) and Edema, Left Lower Extrem (mild)
Skin: Warm and Dry
Neuro: Awake and AO x 3
Psych: Calm and Intact Judgement/Insight
Data Reviewed
-
Ultrasound: Report Reviewed by me
Labs: Labs Reviewed by me and Discussed with Patient
--- NOTE | 2025-10-06 15:07 | CM ---
CM reviewed chart, patient seen bedside.
CM discussed [facility] unable to accept patient, no beds at [place].
Patient reports she does not want to expand search for SNF, agreeable to referral to [facility] in [place].
CM discussed patient is medically stable, cannot hold patient in hospital until preferred facility opens up. Patient aware, concerned if she d/c to SNF she will return to hospital.
CM will continue to follow for all d/c planning needs.
Plan; additional referral to [facility] for d/c to SNF
[2025-10-06] MEDS: TYLENOL 650 MG PO (20:14)
[2025-10-06] MEDS: XANAX 0.25 MG PO (21:50)
[2025-10-06] MEDS: MELATONIN 3 MG PO (21:50)
[2025-10-07] VITALS (7 sets, daily range): BP systolic 93–116; BP diastolic 53–75; PULSE 61
[2025-10-07] MEDS: TYLENOL 650 MG PO ×3 (00:15→23:29)
[2025-10-07] MEDS: TOPROL XL 25 MG PO ×2 (00:15→20:41)
[2025-10-07] MEDS: PACERONE 400 MG PO ×2 (08:19→20:41)
[2025-10-07 08:46] LABS: Blood Urea Nitrogen 54 mg/dl (7-17); Calcium 8.9 mg/dl (8.4-10.2); Carbon Dioxide 20 mmol/L (22-30); Chloride 102 mmol/L (98-107); Estimated Creatinine Clearance 29 ml/min; Glucose 109 mg/dl (70-99); Potassium 5.2 mmol/L (3.5-5.1); Sodium 132 mmol/L (135-145); eGFR 35.45
[2025-10-07 08:51] LABS: Hematocrit 28.7 % (37.0-47.0); Hemoglobin 9.5 g/dL (12.0-16.0); Mean Corp Hgb Conc. 33.1 g/dL (33.0-37.0); Mean Corpuscular Volume 83.2 fL (81.0-99.0); Platelet Count 276 10^3/uL (130-400); Red Cell Dist. Width 15.9 % (11.5-14.5)
--- NOTE | 2025-10-07 09:09 | W.PN.HOSP.TC ---
Addendum entered and electronically signed by Hazel Celestin MD 10/07/25 09:27:
R PCN has been uncapped to maximize drainage
Both nephrostomy tubes draining well
Original Note:
Today's Communication/Plan
-
dispo planning
Assessment / Plan
Assessment / Plan
HPI: 80 yo F with endometrial cancer s/p hysterectomy, hypertension, SVT, recent postrenal ESTRELLA s/p b/l PCN and Berman placement, small PE s/p IVC filter, who was discharged the day before and returned due to weakness and tachycardia, noted to be in
SVT. She received adenosine and was converted to NSR.
A/P:
# SVT
initial response to adenosine by EMS.
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
Cont PO amiodarone per card (400 mg twice daily for 14 days then 200 mg daily to start on 10/10)
Cont Toprol XL 25mg qHS with holding parameter
EP consult as outpatient
# Abdominal discomfort related to constipation vs pressure effect from metastatic endometrial cancer
Bowel regimen. Added suppository. Pt states that she has been having BM.
Abd US largely unrevealing
Abd XR 10/05: Nonobstructive bowel gas pattern. No significant colonic stool burden.
# Postrenal ESTRELLA
with bilateral hydroureteronephrosis secondary to mass effect from metastatic endometrial cancer.
s/p bilateral percutaneous nephrostomy tubes placement 09/23
Cont berman catheter per Uro
Bladder scan was performed by RN, noted high residual which is felt likely 2/2 cancer. Urinary bladder showed decompressed bladder with Berman catheter.
tube check was ordered: L PCN was repositioned, had distal obstruction, right PCN was capped, no obstruction.
Cr 2.1 -> 1.5 today
Stopped further IVF
Cont to monitor SCr
# Intermittent hematuria related to metastatic endometrial cancer.
Cont berman per Uro
Pt c/o BL LE swelling which I feel is related to pressure exertion from metastatic endometrial cancer.
# Hyponatremia
Mild, asymptomatic
Sodium level 131 -> 132 today
Patient has poor p.o. intake per history
Continue with normal saline as above
# Hyperkalemia
monitor
# Leucocytosis, chronic and suspect reactive in setting of active cancer
no fever noted
# Small PE
without RH strain, in setting of acute cancer
No DVT
s/p IVC filter placement 09/23
Outpt follow up with Onc/Pulm for timing of retrieval
# Endometrial cancer
follows with [facility] Dr. Melgar
s/p total hysterectomy with Dr. Cárdenas 05/26/2025
patient has not accepted traditional radiation or chemo therapy was hoping for more holistic approach
continue to follow up outpatient with Onc
# now hypotension
Add midodrine TID for BP support,
Monitor BP
# Poor p.o. intake
Nutrition consult
Ensure 3 times daily
Code status: DNR
DVT prophylaxis: SCDs due to bleeding
Dispo: PT rec SNF
I offered to update pt's family again. She again politely declined. She states that she has been keeping everyone informed.
Anticipated Discharge: 24 - 48 hours
Subjective/Interval History
-
Date of Service: October 07, 2025
Objective Data
-
Labs:
Laboratory Results
10/07/25
08:07
WBC 13.2 H
Hgb 9.5 L
Hct 28.7 L
Plt Count 276 D
Sodium 132 L
Potassium 5.2 H
Chloride 102
Carbon Dioxide 20 L
BUN 54 H
Creatinine 1.5 H
Glucose 109 H
Calcium 8.9
Vital Signs:
Vital Signs
Temp Pulse Resp BP Pulse Ox
36.7 C 62 18 93/53 99
10/07/25 07:10 10/07/25 07:10 10/07/25 07:10 10/07/25 07:10 10/07/25 07:10
I&O
10/06/25 10/07/25 10/08/25
06:59 06:59 06:59
Intake Total 830 / 830 1760 / 1760
Output Total 715 / 715 550 / 550
Balance 115 / 115 1210 / 1210
Review of Systems
-
All other systems: Reviewed and negative
Constitutional: Reports No Symptoms
Physical Exam
-
General: No Apparent Distress, Comfortable, Conversant and Appears Chronically Ill
HEENT: Normocephalic, Atraumatic, Moist Mucous Membranes and Anicteric
Respiratory: Clear to Auscultation and Non Labored Respirations; Negative Accessory Resp Muscle Use
Cardiac: Regular Rhythm and S1/S2; Negative Murmur, Rub or Gallop
GI: Soft, Nondistended and Normal Bowel Sounds
Genito-urinary: Berman and Nephrostomy Tubes (right is capped, L is draining )
Musculoskeletal: No Edema, Edema, Right Lower Extrem (mild) and Edema, Left Lower Extrem (mild)
Skin: Warm and Dry
Neuro: Awake and AO x 3
Psych: Calm and Intact Judgement/Insight
Data Reviewed
-
Ultrasound: Report Reviewed by me
Labs: Labs Reviewed by me and Discussed with Patient
--- NOTE | 2025-10-07 11:53 | W.PN.URO.CBU ---
Today's Communication / Plan
-
d/c when ok with berman and bilateal pcn tubes to outside drainage
Assessment / Plan
-
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
s/p b/l percutaneous nephrostomy tubes
High volume urinary retention approx 1000cc, failed voiding trial
L PCN replaced due to malposition and R PCN capped
- Some persistent elevated creatinine despite respositioning L PCN, however the R was capped at the same time. Though there was flow through to bladder, there was clear significant external compression and hydronephrosis. R ureter may still be
obstructed enough to impact renal function, though urine output from R side into berman is adequate
- Given minimal renal function improvement, R PCN replaced to gravity drainage today
- Maintain berman
- Trend renal function
Diagnosis
-
Date of Service: October 07, 2025
-
Patient Diagnosis:
Post Op Day:
Patient Diagnosis:
Post Op Day:
Post Op Day:
Patient Diagnosis:
Malignant ureteral obstruction
Urinary retention
Hematuria
ESTRELLA
Dr. Hurley's note: urinary retention 1000 cc drained first yellow then hematuria foey left as had retention now suprapiibic pressure 100cc inrtilled and 100cc drained but blader ccan possible 350cc in bladder
Post Op Day:
Subjective
-
no gu new complaints
Objective
-
Vital Signs
Temp Pulse Resp BP Pulse Ox
97.4 F 62 18 113/67 100
10/07/25 11:22 10/07/25 11:22 10/07/25 11:22 10/07/25 11:22 10/07/25 11:22
Intake and Output
10/06/25 10/07/25 10/08/25
06:59 06:59 06:59
Intake Total 830 / 830 1760 / 1760
Output Total 715 / 715 550 / 550
Balance 115 / 115 1210 / 1210
Intake:
Oral fluids 290 / 290 1760 / 1760
IV fluids (Total) 540 / 540
Output:
Urinary Drain Output (Total) 615 / 615 475 / 475
Left Nephrostomy 300 / 300 200 / 200
Right Nephrostomy 315 / 315 275 / 275
Urine, Berman 75 / 75
Urine, Voided 100 / 100
Other:
Number of approximated MODERATE 2
amounts of urine
Laboratory Results
10/07/25 08:07
10/07/25 08:07
Review of Systems
-
: Difficulty Voiding and Bleeding
Physical Exam
-
General - well developed, well nourished, no acute distress
Chest - clear bilaterally
Abdomen - soft, non-tender, positive bowel sounds, no CVAT, no incisional pain or distention
Genitalia - normal
Rectal - normal
Skin - warm & dry with no rash
Neuro - AOx3, no motor deficits
Extremities - no clubbing, no cyanosis, no edema
Incision - clean, dry
Dressing - clean, dry, intact
Counseling
-
no gu intervetons or changes
--- NOTE | 2025-10-07 15:59 | CM ---
CM reviewed chart, patient seen bedside, discussed stable for discharge, [facility] can offer a private bed, [facility] can offer a shared room, [facility] can offer bed. Patient reports she does not feel stable for discharge.
CM reviewed IMM and right to appeal. CM reviewed with Hospitalist, discharge order taken out. Patient agrees to d/c to SNF tomorrow.
Patient will require ambulance transport.
Patient preference is SNF with private room ([facility], [facility], or [facility]). Updates to Berta lindsay.
CM will continue to follow for all d.c needs.
Plan; d.c to SNF tomorrow, either [facility], [facility], or [facility] (patient prefers facility with private room). Ambulance forms on chart. IMM given.
[2025-10-07] MEDS: MELATONIN 3 MG PO (20:41)
[2025-10-07] MEDS: XANAX 0.25 MG PO (20:45)
[2025-10-08 03:59] VITALS: BP 96/56
[2025-10-08] MEDS: TYLENOL 650 MG PO ×2 (05:29→11:13)
--- NOTE | 2025-10-08 07:43 | W.PN.HOSP.TC ---
Today's Communication/Plan
-
for SNF today
Assessment / Plan
Assessment / Plan
HPI: 80 yo F with endometrial cancer s/p hysterectomy, hypertension, SVT, recent postrenal ESTRELLA s/p b/l PCN and Berman placement, small PE s/p IVC filter, who was discharged the day before and returned due to weakness and tachycardia, noted to be in
SVT. She received adenosine and was converted to NSR.
A/P:
# SVT
initial response to adenosine by EMS.
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
Cont PO amiodarone per card (400 mg twice daily for 14 days then 200 mg daily to start on 10/10)
Cont Toprol XL 25mg qHS with holding parameter
EP consult as outpatient
# Abdominal discomfort related to constipation vs pressure effect from metastatic endometrial cancer
Bowel regimen. Added suppository. Pt states that she has been having BM.
Abd US largely unrevealing
Abd XR 10/05: Nonobstructive bowel gas pattern. No significant colonic stool burden.
# Postrenal ESTRELLA
with bilateral hydroureteronephrosis secondary to mass effect from metastatic endometrial cancer.
s/p bilateral percutaneous nephrostomy tubes placement 09/23
Cont berman catheter per Uro
Bladder scan was performed by RN, noted high residual which is felt likely 2/2 cancer. Urinary bladder showed decompressed bladder with Berman catheter.
tube check was ordered: L PCN had distal obstruction, repositioned.
right PCN was capped, no obstruction. R PCN has been uncapped to maximize drainage
Both nephrostomy tubes are draining well
Cr 2.1 -> 1.5
Stopped further IVF
Cont to monitor SCr
# Intermittent hematuria related to metastatic endometrial cancer.
Cont berman per Uro
Pt c/o BL LE swelling which I feel is related to pressure exertion from metastatic endometrial cancer.
# Hyponatremia
Mild, asymptomatic
Sodium level 132
Patient has poor p.o. intake per history
Continue with normal saline as above
# Hyperkalemia
monitor
# Leucocytosis, chronic and suspect reactive in setting of active cancer
no fever noted
# Small PE
without RH strain, in setting of acute cancer
No DVT
s/p IVC filter placement 09/23
Outpt follow up with Onc/Pulm for timing of retrieval
# Endometrial cancer
follows with [facility] Dr. Melgar
s/p total hysterectomy with Dr. Cárdenas 05/26/2025
patient has not accepted traditional radiation or chemo therapy was hoping for more holistic approach
continue to follow up outpatient with Onc
# now hypotension
Add midodrine TID for BP support, adjust dose as needed
Monitor BP
# Poor p.o. intake
Nutrition consult
Ensure 3 times daily
Code status: DNR
DVT prophylaxis: SCDs due to bleeding
Dispo: SNF
Anticipated Discharge: Today
Subjective/Interval History
-
Date of Service: October 08, 2025
Objective Data
-
Labs:
Laboratory Results
10/08/25
07:07
WBC Pending
Hgb Pending
Hct Pending
Plt Count Pending
Sodium Pending
Potassium Pending
Chloride Pending
Carbon Dioxide Pending
BUN Pending
Creatinine Pending
Glucose Pending
Calcium Pending
Vital Signs:
Vital Signs
Temp Pulse Resp BP Pulse Ox
36.7 C 56 16 96/56 99
10/08/25 03:59 10/08/25 03:59 10/08/25 03:59 10/08/25 03:59 10/08/25 03:59
I&O
10/07/25 10/08/25 10/09/25
06:59 06:59 06:59
Intake Total 1760 / 1760 1200 / 1200
Output Total 550 / 550 775 / 775
Balance 1210 / 1210 425 / 425
Review of Systems
-
All other systems: Reviewed and negative
Constitutional: Reports No Symptoms
Physical Exam
-
General: No Apparent Distress, Comfortable, Conversant and Appears Chronically Ill
HEENT: Normocephalic, Atraumatic, Moist Mucous Membranes and Anicteric
Respiratory: Clear to Auscultation and Non Labored Respirations; Negative Accessory Resp Muscle Use
Cardiac: Regular Rhythm and S1/S2; Negative Murmur, Rub or Gallop
GI: Soft, Nondistended and Normal Bowel Sounds
Genito-urinary: Berman and Nephrostomy Tubes (BL tubes draining well)
Musculoskeletal: No Edema, Edema, Right Lower Extrem (mild) and Edema, Left Lower Extrem (mild)
Skin: Warm and Dry
Neuro: Awake and AO x 3
Psych: Calm and Intact Judgement/Insight
Data Reviewed
-
Ultrasound: Report Reviewed by me
Labs: Labs Reviewed by me and Discussed with Patient
[2025-10-08] MEDS: PACERONE 400 MG PO (07:50)
[2025-10-08 08:11] VITALS: BP 91/48
[2025-10-08 08:22] LABS: Blood Urea Nitrogen 55 mg/dl (7-17); Calcium 8.6 mg/dl (8.4-10.2); Carbon Dioxide 21 mmol/L (22-30); Chloride 103 mmol/L (98-107); Estimated Creatinine Clearance 27 ml/min; Glucose 83 mg/dl (70-99); Potassium 5.3 mmol/L (3.5-5.1); Sodium 131 mmol/L (135-145); eGFR 32.81
[2025-10-08 08:40] LABS: Hematocrit 27.8 % (37.0-47.0); Hemoglobin 8.8 g/dL (12.0-16.0); Mean Corp Hgb Conc. 31.7 g/dL (33.0-37.0); Mean Corpuscular Volume 88.0 fL (81.0-99.0); Platelet Count 416 10^3/uL (130-400); Red Cell Dist. Width 15.9 % (11.5-14.5)
--- NOTE | 2025-10-08 09:57 | CM ---
Patient seen at bedside on . plan for transfer to [facility] following discussion with patient and patient choice. Patient for transport via ambulance with forms completed and given to community chest officer. Nursing aware, facility liaison aware and
in agreement. Plan for transfer today. CM will follow for discharge planning needs.
Plan; transfer to Snf:[facility]
please call report to [phone] fax
[2025-10-08 11:21] VITALS: BP 107/57
--- NOTE | 2025-10-08 12:01 | W.DCSUMMARY ---
Discharge Summary
Discharge Data
Date of Admission: 09/28/25
Date of Discharge: 10/08/25
Total time spent discharging patient (in min): 40
-
Pending Results: No
Hospital Course
Principal Diagnosis:
SVT, resolved.
Now hypotension. Midodrine started this admission
Chronic Diagnoses:�
Recent postrenal ESTRELLA, with bilateral hydroureteronephrosis secondary to mass effect from metastatic endometrial cancer, s/p bilateral percutaneous nephrostomy tubes placement on 09/23.
Endometrial cancer s/p hysterectomy
Intermittent hematuria related to metastatic endometrial cancer. Cont berman per Uro
Small PE s/p IVC filter placement 09/23
Consultations:�
Cardiology
Urology
Procedures:�
Tube check of L PCN, repositioned and obstruction resolved.
Clinical course:�
This is a 80 yo F with past medical history as stated above, who presented with weakness and tachycardia. She was noted to be in SVT on admission.
Of note, the patient was recently discharged for post renal ESTRELLA, status post bilateral nephrostomy tube placement and Berman placement, in setting of obstruction from extensive endometrial cancer.
She also had IVC filter placed at that time for incidental finding of small PE.
Problem 1:
SVT, resolved.
She received adenosine by EMS, then IV Cardizem which was discontinued due to low blood pressure.
She was started with oral amiodarone by card (400 mg twice daily for 14 days, then 200 mg daily to start on 10/10).
She can also continue with prior to admission Toprol XL 25mg with holding parameter.
She can follow-up with EP chlorine cells operator as outpatient.
Problem 2:
Now hypotension.
Midodrine TID was added this admission for BP support. The dose can be increased as needed.
Problem 3:
Recent postrenal ESTRELLA, with bilateral hydroureteronephrosis secondary to mass effect from metastatic endometrial cancer.
She had underwent bilateral percutaneous nephrostomy tubes placement on 09/23.
Per urology, she should continue with Berman.
She had a nephrostomy tube check this admission, her left PCN had distal obstruction, which was corrected after repositioning.
Both nephrostomy tubes are draining well.
As for the rest of her medical problems, they were stable during her hospital stay.
Discharge Plan
-
Patient Disposition: [facility]/SNF
Discharge Diagnosis/Procedures: Supraventricular tachycardia;
Postrenal kidney injury with bilateral hydroureteronephrosis placement on 09/23, Continue berman catheter
Recent diagnosis of small pulmonary embolism s/p IVC filter placement;
Endometrial cancer with clinical deconditioning with now hypotension
Condition: Fair
Diet: As tolerated
Additional Diets: with ensure supplement TID
Activity: As tolerated
Driving Restrictions: As prior to admission
Blood Work: BMP in 1 week, result to PCP
Activity Restrictions/Additional Instructions:
Follow up with your oncologist or telephone cleaner to determine when to retrieve the IVC filter.
Follow up with urologist for outpatient voiding trial.
Referrals:
[facility] [Other]
Referral Note: fax [phone]
Katie Richter CRNP [Specified Professional Personl, Cardiology] - 11/02/25 8:40 am
Raphael Hurley MD [Active, Urology] - in one month
Referral Note: CALL DR HURLEY [phone] FOR UROLOGIC FOLLOW UP
UNKNOWN - PT DOES,NOT KNOW [Family Provider] - in less than 1 week
Additional Discharge Medication Instructions: amiodarone 400 mg twice daily until 10/10, after 10/10 start 200 mg daily
Continue Toprol with holding parameter (do not give if SBP less than 110)
Continue midodrine for BP support (increase dose as needed)
Prescriptions:
New
amiodarone [Pacerone] 200 mg Tablet
400 mg PO BID 3 Days Qty: 12 0RF
Rx Instructions:
until 10/10, then 200 mg daily after 10/10
amiodarone [Pacerone] 200 mg Tablet
200 mg PO DAILY Qty: 30 0RF
Rx Instructions:
start after 10/10
metoprolol succinate 25 mg Tablet Extended Release 24 Hr
25 mg PO HS Qty: 30 0RF
Rx Instructions:
hold for SBP < 110
midodrine 5 mg Tablet
5 mg PO TID@0800,1300,1800 Qty: 90 0RF
(DME) BMP
See Rx Instructions .Route .MEDSUPPLY Qty: 1 0RF
Rx Instructions:
10/12- 10/16, result to PCP
# Postrenal ESTRELLA
Continued
polyethylene glycol 3350 17 gram powder in packet
17 g PO DAILYPRN PRN (Reason: constipation)
Changed
sennosides-docusate sodium [Senna Plus] 8.6-50 mg Tablet
1 tab PO BID Qty: 30 0RF
Discontinued
metoprolol succinate 25 mg tablet extended release 24 hr
25 mg PO BID
Discharge Orders:
Discharge Patient (As Directed); Ordered 10/08/25
Ordered By: Hazel Celestin
Care Plan Goals
Care Plan Goals:
Problem: Readiness for enhanced knowledge related to diagnosis and treatment plan
Goal: Understand your diagnosis and treatment plan needs, including medications if applicable.
Instructions: Know your diagnosis, underlying causes and treatment plan options, including medications if applicable. Consult with your health care team to learn about your diagnosis and treatment plan, including medications if applicable.
Discharge Date and Time
Print Language: UKRAINIAN
== END 2025-10-08 13:28 | DRG 308 ==
LOC: 4 WEST ACU 09:28
PROVIDERS: Internal Medicine; Physician Assistant; Radiology Vascular & Interventional Radiology; Registered Nurse; ADMITTING PHYSICIAN Hospitalist; ATTENDING PHYSICIAN Internal Medicine; CONSULT PHYSICIAN Internal Medicine Cardiovascular Disease; CONSULT PHYSICIAN Specialist; EMERGENCY PHYSICIAN Emergency Medicine
PROC: BT131ZZ Fluoroscopy of Bilateral Kidneys using Low Osmolar Contrast (ICD-10-PCS; 2025-09-29)
DX: I47.10 Supraventricular tachycardia, unspecified (principal); I26.99 Other pulmonary embolism without acute cor pulmonale; E87.1 Hypo-osmolality and hyponatremia; N13.30 Unspecified hydronephrosis; N17.9 Acute kidney failure, unspecified; C54.1 Malignant neoplasm of endometrium; R31.0 Gross hematuria; Z90.710 Acquired absence of both cervix and uterus; Z95.828 Presence of other vascular implants and grafts; I10 Essential (primary) hypertension; D72.829 Elevated white blood cell count, unspecified; K59.00 Constipation, unspecified; E87.5 Hyperkalemia; Z66 Do not resuscitate; Z85.42 Personal history of malignant neoplasm of other parts of uterus; D63.8 Anemia in other chronic diseases classified elsewhere; E11.9 Type 2 diabetes mellitus without complications; E78.5 Hyperlipidemia, unspecified; E83.42 Hypomagnesemia; E86.1 Hypovolemia; Z88.2 Allergy status to sulfonamides
CPT/HCPCS: 50431; 74018; 76700; 76857; 80048; 80053; 82248; 83690; 83735; 83930; 83935; 84300; 84443; 84484; 85025; 85027; 93005; 96360; 97110; 97116; 97163; 97167; 97530; 97535; 99284

== ENCOUNTER 2025-10-24 15:46 | Inpatient (IN) | payer MEDICARE, SELFPAY ==
[2025-10-24 12:35] VITALS: BP 124/81
[2025-10-24 13:00] VITALS: BP 101/64
[2025-10-24 13:54] LABS: Urine Character Cloudy (Clear)
[2025-10-24 14:00] VITALS: BP 107/68
[2025-10-24 14:01] LABS: Urine Squamous Cell 0-2 /LPF (Few)
[2025-10-24 14:03] LABS: Urine Red Blood Cell 80-90 /HPF (0-2); Urine White Cell 90-100 /HPF (0-5)
[2025-10-24 14:08] LABS: ALT (SGPT) 18 U/L (0-35); AST (SGOT) 33 U/L (14-36); Albumin 2.8 g/dl (3.5-5.0); Alkaline Phosphatase 103 U/L (38-126); Blood Urea Nitrogen 61 mg/dl (7-17); Calcium 8.1 mg/dl (8.4-10.2); Carbon Dioxide 23 mmol/L (22-30); Chloride 97 mmol/L (98-107); Glucose 92 mg/dl (70-99); Magnesium 2.2 mg/dl (1.6-2.3); Potassium 5.6 mmol/L (3.5-5.1); Sodium 128 mmol/L (135-145); Total Protein 5.9 g/dl (6.3-8.2); eGFR 26.69
[2025-10-24 14:15] LABS: Hematocrit 29.7 % (37.0-47.0); Hemoglobin 9.5 g/dL (12.0-16.0); Mean Corp Hgb Conc. 32.0 g/dL (33.0-37.0); Mean Corpuscular Volume 84.4 fL (81.0-99.0); Red Cell Dist. Width 17.3 % (11.5-14.5)
[2025-10-24 14:16] LABS: Absolute Neutrophils -Man Diff 15.4 10^3/uL (1.4-6.5); Normal RBC Morphology No; Platelets Checked Yes
[2025-10-24 14:17] LABS: Acanthocytes 1+; Anisocytosis Slight; Hypochromasia 1+; Ovalocytes 1+; Polychromasia 1+
[2025-10-24 14:18] LABS: Total Cells Counted 100
--- NOTE | 2025-10-24 14:44 | ED.GENMED ---
History of Present Illness
General
Chief Complaint: Catheter/Tube Problem
Source: patient and rn patient care
Time Seen by Provider: 10/24/25 13:13
History of Present Illness
History of Present Illness:
Note:
CHIEF COMPLAINT(S)
Weakness, leakage from nephrostomy tubes, abdominal pain.
HISTORY OF PRESENT ILLNESS
The patient is a 80-year-old female with a known history of ovarian cancer, who underwent an emergency hysterectomy on May 26. Post-operatively, she was recovering and performing gentle exercises but began experiencing pain, inability to eat or
sleep due to loss of taste from a prior COVID-19 infection. She presented to the emergency department with blocked ureters from pelvic tumors, requiring the placement of nephrostomy tubes bilaterally and a Brady catheter. The obstruction was related
to the tumor affecting her bladder and bowel. The patient has not yet commenced chemotherapy or radiation therapy and has experienced multiple health setbacks. She self-discharged from a previous facility due to unsatisfactory care, including
neglect of dressing changes and a lack of rehabilitation.
The patient returned to the emergency room today with her family due to increased weakness, anxiety, and observation of leaking from the nephrostomy tubes. Friends of hers state that at home, the patient struggled with significant weakness and
mobility issues, exacerbating her care needs. She reports ongoing abdominal soreness.
PAST MEDICAL AND SURGICAL HISTORY
Endometrial cancer, Emergency hysterectomy (May 26). Pulmonary embolism, SVT
ADDITIONAL HISTORY OBTAINED FROM SOURCES OTHER THAN THE PATIENT
Per the patients friend, the nephrostomy tube was observed to be leaking at home. Family members report the patients considerable weakness and mobility challenges.
CHRONIC MEDICAL CONDITIONS SIGNIFICANTLY AFFECTING CARE
Metastatic endometrial.
PHYSICAL EXAM
General: Alert, appearing frail, dry mucous membranes.
Skin: Warm, dry, bilateral nephrostomy tubes present, with the left one leaking slightly malodorous fluid.
Head: Normocephalic, atraumatic.
Eye Ears, nose, mouth and throat: Oral mucosa dry.
Cardiovascular: Regular heart rate and rhythm, no murmurs.
Respiratory: Non-labored respirations.
Gastrointestinal : Abdominal fullness in the lower abdomen with mild distension, no focal tenderness.
Musculoskeletal: Limited due to overall weakness.
Neurological: Alert, no focal motor deficits.
Psychiatric: Anxious but cooperative.
PROBLEM LIST
Acute: Weakness, Leakage from nephrostomy tubes, Abdominal soreness
Chronic: Ovarian cancer
PLAN
- Conduct laboratory tests to assess current health status.
- Ensure adequate hydration with ice chips for oral intake.
- Evaluate and renew nephrostomy tube dressings, particularly for the left side.
- Collect urine sample for analysis from the Brady catheter.
DIFFERENTIAL DIAGNOSIS
The Differential Diagnosis includes, in no particular order and is not limited to:
1. Disease progression of ovarian cancer
2. Urinary tract infection
3. Dehydration
4. Electrolyte imbalance
5. Infection at nephrostomy tube site
6. Anemia due to chronic illness
7. Hydronephrosis due to the blocked ureters
8. Post-surgical complication
9. Malnutrition
10. Anxiety disorder
Disposition:
SUMMARY OF ENCOUNTER
The patient is a 72-year-old female with a history of metastatic endometrial cancer with bilateral percutaneous nephrostomy tubes and has undergone a hysterectomy. She presented to the emergency department while waiting for chemotherapy and
radiation therapy. The ED workup revealed clinical signs of volume depletion. Her CBC showed a white count of 17,000, hemoglobin of 9.5, with 6% bands and a left shift, and 85% neutrophils. Electrolytes indicated hyponatremia with sodium at 128
mmol/L, potassium at 5.6 mmol/L, and renal function showing a creatinine level of 1.9 mg/dL with BUN at 61 mg/dL. A urinalysis showed 3+ leukocyte esterase and 9�100 WBCs per hpf with many bacteria, suggesting a urinary tract infection. Blood
cultures were ordered. She was treated with IV fluids and prepared for admission for further management and likely nephrostomy tube replacement, as she had previously discharged herself from a rehabilitation facility.
DISPOSITION
Admit
ASSESSMENT
Suspected urinary tract infection with associated pyelonephritis, volume depletion secondary to ongoing cancer treatment, possible acute kidney injury related to dehydration and infection.
PLAN
- Administer IV fluids to manage hydration status.
- Initiate antibiotics for suspected urinary tract infection based on urine and blood culture results.
- Consult with urology for nephrostomy tube evaluation and potential replacement.
- Monitor electrolytes, renal function, and blood counts.
- Encourage and plan for resumption of cancer treatment, including chemotherapy and radiation therapy.
INDEPENDENT REVIEW OF LABS AND INTERPRETATION OF TESTS
- My independent review of CBC indicates leukocytosis with a white count of 17,000 and hemoglobin at 9.5.
- My independent review of BMP shows hyponatremia with sodium at 128 mmol/L and elevated creatinine at 1.9 mg/dL, indicating possible acute kidney injury.
- My independent review of urinalysis suggests urinary tract infection with 3+ leukocyte esterase and 9�100 WBCs per hpf with many bacteria.
MEDICAL DECISION MAKING
-Complexity of Data Reviewed: Chronic conditions affecting care included metastatic endometrial cancer with bilateral nephrostomy tubes. Differential diagnosis included urinary tract infection, dehydration, electrolyte imbalance, anemia due to
chronic illness, post-surgical complication, and hydronephrosis.
-Data:
Category 1
- Clinical information was obtained from an independent historian with input from previous external facility records.
- Ordered blood cultures and evaluated lab results, including CBC and BMP, confirming leukocytosis, hyponatremia, and renal function impairment.
Category 2
- My independent interpretation of urinalysis confirms the suspicion of a urinary tract infection.
Category 3
- Discussion of management with urology for potential nephrostomy tube replacement given the patients previous self-discharge from rehabilitation.
-Risk:
- Consideration of Admission/Observation: Escalation of care including admission/observation was considered given the complexity and risk of the patients presenting complaint, exam findings, and their underlying comorbidities. The patient is
admitted for inpatient management, hydration, infection control, and ongoing evaluation.
DIAGNOSIS
- Dehydration (ICD-10: E86.0)
- Urinary tract infection, unspecified site (ICD-10: N39.0)
- Acute kidney injury, unspecified (ICD-10: N17.9)
- Hyponatremia (ICD-10: E87.1)
Past History
Past History
ED Past Medical History: HTN
ED Past Surgical History: None
Social History
Tobacco: Non-smoker
Phy Exam
Physical Exam
Physical Exam:
.
Course
Orders/Labs/Results
Orders:
Orders
10/24/25 13:44
Complete Blood Count/With Diff Urgent
Comprehensive Metabolic Panel Urgent
Magnesium Urgent
Manual Differential Urgent
Urinalysis Reflex To Culture Urgent
Date Specimen was Collected: 10/24/25
Time Specimen was Collected: 13:37
Urine Microscopic Reflex Cult Urgent
Urine Culture Urgent
MADI Source: U
Specimen Description:
Date Specimen was Collected: 10/24/25
Time Specimen was Collected: 13:37
10/24/25 14:40
0.9% Sodium Chloride 1000 ml [Nss] 1,000 ml IV BOLUS
10/24/25 14:45
Lactic Acid Q4H
Comment: CANCEL 2nd LACTIC ACID IF 1st LACTIC ACID IS LESS THAN 2
Blood Culture Q30M
MADI Source: Blood/Venous
Specimen Description:
10/24/25 15:15
Blood Culture Q30M
MADI Source: Blood/Venous
Specimen Description:
10/24/25 18:45
Lactic Acid Q4H
Comment: CANCEL 2nd LACTIC ACID IF 1st LACTIC ACID IS LESS THAN 2
Abnormal Lab Results
10/24/25
13:44
WBC 17.0 H 10^3/uL
(4.8-10.8)
RBC 3.52 L 10^6/uL
(4.20-5.40)
Hgb 9.5 L g/dL
(12.0-16.0)
Hct 29.7 L %
(37.0-47.0)
MCHC 32.0 L g/dL
(33.0-37.0)
RDW 17.3 H %
(11.5-14.5)
Abs Neuts (Manual) 15.4 H 10^3/uL
(1.4-6.5)
Segmented Neutrophils 85 H %
(42-75)
Band Neutrophils 6 H %
(0-3)
Lymphocytes (Manual) 3 L %
(20-51)
Sodium 128 L mmol/L
(135-145)
Potassium 5.6 H mmol/L
(3.5-5.1)
Chloride 97 L mmol/L
(98-107)
BUN 61 H mg/dl
(7-17)
Creatinine 1.9 H mg/dL
(0.6-1.0)
Calcium 8.1 L mg/dl
(8.4-10.2)
Total Protein 5.9 L g/dl
(6.3-8.2)
Albumin 2.8 L g/dl
(3.5-5.0)
Urine Ketones 1+ A
(Negative)
Ur Occult Blood Reflex 4+ A
(Negative)
Leukocyte Esterase Rfl 3+ A
(Negative)
Urine RBC 80-90 A /HPF
(0-2)
Urine WBC (Reflex) 90-100 A /HPF
(0-5)
Urine Bacteria (Reflex) Many A
(Negative)
Urine Albumin (Reflex) 3+ A
(Neg - Trace)
10/24/25 13:44
10/24/25 13:44
Vital Signs
Initial and Last Documented VS:
Initial Vital Signs
Temp Pulse Resp BP Pulse Ox
97.7 F 88 16 124/81 100
10/24/25 12:35 10/24/25 12:35 10/24/25 12:35 10/24/25 12:35 10/24/25 12:35
Last Documented Vital Signs
Temp Pulse Resp BP Pulse Ox
97.7 F 85 16 107/68 100
10/24/25 12:35 10/24/25 13:46 10/24/25 14:04 10/24/25 14:00 10/24/25 13:59
*Pulse Oximetry
SaO2: 100
Oxygen Mode of Delivery: Room air
Patient hypoxic: no
*Critical Care Note
Total Time (30-74mins, 75-104mins- exclusive of procedures): Not Applicable
ED Attending Note
-
Portions of this chart may have been created with voice recognition software.� Occasional wrong word or��sound alike� substitutions may have occurred due to the inherent limitations of voice recognition software.
Discharge Plan
Departure
Patient Disposition: Admit
Date of Disposition: 10/24/25
Time of Disposition: 14:47
Admit to: Telemetry
Presentation/result/management discussed w/ accepting MD/DO: Hospitalist
Discharge Problem:
Volume depletion, Urinary tract infection, Acute hyponatremia, Leaking nephrostomy tube
Prescriptions:
No Action
polyethylene glycol 3350 17 gram powder in packet
17 g PO DAILYPRN PRN (Reason: constipation)
amiodarone [Pacerone] 200 mg Tablet
400 mg PO BID 3 Days Qty: 12 0RF
Rx Instructions:
until 10/10, then 200 mg daily after 10/10
amiodarone [Pacerone] 200 mg Tablet
200 mg PO DAILY Qty: 30 0RF
Rx Instructions:
start after 10/10
metoprolol succinate 25 mg Tablet Extended Release 24 Hr
25 mg PO HS Qty: 30 0RF
Rx Instructions:
hold for SBP < 110
sennosides-docusate sodium [Senna Plus] 8.6-50 mg Tablet
1 tab PO BID Qty: 30 0RF
midodrine 5 mg Tablet
5 mg PO TID@0800,1300,1800 Qty: 90 0RF
(DME) BMP
See Rx Instructions .Route .MEDSUPPLY Qty: 1 0RF
Rx Instructions:
10/12- 10/16, result to PCP
# Postrenal ESTRELLA
Referrals:
Justine Kirby PA-C [Family Provider, Family Practice]
Interventions
Interventions:
*Risk Screen - Suicide Last Done: 10/24/25 12:37
*General Assessment Last Done: 10/24/25 12:37
*Neglect/Abuse Screening Last Done: 10/24/25 12:37
*ED- Fall Risk Assessment Last Done: 10/24/25 12:37
*ED COVID-19 Vaccine History Last Done: 10/24/25 12:37
*ED Influenza Vaccine History Last Done: 10/24/25 12:37
YX-Kovcrs-Kieqjnxdqw Assessment Last Done: 10/24/25 12:41
ED-Female Genitourinary Assessment Last Done: 10/24/25 12:37
Discharge Date and Time
Print Language: SAMI
[2025-10-24] MEDS: NSS 1000 IV ×2 (14:50→17:51)
[2025-10-24] MEDS: ROCEPHIN 1000 MG IV (14:51)
--- NOTE | 2025-10-24 14:54 | HPS.HSE ---
Addendum entered and electronically signed by Ella Araya MD 10/24/25 16:19:
This is an addendum to H&P written by Christel Hodges on 10/24/2025. �Patient seen and examined independently with [facility] [facility]IST.
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
embolism status post IVC filter on 09/23 not on anticoagulation, hyponatremia, SVT, presenting with fatigue, weakness and poor appetite and left nephrostomy tube site leakage.
She was recently admitted for hematuria and postrenal ESTRELLA secondary to bilateral hydronephrosis from metastatic endometrial cancer status post bilateral percutaneous nephrostomy tubes placed on 09/23. �During admission she was also found to have
small PE and IVC filter was placed so she could avoid anticoagulation. �She also had SVT at the time. �During admission left percutaneous nephrostomy tube was replaced due to malposition and right nephrostomy was capped. �Patient has Brady catheter.
Labs show leukocytosis of 17. �Stable anemia of 9.5. �Sodium 128. �Potassium 5.6. �Creatinine of 1.9. �Urinalysis shows 90-100 WBC, +3 leukocyte esterase, cloudy urine.
Patient with urinary tract infection, and leakage from around the left nephrostomy tube. �IV fluids, urine culture, ceftriaxone.
Patient continues to have persistent presumably postobstructive ESTRELLA, hyperkalemia unclear etiology as patient should have adequate flow through right ureter into Brady catheter and has draining left nephrostomy tube. �Low, dose to be given. �Urology
consulted. �IR consulted for adjustment of nephrostomy tube.
Original Note:
Family Physician
-
Family Physician: Justine Kirby
Chief Complaint
-
generalized weakness
poor appetite
nephrostomy tube leaking
History of Present Illness
80-year-old female with a known history of ovarian cancer, who underwent an emergency hysterectomy on May, poor appetite due to loss of taste from a prior COVID-19 infection. She was admitted here with blocked ureters from pelvic tumors,
requiring the placement of nephrostomy tubes bilaterally and a Brady catheter. The obstruction was related to the tumor affecting her bladder and bowel.patient was discharged to [facility].patient was not satisfied with the care that she was
receiving so left AMA yesterday. The patient returned to the emergency room today with her family due to increased weakness, fatigue. patient stated poor appetite. denied NIELSEN, fever, chills, chest pain, sob. she was noted to have leaking at the
nephrostomy tubes.she was complained of generalized body ache. denied abdominal pain,n,v,d.
Patient received a dose of ceftriaxone for UTI, normal saline in the ER. Admitted for further management.
Medical History
Past Medical History
Past Medical History: Reports Other
Additional Past Medical History:
hypertension, hyperlipidemia
Past Surgical History: Reports Other
Additional Past Surgical History:
Tonsillectomy, hysterectomy
Social History
Tobacco: Former Smoker
Alcohol: Former
Drug: None
Living: With Family
Family History
Family History: Not pertinent
Allergies / Home Medications
Allergies reflects when Allergies were last updated in [employer].
Home Medications with original date entered in [employer]
Allergy/Medication List:
Allergies
Allergy/AdvReac Type Severity Reaction Status Date / Time
Sulfa (Sulfonamide Allergy RASH/HIGH Verified 09/22/25 10:51
Antibiotics) TEMP
Home Medications
polyethylene glycol 3350 17 gram oral powder packet 17 g PO DAILYPRN PRN constipation 09/25/25
amiodarone 200 mg tablet (Pacerone) 200 mg PO DAILY #30 tabs 10/07/25
amiodarone 200 mg tablet (Pacerone) 400 mg (2 x 200 mg) PO BID 3 days #12 tabs 10/07/25
metoprolol succinate 25 mg tablet,extended release 24 hr 25 mg PO HS #30 tabs 10/07/25
midodrine 5 mg tablet 5 mg PO TID@0800,1300,1800 #90 tabs 10/07/25
sennosides 8.6 mg-docusate sodium 50 mg tablet (Senna Plus) 1 tab PO BID constipation #30 tabs 10/07/25
Review of Systems
-
Constitutional: Reports Fatigue
EENT: Reports No Symptoms
Respiratory: Reports No Symptoms
Cardiac: Reports No Symptoms
Abdomen/GI: Reports No Symptoms
: Reports Other (Leaking at the nephrostomy tube)
Musculoskeletal: Reports No Symptoms
Skin: Reports No Symptoms
Neurological: Reports Weakness
Endocrine: Reports No Symptoms
Hematologic/Lymphatic: Reports No Symptoms
Psych: Reports No Symptoms
Physical Exam
Vital Signs
Vital Signs
Temp Pulse Resp BP Pulse Ox
97.7 F 85 16 107/68 100
10/24/25 12:35 10/24/25 13:46 10/24/25 14:04 10/24/25 14:00 10/24/25 14:45
Physical Exam
General: Well Developed, Well Nourished and No Apparent Distress
HEENT: NormoCephalic, Moist mucous membranes and Atraumatic
Respiratory: Clear
Cardiac: S1/S2 and Regular Rhythm; No Murmur or Rub
GI: Soft, Non Tender, Non Distended and Normal Bowel Sounds; No Organomegaly
Rectal: Deferred by Provider
Genito-urinary: Brady (Dark urine) and Nephrostomy Tubes (Dark urine)
Musculoskeletal: No Clubbing, No Cyanosis and No Edema
Skin: No Rash
Neuro: AO x 3 and Nonfocal/grossly intact
Psych: Calm
Laboratory Results
-
10/24/25 13:44
10/24/25 13:44
Laboratory Results
Total Bilirubin 0.7 mg/dl (0.2-1.3) 10/24/25 13:44
AST 33 U/L (14-36) 10/24/25 13:44
ALT 18 U/L (0-35) 10/24/25 13:44
Alkaline Phosphatase 103 U/L (38-126) 10/24/25 13:44
Data Reviewed
-
Lab Data: Labs Reviewed by me
Impression/Plan
-
#UTI/leaking nephrostomy tube
#hxt of metastatic endometrial ca and bilateral nephrostomy tubes and Brady secondary to hydroureteronephrosis secondary to mass effect from metastatic endometrial cancer
#left PCN replaced due to malposition R PCH capped
--follows with [facility] Dr. Melgar
s/p total hysterectomy with Dr. Cárdenas 05/26/2025
- WBC 17.0
- IV ceftriaxone continued
- Tylenol as needed for fever or pain
- Blood culture and urine culture sent from ER
-Urology consulted
-IR consulted
# Anemia of chronic disease
-Hemoglobin stable at 9.5, no active bleeding
-Continue to monitor
# Hyponatremia/hyperkalemia/acute kidney injury secondary to hypovolemia
-Sodium 128, K5.6, creatinine 1.9
- Fluids continued
-lokelma in the ER.
- BMP in am
# History of SVT
-On amiodarone and Toprol
# Small PE
-without RH strain, in setting of acute cancer
-No DVT
-s/p IVC filter placement 09/23
# now hypotension
- Midodrine continued
#Code status: DNR
# DVT prophylaxis
-Heparin subcu
--- NOTE | 2025-10-24 14:58 | PHANOTE ---
MED REC NOTE- CALLED [facility] FOR MISSING PAPERWORK, AWAITING FAX
--- NOTE | 2025-10-24 16:07 | CM ---
Chart reviewed and spoke with patient and medical/financial POA Janay Harp at ED bedside
She was in [facility] recently and discharged to [facility] on 10/08
She 'took herself ' from [facility] 10/23 with no VN set up
Her friends called EMS today
Pt lives at [facility] with 1 [address]ANNA
bilateral nephrostomy tubes
PCP Dr. Justine Kirby
Pharmacy [facility] on [facility]
no hx of VN
SNF [facility] ( does NOT want to go back)
DCP is to go to SNF if PT agrees after medical clearance
CM will continue to follow pt for any dcp needs
[2025-10-24 17:30] VITALS: BP 111/69; BMI 24.4
--- NOTE | 2025-10-24 17:34 | PTCARENOTE ---
made Dr. Marshal Jaramillo aware of Brady leaking and her inability to move/lift legs and pain. oriented room and use of call bustillos, vss, will continue to monitor
--- NOTE | 2025-10-24 17:34 | PTCARENOTE ---
patient arrived to unit via stretcher from ER, reports b/l arch pain in feet 05/05 and hasn't been able to lift/move legs for past 2-3 days. turns with assist x2, b/l nephrostomy tubes with dark yellow purulent urine, dressings c/d/i, and #22 [place]ian
Brady draining dark tea, purulent colored urine. Brady leaking and deflated and reinflated balloon. vss, oriented to room and use of call bustillos, will continue to monitor.
[2025-10-24] MEDS: LOKELMA 5 GRAM PO (18:02)
--- NOTE | 2025-10-24 18:26 | PTCARENOTE ---
Made Dr. Leavitt aware of patient's Brady leaking upon admission at beside and let him know I deflated and reinflated balloon. He does not want to replace Brady at this time, expects leaking and will order Detrol for patient. will continue to
monitor.
--- NOTE | 2025-10-24 18:26 | CON.MD ---
Consultation - Medical
-
see dictated note
pt with large pelvic tumor- s/p reductive surgery may 2025
bladder and ureteral obstruction due to tumor- had berman and bilateral percs
at one time- left nephrostomy required repositioning and right nephrostomy was capped- berman remained in place
pt was at [facility]- but left several days ago
says berman recently changed
presented with weakness and leaking around left> right nephrostomy tubes
on exam- both nephrotomies are uncapped with clear/hesham urine
her berman is draining- although since admit- has had leakage around cath
she reports she has not been able to get any oncology follow up since her original surgery (has seen dr garcia in the past)
urologically- not much else to offer
I did speak with IR- they will perform bilateral nephrostograms tomorrow- but would plan to leave both tubes to bag drainage for now
leave berman- with leak expected- will order detrol
likely needs restaging and oncology eval/goals of care review
Consultation
-
Date/Time Consultation Requested: 10/24/25 at 3pm
Date/Time Consultation Performed: 10/24/25 at 6pm
Requesting Provider: ER
Performing Provider: DR Leavitt
Reason for Consultation: nephrostomy tubes
[2025-10-24] MEDS: TYLENOL 650 MG PO (18:44)
[2025-10-24 20:23] VITALS: BP 88/59
[2025-10-24] MEDS: SENOKOT-S PO ×2 (20:26→20:35)
[2025-10-24] MEDS: HEPARIN 5000 UNITS SC (20:26)
[2025-10-24] MEDS: MELATONIN 3 MG PO (21:46)
[2025-10-24] MEDS: TOPROL XL PO (21:47)
[2025-10-24 23:34] VITALS: BP 101/59
[2025-10-25] VITALS (7 sets, daily range): BP systolic 99–130; BP diastolic 59–71; PULSE 83–86; O2SAT 96; BMI 24.4
[2025-10-25] MEDS: TYLENOL 650 MG PO ×3 (01:17→18:00)
[2025-10-25 05:40] LABS: Hematocrit 26.6 % (37.0-47.0); Hemoglobin 8.6 g/dL (12.0-16.0); Mean Corp Hgb Conc. 32.3 g/dL (33.0-37.0); Mean Corpuscular Volume 85.0 fL (81.0-99.0); Platelet Count 380 10^3/uL (130-400); Red Cell Dist. Width 17.0 % (11.5-14.5)
[2025-10-25 06:11] LABS: Blood Urea Nitrogen 58 mg/dl (7-17); Calcium 7.9 mg/dl (8.4-10.2); Carbon Dioxide 22 mmol/L (22-30); Chloride 101 mmol/L (98-107); Estimated Creatinine Clearance 22 ml/min; Glucose 71 mg/dl (70-99); Potassium 5.2 mmol/L (3.5-5.1); Sodium 129 mmol/L (135-145); eGFR 25.10
[2025-10-25] MEDS: NSS 1000 IV ×2 (06:13→13:30)
--- NOTE | 2025-10-25 07:04 | W.PN.URO.CBU ---
Today's Communication / Plan
-
continue berman and nephrostomy tubes
detrol for bladder spams/leak
tube check today with IR
Assessment / Plan
-
pelvic malignancy
ureteral obstruction and hx of urinary retention
pt stable
for tube check today
dinesh-cath leak expected given hx- will exchange cath in next 24-48 hrs and may discuss voiding trial at some point
pt prob needs repeat staging and oncology eval
Diagnosis
-
Date of Service: October 25, 2025
-
Patient Diagnosis:
pelvic malignancy
ureteral and bladder obstruction
Subjective
-
pt looks better this am- more alert
urine hesham from all tubes
no reported leak around nephrostomies- continues to have some bladder spams and leak from berman
Objective
-
Vital Signs
Temp Pulse Resp BP Pulse Ox
98.5 F 82 18 99/59 99
10/25/25 03:55 10/25/25 03:55 10/25/25 03:55 10/25/25 03:55 10/25/25 03:55
Intake and Output
10/24/25 10/25/25 10/26/25
06:59 06:59 06:59
Output Total 460 / 460
Balance -460 / -460
Output:
Urinary Drain Output (Total) 160 / 160
Left Nephrostomy 150 / 150
Right Nephrostomy 10
Urine, Berman 300 / 300
Laboratory Results
10/25/25 05:12
10/25/25 05:12
Physical Exam
-
General - chronically ill appearing, no acute distress
Abdomen - distended/nontender
Genitalia - berman in place
[2025-10-25] MEDS: PACERONE 200 MG PO (08:14)
[2025-10-25] MEDS: HEPARIN 5000 UNITS SC ×2 (08:15→21:12)
[2025-10-25] MEDS: DETROL LA 4 MG PO (08:15)
[2025-10-25] MEDS: SENOKOT-S PO ×2 (08:17→21:12)
--- NOTE | 2025-10-25 08:24 | W.PN.HOSP.TC ---
Today's Communication/Plan
-
Escalate ceftriaxone to meropenem
Follow-up blood cultures
Plan for IR PCN intervention
ID consult
PRN oxy
Assessment / Plan
Assessment / Plan
#CAUTI
#ESBL E. coli bacteremia
#Left nephrostomy tube leak
- Presented with PCN leak, UA with pyuria/leukocyte esterase/many bacteria
- Urine and blood cultures obtained, started on IV ceftriaxone empirically at 1 g
- Blood cultures x 2 prelim results positive for GNR's, came back ESBL E. coli
- Urology and IR consulted; urology started Detrol for spasm/leak; IR to see for tube adjustment
- Start IV meropenem 1 g now and 500 mg every 12 hours thereafter for renal dosing
- Trend CBC and temperature curve, monitor urine output
- Infectious disease consulted
#Hypovolemic hyponatremia
#Hyperkalemia
- Appears subacute to chronic, low sodium and high potassium for the last 1 month
- Suspect this is due to renal insufficiency as well as poor intake
- Not currently on any potassium sparing agents or diuretics
- Started on maintenance IVF with mild improvement
- Continue IVF and trend BMP
#Metastatic endometrial cancer with bladder metastasis
#Chronic renal insufficiency due to obstructive uropathy
#S/P bilateral PCN
- Status post reductive surgery with total abdominal hysterectomy in 05/2025
- Patient is not excepted traditional chemoradiation, has been relying on holistic approach
- Very poor prognosis, reassess GOC either here versus in office with oncologist
#Anemia of chronic disease
- Due to renal insufficiency and metastatic cancer; hemoglobin baseline near 9-10
- Hemoglobin here 8.6, some mild bleeding in urine though no other sources identified
- Will continue to trend CBC, provide supportive transfusions if needed for hemoglobin <7
#Chronic leukocytosis
- Likely associated with cancer, WBC has been in the range of 9.5-17 since May
- Continue to trend CBC and temperature curve on IV ceftriaxone as above for UTI
#Supraventricular tachycardia
- Likely due to chronic illness from metastatic cancer as well as her recent PE
- On last hospital stay was started on amiodarone load and metoprolol XL 25 mg nightly
- Heart rate currently WNL, continue to monitor on telemetry
#Low risk PE s/p IVC filter
- Recent diagnosis on hospital stay earlier this month, provoked by underlying malignancy
- Poor candidate for long-term anticoagulation for IVC filter was placed instead
- Would need IVC filter removal within 1 to 2 years of placement if she survives to that time
#Chronic hypotension
#Hypoalbuminemia
- Likely due to poor intake, degree of third spacing with hypoalbuminemia
- Home regimen includes chronic midodrine 5 mg 3 times
- Blood pressure currently stable, consider increasing midodrine if needed
Diet: Regular
DVT: SQ heparin
Code: DNR
Dispo: Home when medically stable
Discussed with infectious disease
Anticipated Discharge: > 48 hours
Subjective/Interval History
-
Date of Service: October 25, 2025
Seen and examined at the bedside. No acute events reported overnight. AFVSS this morning
Blood cultures x 2 prelim with GNR's, final sensitivities with ESBL E. coli.
Denies any new complaints as of this morning
Objective Data
-
Labs:
Laboratory Results
10/25/25
05:12
WBC 13.0 H
Hgb 8.6 L
Hct 26.6 L
Plt Count 380
Sodium 129 L
Potassium 5.2 H
Chloride 101
Carbon Dioxide 22
BUN 58 H
Creatinine 2.0 H
Glucose 71
Calcium 7.9 L
Vital Signs:
Vital Signs
Temp Pulse Resp BP Pulse Ox
97.9 F 86 18 109/66 98
10/25/25 07:40 10/25/25 08:14 10/25/25 07:40 10/25/25 08:14 10/25/25 07:40
I&O
10/24/25 10/25/25 10/26/25
06:59 06:59 06:59
Output Total 460 / 460
Balance -460 / -460
Review of Systems
-
History Source: Patient
All other systems: Reviewed and negative
Physical Exam
-
General: Well Developed, Well Nourished, No Apparent Distress and Appears Chronically Ill
HEENT: Normocephalic, Atraumatic, Moist Mucous Membranes, Anicteric and PERRLA
Respiratory: Clear to Auscultation and Non Labored Respirations; Negative Accessory Resp Muscle Use
Cardiac: Regular Rhythm and S1/S2; Negative Murmur, Rub or Gallop
GI: Soft, Nontender, Nondistended and Normal Bowel Sounds
Genito-urinary: Turbid Urine and Nephrostomy Tubes
Musculoskeletal: No Clubbing, No Cyanosis and No Edema
Skin: Warm and Dry; Negative Rash
Neuro: AO x 3, Nonfocal/Grossly Intact and Central Nerve's Intact; Negative Tremors
Psych: Calm
Data Reviewed
-
Labs: Labs Reviewed by me, Discussed with Physician and Discussed with Patient
--- NOTE | 2025-10-25 08:36 | PTCARENOTE ---
Lab informed this RN of critical value, positive blood cx in progress, made aware.
--- NOTE | 2025-10-25 10:16 | PTCARENOTE ---
Lab informed this RN of critical blood cx result, result= positive ESBL. MD made aware. Request for private room placed. Charge nurse made aware.
--- NOTE | 2025-10-25 11:07 | CON.ID ---
Consultation
-
Date/Time Consultation Requested: 10/25/2025 1020
Date/Time Consultation Performed: 10/25/2025 1107
Requesting Provider: Dr. Tracy
Performing Provider: Dr. Valdez
Reason for Consultation: Bacteremia
Chief Complaint / Past History
History of Present Illness
Eun Rhodes is a 80-year-old female being evaluated at the request of Dr. Tracy in regards to bacteremia. History is obtained from chart review, patient interview.
The patient has a significant past medical history of endometrial carcinoma diagnosed in late April 2025. In early May she underwent a lap hysterectomy, and was discharged to home, but presented approximately 1 week later secondary to abdominal
pain and suspected duodenitis. Thereafter she was again discharged to home, but presented to the ER secondary to abdominal discomfort, and at this point was found to have urinary retention and bilateral hydroureteronephrosis. Bilateral PCNs were
placed, along with a an IVC filter for a discovered PE. She was discharged on 09/25, but returned approximately an hour later secondary to SVT. Thereafter, she was hospitalized through 10/08 and then discharged to [facility]. She reports that she
self discharged from [facility] several days ago to go home, but over the interim she developed progressive weakness and she found it difficult to care for herself. Additionally, she found herself to be leaking around her bilateral PCN tubes. At
presentation she was found to have marked leukocytosis, and blood cultures obtained in the ER are now positive for ESBL E. coli. Infectious Diseases is asked to comment on further antimicrobial therapy.
At this time she notes ongoing weakness. She denies any fevers or chills prior to admission. She notes diffuse and nonlocalizing body discomfort which she states is 7/10. She notes that she has had a Brady in place for the past month, but it was
changed last week.
Past History
Additional Past Medical History:
Endometrial carcinoma
HTN
HLD
Additional Past Surgical History:
Tonsillectomy
Hysterectomy (05/26/2025)
Allergy History:
Sulfa (Sulfonamide Antibiotics) Allergy (Verified 10/24/25 18:17)
RASH/HIGH TEMP
Medications Reviewed: Yes
Current Antibiotics:
Meropenem
Social History
Tobacco: Former Smoker
Alcohol: Occasional
Drug: None
Living: With Family
Employment: Retired
Family History
Family History: Not Pertinent
Review of Systems
Vital Signs
Temp Pulse Resp BP Pulse Ox
97.3 F 83 18 130/63 98
10/25/25 11:00 10/25/25 11:00 10/25/25 11:00 10/25/25 11:00 10/25/25 11:00
Physical Exam
Physical Exam
Constitutional: No Acute Distress, Comfortable, Chronically Ill and Cachetic (Moderate/severe)
Eyes: Pupils Equal, Pupils Round, No Conjunctival Hemorrhage and Sclera Anicteric
Oral: No Thrush and No Ulcers
Cardiovascular: Regular Rate and S1/S2; Negative S3/S4
Pulmonary: Clear; Negative Wheezes, Rales or Rhonchi
Gastrointestinal: Soft, Non Tender and Non Distended
Genito-Urinary: Brady, Clear Urine and Other (Bilateral PCNs with yellow urine; no purulence)
Extremities: Edema (2+ bilateral lower extremities)
Skin: Warm and Dry; Negative Rash or Jaundice
Neurological: Awake and Alert
Psychological: Calm
Lab / Diagnostic Study Results
10/25/25 05:12
10/25/25 05:12
Total Counted 100 10/24/25 13:44
Abs Neuts (Manual) 15.4 10^3/uL (1.4-6.5) H 10/24/25 13:44
Segmented Neutrophils 85 % (42-75) H 10/24/25 13:44
Band Neutrophils 6 % (0-3) H 10/24/25 13:44
Lymphocytes (Manual) 3 % (20-51) L 10/24/25 13:44
Lactic Acid Cancelled 10/24/25 18:45
Ur Squamous Epith Cells 0-2 /LPF (Few) 10/24/25 13:44
Microbiology Results
Micro:
10/24/25 13:44 Urine Culture - Preliminary
Urine Gram negative bacilli
10/24/25 14:45 Blood Culture - Preliminary
Blood/Venous Escherichia coli - ESBL (by PCR methodology)
Gram Stain - Final
10/24/25 14:50 Blood Culture - Preliminary
Blood/Venous Positive culture in progress
Gram Stain - Preliminary
10/25/25 01:28 MRSA Screen - Pending
Nose
Assessment / Plan
Complicated urinary tract infection
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
ESBL E. coli bacteremia
Leukocytosis
ESTRELLA on CKD
Hx endometrial carcinoma
HTN
HLD
Recommendations:
ESBL E. coli identified by PCR methodology on admission blood cultures. Isolate found to be positive for CTX�M resistance gene indicating likely ESBL presence.
Continue with meropenem 500 mg IV q.12 hours.
Monitor white count and temperature curve.
Await PCN tube check.
Follow for clinical improvement.
Await final sensitivity data.
Care Review
Plan reviewed with: Physician (Hospitalist)
[2025-10-25] MEDS: MERREM 1000 MG IV (11:20)
[2025-10-25] MEDS: STERILE WATER FOR INJECTION 20 ML IV (11:21)
--- NOTE | 2025-10-25 18:10 | PTCARENOTE ---
Moderate drainage observed from L neph tube site. Small amount of drainage from indwelling catheter. Scant amount observed from R neph tube site.
[2025-10-25] MEDS: TOPROL XL 25 MG PO (21:13)
[2025-10-25] MEDS: MELATONIN 3 MG PO (21:13)
[2025-10-25] MEDS: MERREM 100 MG IV (23:33)
[2025-10-26] VITALS (9 sets, daily range): BP systolic 71–124; BP diastolic 53–75
[2025-10-26] MEDS: NSS 1000 IV (02:30)
[2025-10-26 05:45] LABS: Hematocrit 27.9 % (37.0-47.0); Hemoglobin 8.8 g/dL (12.0-16.0); Mean Corp Hgb Conc. 31.5 g/dL (33.0-37.0); Mean Corpuscular Volume 86.4 fL (81.0-99.0); Platelet Count 406 10^3/uL (130-400); Red Cell Dist. Width 17.1 % (11.5-14.5)
[2025-10-26] MEDS: TYLENOL 650 MG PO ×3 (06:02→20:39)
[2025-10-26 06:44] LABS: Blood Urea Nitrogen 53 mg/dl (7-17); Calcium 7.9 mg/dl (8.4-10.2); Carbon Dioxide 22 mmol/L (22-30); Chloride 102 mmol/L (98-107); Estimated Creatinine Clearance 26 ml/min; Glucose 68 mg/dl (70-99); Magnesium 2.0 mg/dl (1.6-2.3); Potassium 4.7 mmol/L (3.5-5.1); Sodium 130 mmol/L (135-145); eGFR 30.50
--- NOTE | 2025-10-26 08:15 | W.PN.HOSP.TC ---
Today's Communication/Plan
-
Nephrostomy tube exchange
Continue with IV antibiotics, observe culture sensitivities
Oncology consult
Assessment / Plan
Assessment / Plan
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
presented with concerns of increased weakness, anxiety, leakage from left nephrostomy tube site.
#CAUTI
#ESBL E. coli bacteremia
#Left nephrostomy tube leak
- Presented with L PCN leak, UA with pyuria/leukocyte esterase/many bacteria
- Blood Cx x 2 (10/24) -- ESBL, sensitivities pending
- Urine Cx (10/24) -- ESBL
- ID following; currently on IV meropenem pending sensitivities
- IR consulted
- IR to see for tube adjustment
- CT abdomen pelvis showing bilateral nephrostomy tubes in appropriate place
- Tubes to be exchanged today 10/26
- Urology consulted
- Detrol for spasm/leak
- Trend CBC and temperature curve, monitor urine output
#Hypovolemic hyponatremia
#Hyperkalemia
- Appears subacute to chronic, low sodium and high potassium for the last 1 month
- Suspect this is due to renal insufficiency as well as poor intake
- Not currently on any potassium sparing agents or diuretics
- Started on maintenance IVF with mild improvement
- Continue IVF and trend BMP
#Metastatic endometrial cancer with bladder metastasis
#Chronic renal insufficiency due to obstructive uropathy
#S/P bilateral PCN
- S/p reductive surgery with total abdominal hysterectomy in 05/2025
- Patient has not accepted traditional chemoradiation, has been relying on holistic approach
- Oncology consulted for evaluation and goals of care planning, patient states she follows with Dr. Melgar
#Anemia of chronic disease
- Due to renal insufficiency and metastatic cancer; hemoglobin baseline near 9-10
- Hemoglobin here 8.6, some mild bleeding in urine though no other sources identified
- Will continue to trend CBC, provide supportive transfusions if needed for hemoglobin <7
#Chronic leukocytosis
- Likely associated with cancer, WBC has been in the range of 9.5-17 since May
- Continue to trend CBC and temperature curve on IV antibiotics as above for UTI
#Supraventricular tachycardia
- Likely due to chronic illness from metastatic cancer as well as her recent PE
- On last hospital stay was started on amiodarone load and metoprolol XL 25 mg nightly
- Continue with amiodarone 200 mg daily and metoprolol XL 25 mg
- Heart rate currently WNL, continue to monitor on telemetry
#Low risk PE s/p IVC filter
- Recent diagnosis on hospital stay earlier this month, provoked by underlying malignancy
- Poor candidate for long-term anticoagulation for IVC filter was placed instead
- Would need IVC filter removal within 1 to 2 years of placement if she survives to that time
#Chronic hypotension
#Hypoalbuminemia
- Likely due to poor intake, degree of third spacing with hypoalbuminemia
- Home regimen includes chronic midodrine 5 mg TID
- Blood pressure currently stable
- Continue to monitor blood pressure and consider increasing midodrine if needed
Diet: Regular
DVT: SQ heparin
Code: DNR
Anticipated Discharge: 24 - 48 hours
Subjective/Interval History
-
Date of Service: October 26, 2025
No acute overnight events. pt still having leakage from L nephrostomy site and Brady. Pain well managed. no other acute complaints.
Objective Data
-
Labs:
Laboratory Results
10/26/25
05:30
WBC 12.9 H
Hgb 8.8 L
Hct 27.9 L
Plt Count 406 H
Sodium 130 L
Potassium 4.7
Chloride 102
Carbon Dioxide 22
BUN 53 H
Creatinine 1.7 H
Glucose 68 L
Calcium 7.9 L
Vital Signs:
Vital Signs
Temp Pulse Resp BP Pulse Ox
97.6 F 68 18 90/57 100
10/26/25 07:30 10/26/25 07:30 10/26/25 07:30 10/26/25 07:30 10/26/25 07:30
I&O
10/25/25 10/26/25 10/27/25
06:59 06:59 06:59
Intake Total 1440 / 1440
Output Total 460 / 460 645 / 645
Balance -460 / -460 795 / 795
Review of Systems
-
History Source: Patient
Constitutional: Reports No Symptoms
EENT: Reports No Symptoms Reported
Respiratory: Reports No Symptoms
Cardiac: Reports No Symptoms
Abdomen/GI: Reports Abdominal Pain; Denies Nausea, Vomiting or Diarrhea
Genitourinary: Reports No Symptoms
Musculoskeletal: Reports No Symptoms
Skin: Reports No Symptoms
Neuro: Reports No Symptoms
Physical Exam
-
General: Well Developed, Well Nourished, No Apparent Distress, Comfortable and Appears Chronically Ill
HEENT: Normocephalic, Atraumatic, Moist Mucous Membranes, Anicteric, [place] Conjunctivae, PERRLA, Nose Appears Normal and Ears Appear Normal
Respiratory: Clear to Auscultation; Negative Wheezes, Rales or Rhonchi
Cardiac: Regular Rhythm and S1/S2; Negative Murmur
GI: Tender and Flat; Negative Nondistended
Rectal: Deferred by Provider
Genito-urinary: Brady (with blood-tinged urine) and Other (BL nephrostomy tubes with clear urine present)
Musculoskeletal: No Clubbing, No Cyanosis and No Edema
Skin: IV Access / Catheter Site
Neuro: AO x 3 and Nonfocal/Grossly Intact
Psych: Calm
[2025-10-26] MEDS: PACERONE 200 MG PO (08:58)
[2025-10-26] MEDS: HEPARIN 5000 UNITS SC ×2 (08:58→20:35)
[2025-10-26] MEDS: DETROL LA 4 MG PO (08:58)
[2025-10-26] MEDS: ROXICODONE 5 MG PO ×3 (09:08→22:31)
[2025-10-26] MEDS: SENOKOT-S PO ×2 (09:09→20:35)
--- NOTE | 2025-10-26 12:00 | PTCARENOTE ---
Received pt from IR via stretcher. Bilateral nephrostomy tubes drainage blood tinged, IR informed this RN that is normal after tube manipulation.
[2025-10-26] MEDS: MERREM 100 MG IV ×2 (12:08→22:27)
--- NOTE | 2025-10-26 12:57 | WOUNDNOTE ---
[facility] RN note: Patient admitted with UTI, leaking nephrostomy tube L side. Patient left [facility] and was home for 1 day prior to admission.
See H&P for complete history.
PMH: metastatic endometrial cancer to bladder, bilateral hydroureter nephrosis. bilateral percutaneous nephrostomy tubes 06/23/25, PE s/p IVC filter 09/23/25, SVT, weakness, poor po, L nephrostomy tube leakage, Brady, R nephrostomy capped.
Wound Location and type/assessment: Patient admitted with: Unstageable sacral/buttocks pressure injuries, pink and purple appearance. Heels blanchable red. +Anasarca.
Appetite: poor. Ate 30% for breakfast.
Pressure redistribution devices in place: Static air overlay.
Plan: Sacral silicone border foam changed. Sacral shaped silicone border foam applied on top for more padding. Patient turned to R semi side lying position with help from returns clerk Jamie. Heels off bed with pillow. Air chair cushion given.
Will confirm orders with Dr. Hess and updated LISETH Jameson.
Care plan to be updated and will follow as needed.
Note to case management of equipment requested for discharge: Hospital bed with air mattress.
Follow up with wound home care coordinator.
--- NOTE | 2025-10-26 13:00 | WOUNDNOTE ---
[facility] RN note: Patient admitted with UTI, leaking nephrostomy tube L side. Patient left [facility] and was home for 1 day prior to admission.
See H&P for complete history.
PMH: metastatic endometrial cancer to bladder, bilateral hydroureter nephrosis. bilateral percutaneous nephrostomy tubes 06/23/25, PE s/p IVC filter 09/23/25, SVT, weakness, poor po, L nephrostomy tube leakage, Brady, R nephrostomy capped.
Wound Location and type/assessment: Patient admitted with: Unstageable sacral/buttocks pressure injuries, pink and purple appearance. Heels blanchable red. +Anasarca.
Appetite: poor. Ate 30% for breakfast.
Pressure redistribution devices in place: Static air overlay.
Plan: Sacral silicone border foam changed. Sacral shaped silicone border foam applied on top for more padding. Patient turned to R semi side lying position with help from release and technical records clerk Jamie. Heels off bed with pillow. Patient at high risk for
worsening or additional skin breakdown despite preventative measures in place d/t overall poor medical condition, poor po intake.
Will confirm orders with Dr. Kulkarni and updated RN Gisell.
Care plan to be updated and will follow as needed.
Note to case management of equipment requested for discharge: Hospital bed with air mattress.
Follow up with wound career development manager as appropriate.
--- NOTE | 2025-10-26 13:10 | WOUNDNOTE ---
WOC RN note: t/c Spoke with ELIN Pineda re: recommend an air mattress when patient discharged. She has a sacral pressure injury. Dr. Kulkarni approved local wound care, air mattress or air overlay mattress orders.
--- NOTE | 2025-10-26 13:19 | CM ---
Spoke with JULIO Gustafson she said pt does npt want to return to [facility] .
PT T indicate SNF .
Reviewed PT OT evals with JULIO. She requested [facility]
referral placed in care port.
Wound care spec recommended air mattress at SNF . request placed in care port.
PLAN Awaiting SNF acceptance
--- NOTE | 2025-10-26 15:08 | W.PN.UPDATE ---
Update Note
Progress Note Update
I saw and evaluated the patient with the resident.
A/P:
# CAUTI
# ESBL E. coli bacteremia
# Left nephrostomy tube leak
Presented with PCN leak,
CT AP showed Bilateral nephrostomy tubes which appear appropriately positioned.
s/p tube change by IR- resident finding out details from IR
Cont Brady, last changed was a week [employer] per patient.
Cont current Merrem for ESBL bacteremia, ID on board
# BL LE edema
Hold further IVF
IV lasix 20 mg x1, closely monitor SCr
Consider further judicious use of IV Lasix
# Hypervolemic hyponatremia
# Hyperkalemia
Monitor Sodium level, today at 130
Hyperkalemia resolved
# Metastatic endometrial cancer with bladder metastasis
# Chronic renal insufficiency due to obstructive uropathy
# S/P bilateral PCN
Status post reductive surgery with total abdominal hysterectomy in 05/2025
Patient is not excepted traditional chemoradiation, has been relying on holistic approach
Very poor prognosis, Onc CS for prognostication. May need to consider GOC discussion
# Anemia of chronic disease
# Chronic leukocytosis, likely associated with cancer
# Supraventricular tachycardia, stable
Cont [employer] amiodarone and metoprolol XL 25 mg nightly
# Low risk PE s/p IVC filter
Recent diagnosis on hospital stay earlier this month, provoked by underlying malignancy
Poor candidate for long-term anticoagulation in setting of gross hematuria, hence IVC filter was placed instead
Would need IVC filter removal within 1 to 2 years of placement if she survives to that time
# Chronic hypotension
# Hypoalbuminemia
Likely due to poor intake, degree of third spacing with hypoalbuminemia
Home regimen includes chronic midodrine 5 mg 3 times
Blood pressure currently stable, consider increasing midodrine if needed
[2025-10-26] MEDS: LASIX 20 MG IV (16:05)
[2025-10-26] MEDS: NSS IV (16:05)
--- NOTE | 2025-10-26 16:43 | WOUNDNOTE ---
WOC RN note: nanette texted nurse Gisell and requested she place an air chair cushion in patient's room can use for positioning along with pillow/s.
--- NOTE | 2025-10-26 20:46 | PTCARENOTE ---
Pt. wants to wait till the morning to brush teeth.
--- NOTE | 2025-10-26 20:49 | PTCARENOTE ---
Pt. wants to brush teeth in the morning.
--- NOTE | 2025-10-26 22:14 | CON.ONC ---
Consultation
-
Date Consultation Requested: 10/26/25
Date Consultation Performed: 10/26/25
Requesting Provider: Pablo Kulkarni MD
Performing Provider: Sandrine Fox MD
Reason for Consultation: Uterine carcinosarcinoma
Impression
Impression
Uterine carcinosarcoma, locally advanced
B/l hydronephrosis with b/l nephrostomy tubes
Hx PE s/p IVC filter placement
Cancer related pain
Cancer related cachexia
Plan
Plan
Current PS precludes cytotoxic chemotherapy.
Await recovery of PS through rehab
Given her debilitated state and recent ambivalence about systemic therapy, hospice would also be reasonable.
Thank you for consult, will follow along with you.
Patient History
History of Present Illness
80 yo woman known to Dr. Melgar from outpt setting. She is s/p robotic assisted tumor cytoreduction including total laparoscopic hysterectomy, bilateral salpingo-oophorectomy, partial omentectomy, excision of multiple peritoneal surfaces pelvic
washings on 05/26/25. 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 She was not felt to have had an R0 resection and she was recommended to undergo treatment with paclitaxel,
carboplatin and dostarlimab. She ultimately refused in favor of seeking an alternative approach. This care has not yet been established. She developed urinaryretenion an b/l hydroureteronephrosis not long after the surgey. She underwent
placement of b/l PCN and an IVC filter for incidentally noted PE. The filter was recommended due to bleeding. She was recently at [facility] for rehab but signed herself out. She quickly developed progressive weakness and she found it difficult to
care for herself. Additionally, she found herself to be leaking around her bilateral PCN tubes. At presentation she was found to have marked leukocytosis, and blood cultures obtained in the ER are now positive for ESBL E. coli. At this time she
notes ongoing weakness. She is now amenable to considering systemic therapy as previously recommended but acknowledges that she is likely too weak to tolerate it.
Past-Medical/Surgical History
Past Medical History:
Hypertension, hyperlipidemia, uterine carcinosarcoma, ovarian cancer
Past Surgical History:
Tonsillectomy, hysterectomy
Social History
Tobacco: Former Smoker
Alcohol: Former
Drug: None
Living: With Family
Family History
Family History: Not pertinent
Patient Medication
�Medication �Instructions �Recorded �Confirmed �Last Taken �Type
polyethylene glycol 3350 17 gram 17 g PO DAILYPRN PRN constipation 09/25/25 10/24/25 09/21/25 History
oral powder packet
amiodarone 200 mg tablet (Pacerone) 200 mg PO DAILY #30 tabs 10/07/25 10/24/25 Unknown Rx
metoprolol succinate 25 mg 25 mg PO HS #30 tabs 10/07/25 10/24/25 Unknown Rx
tablet,extended release 24 hr
midodrine 5 mg tablet 5 mg PO TID@0800,1300,1800 #90 tabs 10/07/25 10/24/25 Unknown Rx
sennosides 8.6 mg-docusate sodium 1 tab PO BID constipation #30 tabs 10/07/25 10/24/25 09/22/25 Rx
50 mg tablet (Senna Plus)
Active Medications
Generic Name Dose Route Start Last Admin
Trade Name Freq PRN Reason Stop Dose Admin
Acetaminophen 650 mg 10/24/25 16:59 10/26/25 20:39
Acetaminophen 325 Mg Tablet PO 11/21/25 16:58 650 mg
Q4HPRN PRN Administration
mild pain/NIELSEN/temp> 100.4F
Amiodarone HCl 200 mg 10/25/25 08:00 10/26/25 08:58
Amiodarone 200 Mg Tablet PO 11/22/25 07:59 200 mg
DAILY CHELI Administration
Bisacodyl 10 mg 10/24/25 16:59
Bisacodyl 10 Mg Rectal Suppository RECTAL 11/21/25 16:58
[id number] PRN
constipation
Heparin Sodium 5,000 units 10/24/25 20:00 10/26/25 20:35
Heparin 5,000 Units/Ml 1 Ml Vial SC 11/21/25 19:59 5,000 units
Q12 CHELI Administration
Meropenem 500 mg/ Sodium 100 mls @ 200 mls/hr 10/25/25 23:00 10/26/25 12:08
Chloride IV 10/27/25 23:00 100 mls
Q12H CHELI Administration
Melatonin 3 mg 10/24/25 22:00 10/25/25 21:13
Melatonin 3 Mg Tablet PO 11/21/25 21:59 3 mg
HS CHELI Administration
Meropenem 500 mg 10/28/25 08:00
Meropenem 500 Mg/10 Ml Vial IV
BID CHELI
Metoprolol Succinate 25 mg 10/24/25 22:00 10/25/25 21:13
Metoprolol 25 Mg Extended Release Tablet PO 11/21/25 21:59 25 mg
HS CHELI Administration
Midodrine 5 mg 10/24/25 18:00 10/26/25 17:17
Midodrine 5 Mg Tablet PO 11/21/25 17:59 5 mg
TID@0800,1300,1800 CHELI Administration
Oxycodone HCl 2.5 mg 10/25/25 10:45
Oxycodone 5 Mg Regular Release Tablet PO 11/08/25 10:44
Q4HPRN PRN
moderate pain
Oxycodone HCl 5 mg 10/25/25 10:46 10/26/25 17:17
Oxycodone 5 Mg Regular Release Tablet PO 11/08/25 10:45 5 mg
Q4HPRN PRN Administration
severe pain
Polyethylene Glycol 17 grams 10/24/25 16:59
Polyethylene Glycol Powder 17 Grams Packet PO 11/21/25 16:58
DAILYPRN PRN
constipation
Senna/Docusate Sodium 1 tablet 10/24/25 20:00 10/26/25 20:35
Docusate W/Senna (Martha-Colace) Tablet PO 11/21/25 19:59 Not Given
BID CHELI
Senna/Docusate Sodium 1 tablet 10/24/25 16:59
Docusate W/Senna (Martha-Colace) Tablet PO 11/21/25 16:58
BIDPRN PRN
constipation
Sodium Chloride 0 flush 10/25/25 11:00
Sodium Chloride 0.9% (Flush) Syringe IV 11/22/25 10:59
PER PROTOCOL CHELI
Sterile Water 10 ml 10/28/25 08:00
Sterile Water For Injection 10 Ml Vial IV 11/25/25 07:59
BID CHELI
Tolterodine Tartrate 4 mg 10/25/25 08:00 10/26/25 08:58
Tolterodine 4 Mg Extended Release Capsule PO 11/22/25 07:59 4 mg
DAILY CHELI Administration
Physical Exam
-
Appears cachectic and chronically ill but not acutely toxic
Labs
Lab Results
WBC 12.9 10^3/uL (4.8-10.8) H 10/26/25 05:30
RBC 3.23 10^6/uL (4.20-5.40) L 10/26/25 05:30
Hgb 8.8 g/dL (12.0-16.0) L 10/26/25 05:30
Hct 27.9 % (37.0-47.0) L 10/26/25 05:30
MCV 86.4 fL (81.0-99.0) 10/26/25 05:30
MCH 27.2 pg (27.0-31.0) 10/26/25 05:30
MCHC 31.5 g/dL (33.0-37.0) L 10/26/25 05:30
RDW 17.1 % (11.5-14.5) H 10/26/25 05:30
Plt Count 406 10^3/uL (130-400) H 10/26/25 05:30
MPV 9.8 fL (7.4-10.4) 10/26/25 05:30
Creatinine 1.7 mg/dL (0.6-1.0) H 10/26/25 05:30
Vital Signs
Vital Signs
Temp Pulse Resp BP Pulse Ox
98.1 F 75 16 97/58 96
10/26/25 19:00 10/26/25 19:00 10/26/25 19:00 10/26/25 19:00 10/26/25 19:00
[2025-10-26] MEDS: MELATONIN 3 MG PO (22:22)
[2025-10-26] MEDS: TOPROL XL PO (22:27)
[2025-10-27] VITALS (7 sets, daily range): BP systolic 103–124; BP diastolic 64–75; PULSE 95; O2SAT 98
[2025-10-27] MEDS: ROXICODONE 5 MG PO ×3 (05:39→20:05)
--- NOTE | 2025-10-27 07:14 | PTCARENOTE ---
Pt berman leaking, carie saturated. Pt refused to be changed.
[2025-10-27] MEDS: DETROL LA 4 MG PO (08:11)
[2025-10-27] MEDS: SENOKOT-S PO ×2 (08:11→20:00)
--- NOTE | 2025-10-27 08:12 | W.PN.HOSP.TC ---
Addendum entered and electronically signed by Eli Snowden MD 10/27/25 18:18:
I saw and evaluated the patient independently. I reviewed the resident�s note and agree with findings and plan as documented by Dr. Kulkarni.
GENERAL: chronically ill appearing female in no apparent distress
HEENT: NC/AT
HEART: regular rate and rhythm, +S1, +S2
LUNGS : clear to auscultation bilaterally
ABDOM: soft, nontender, nondistended, + bowel sounds
EXT: no cyanosis, clubbing, or edema
NEUROLOGIC: grossly intact
: berman cath and bilateral nephrostomy tubes
CAUTI with ESBL E. coli bacteremia and Left nephrostomy tube leak--apprec urology, oncology, IR--not much to do, had nephrostomy tubes changed 10/26--apprec ID, cont ertapenem daily IV through 11/04/25--pt under the impression that she is staying
here until IV abx are finished, told her that is not feasible and that she would need SNF--- Blood Cx x 2 (10/24) -- ESBL, sensitivities pending--need repeat blood cultures to prove clearance- CT abdomen pelvis showing bilateral nephrostomy tubes in
appropriate place- ultimately planning for d/c to SNF with IV Abx/Midline to complete course of abx
Metastatic endometrial cancer with bladder metastasis/Clear Cell Carcinoma of Ovary/Chronic renal insufficiency due to obstructive uropathy, secondary to mets/S/P bilateral PCN--apprec onc--performance status precludes chemo--pt asking about
hospice--will consult for information if pt desires-- S/p reductive surgery with total abdominal hysterectomy in 05/2025
Anemia of chronic disease- Due to renal insufficiency and metastatic cancer; hemoglobin baseline near 9-10- Hemoglobin here 8.6, some mild bleeding in urine though no other sources identified- Will continue to trend CBC, provide supportive
transfusions if needed for hemoglobin <7
Hypovolemic hyponatremia/Hyperkalemia- Appears subacute to chronic, low sodium and high potassium for the last 1 month- Suspect this is due to renal insufficiency as well as poor intake- Not currently on any potassium sparing agents or diuretics-
Started on maintenance IVF with mild improvement- Continue IVF and trend BMP
Chronic leukocytosis- Likely associated with cancer, WBC has been in the range of 9.5-17 since May- Continue to trend CBC and temperature curve on IV antibiotics as above for UTI
Supraventricular tachycardia- Likely due to chronic illness from metastatic cancer as well as her recent PE- Continue with amiodarone 200 mg daily and metoprolol XL 25 mg
Low risk PE s/p IVC filter- Recent diagnosis on hospital stay earlier this month, provoked by underlying malignancy- Poor candidate for long-term anticoagulation for IVC filter was placed instead- Would need IVC filter removal within 1 to 2 years of
placement if she survives to that time
Chronic hypotension/Hypoalbuminemia- Likely due to poor intake, degree of third spacing with hypoalbuminemia- Home regimen includes chronic midodrine 5 mg TID
DVT proph-- SQ heparin
Code status-- DNR
Original Note:
Today's Communication/Plan
-
Midline placement for tomorrow
auths pending for SNF
will d/c with Ertapenem to complete course through to 11/04
Will discuss hospice placement as op following SNF
Assessment / Plan
Assessment / Plan
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
presented with concerns of increased weakness, anxiety, leakage from left nephrostomy tube site.
#CAUTI
#ESBL E. coli bacteremia
#Left nephrostomy tube leak
- Presented with L PCN leak, UA with pyuria/leukocyte esterase/many bacteria
- Blood Cx x 2 (10/24) -- ESBL, sensitivities pending
- Urine Cx (10/24) -- ESBL
- ID following; switch to IV Ertapenem through to 11/04
- IR consulted
- CT abdomen pelvis showing bilateral nephrostomy tubes in appropriate place
- Tubes successfully exchanged 10/26
- Urology consulted
- Detrol for spasm/leak
- Trend CBC and temperature curve, monitor urine output
- ultimately planning for d/c to SNF with IV Abx/Midline to complete course of abx
#Metastatic endometrial cancer with bladder metastasis
#Clear Cell Carcinoma of Ovary
#Chronic renal insufficiency due to obstructive uropathy, secondary to mets
#S/P bilateral PCN
- S/p reductive surgery with total abdominal hysterectomy in 05/2025
- soon after sx she developed urinary retentions and b/l hydroureteronephrosis with subsequent b/l PCNs, which have been chronic since
- Patient did not proceed with chemoradiation initially, planned for holistic tx, however she did not yet begin this due to acute decompensation following sx
- Oncology Following:
- pt PS excludes her from systemic therapy at this time, though pt is agreeable; pt also hospice appropriate
- pt considering hospice transition as op following SNF
#Anemia of chronic disease
- Due to renal insufficiency and metastatic cancer; hemoglobin baseline near 9-10
- Hemoglobin here 8.6, some mild bleeding in urine though no other sources identified
- Will continue to trend CBC, provide supportive transfusions if needed for hemoglobin <7
#Hypovolemic hyponatremia
#Hyperkalemia
- Appears subacute to chronic, low sodium and high potassium for the last 1 month
- Suspect this is due to renal insufficiency as well as poor intake
- Not currently on any potassium sparing agents or diuretics
- Started on maintenance IVF with mild improvement
- Continue IVF and trend BMP
#Chronic leukocytosis
- Likely associated with cancer, WBC has been in the range of 9.5-17 since May
- Continue to trend CBC and temperature curve on IV antibiotics as above for UTI
#Supraventricular tachycardia
- Likely due to chronic illness from metastatic cancer as well as her recent PE
- On last hospital stay was started on amiodarone load and metoprolol XL 25 mg nightly
- Continue with amiodarone 200 mg daily and metoprolol XL 25 mg
- Heart rate currently WNL, continue to monitor on telemetry
#Low risk PE s/p IVC filter
- Recent diagnosis on hospital stay earlier this month, provoked by underlying malignancy
- Poor candidate for long-term anticoagulation for IVC filter was placed instead
- Would need IVC filter removal within 1 to 2 years of placement if she survives to that time
#Chronic hypotension
#Hypoalbuminemia
- Likely due to poor intake, degree of third spacing with hypoalbuminemia
- Home regimen includes chronic midodrine 5 mg TID
- Blood pressure currently stable
- Continue to monitor blood pressure and consider increasing midodrine if needed
Diet: Regular
DVT: SQ heparin
Code: DNR
Anticipated Discharge: 24 - 48 hours
Subjective/Interval History
-
Date of Service: October 27, 2025
no acute events overnight. pt has no new leakage from nephrostomy tubes. continued leakage from berman, though this is unchanged from prior. Pt had episode of hypoglycemia which responded to juice. She complains of diffuse weakness, but now sob, cp,
palpitations, nausea, vomiting, fevers, chills. Her appetite is decreased.
Objective Data
-
Labs:
Laboratory Results
10/27/25
07:36
WBC Pending
Hgb Pending
Hct Pending
Plt Count Pending
Sodium Pending
Potassium Pending
Chloride Pending
Carbon Dioxide Pending
BUN Pending
Creatinine Pending
Glucose Pending
Calcium Pending
Vital Signs:
Vital Signs
Temp Pulse Resp BP Pulse Ox
97.8 F 70 16 124/67 97
10/27/25 03:00 10/27/25 03:00 10/27/25 03:00 10/27/25 03:00 10/27/25 03:00
I&O
10/26/25 10/27/25 10/28/25
06:59 06:59 06:59
Intake Total 1440 / 1440 840 / 840
Output Total 645 / 645 675 / 675
Balance 795 / 795 165 / 165
Review of Systems
-
History Source: Patient
All other systems: Reviewed and negative
Constitutional: Reports No Symptoms
EENT: Reports No Symptoms Reported
Respiratory: Reports No Symptoms
Cardiac: Reports No Symptoms
Abdomen/GI: Reports Abdominal Pain and Anorexia; Denies Nausea, Vomiting, Diarrhea, Constipated or Bloody Stools
Genitourinary: Reports Other (leakage from Berman catheter)
Musculoskeletal: Reports No Symptoms
Skin: Reports No Symptoms
Neuro: Reports No Symptoms
Endocrine: Reports No Symptoms
Hematologic / Lymphatic: Reports No Symptoms
Allergy / Immunology: Reports No Symptoms
Physical Exam
-
General: No Apparent Distress, Comfortable and Appears Chronically Ill
HEENT: Normocephalic, Atraumatic, Moist Mucous Membranes, Anicteric, [place] Conjunctivae, No Ptosis, PERRLA, Nose Appears Normal and Ears Appear Normal
Respiratory: Clear to Auscultation and Non Labored Respirations; Negative Wheezes, Rales or Rhonchi
Cardiac: Regular Rhythm and S1/S2; Negative Murmur
GI: Nondistended, Normal Bowel Sounds, Tender and Flat
Rectal: Deferred by Provider
Genito-urinary: Bloody Urine, Berman and Nephrostomy Tubes (bl PCN tubes with clear urine and no leakage)
Musculoskeletal: No Clubbing, No Cyanosis, Edema, Right Lower Extrem and Edema, Left Lower Extrem
Skin: Warm, Dry and IV Access / Catheter Site
Neuro: AO x 3
Psych: Calm and Intact Judgement/Insight
[2025-10-27] MEDS: PACERONE 200 MG PO (08:16)
[2025-10-27] MEDS: HEPARIN 5000 UNITS SC ×2 (08:16→20:05)
[2025-10-27 09:24] LABS: Hematocrit 29.7 % (37.0-47.0); Hemoglobin 9.5 g/dL (12.0-16.0); Mean Corp Hgb Conc. 32.0 g/dL (33.0-37.0); Mean Corpuscular Volume 86.8 fL (81.0-99.0); Platelet Count 494 10^3/uL (130-400); Red Cell Dist. Width 17.4 % (11.5-14.5)
[2025-10-27 09:58] LABS: Blood Urea Nitrogen 52 mg/dl (7-17); Calcium 7.9 mg/dl (8.4-10.2); Carbon Dioxide 24 mmol/L (22-30); Chloride 101 mmol/L (98-107); Estimated Creatinine Clearance 27 ml/min; Glucose 54 mg/dl (70-99); Potassium 4.7 mmol/L (3.5-5.1); Sodium 129 mmol/L (135-145); eGFR 32.81
[2025-10-27 10:02] LABS: Glucose - Point of Care 64 mg/dl (70-99)
[2025-10-27 10:19] LABS: Glucose - Point of Care 71 mg/dl (70-99)
[2025-10-27] MEDS: MERREM 100 MG IV ×2 (12:16→22:51)
--- NOTE | 2025-10-27 12:39 | W.PN.ID1 ---
Date of Service
Date of Service: October 27, 2025
Today's Communication
Continue abx. See below.
Assessment / Plan
Complicated urinary tract infection
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
ESBL E. coli bacteremia
Leukocytosis
ESTRELLA on CKD
Hx endometrial carcinoma
HTN
HLD
Recommendations:
Continue abx.
Will change meropenem to ertapenam for ease of dosing.
Monitor white count and temperature curve.
Follow for clinical improvement.
Would continue abx through 11/04. Isolate is sensitive to cipro, but use of amiodarone likely precludes it's use, thuse will need to remain on ertapenem.
Chief Complaint
-: UTI and Bacteremia
Subjective / Review of Systems
Review of Systems: No Fever and No Chills
Vital Signs / Physical Exam
Vital Signs
Vital Signs
Temp Pulse Resp BP Pulse Ox
97.4 F 81 16 111/68 99
10/27/25 11:30 10/27/25 12:15 10/27/25 11:30 10/27/25 12:15 10/27/25 11:30
Physical Exam
Constitutional: No Acute Distress, Comfortable and Cachetic
Head: Normocephalic
Eyes: Sclera Anicteric
Cardiovascular: S1/S2; Negative S3/S4
Pulmonary: Non Labored
Gastrointestinal: Soft, Tender (mild, diffuse) and Normal Bowel Sounds
Genito-Urinary: Other (B/L PCN in place with clear urine)
Extremities: Negative Edema, Cyanosis or Erythema
Neurological: Awake and Alert
Psychological: Calm
Objective Data
Lab Data
Lab Results
10/27/25 07:36
10/27/25 07:36
Estimated Creat Clear 27 ml/min 10/27/25 07:36
Lactic Acid Cancelled 10/24/25 18:45
Total Bilirubin 0.7 mg/dl (0.2-1.3) 10/24/25 13:44
AST 33 U/L (14-36) 10/24/25 13:44
ALT 18 U/L (0-35) 10/24/25 13:44
Alkaline Phosphatase 103 U/L (38-126) 10/24/25 13:44
Most recent labs reviewed.
Micro Results:
10/24/25 14:50 Blood Culture - Preliminary
Blood/Venous Escherichia coli - ESBL
Gram Stain - Preliminary
10/24/25 14:45 Blood Culture - Final
Blood/Venous Escherichia coli - ESBL
Gram Stain - Final
10/24/25 13:44 Urine Culture - Final
Urine Escherichia coli - ESBL
10/25/25 01:28 MRSA Screen - Final
Nose No Methicillin Resistant Staphylococcus aureus isolated.
Imaging:
10/26/2025 CT Abd/pel Without Iv Or Oral: Bilateral nephrostomy tubes which appear appropriately positioned. There is mild residual right-sided caliectasis, similar to prior. Large heterogeneous pelvic mass with associated mass effect in the
pelvis and lower abdomen which is overall similar in appearance to prior. Mild colonic stool burden. Small right pleural effusion with adjacent atelectasis.
--- NOTE | 2025-10-27 16:57 | CM ---
Patient seen at bedside with physicians. Patient would like to go to [facility] and complete her IV therapy and then work on her next steps including 24 hour care givers. CM will call to patient friend, delvin to review plan. Delvin requested to have
physician to call her to review medical plan to update her. CM will continue to follow for discharge planning needs.
Plan; [facility] pending medical treatment plan
--- NOTE | 2025-10-27 17:42 | W.PN.URO.CBU ---
Today's Communication / Plan
-
no gu changes
Assessment / Plan
-
pelvic malignancy
ureteral obstruction and hx of urinary retention
pt stable
for tube check today
dinesh-cath leak expected given hx- will exchange cath in next 24-48 hrs and may discuss voiding trial at some point
pt prob needs repeat staging and oncology eval
Diagnosis
-
Date of Service: October 27, 2025
-
Patient Diagnosis:
Post Op Day:
Patient Diagnosis:
pelvic malignancy
ureteral and bladder obstruction
Subjective
-
weaker by the day
Objective
-
Vital Signs
Temp Pulse Resp BP Pulse Ox
97.5 F 101 16 110/75 99
10/27/25 16:00 10/27/25 17:08 10/27/25 16:00 10/27/25 17:08 10/27/25 16:00
Intake and Output
10/26/25 10/27/25 10/28/25
06:59 06:59 06:59
Intake Total 1440 / 1440 840 / 840
Output Total 645 / 645 675 / 675
Balance 795 / 795 165 / 165
Intake:
Oral fluids 1440 / 1440 840 / 840
Output:
Urinary Drain Output (Total) 220 / 220 400 / 400
Left Nephrostomy 200 / 200 150 / 150
Right Nephrostomy 20 / 20 250 / 250
Urine, Brady 425 / 425 275 / 275
Other:
How many times incontinent 1
SATURATED amount urine
Laboratory Results
10/27/25 07:36
10/27/25 07:36
Review of Systems
-
: Incontinence and Difficulty Voiding
Physical Exam
-
General - well developed, well nourished, no acute distress
Chest - clear bilaterally
Abdomen - soft, non-tender, positive bowel sounds, no CVAT, no incisional pain or distention
Genitalia - normal
Rectal - normal
Skin - warm & dry with no rash
Neuro - AOx3, no motor deficits
Extremities - no clubbing, no cyanosis, no edema
Incision - clean, dry
Dressing - clean, dry, intact
Care Review
Data Reviewed
Discussed with: Nursing
CT Scan: Image Pers Reviewed
[2025-10-27] MEDS: XANAX 0.25 MG PO (21:27)
--- NOTE | 2025-10-27 21:52 | PTCARENOTE ---
Pt. wants to wait for morning.
[2025-10-27] MEDS: MELATONIN 3 MG PO (22:41)
[2025-10-27] MEDS: TOPROL XL PO (22:41)
[2025-10-28] MEDS: ROXICODONE 5 MG PO (05:45)
[2025-10-28 05:50] LABS: Hematocrit 28.8 % (37.0-47.0); Hemoglobin 8.8 g/dL (12.0-16.0); Mean Corp Hgb Conc. 30.6 g/dL (33.0-37.0); Mean Corpuscular Volume 90.3 fL (81.0-99.0); Platelet Count 508 10^3/uL (130-400); Red Cell Dist. Width 17.3 % (11.5-14.5)
[2025-10-28 06:23] LABS: Blood Urea Nitrogen 51 mg/dl (7-17); Calcium 8.1 mg/dl (8.4-10.2); Carbon Dioxide 24 mmol/L (22-30); Chloride 101 mmol/L (98-107); Estimated Creatinine Clearance 27 ml/min; Glucose 65 mg/dl (70-99); Potassium 4.7 mmol/L (3.5-5.1); Sodium 130 mmol/L (135-145); eGFR 32.81
[2025-10-28 07:00] VITALS: BP 100/65
--- NOTE | 2025-10-28 07:56 | W.PN.HOSP.TC ---
Addendum entered and electronically signed by Eli Snowden MD 10/28/25 13:10:
I saw and evaluated the patient independently. I reviewed the resident�s note and agree with findings and plan as documented by Dr. Kulkarni.
GENERAL: chronically ill appearing female in no apparent distress, upset that someone told her she is dying
HEENT: NC/AT
HEART: regular rate and rhythm, +S1, +S2
LUNGS : clear to auscultation bilaterally
ABDOM: soft, nontender, nondistended, + bowel sounds
EXT: no cyanosis, clubbing, or edema
NEUROLOGIC: grossly intact
: berman cath and bilateral nephrostomy tubes
CAUTI with ESBL E. coli bacteremia and Left nephrostomy tube leak--apprec urology, oncology, IR--not much to do, had nephrostomy tubes changed 10/26--apprec ID, cont ertapenem daily IV through 11/04/25--pt under the impression that she is staying
here until IV abx are finished, told her that is not feasible and that she would need SNF--- Blood Cx x 2 (10/24)--need repeat blood cultures to prove clearance- CT abdomen pelvis showing bilateral nephrostomy tubes in appropriate place- ultimately
planning for d/c to SNF with IV Abx/Midline to complete course of abx
Metastatic endometrial cancer with bladder metastasis/Clear Cell Carcinoma of Ovary/Chronic renal insufficiency due to obstructive uropathy, secondary to mets/S/P bilateral PCN--apprec onc--performance status precludes chemo--pt asking about
hospice--will consult for information if pt desires-- S/p reductive surgery with total abdominal hysterectomy in 05/2025
Anemia of chronic disease- Due to renal insufficiency and metastatic cancer; hemoglobin baseline near 9-10- Hemoglobin here 8.6, some mild bleeding in urine though no other sources identified- Will continue to trend CBC, provide supportive
transfusions if needed for hemoglobin <7
Hypovolemic hyponatremia/Hyperkalemia- Appears subacute to chronic, low sodium and high potassium for the last 1 month- Suspect this is due to renal insufficiency as well as poor intake- Not currently on any potassium sparing agents or diuretics-
Started on maintenance IVF with mild improvement- Continue IVF and trend BMP
hypoglycemia--from poor PO intake along with large cancer burden--start IVF with dextrose
ESTRELLA on CKD stage 3--again, likely prerenal from poor PO intake along with chronic obstruction requiring bilateral nephrostomy tubes AND berman--cont IVF and follow creat
Chronic leukocytosis- Likely associated with cancer, WBC has been in the range of 9.5-17 since May- Continue to trend CBC and temperature curve on IV antibiotics as above for UTI
Supraventricular tachycardia- Likely due to chronic illness from metastatic cancer as well as her recent PE- Continue with amiodarone 200 mg daily and metoprolol XL 25 mg
Low risk PE s/p IVC filter- Recent diagnosis on hospital stay earlier this month, provoked by underlying malignancy- Poor candidate for long-term anticoagulation for IVC filter was placed instead- Would need IVC filter removal within 1 to 2 years of
placement if she survives to that time
Chronic hypotension/Hypoalbuminemia- Likely due to poor intake, degree of third spacing with hypoalbuminemia- Home regimen includes chronic midodrine 5 mg TID
wound POA--unstageable sacral pressure injury--apprec wound care
DVT proph-- SQ heparin
Code status-- DNR
pt interested to meet with hospice at least for info when her friend Janay is visiting
Original Note:
Today's Communication/Plan
-
c/w IV Abx
hospice vs. SNF discussion
will add IVF, encourage PO
Assessment / Plan
Assessment / Plan
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
presented with concerns of increased weakness, anxiety, leakage from left nephrostomy tube site.
#CAUTI
#ESBL E. coli bacteremia
#Left nephrostomy tube leak
- Presented with L PCN leak, UA with pyuria/leukocyte esterase/many bacteria
- Blood Cx x 2 (10/24) -- ESBL, sensitivities pending
- Urine Cx (10/24) -- ESBL
- ID following; switch to IV Ertapenem through to 11/04
- IR consulted
- CT abdomen pelvis showing bilateral nephrostomy tubes in appropriate place
- Tubes successfully exchanged 10/26
- Urology consulted
- Detrol for spasm/leak
- Trend CBC and temperature curve, monitor urine output
- d/c to SNF with IV Abx/Midline to complete course of abx vs. hospice
- will continue IV Abx for now pending dispo planning, will d/c if hospice is decided
#Metastatic endometrial cancer with bladder metastasis
#Clear Cell Carcinoma of Ovary
#Chronic renal insufficiency due to obstructive uropathy, secondary to mets
#S/P bilateral PCN
- S/p reductive surgery with total abdominal hysterectomy in 05/2025
- soon after sx she developed urinary retentions and b/l hydroureteronephrosis with subsequent b/l PCNs, which have been chronic since
- Patient did not proceed with chemoradiation initially, planned for holistic tx, however she did not yet begin this due to acute decompensation following sx
- Oncology Following:
- pt PS excludes her from systemic therapy at this time, though pt is agreeable; pt also hospice appropriate
- pt considering hospice transition as op following SNF
#Anxiety
She has been experiencing restlessness/anxiety related to coping with her prognosis, says she has been taking Xanax at home as needed recently for same
- can give 0.25mg prn for anxiety
- observe for signs of AMS given BZDs in elderly
#Intermittent Hypoglycemia
Patient having low morning glucose, likely related to low oral intake/cancer associated anorexia
- not on any antihyperglycemic agents
- patient chronically fatigued, no overt signs of sympathetic response to hypoglycemia
- will start on some IVF D5 80cc/hr
- continue to encourage PO intake
#Anemia of chronic disease
- Due to renal insufficiency and metastatic cancer; hemoglobin baseline near 9-10
- Hemoglobin here 8.6, some mild bleeding in urine though no other sources identified
- Will continue to trend CBC, provide supportive transfusions if needed for hemoglobin <7
#Hypovolemic hyponatremia
#Hyperkalemia
- Appears subacute to chronic, low sodium and high potassium for the last 1 month
- Suspect this is due to renal insufficiency as well as poor intake
- Not currently on any potassium sparing agents or diuretics
- Started on maintenance IVF with mild improvement
- Continue IVF and trend BMP
#Chronic leukocytosis
- Likely associated with cancer, WBC has been in the range of 9.5-17 since May
- Continue to trend CBC and temperature curve on IV antibiotics as above for UTI
#Supraventricular tachycardia
- Likely due to chronic illness from metastatic cancer as well as her recent PE
- On last hospital stay was started on amiodarone load and metoprolol XL 25 mg nightly
- Continue with amiodarone 200 mg daily and metoprolol XL 25 mg
- Heart rate currently WNL, continue to monitor on telemetry
#Low risk PE s/p IVC filter
- Recent diagnosis on hospital stay earlier this month, provoked by underlying malignancy
- Poor candidate for long-term anticoagulation for IVC filter was placed instead
- Would need IVC filter removal within 1 to 2 years of placement if she survives to that time
#Chronic hypotension
#Hypoalbuminemia
- Likely due to poor intake, degree of third spacing with hypoalbuminemia
- Home regimen includes chronic midodrine 5 mg TID
- Blood pressure currently stable
- Continue to monitor blood pressure and consider increasing midodrine if needed
Diet: Regular
DVT: SQ heparin
Code: DNR
Anticipated Discharge: 24 - 48 hours
Subjective/Interval History
-
Date of Service: October 28, 2025
pt complaining of agitation/anxiety regarding prognosis and worsening cancer. She has also been having episodes of hypoglycemia, however she remains with little appetite and consumes little by mouth. There has been no leakage from the BL PCN or from
the Berman overnight.
Objective Data
-
Labs:
Laboratory Results
10/28/25
05:21
WBC 13.2 H
Hgb 8.8 L
Hct 28.8 L
Plt Count 508 H
Sodium 130 L
Potassium 4.7
Chloride 101
Carbon Dioxide 24
BUN 51 H
Creatinine 1.6 H
Glucose 65 L
Calcium 8.1 L
Vital Signs:
Vital Signs
Temp Pulse Resp BP Pulse Ox
97.8 F 83 16 103/68 99
10/27/25 23:00 10/27/25 23:00 10/27/25 23:00 10/27/25 23:00 10/27/25 23:00
I&O
10/27/25 10/28/25 10/29/25
06:59 06:59 06:59
Intake Total 840 / 840 3000 / 3000
Output Total 675 / 675 660 / 660
Balance 165 / 165 2340 / 2340
Review of Systems
-
History Source: Patient
All other systems: Reviewed and negative
Constitutional: Reports No Appetite, Fatigue and Weakness
EENT: Reports No Symptoms Reported
Respiratory: Reports No Symptoms
Cardiac: Reports No Symptoms
Abdomen/GI: Reports Abdominal Pain; Denies Nausea, Vomiting, Diarrhea, Constipated or Bloody Stools
Genitourinary: Reports No Symptoms
Musculoskeletal: Reports Muscle Weakness
Skin: Reports No Symptoms
Neuro: Reports No Symptoms
Endocrine: Reports No Symptoms
Hematologic / Lymphatic: Reports No Symptoms
Allergy / Immunology: Reports No Symptoms
Psych: Reports Sad and Anxious
Physical Exam
-
General: Pain and Appears Chronically Ill
HEENT: Normocephalic, Atraumatic, [place] Conjunctivae, PERRLA, Nose Appears Normal and Ears Appear Normal; Negative Moist Mucous Membranes (dry mucous membranes)
Respiratory: Clear to Auscultation and Non Labored Respirations; Negative Wheezes, Rales or Rhonchi
Cardiac: Regular Rhythm and S1/S2; Negative Murmur
GI: Nondistended, Tender and Flat
Genito-urinary: Berman and Nephrostomy Tubes
Musculoskeletal: No Clubbing, No Cyanosis, Edema, Right Lower Extrem and Edema, Left Lower Extrem
Skin: Warm and Dry
Neuro: AO x 3 and Nonfocal/Grossly Intact
Psych: Depressed
[2025-10-28] MEDS: PACERONE 200 MG PO (08:33)
[2025-10-28] MEDS: XANAX 0.25 MG PO ×2 (08:33→21:34)
[2025-10-28] MEDS: MERREM 500 MG IV (08:35)
[2025-10-28] MEDS: STERILE WATER FOR INJECTION 10 ML IV (08:36)
[2025-10-28] MEDS: DETROL LA 4 MG PO (08:37)
[2025-10-28] MEDS: HEPARIN 5000 UNITS SC ×2 (08:37→21:36)
[2025-10-28] MEDS: SENOKOT-S PO ×2 (08:37→21:34)
[2025-10-28] MEDS: D5/0.45%NACL 1000 IV ×2 (08:49→21:10)
--- NOTE | 2025-10-28 11:09 | W.PN.ID1 ---
Date of Service
Date of Service: October 28, 2025
Today's Communication
Continue antibiotics.
Assessment / Plan
Complicated urinary tract infection
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
ESBL E. coli bacteremia
Leukocytosis
ESTRELLA on CKD
Hx endometrial carcinoma
HTN
HLD
Recommendations:
Continue ertapenem.
Monitor white count and temperature curve.
Follow for clinical improvement.
Would continue abx through 11/04. Isolate is sensitive to cipro, but use of amiodarone likely precludes it's use, thuse will need to remain on ertapenem.
Goals of care discussions ongoing.
����������������������������������������������������������
Chief Complaint
-: UTI and Bacteremia
Subjective / Review of Systems
Review of Systems: No Fever and No Chills
Vital Signs / Physical Exam
Vital Signs
Vital Signs
Temp Pulse Resp BP Pulse Ox
97.6 F 88 18 100/65 99
10/28/25 07:00 10/28/25 08:33 10/28/25 07:00 10/28/25 07:00 10/28/25 07:45
Physical Exam
Constitutional: No Acute Distress, Comfortable and Cachetic
Head: Normocephalic
Eyes: Sclera Anicteric
Cardiovascular: S1/S2; Negative S3/S4
Pulmonary: Non Labored
Gastrointestinal: Soft, Tender (mild, diffuse) and Normal Bowel Sounds
Genito-Urinary: Brady, Clear Urine and Other (B/L PCN in place with clear urine)
Extremities: Negative Edema, Cyanosis or Erythema
Neurological: Awake and Alert
Psychological: Calm
Objective Data
Lab Data
Lab Results
10/28/25 05:21
10/28/25 05:21
Estimated Creat Clear 27 ml/min 10/28/25 05:21
Lactic Acid Cancelled 10/24/25 18:45
Total Bilirubin 0.7 mg/dl (0.2-1.3) 10/24/25 13:44
AST 33 U/L (14-36) 10/24/25 13:44
ALT 18 U/L (0-35) 10/24/25 13:44
Alkaline Phosphatase 103 U/L (38-126) 10/24/25 13:44
Most recent labs reviewed.
Micro Results:
10/24/25 14:50 Blood Culture - Preliminary
Blood/Venous Escherichia coli - ESBL
Gram Stain - Preliminary
10/24/25 14:45 Blood Culture - Final
Blood/Venous Escherichia coli - ESBL
Gram Stain - Final
10/24/25 13:44 Urine Culture - Final
Urine Escherichia coli - ESBL
10/25/25 01:28 MRSA Screen - Final
Nose No Methicillin Resistant Staphylococcus aureus isolated.
Imaging:
10/26/2025 CT Abd/pel Without Iv Or Oral: Bilateral nephrostomy tubes which appear appropriately positioned. There is mild residual right-sided caliectasis, similar to prior. Large heterogeneous pelvic mass with associated mass effect in the
pelvis and lower abdomen which is overall similar in appearance to prior. Mild colonic stool burden. Small right pleural effusion with adjacent atelectasis.
[2025-10-28] MEDS: INVANZ 55 MG IV (11:24)
--- NOTE | 2025-10-28 11:39 | PN.CDI ---
CDI
- -
CDI:
Physician Documentation Request
Admit Date: 10/24/25 15:46
Dear Doctor Cayla,
Patient is being managed for CAUTI. Patient has history of Metastatic endometrial cancer with bladder metastasis and Chronic renal insufficiency due to obstructive uropathy, secondary to mets.
Infectious disease progress note states 'ESTRELLA on CKD'
Laboratory Tests
10/24/25 10/25/25 10/26/25
13:44 05:12 05:30
Creatinine 1.9 H 2.0 H 1.7 H
eGFR 26.69 25.10 30.50
10/27/25 10/28/25
07:36 05:21
Creatinine 1.6 H 1.6 H
eGFR 32.81 32.81
In an attempt to clarify potentially conflicting documentation, please clarify the patients renal status:
____ - CKD only- please provide stage
____ - ESTRELLA on CKD only - please provide stage of CKD and support of ESTRELLA diagnosis
____ - Other
Criteria for ESTRELLA*
1 Increase in serum creatinine by > or = to 0.3 mg/dL (> or = to 26.5 micromol/L) within 48 hours, OR
2 Increase in serum creatinine to > or = to 1.5 times baseline, which is known or presumed to have occurred within 7 days, OR
3 Urine volume < 0.5 nL/kg/hour for six hours
Stages of Chronic Kidney Disease*
Level Description GFR
G1 Normal or High >90
G2 Mildly decreased 60-89
G3a Mildly to moderately decreased 45-59
G3b Moderately to severely decreased 30-44
G4 Severely decreased 15-29
G5 Kidney failure <15
Use of terms such as suspected, likely, concern for, or probable (associated with a specific diagnosis that is being evaluated, monitored, or treated as if it exists) are acceptable and can be coded in the inpatient setting, when documented at the
time of discharge.
Thank you,
Flora Bruce RN, BSN
CDI Specialist
tiger text
Please use your independent medical judgment in providing your response.
*Source: Kidney Disease: Improving Global Outcomes (KDIGO) 2012
--- NOTE | 2025-10-28 11:54 | PN.CDI ---
CDI
- -
CDI:
Physician Documentation Request
Admit Date: 10/24/25 15:46
Dear Doctor Cayla,
10/26 WOCN note 'Pressure injury/wound : Unstageable sacrum'
Physician documentation of the type and location of wounds is required for compliant documentation. Based on the above clinical findings and your assessment, please provide the following in your progress note:
1. Location of the ulcer/wound, including laterality.
2. Type (etiology) of ulcer/wound:
- Traumatic wound
- Pressure (decubitus) ulcer
- Other
Use of terms such as suspected, likely, concern for, or probable (associated with a specific diagnosis that is being evaluated, monitored, or treated as if it exists) are acceptable and can be coded in the inpatient setting, when documented at the
time of discharge.
Thank you,
Flora Bruce RN, BSN
CDI Specialist
tiger text
Please use your independent medical judgment in providing your response.
*Source: National Pressure Ulcer Advisory Panel (NPUAP)
--- NOTE | 2025-10-28 12:36 | W.PN.URO.CBU ---
Today's Communication / Plan
-
no gu intervenyions
Assessment / Plan
-
pelvic malignancy
ureteral obstruction and hx of urinary retention
pt stable
[facility] hospce
Diagnosis
-
Date of Service: October 28, 2025
-
Patient Diagnosis:
Post Op Day:
Patient Diagnosis:
Post Op Day:
Patient Diagnosis:
pelvic malignancy
ureteral and bladder obstruction
Subjective
-
weaker
Objective
-
Vital Signs
Temp Pulse Resp BP Pulse Ox
97.6 F 88 18 100/65 99
10/28/25 07:00 10/28/25 08:33 10/28/25 07:00 10/28/25 07:00 10/28/25 07:45
Intake and Output
10/27/25 10/28/25 10/29/25
06:59 06:59 06:59
Intake Total 840 / 840 3000 / 3000
Output Total 675 / 675 660 / 660
Balance 165 / 165 2340 / 2340
Intake:
Oral fluids 840 / 840 3000 / 3000
Output:
Urinary Drain Output (Total) 400 / 400 490 / 490
Left Nephrostomy 150 / 150 350 / 350
Right Nephrostomy 250 / 250 140 / 140
Urine, Brady 275 / 275 170 / 170
Other:
How many times incontinent 1 1
SATURATED amount urine
Laboratory Results
10/28/25 05:21
10/28/25 05:21
Review of Systems
-
Constitutional: Weight Loss and Fatigue
: Incontinence
Physical Exam
-
General - well developed, well nourished, no acute distress
Chest - clear bilaterally
Abdomen - soft, non-tender, positive bowel sounds, no CVAT, no incisional pain or distention
Genitalia - normal
Rectal - normal
Skin - warm & dry with no rash
Neuro - AOx3, no motor deficits
Extremities - no clubbing, no cyanosis, no edema
Incision - clean, dry
Dressing - clean, dry, intact
Counseling
-
no gu changes
Care Review
Data Reviewed
Discussed with: Other (executer of will)
--- NOTE | 2025-10-28 14:17 | CM ---
Addendum entered by Elva Romo 10/28/25 16:30:
Friend updated CM that they would like to have [facility] as first choice when patient ready for discharge. Pending informational meeting with hospice.
Original Note:
Patient seen at bedside with physicians. Patient stated that she would want to talk to hospice to review information. CM spoke with patient friend who requested referral to [facility] and referral sent via all [facility]. Referral also texted to
buyer liaison. Patient and friend trying to confirm discharge plan of SNF to eventually go home with hospice vs help from friend. CM will continue to follow for discharge planning needs.
Plan;SNF vs hospice pending informational meeting.
[2025-10-28 15:02] VITALS: BP 95/70
[2025-10-28] MEDS: STERILE WATER FOR INJECTION IV (21:34)
[2025-10-28] MEDS: MELATONIN 3 MG PO (21:34)
[2025-10-28] MEDS: TOPROL XL PO (21:35)
[2025-10-28 23:39] VITALS: BP 103/67
[2025-10-29 07:29] VITALS: BP 97/63
[2025-10-29] MEDS: STERILE WATER FOR INJECTION IV ×2 (08:35→20:38)
[2025-10-29] MEDS: PACERONE 200 MG PO (08:38)
[2025-10-29] MEDS: SENOKOT-S 1 TABLET PO (08:38)
[2025-10-29] MEDS: DETROL LA 4 MG PO (08:38)
--- NOTE | 2025-10-29 08:38 | W.PN.HOSP.TC ---
Addendum entered and electronically signed by Eli Snowden MD 10/29/25 15:01:
I saw and evaluated the patient independently. I reviewed the resident�s note and agree with findings and plan as documented by Dr. Kulkarni.
GENERAL: chronically ill appearing female in no apparent distress
HEENT: NC/AT
HEART: regular rate and rhythm, +S1, +S2
LUNGS : clear to auscultation bilaterally
ABDOM: soft, nontender, nondistended, + bowel sounds
EXT: no cyanosis, clubbing, or edema
NEUROLOGIC: grossly intact
: berman cath and bilateral nephrostomy tubes
CAUTI with ESBL E. coli bacteremia and Left nephrostomy tube leak--apprec urology, oncology, IR--not much to do, had nephrostomy tubes changed 10/26--apprec ID, cont ertapenem daily IV through 11/04/25--pt under the impression that she is staying
here until IV abx are finished, told her that is not feasible and that she would need SNF--- Blood Cx x 2 (10/24)--need repeat blood cultures to prove clearance- CT abdomen pelvis showing bilateral nephrostomy tubes in appropriate place- ultimately
planning for d/c to SNF with IV Abx/Midline to complete course of abx followed by hospice thereafter....
Metastatic endometrial cancer with bladder metastasis/Clear Cell Carcinoma of Ovary/Chronic renal insufficiency due to obstructive uropathy, secondary to mets/S/P bilateral PCN--apprec onc--performance status precludes chemo--pt asking about
hospice--will consult for information if pt desires-- S/p reductive surgery with total abdominal hysterectomy in 05/2025
Anemia of chronic disease- Due to renal insufficiency and metastatic cancer; hemoglobin baseline near 9-10- Hemoglobin here 8.6, some mild bleeding in urine though no other sources identified- Will continue to trend CBC, provide supportive
transfusions if needed for hemoglobin <7
Hypovolemic hyponatremia/Hyperkalemia- Appears subacute to chronic, low sodium and high potassium for the last 1 month- Suspect this is due to renal insufficiency as well as poor intake- Not currently on any potassium sparing agents or diuretics-
Started on maintenance IVF with mild improvement- Continue IVF and trend BMP
hypoglycemia--from poor PO intake along with large cancer burden--start IVF with dextrose
ESTRELLA on CKD stage 3--again, likely prerenal from poor PO intake along with chronic obstruction requiring bilateral nephrostomy tubes AND berman--cont IVF and follow creat
Chronic leukocytosis- Likely associated with cancer, WBC has been in the range of 9.5-17 since May- Continue to trend CBC and temperature curve on IV antibiotics as above for UTI
Supraventricular tachycardia- Likely due to chronic illness from metastatic cancer as well as her recent PE- Continue with amiodarone 200 mg daily and metoprolol XL 25 mg
Low risk PE s/p IVC filter- Recent diagnosis on hospital stay earlier this month, provoked by underlying malignancy- Poor candidate for long-term anticoagulation for IVC filter was placed instead- Would need IVC filter removal within 1 to 2 years of
placement if she survives to that time
Chronic hypotension/Hypoalbuminemia- Likely due to poor intake, degree of third spacing with hypoalbuminemia- Home regimen includes chronic midodrine 5 mg TID
wound POA--unstageable sacral pressure injury--apprec wound care
DVT proph-- SQ heparin
Code status-- DNR
hospice met with pt and friend--plan is to SNF with IV ABX followed by hospice thereafter....MIDLINE order placed
Original Note:
Today's Communication/Plan
-
c/w IV ertapenem
dispo planning SNF vs hospice
Assessment / Plan
Assessment / Plan
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
presented with concerns of increased weakness, anxiety, leakage from left nephrostomy tube site.
#CAUTI
#ESBL E. coli bacteremia
#Left nephrostomy tube leak
- Presented with L PCN leak, UA with pyuria/leukocyte esterase/many bacteria
- Blood Cx x 2 (10/24) -- ESBL, sensitivities pending
- Urine Cx (10/24) -- ESBL
- ID following; c/w IV Ertapenem through to 11/04
- IR consulted
- CT abdomen pelvis showing bilateral nephrostomy tubes in appropriate place
- Tubes successfully exchanged 10/26
- Urology consulted
- Detrol for spasm/leak
- Trend CBC and temperature curve, monitor urine output
- d/c to SNF with IV Abx/Midline to complete course of abx vs. hospice
- will continue IV Abx for now pending dispo planning, will d/c if hospice is decided
#Metastatic endometrial cancer with bladder metastasis
#Clear Cell Carcinoma of Ovary
#Chronic renal insufficiency due to obstructive uropathy, secondary to mets
#S/P bilateral PCN
- S/p reductive surgery with total abdominal hysterectomy in 05/2025
- soon after sx she developed urinary retentions and b/l hydroureteronephrosis with subsequent b/l PCNs, which have been chronic since
- Patient did not proceed with chemoradiation initially, planned for holistic tx, however she did not yet begin this due to acute decompensation following sx
- Oncology Following:
- pt PS excludes her from systemic therapy at this time, though pt is agreeable; pt also hospice appropriate
- pt considering hospice transition as op following SNF
#Anxiety
She has been experiencing restlessness/anxiety related to coping with her prognosis, says she has been taking Xanax at home as needed recently for same
- can give 0.25mg prn for anxiety
- observe for signs of AMS given BZDs in elderly
#Intermittent Hypoglycemia
Patient having low morning glucose, likely related to low oral intake/cancer associated anorexia
- not on any antihyperglycemic agents
- patient chronically fatigued, no overt signs of sympathetic response to hypoglycemia
- will start on some IVF D5 80cc/hr
- continue to encourage PO intake
#ESTRELLA on CKD
Secondary to dehydration from poor oral intake vs. worsening obstructive uropathy as a consequence of bladder mets
- slate mixer baseline unclear, hovering around 1.6
- c/w IVF
- monitor CMP
#Anemia of chronic disease
- Due to renal insufficiency and metastatic cancer; hemoglobin baseline near 9-10
- Hemoglobin here 8.6, some mild bleeding in urine though no other sources identified
- Will continue to trend CBC, provide supportive transfusions if needed for hemoglobin <7
#Hypovolemic hyponatremia
#Hyperkalemia
- Appears subacute to chronic, low sodium and high potassium for the last 1 month
- Suspect this is due to renal insufficiency as well as poor intake
- Not currently on any potassium sparing agents or diuretics
- Started on maintenance IVF with mild improvement
- Continue IVF and trend BMP
#Chronic leukocytosis
- Likely associated with cancer, WBC has been in the range of 9.5-17 since May
- Continue to trend CBC and temperature curve on IV antibiotics as above for UTI
#Supraventricular tachycardia
- Likely due to chronic illness from metastatic cancer as well as her recent PE
- On last hospital stay was started on amiodarone load and metoprolol XL 25 mg nightly
- Continue with amiodarone 200 mg daily and metoprolol XL 25 mg
- Heart rate currently WNL, continue to monitor on telemetry
#Low risk PE s/p IVC filter
- Recent diagnosis on hospital stay earlier this month, provoked by underlying malignancy
- Poor candidate for long-term anticoagulation for IVC filter was placed instead
- Would need IVC filter removal within 1 to 2 years of placement if she survives to that time
#Chronic hypotension
#Hypoalbuminemia
- Likely due to poor intake, degree of third spacing with hypoalbuminemia
- Home regimen includes chronic midodrine 5 mg TID
- Blood pressure currently stable
- Continue to monitor blood pressure and consider increasing midodrine if needed
#Pressure injury/wound, Unstageable sacrum, HOME HEALTH LVN
- c/w wound care
Diet: Regular
DVT: SQ heparin
Code: DNR
Anticipated Discharge: 24 - 48 hours
Subjective/Interval History
-
Date of Service: October 29, 2025
no acute complaints overnight. minimal leakage from Berman, unchanged in quality from prior. Pt having generalized fatigue and discomfort, unchanged from prior. Has not had bowel movement yet.
Objective Data
-
Labs:
Laboratory Results
10/29/25
07:37
WBC Pending
Hgb Pending
Hct Pending
Plt Count Pending
Sodium Pending
Potassium Pending
Chloride Pending
Carbon Dioxide Pending
BUN Pending
Creatinine Pending
Glucose Pending
Calcium Pending
Total Bilirubin Pending
AST Pending
ALT Pending
Alkaline Phosphatase Pending
Vital Signs:
Vital Signs
Temp Pulse Resp BP Pulse Ox
97.2 F 78 14 97/63 98
10/29/25 07:29 10/29/25 07:29 10/29/25 07:29 10/29/25 07:29 10/29/25 07:29
I&O
10/28/25 10/29/25 10/30/25
06:59 06:59 06:59
Intake Total 3000 / 3000 660 / 660
Output Total 660 / 660 625 / 625
Balance 2340 / 2340 35 / 35
Review of Systems
-
History Source: Patient
All other systems: Reviewed and negative
Constitutional: Reports Weakness and Other (generalized discomfort, unable to clarify.)
EENT: Reports No Symptoms Reported
Respiratory: Reports No Symptoms
Cardiac: Reports No Symptoms
Abdomen/GI: Reports No Symptoms
Genitourinary: Reports No Symptoms
Musculoskeletal: Reports No Symptoms
Skin: Reports No Symptoms
Neuro: Reports No Symptoms
Endocrine: Reports No Symptoms
Hematologic / Lymphatic: Reports No Symptoms
Allergy / Immunology: Reports No Symptoms
Physical Exam
-
General: Pain and Appears Chronically Ill
HEENT: Normocephalic, Atraumatic, Moist Mucous Membranes, Anicteric, [place] Conjunctivae, No Ptosis, PERRLA, Nose Appears Normal and Ears Appear Normal
Respiratory: Clear to Auscultation; Negative Wheezes, Rales or Rhonchi
Cardiac: Regular Rhythm and S1/S2; Negative Murmur
GI: Nontender, Nondistended and Flat
Genito-urinary: Bloody Urine, Berman and Nephrostomy Tubes (BL PCNs, clear urine)
Musculoskeletal: No Clubbing, No Cyanosis, Edema, Left Upper Extrem and Edema, Right Lower Extrem
Skin: Warm, Dry and IV Access / Catheter Site
Neuro: AO x 3
[2025-10-29] MEDS: HEPARIN 5000 UNITS SC (08:39)
[2025-10-29] MEDS: D5/0.45%NACL 1000 IV (09:45)
[2025-10-29 11:07] LABS: Hematocrit 27.0 % (37.0-47.0); Hemoglobin 8.5 g/dL (12.0-16.0); Mean Corp Hgb Conc. 31.5 g/dL (33.0-37.0); Mean Corpuscular Volume 85.4 fL (81.0-99.0); Platelet Count 463 10^3/uL (130-400); Red Cell Dist. Width 17.5 % (11.5-14.5)
[2025-10-29 11:26] LABS: ALT (SGPT) 13 U/L (0-35); AST (SGOT) 27 U/L (14-36); Albumin 2.5 g/dl (3.5-5.0); Alkaline Phosphatase 81 U/L (38-126); Blood Urea Nitrogen 47 mg/dl (7-17); Calcium 8.0 mg/dl (8.4-10.2); Carbon Dioxide 25 mmol/L (22-30); Chloride 100 mmol/L (98-107); Estimated Creatinine Clearance 33 ml/min; Glucose 107 mg/dl (70-99); Potassium 4.4 mmol/L (3.5-5.1); Sodium 126 mmol/L (135-145); Total Protein 5.3 g/dl (6.3-8.2); eGFR 42.09
[2025-10-29] MEDS: INVANZ 55 MG IV (12:03)
--- NOTE | 2025-10-29 12:17 | W.PN.ID1 ---
Date of Service
Date of Service: October 29, 2025
Today's Communication
Continue antibiotics.
Assessment / Plan
Complicated urinary tract infection
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
ESBL E. coli bacteremia
Leukocytosis
ESTRELLA on CKD
Hx endometrial carcinoma
HTN
HLD
Recommendations:
Continue ertapenem.
Monitor white count and temperature curve.
Follow for clinical improvement.
Would continue abx through 11/04. Isolate is sensitive to cipro, but use of amiodarone precludes it's use, thus will need to remain on ertapenem.
Goals of care discussions ongoing. Possible meeting with hospice later today.
����������������������������������������������������������
Chief Complaint
-: UTI and Bacteremia
Subjective / Review of Systems
Patient seen and examined. Reports feeling somewhat despondent today. No difficulty with antibiotics thus far.
Vital Signs / Physical Exam
Vital Signs
Vital Signs
Temp Pulse Resp BP Pulse Ox
97.2 F 78 14 97/63 98
10/29/25 07:29 10/29/25 07:29 10/29/25 07:29 10/29/25 07:29 10/29/25 07:45
Physical Exam
Constitutional: No Acute Distress, Comfortable and Cachetic
Head: Normocephalic
Eyes: Sclera Anicteric
Cardiovascular: S1/S2; Negative S3/S4
Pulmonary: Non Labored
Gastrointestinal: Soft, Tender (mild, diffuse) and Normal Bowel Sounds
Genito-Urinary: Brady, Hematuria and Other (B/L PCN in place with clear urine)
Extremities: Negative Edema, Cyanosis or Erythema
Neurological: Awake and Alert
Psychological: Calm
Objective Data
Lab Data
Lab Results
10/29/25 10:55
10/29/25 10:55
Estimated Creat Clear 33 ml/min 10/29/25 10:55
Lactic Acid Cancelled 10/24/25 18:45
Total Bilirubin 0.4 mg/dl (0.2-1.3) 10/29/25 10:55
AST 27 U/L (14-36) 10/29/25 10:55
ALT 13 U/L (0-35) 10/29/25 10:55
Alkaline Phosphatase 81 U/L (38-126) 10/29/25 10:55
Most recent labs reviewed.
Micro Results:
10/24/25 14:50 Blood Culture - Preliminary
Blood/Venous Escherichia coli - ESBL
Gram Stain - Preliminary
10/24/25 14:45 Blood Culture - Final
Blood/Venous Escherichia coli - ESBL
Gram Stain - Final
10/24/25 13:44 Urine Culture - Final
Urine Escherichia coli - ESBL
10/25/25 01:28 MRSA Screen - Final
Nose No Methicillin Resistant Staphylococcus aureus isolated.
Imaging:
10/26/2025 CT Abd/pel Without Iv Or Oral: Bilateral nephrostomy tubes which appear appropriately positioned. There is mild residual right-sided caliectasis, similar to prior. Large heterogeneous pelvic mass with associated mass effect in the
pelvis and lower abdomen which is overall similar in appearance to prior. Mild colonic stool burden. Small right pleural effusion with adjacent atelectasis.
Care Review
Plan reviewed with: Physician (Hospitalist)
--- NOTE | 2025-10-29 13:34 | HOSPNOTE ---
Spoke with Janay the plan is for patient to go to [facility] rehab to complete antibiotics and then may stay there and transition to hospice or go home with 24 hour caregivers and hospice services. Attending and CM updated. Janay has my
number with any further questions.
--- NOTE | 2025-10-29 14:09 | CM ---
Pt refused PT OT today . Will need updates for acceptance to [facility].
Updated [facility] In care port .
[facility] is checking for bed.
Faxed Mid line info to [phone].
PLan To [facility] for rehab and IV antibiotics if accepted
[2025-10-29 15:16] VITALS: BP 101/61
--- NOTE | 2025-10-29 16:26 | W.PN.URO.CBU ---
Today's Communication / Plan
-
no gu changes
Assessment / Plan
-
pelvic malignancy
ureteral obstruction and hx of urinary retention
pt stable
sugest hospce
Diagnosis
-
Date of Service: October 29, 2025
-
Patient Diagnosis:
Post Op Day:
Patient Diagnosis:
Post Op Day:
Patient Diagnosis:
Post Op Day:
Patient Diagnosis:
pelvic malignancy
ureteral and bladder obstruction
Subjective
-
plaeau ing
Objective
-
Vital Signs
Temp Pulse Resp BP Pulse Ox
97.8 F 73 16 101/61 98
10/29/25 15:16 10/29/25 15:16 10/29/25 15:16 10/29/25 15:16 10/29/25 15:16
Intake and Output
10/28/25 10/29/25 10/30/25
06:59 06:59 06:59
Intake Total 3000 / 3000 660 / 660
Output Total 660 / 660 625 / 625
Balance 2340 / 2340 35 / 35
Intake:
Oral fluids 3000 / 3000 660 / 660
Output:
Urinary Drain Output (Total) 490 / 490 125 / 125
Left Nephrostomy 350 / 350 50 / 50
Right Nephrostomy 140 / 140 75 / 75
Urine, Brady 170 / 170 500 / 500
Other:
How many times incontinent 1
SATURATED amount urine
Laboratory Results
10/29/25 10:55
10/29/25 10:55
Review of Systems
-
Constitutional: Fatigue
: Difficulty Voiding
Physical Exam
-
General - well developed, well nourished, no acute distress
Chest - clear bilaterally
Abdomen - soft, non-tender, positive bowel sounds, no CVAT, no incisional pain or distention
Genitalia - normal
Rectal - normal
Skin - warm & dry with no rash
Neuro - AOx3, no motor deficits
Extremities - no clubbing, no cyanosis, no edema
Incision - clean, dry
Dressing - clean, dry, intact
Counseling
-
no gu changes
[2025-10-29] MEDS: SENOKOT-S PO (20:37)
[2025-10-29] MEDS: HEPARIN SC (20:37)
[2025-10-29] MEDS: MELATONIN 3 MG PO (21:29)
[2025-10-29] MEDS: ROXICODONE 5 MG PO (21:30)
[2025-10-29] MEDS: TOPROL XL PO (21:31)
[2025-10-29 23:00] VITALS: BP 98/66
[2025-10-30] MEDS: ROXICODONE 5 MG PO ×3 (05:33→21:10)
[2025-10-30 05:40] LABS: Hematocrit 26.6 % (37.0-47.0); Hemoglobin 8.3 g/dL (12.0-16.0); Mean Corp Hgb Conc. 31.2 g/dL (33.0-37.0); Mean Corpuscular Volume 85.0 fL (81.0-99.0); Platelet Count 431 10^3/uL (130-400); Red Cell Dist. Width 17.2 % (11.5-14.5)
[2025-10-30 06:43] LABS: ALT (SGPT) 12 U/L (0-35); AST (SGOT) 26 U/L (14-36); Albumin 2.3 g/dl (3.5-5.0); Alkaline Phosphatase 89 U/L (38-126); Blood Urea Nitrogen 46 mg/dl (7-17); Calcium 7.8 mg/dl (8.4-10.2); Carbon Dioxide 24 mmol/L (22-30); Chloride 99 mmol/L (98-107); Estimated Creatinine Clearance 33 ml/min; Glucose 78 mg/dl (70-99); Potassium 4.7 mmol/L (3.5-5.1); Sodium 127 mmol/L (135-145); Total Protein 5.1 g/dl (6.3-8.2); eGFR 42.09
[2025-10-30 07:36] VITALS: BP 98/60
[2025-10-30] MEDS: PACERONE 200 MG PO (09:02)
[2025-10-30] MEDS: DETROL LA 4 MG PO (09:02)
[2025-10-30] MEDS: SENOKOT-S 1 TABLET PO ×2 (09:02→21:04)
[2025-10-30] MEDS: HEPARIN 5000 UNITS SC ×2 (09:02→21:03)
[2025-10-30] MEDS: D5/0.9% SODIUM CHLORIDE 1000 IV ×2 (09:03→21:11)
[2025-10-30] MEDS: STERILE WATER FOR INJECTION IV (09:10)
--- NOTE | 2025-10-30 10:04 | W.PN.ID1 ---
Date of Service
Date of Service: October 30, 2025
Today's Communication
Continue ertapenem 1g IV q24h (d5 abx) through 11/04/25
Assessment / Plan
Complicated urinary tract infection
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
ESBL E. coli bacteremia
Leukocytosis
ESTRELLA on CKD
Hx endometrial carcinoma
HTN
HLD
Recommendations:
Isolate is sensitive to cipro, but use of amiodarone precludes it's use, thus will need to remain on ertapenem.
Continue ertapenem 1g IV q24h (d5 abx) through 11/04/[address] Valdez
Per hospitalist, GOC is to dc to SNF to complete abx, then [facility].
Midline in place.
Infusion sheet submitted to entry level account manager.
����������������������������������������������������������
Chief Complaint
-: UTI and Bacteremia
Subjective / Review of Systems
Stable. No urine sxs. No flank pain.
Vital Signs / Physical Exam
Vital Signs
Vital Signs
Temp Pulse Resp BP Pulse Ox
97.8 F 76 16 98/60 98
10/30/25 07:36 10/30/25 07:36 10/30/25 07:36 10/30/25 07:36 10/30/25 07:36
Physical Exam
Constitutional: Chronically Ill and Cachetic
Head: Normocephalic
Eyes: Sclera Anicteric
Cardiovascular: Regular Rate and S1/S2
Pulmonary: Non Labored
Gastrointestinal: Soft, Tender (mild, diffuse) and Normal Bowel Sounds
Genito-Urinary: Brady, Hematuria and Other (B/L PCN in place with clear urine)
Extremities: Edema (BLE 2+)
Neurological: AO x 3
Lines: Other (LUE midline no erythema)
Objective Data
Lab Data
Lab Results
10/30/25 05:
10/30/25 05:
Estimated Creat Clear 33 ml/min 10/30/25:
Lactic Acid Cancelled 10/24/25 18:45
Total Bilirubin 0.3 mg/dl (0.2-1.3) 10/30/25:
AST 26 U/L (14-36) 10/30/25:
ALT 12 U/L (0-35) 10/30/25:
Alkaline Phosphatase 89 U/L (38-126) 10/30/25:
Most recent labs reviewed.
Micro Results:
10/24/25 14:50 Blood Culture - Preliminary
Blood/Venous Escherichia coli - ESBL
Gram Stain - Preliminary
10/24/25 14:45 Blood Culture - Final
Blood/Venous Escherichia coli - ESBL
Gram Stain - Final
10/24/25 13:44 Urine Culture - Final
Urine Escherichia coli - ESBL
10/25/25 01:28 MRSA Screen - Final
Nose No Methicillin Resistant Staphylococcus aureus isolated.
Imaging:
10/26/2025 CT Abd/pel Without Iv Or Oral: Bilateral nephrostomy tubes which appear appropriately positioned. There is mild residual right-sided caliectasis, similar to prior. Large heterogeneous pelvic mass with associated mass effect in the
pelvis and lower abdomen which is overall similar in appearance to prior. Mild colonic stool burden. Small right pleural effusion with adjacent atelectasis.
[2025-10-30] MEDS: INVANZ 55 MG IV (12:11)
--- NOTE | 2025-10-30 12:55 | W.PN.HOSP.TC ---
Addendum entered and electronically signed by Eli Snowden MD 10/30/25 18:53:
I saw and evaluated the patient independently. I reviewed the resident�s note and agree with findings and plan as documented by Dr. Kulkarni.
GENERAL: chronically ill appearing female in no apparent distress
HEENT: NC/AT
HEART: regular rate and rhythm, +S1, +S2
LUNGS : clear to auscultation bilaterally
ABDOM: soft, nontender, nondistended, + bowel sounds
EXT: no cyanosis, clubbing, or edema
NEUROLOGIC: grossly intact
: berman cath and bilateral nephrostomy tubes
CAUTI with ESBL E. coli bacteremia and Left nephrostomy tube leak--apprec urology, oncology, IR--not much to do, had nephrostomy tubes changed 10/26--apprec ID, cont ertapenem daily IV through 11/04/25--pt under the impression that she is staying
here until IV abx are finished, told her that is not feasible and that she would need SNF--- Blood Cx x 2 (10/24)--need repeat blood cultures to prove clearance- CT abdomen pelvis showing bilateral nephrostomy tubes in appropriate place- ultimately
planning for d/c to SNF with IV Abx/Midline to complete course of abx followed by hospice thereafter....
Metastatic endometrial cancer with bladder metastasis/Clear Cell Carcinoma of Ovary/Chronic renal insufficiency due to obstructive uropathy, secondary to mets/S/P bilateral PCN--apprec onc--performance status precludes chemo--pt asking about
hospice--will consult for information if pt desires-- S/p reductive surgery with total abdominal hysterectomy in 05/2025
Anemia of chronic disease- Due to renal insufficiency and metastatic cancer; hemoglobin baseline near 9-10- Hemoglobin here 8.6, some mild bleeding in urine though no other sources identified- Will continue to trend CBC, provide supportive
transfusions if needed for hemoglobin <7
Hypovolemic hyponatremia/Hyperkalemia- Appears subacute to chronic, low sodium and high potassium for the last 1 month- Suspect this is due to renal insufficiency as well as poor intake- Not currently on any potassium sparing agents or diuretics-
Started on maintenance IVF with mild improvement- Continue IVF and trend BMP
hypoglycemia--from poor PO intake along with large cancer burden--start IVF with dextrose
ESTRELLA on CKD stage 3--again, likely prerenal from poor PO intake along with chronic obstruction requiring bilateral nephrostomy tubes AND berman--cont IVF and follow creat
Chronic leukocytosis- Likely associated with cancer, WBC has been in the range of 9.5-17 since May- Continue to trend CBC and temperature curve on IV antibiotics as above for UTI
Supraventricular tachycardia- Likely due to chronic illness from metastatic cancer as well as her recent PE- Continue with amiodarone 200 mg daily and metoprolol XL 25 mg
Low risk PE s/p IVC filter- Recent diagnosis on hospital stay earlier this month, provoked by underlying malignancy- Poor candidate for long-term anticoagulation for IVC filter was placed instead- Would need IVC filter removal within 1 to 2 years of
placement if she survives to that time
Chronic hypotension/Hypoalbuminemia- Likely due to poor intake, degree of third spacing with hypoalbuminemia- Home regimen includes chronic midodrine 5 mg TID
wound POA--unstageable sacral pressure injury--apprec wound care
DVT proph-- SQ heparin
Code status-- DNR
hospice met with pt and friend--plan is to SNF with IV ABX followed by hospice thereafter
d/c in AM to SNF
Original Note:
Today's Communication/Plan
-
d/c to SNF provided patient agrees to work with Physical therapy
she is otherwise medically stable for discharge with PICC line placed and IV Abx
Will await PT/OT in afternoon and follow up with CM for further dispo planning
Assessment / Plan
Assessment / Plan
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
presented with concerns of increased weakness, anxiety, leakage from left nephrostomy tube site.
#CAUTI
#ESBL E. coli bacteremia
#Left nephrostomy tube leak
- Presented with L PCN leak, UA with pyuria/leukocyte esterase/many bacteria
- Blood Cx x 2 (10/24) -- ESBL, sensitivities pending
- Urine Cx (10/24) -- ESBL
- ID following; c/w IV Ertapenem through to 11/04
- IR consulted
- CT abdomen pelvis showing bilateral nephrostomy tubes in appropriate place
- Tubes successfully exchanged 10/26
- Urology consulted
- Detrol for spasm/leak
- Trend CBC and temperature curve, monitor urine output
- d/c to SNF with IV Abx/Midline to complete course of abx vs. hospice
- will continue IV Abx for now pending dispo planning, will d/c if hospice is decided
#Ambulatory dysfunction
#Weakness secondary to metastatic disease/Anorexia
Pt refusing to work with Physical Therapy and Occupational therapy 10/29. It was explained to her many times that this is important and necessary for getting stronger and going to SNF as she said that she would like to do. pt expressed understanding
last night and this morning.
#Metastatic endometrial cancer with bladder metastasis
#Clear Cell Carcinoma of Ovary
#Chronic renal insufficiency due to obstructive uropathy, secondary to mets
#S/P bilateral PCN
- S/p reductive surgery with total abdominal hysterectomy in 05/2025
- soon after sx she developed urinary retentions and b/l hydroureteronephrosis with subsequent b/l PCNs, which have been chronic since
- Patient did not proceed with chemoradiation initially, planned for holistic tx, however she did not yet begin this due to acute decompensation following sx
- Oncology Following:
- pt PS excludes her from systemic therapy at this time, though pt is agreeable; pt also hospice appropriate
#Anxiety
She has been experiencing restlessness/anxiety related to coping with her prognosis, says she has been taking Xanax at home as needed recently for same
- can give 0.25mg prn for anxiety
- observe for signs of AMS given BZDs in elderly
#Intermittent Hypoglycemia
Patient having low morning glucose, likely related to low oral intake/cancer associated anorexia
- not on any antihyperglycemic agents
- patient chronically fatigued, no overt signs of sympathetic response to hypoglycemia
- will start on some IVF D5 80cc/hr
- continue to encourage PO intake
#ESTRELLA on CKD
Secondary to dehydration from poor oral intake vs. worsening obstructive uropathy as a consequence of bladder mets
- geographic information system analyst baseline unclear, hovering around 1.6
- c/w IVF
- monitor CMP
#Anemia of chronic disease
- Due to renal insufficiency and metastatic cancer; hemoglobin baseline near 9-10
- Hemoglobin here 8.6, some mild bleeding in urine though no other sources identified
- Will continue to trend CBC, provide supportive transfusions if needed for hemoglobin <7
#Hypovolemic hyponatremia
#Hyperkalemia
- Appears subacute to chronic, low sodium and high potassium for the last 1 month
- Suspect this is due to renal insufficiency as well as poor intake
- Not currently on any potassium sparing agents or diuretics
- Started on maintenance IVF with mild improvement
- Continue IVF and trend BMP
#Chronic leukocytosis
- Likely associated with cancer, WBC has been in the range of 9.5-17 since May
- Continue to trend CBC and temperature curve on IV antibiotics as above for UTI
#Supraventricular tachycardia
- Likely due to chronic illness from metastatic cancer as well as her recent PE
- On last hospital stay was started on amiodarone load and metoprolol XL 25 mg nightly
- Continue with amiodarone 200 mg daily and metoprolol XL 25 mg
- Heart rate currently WNL, continue to monitor on telemetry
#Low risk PE s/p IVC filter
- Recent diagnosis on hospital stay earlier this month, provoked by underlying malignancy
- Poor candidate for long-term anticoagulation for IVC filter was placed instead
- Would need IVC filter removal within 1 to 2 years of placement if she survives to that time
#Chronic hypotension
#Hypoalbuminemia
- Likely due to poor intake, degree of third spacing with hypoalbuminemia
- Home regimen includes chronic midodrine 5 mg TID
- Blood pressure currently stable
- Continue to monitor blood pressure and consider increasing midodrine if needed
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
- c/w wound care
Diet: Regular
DVT: SQ heparin
Code: DNR
Anticipated Discharge: Within 24 hours
Subjective/Interval History
-
Date of Service: October 30, 2025
no acute events overnight. no acute complaints this morning.
Objective Data
-
Labs:
Laboratory Results
10/30/25
05:29
WBC 14.5 H
Hgb 8.3 L
Hct 26.6 L
Plt Count 431 H
Sodium 127 L
Potassium 4.7
Chloride 99
Carbon Dioxide 24
BUN 46 H
Creatinine 1.3 H
Glucose 78
Calcium 7.8 L
Total Bilirubin 0.3
AST 26
ALT 12
Alkaline Phosphatase 89
Vital Signs:
Vital Signs
Temp Pulse Resp BP Pulse Ox
97.8 F 76 16 98/60 98
10/30/25 07:36 10/30/25 07:36 10/30/25 07:36 10/30/25 07:36 10/30/25 07:36
I&O
10/29/25 10/30/25 10/31/25
06:59 06:59 06:59
Intake Total 660 / 660 120 / 120
Output Total 625 / 625 500 / 500
Balance 35 / 35 -380 / -380
Review of Systems
-
History Source: Patient
All other systems: Reviewed and negative
Constitutional: Reports No Symptoms
EENT: Reports No Symptoms Reported
Respiratory: Reports No Symptoms
Cardiac: Reports No Symptoms
Abdomen/GI: Reports No Symptoms
Genitourinary: Reports No Symptoms
Musculoskeletal: Reports Muscle Weakness
Neuro: Reports Weakness; Denies Numbness
Psych: Reports Depressed and Sad
Physical Exam
-
General: No Apparent Distress, Comfortable and Appears Chronically Ill
HEENT: Normocephalic, Atraumatic, Moist Mucous Membranes, Glandorf Conjunctivae, No Ptosis, PERRLA, Nose Appears Normal and Ears Appear Normal
Respiratory: Clear to Auscultation and Non Labored Respirations; Negative Wheezes, Rales or Rhonchi
Cardiac: Regular Rhythm and S1/S2; Negative Murmur or Rub
GI: Soft, Nondistended, Normal Bowel Sounds, Tender and Flat
Genito-urinary: Bloody Urine, Berman and Nephrostomy Tubes
Musculoskeletal: No Clubbing, No Cyanosis, Edema, Right Lower Extrem and Edema, Left Lower Extrem
Skin: Warm, Dry and IV Access / Catheter Site
Neuro: AO x 3 and Nonfocal/Grossly Intact
Psych: Intact Judgement/Insight and Depressed
[2025-10-30 14:44] VITALS: PULSE 74; O2SAT 98
[2025-10-30 15:09] VITALS: BP 103/62
--- NOTE | 2025-10-30 16:49 | CM ---
Patient seen at bedside and IMM and signed form and placed on chart. Friend to bring Nephrostomy supplies to SNF. Patient will need ambulance transportation and patient friend is aware. Patient accepted to go to [facility] tomorrow per admissions. Please
call report to [phone]/fax [phone]. CM will continue to follow for discharge planning needs.
Plan; [facility] tomorrow. transportation forms needed for ambulance.
[2025-10-30] MEDS: MELATONIN 3 MG PO (21:11)
[2025-10-30] MEDS: TOPROL XL 25 MG PO (21:12)
[2025-10-30 23:10] VITALS: BP 97/58
[2025-10-31] MEDS: ROXICODONE 2.5 MG PO (00:19)
[2025-10-31 08:16] VITALS: BP 90/50
--- NOTE | 2025-10-31 09:23 | CM ---
entered order for discharge.
[facility] accepted pt today. update sent in care port.
Medical nec form completed.
Janay notified of dc and in agreement with dc to SNF .
José Miguel
report [phone]
fax [phone]
PLan To [facility] for rehab and IV antibiotics
[2025-10-31] MEDS: D5/0.9% SODIUM CHLORIDE IV (09:31)
[2025-10-31] MEDS: PACERONE 200 MG PO (09:32)
[2025-10-31] MEDS: SENOKOT-S 1 TABLET PO (09:33)
[2025-10-31] MEDS: DETROL LA 4 MG PO (09:35)
[2025-10-31] MEDS: HEPARIN 5000 UNITS SC (09:36)
[2025-10-31] MEDS: ROXICODONE 5 MG PO ×2 (09:42→11:53)
[2025-10-31 09:55] LABS: Hematocrit 28.4 % (37.0-47.0); Hemoglobin 9.0 g/dL (12.0-16.0); Mean Corp Hgb Conc. 31.7 g/dL (33.0-37.0); Mean Corpuscular Volume 87.4 fL (81.0-99.0); Platelet Count 457 10^3/uL (130-400); Red Cell Dist. Width 17.6 % (11.5-14.5)
[2025-10-31 10:28] LABS: ALT (SGPT) 13 U/L (0-35); AST (SGOT) 31 U/L (14-36); Albumin 2.4 g/dl (3.5-5.0); Alkaline Phosphatase 105 U/L (38-126); Blood Urea Nitrogen 44 mg/dl (7-17); Calcium 7.7 mg/dl (8.4-10.2); Carbon Dioxide 23 mmol/L (22-30); Chloride 100 mmol/L (98-107); Estimated Creatinine Clearance 33 ml/min; Glucose 81 mg/dl (70-99); Potassium 4.4 mmol/L (3.5-5.1); Sodium 129 mmol/L (135-145); Total Protein 5.1 g/dl (6.3-8.2); eGFR 42.09
[2025-10-31 11:25] VITALS: BP 114/73
--- NOTE | 2025-10-31 13:39 | W.PN.HOSP.TC ---
Addendum entered and electronically signed by Eli Snowden MD 10/31/25 19:37:
I saw and evaluated the patient independently. I reviewed the resident�s note and agree with findings and plan as documented by Dr. Kulkarni.
GENERAL: chronically ill appearing female in no apparent distress
HEENT: NC/AT
HEART: regular rate and rhythm, +S1, +S2
LUNGS : clear to auscultation bilaterally
ABDOM: soft, nontender, nondistended, + bowel sounds
EXT: no cyanosis, clubbing, or edema
NEUROLOGIC: grossly intact
: berman cath and bilateral nephrostomy tubes
CAUTI with ESBL E. coli bacteremia and Left nephrostomy tube leak--apprec urology, oncology, IR--not much to do, had nephrostomy tubes changed 10/26--apprec ID, cont ertapenem daily IV through 11/04/25--pt under the impression that she is staying
here until IV abx are finished, told her that is not feasible and that she would need SNF--- Blood Cx x 2 (10/24)--need repeat blood cultures to prove clearance- CT abdomen pelvis showing bilateral nephrostomy tubes in appropriate place- ultimately
planning for d/c to SNF with IV Abx/Midline to complete course of abx followed by hospice thereafter....
Metastatic endometrial cancer with bladder metastasis/Clear Cell Carcinoma of Ovary/Chronic renal insufficiency due to obstructive uropathy, secondary to mets/S/P bilateral PCN--apprec onc--performance status precludes chemo--pt asking about
hospice--will consult for information if pt desires-- S/p reductive surgery with total abdominal hysterectomy in 05/2025
Anemia of chronic disease- Due to renal insufficiency and metastatic cancer; hemoglobin baseline near 9-10- Hemoglobin here 8.6, some mild bleeding in urine though no other sources identified- Will continue to trend CBC, provide supportive
transfusions if needed for hemoglobin <7
Hypovolemic hyponatremia/Hyperkalemia- Appears subacute to chronic, low sodium and high potassium for the last 1 month- Suspect this is due to renal insufficiency as well as poor intake- Not currently on any potassium sparing agents or diuretics-
Started on maintenance IVF with mild improvement- Continue IVF and trend BMP
hypoglycemia--from poor PO intake along with large cancer burden--start IVF with dextrose
ESTRELLA on CKD stage 3--again, likely prerenal from poor PO intake along with chronic obstruction requiring bilateral nephrostomy tubes AND berman--cont IVF and follow creat
Chronic leukocytosis- Likely associated with cancer, WBC has been in the range of 9.5-17 since May- Continue to trend CBC and temperature curve on IV antibiotics as above for UTI
Supraventricular tachycardia- Likely due to chronic illness from metastatic cancer as well as her recent PE- Continue with amiodarone 200 mg daily and metoprolol XL 25 mg
Low risk PE s/p IVC filter- Recent diagnosis on hospital stay earlier this month, provoked by underlying malignancy- Poor candidate for long-term anticoagulation for IVC filter was placed instead- Would need IVC filter removal within 1 to 2 years of
placement if she survives to that time
Chronic hypotension/Hypoalbuminemia- Likely due to poor intake, degree of third spacing with hypoalbuminemia- Home regimen includes chronic midodrine 5 mg TID
wound POA--unstageable sacral pressure injury--apprec wound care
DVT proph-- SQ heparin
Code status-- DNR
hospice met with pt and friend--plan is to SNF with IV ABX followed by hospice thereafter
d/c to SNF
Original Note:
Today's Communication/Plan
-
DC with midline/IV antibiotics through to 11/04/2025 for treatment of ESBL bacteremia
Scheduled transport to [facility]
Will send with 3 days of oxycodone for pain
Assessment / Plan
Assessment / Plan
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
presented with concerns of increased weakness, anxiety, leakage from left nephrostomy tube site.
#CAUTI
#ESBL E. coli bacteremia
#Left nephrostomy tube leak
- Presented with L PCN leak, UA with pyuria/leukocyte esterase/many bacteria
- Blood Cx x 2 (10/24) -- ESBL, sensitivities pending
- Urine Cx (10/24) -- ESBL
- ID following; c/w IV Ertapenem through to 11/04
- IR consulted
- CT abdomen pelvis showing bilateral nephrostomy tubes in appropriate place
- Tubes successfully exchanged 10/26
- Urology consulted
- Detrol for spasm/leak
- Trend CBC and temperature curve, monitor urine output
- d/c to SNF with IV Abx/Midline to complete course of abx
#Ambulatory dysfunction
#Weakness secondary to metastatic disease/Anorexia
- Patient amenable to working with physical therapy
- PT recommending [facility] to [facility] for skilled rehab
#Metastatic endometrial cancer with bladder metastasis
#Clear Cell Carcinoma of Ovary
#Chronic renal insufficiency due to obstructive uropathy, secondary to mets
#S/P bilateral PCN
- S/p reductive surgery with total abdominal hysterectomy in 05/2025
- soon after sx she developed urinary retentions and b/l hydroureteronephrosis with subsequent b/l PCNs, which have been chronic since
- Patient did not proceed with chemoradiation initially, planned for holistic tx, however she did not yet begin this due to acute decompensation following sx
- Oncology Following:
- pt PS excludes her from systemic therapy at this time, though pt is agreeable; pt also hospice appropriate
#Anxiety
She has been experiencing restlessness/anxiety related to coping with her prognosis, says she has been taking Xanax at home as needed recently for same
- can give 0.25mg prn for anxiety
- observe for signs of AMS given BZDs in elderly
#Intermittent Hypoglycemia
Patient having low morning glucose, likely related to low oral intake/cancer associated anorexia
- not on any antihyperglycemic agents
- patient chronically fatigued, no overt signs of sympathetic response to hypoglycemia
- will start on some IVF D5 80cc/hr
- continue to encourage PO intake
#ESTRELLA on CKD
Secondary to dehydration from poor oral intake vs. worsening obstructive uropathy as a consequence of bladder mets
- director of compliance baseline unclear, hovering around 1.6
- c/w IVF
- monitor CMP
#Anemia of chronic disease
- Due to renal insufficiency and metastatic cancer; hemoglobin baseline near 9-10
- Hemoglobin here 8.6, some mild bleeding in urine though no other sources identified
- Will continue to trend CBC, provide supportive transfusions if needed for hemoglobin <7
#Hypovolemic hyponatremia
#Hyperkalemia
- Appears subacute to chronic, low sodium and high potassium for the last 1 month
- Suspect this is due to renal insufficiency as well as poor intake
- Not currently on any potassium sparing agents or diuretics
- Started on maintenance IVF with mild improvement
- Continue IVF and trend BMP
#Chronic leukocytosis
- Likely associated with cancer, WBC has been in the range of 9.5-17 since May
- Continue to trend CBC and temperature curve on IV antibiotics as above for UTI
#Supraventricular tachycardia
- Likely due to chronic illness from metastatic cancer as well as her recent PE
- On last hospital stay was started on amiodarone load and metoprolol XL 25 mg nightly
- Continue with amiodarone 200 mg daily and metoprolol XL 25 mg
- Heart rate currently WNL, continue to monitor on telemetry
#Low risk PE s/p IVC filter
- Recent diagnosis on hospital stay earlier this month, provoked by underlying malignancy
- Poor candidate for long-term anticoagulation for IVC filter was placed instead
- Would need IVC filter removal within 1 to 2 years of placement if she survives to that time
#Chronic hypotension
#Hypoalbuminemia
- Likely due to poor intake, degree of third spacing with hypoalbuminemia
- Home regimen includes chronic midodrine 5 mg TID
- Blood pressure currently stable
- Continue to monitor blood pressure and consider increasing midodrine if needed
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
- c/w wound care
Diet: Regular
DVT: SQ heparin
Code: DNR
Anticipated Discharge: Today
Subjective/Interval History
-
Date of Service: October 31, 2025
No acute overnight events. Still complaining of generalized pain, weakness. No new drainage from percutaneous nephrostomy tubes. Patient scheduled for transport this a.m. at 12 PM. No fevers overnight. Patient still seems withdrawn, depressed.
Objective Data
-
Labs:
Laboratory Results
10/31/25
07:00
WBC 19.5 H
Hgb 9.0 L
Hct 28.4 L
Plt Count 457 H
Sodium 129 L
Potassium 4.4
Chloride 100
Carbon Dioxide 23
BUN 44 H
Creatinine 1.3 H
Glucose 81
Calcium 7.7 L
Total Bilirubin 0.3
AST 31
ALT 13
Alkaline Phosphatase 105
Vital Signs:
Vital Signs
Temp Pulse Resp BP Pulse Ox
97.6 F 95 16 114/73 95
10/31/25 11:25 10/31/25 11:25 10/31/25 11:25 10/31/25 11:25 10/31/25 11:25
I&O
10/30/25 10/31/25 11/01/25
06:59 06:59 06:59
Intake Total 120 / 120 480 / 480
Output Total 500 / 500 1060 / 1060
Balance -380 / -380 -580 / -580
Review of Systems
-
History Source: Patient
All other systems: Reviewed and negative
Constitutional: Reports Fatigue
EENT: Reports No Symptoms Reported
Respiratory: Reports No Symptoms
Cardiac: Reports No Symptoms
Abdomen/GI: Reports No Symptoms
Genitourinary: Reports No Symptoms
Musculoskeletal: Reports Muscle Weakness
Neuro: Reports Weakness
Hematologic / Lymphatic: Reports No Symptoms
Physical Exam
-
General: No Apparent Distress and Appears Chronically Ill; Negative Comfortable
HEENT: Normocephalic, Atraumatic, Moist Mucous Membranes, Anicteric, Dike Conjunctivae, PERRLA, Nose Appears Normal and Ears Appear Normal
Respiratory: Clear to Auscultation; Negative Wheezes, Rales or Rhonchi
Cardiac: Regular Rhythm and S1/S2; Negative Murmur
GI: Nondistended, Tender and Flat
Genito-urinary: Bloody Urine, Berman and Nephrostomy Tubes
Musculoskeletal: No Clubbing, No Cyanosis, Edema, Right Lower Extrem and Edema, Left Lower Extrem
Skin: Warm and Dry
Neuro: AO x 3
Psych: Depressed
--- NOTE | 2025-10-31 18:26 | W.DCSUMMARY ---
Addendum entered and electronically signed by Eli Snowden MD 10/31/25 19:39:
Read, reviewed, and agree. See same day progress note for additional details. Time spent coordinating care, DC planning, review of DC plan of care with resident, transition of care, review of records in EMR, med rec, consults, notes, d/w
consultants, nursing, family, and CM = 33 minutes
Original Note:
Discharge Summary
Discharge Data
Date of Admission: 10/24/25
Date of Discharge: 10/31/25
Total time spent discharging patient (in min): >30m
-
Pending Results: No
Hospital Course
Discharging Physician : Dr. Snowden
Disposition : [facility]
Primary care physician : Justine Kirby
Hospital Course :
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
presented with concerns of increased weakness, anxiety, leakage from left nephrostomy tube site.
#CAUTI
#ESBL E. coli bacteremia
#Left nephrostomy tube leak
Presented with L PCN leak, UA with pyuria/leukocyte esterase/many bacteria. Urine Cx (10/24) -- ESBL. Blood Cx x 2 (10/24) -- ESBL, sensitivities to carbapenems. IR consulted, bilateral percutaneous nephrostomy tubes replaced on 10/26/2025.
Urology consulted, given Detrol for overactive bladder. ID following for ESBL E. coli bacteremia; prescribed IV or ertapenem through to 11/04/2025. Midline placed during admission. Patient discharged to [facility] for skilled rehab and
to finish out IV antibiotics course prior to transitioning to hospice.
#Ambulatory dysfunction
#Weakness secondary to metastatic disease/Anorexia
He was admitted with profound weakness and ambulatory dysfunction, likely as a consequence of severe metastatic disease, deconditioning. PT and OT evaluations demonstrated need for skilled rehab 1 to 2 hours/day. Patient was ultimately discharged
to [facility] for skilled rehab.
#Metastatic endometrial cancer with bladder metastasis
#Clear Cell Carcinoma of Ovary
#Chronic renal insufficiency due to obstructive uropathy, secondary to mets
#S/P bilateral PCN
She was seen by oncologist during her stay at the hospital. Due to poor performance status she was not a candidate for systemic therapy, patient in agreement regarding this. Hospice appropriate. Oxycodone given as needed for cancer pain.
Patient ultimately aware and planning for eventual hospice transition.
#Anxiety
She has been experiencing restlessness/anxiety related to coping with her prognosis, says she has been taking Xanax at home as needed recently for same symptoms. Was given x 3 doses of 0.25 p.o. Ativan.
#Intermittent Hypoglycemia
Patient began having low morning glucose readings, likely related to low oral intake/cancer associated anorexia. She is not on any antihyperglycemic agents. Given IV D5/NS and oral intake was encouraged. Patient was given chocolate ensures 3
times daily.
#ESTRELLA on CKD
Secondary to dehydration from poor oral intake vs. worsening obstructive uropathy as a consequence of bladder mets. Creatinine alternating between 1.3-1.7. Followed by urology during admission. Maintained on chronic Brady and bilateral
percutaneous nephrostomy tubes. Creatinine on day of discharge 10/31/2025 was 1.3.
#Anemia of chronic disease
Due to renal insufficiency and metastatic cancer; hemoglobin baseline around 9-10. Hemoglobin on admission was 8.6, with continued chronic hematuria observed via Brady catheter and bilateral PCN. Hemoglobin remained between 8 and 9. She did not
require any transfusions. Hemoglobin on day of discharge 10/31/2025 was 9.0.
#Hypovolemic hyponatremia
#Hyperkalemia
Appears subacute to chronic, low sodium and high potassium for the last 1 month. Put on maintenance IVF with mild improvement. Patient eating very minimally throughout admission. She was maintained on IV fluids during her stay. Sodium remained
low but stable. Sodium on day of discharge 10/31/2025 was 129.
# Acute on chronic leukocytosis
Likely associated with cancer, WBC has been in the range of 9.5-17 since May. Maintained on antibiotics as above for bacteremia/CAUTI.
#Supraventricular tachycardia
On last hospital stay was started on amiodarone load and metoprolol XL 25 mg nightly. She was monitored on telemetry without any issues or arrhythmias. She was continued on home medications without any changes.
#Chronic hypotension
Maintained on home dose midodrine. Pressures were stable throughout admission.
#Pressure injury/wound, Unstageable sacrum, [employer]
Managed with wound care
#Hypoalbuminemia
#History of low risk PE s/p IVC filter
Important imaging findings :
CT Abd/pel Without Iv Or Oral (10/26/2025):
Bilateral nephrostomy tubes which appear appropriately positioned. There is mild residual right-sided caliectasis, similar to prior.
Large heterogeneous pelvic mass with associated mass effect in the pelvis and lower abdomen which is overall similar in appearance to prior.
Mild colonic stool burden.
Small right pleural effusion with adjacent atelectasis.
Procedure findings :
XA Exchange PCN, XA Exchange PCN (10/26/2025):
Successful fluoroscopically guided exchange of bilateral percutaneous nephrostomy catheters, as above. Recommend bilateral nephrostomy tube change in 2 months.
Discharge Plan
-
Patient Disposition: Longterm/SNF
Discharge Diagnosis/Procedures: ESBL Bacteremia
CAUTI
BL PCN exchange
Chronic Hematuria
Metastatic Uterine/Ovarian Cancer
Condition: Fair
Diet: No restrictions and As tolerated
Additional Diets: Daily Ensure
Activity: As tolerated
Driving Restrictions: As prior to admission
Activity Restrictions/Additional Instructions:
Wound Care Instructions
Sacral/buttocks ulcers-clean with saline or soap and water, apply honey gel prn necrotic tissue, cover with silicone border foam or adaptic and ABD pad secured with minimal silicone tape, change daily and prn drainage.
Air mattress
Turning schedule
Elevate heels off bed with pillow/s.
Pressure redistributing chair cushion (i.e. Air, gel).
Follow up with wound acute care clinical nurse specialist.
Referrals:
Justine Kirby PA-C [Family Provider, [facility]]
Prescriptions:
New
tolterodine 4 mg Capsule,Extended Release 24hr
4 mg PO DAILY 30 Days Qty: 30 0RF
Ertapenem [Invanz] 500 MG
0.9% Sodium Chloride [Nss] 50 ML
100 mls/hr IV Q24H
Continue through to 11/04/2025
Ordered By: Pablo Kulkarni MD, Resident
Last Taken: 10/30/25 12:11 55 mls
oxycodone 5 mg tablet
5 mg PO Q6H PRN (Reason: Pain) Qty: 10 0RF
Continued
polyethylene glycol 3350 17 gram powder in packet
17 g PO DAILYPRN PRN (Reason: constipation)
amiodarone [Pacerone] 200 mg Tablet
200 mg PO DAILY Qty: 30 0RF
Rx Instructions:
start after 10/10
metoprolol succinate 25 mg Tablet Extended Release 24 Hr
25 mg PO HS Qty: 30 0RF
Rx Instructions:
hold for SBP < 110
sennosides-docusate sodium [Senna Plus] 8.6-50 mg Tablet
1 tab PO BID Qty: 30 0RF
midodrine 5 mg Tablet
5 mg PO TID@0800,1300,1800 Qty: 90 0RF
Patient Comments:
pt unsure if it was twice or 3x daily
Discharge Orders:
Discharge Patient (As Directed); Ordered 10/31/25
Ordered By: Pablo Kulkarni
Discharge Date and Time
Discharge Date/Time: 10/31/25 12:08
Print Language: QATARI
== END 2025-10-31 12:08 | DRG 699 ==
LOC: 3 WEST ACU 15:46
PROVIDERS: Radiology Vascular & Interventional Radiology; Registered Nurse; ADMITTING PHYSICIAN Hospitalist; ATTENDING PHYSICIAN Internal Medicine; CONSULT PHYSICIAN Internal Medicine Infectious Disease; CONSULT PHYSICIAN Specialist; EMERGENCY PHYSICIAN Emergency Medicine; FAMILY PHYSICIAN Physician Assistant Medical; OTHER PHYSICIAN Internal Medicine Hematology & Oncology
PROC: 0T25X0Z Change Drainage Device in Kidney, External Approach (ICD-10-PCS; 2025-10-26)
DX: T83.511A Infection and inflammatory reaction due to indwelling urethral catheter, initial encounter (principal); C79.11 Secondary malignant neoplasm of bladder; E87.1 Hypo-osmolality and hyponatremia; N17.9 Acute kidney failure, unspecified; N13.6 Pyonephrosis; R78.81 Bacteremia; Z16.12 Extended spectrum beta lactamase (ESBL) resistance; I47.10 Supraventricular tachycardia, unspecified; J98.11 Atelectasis; J90 Pleural effusion, not elsewhere classified; R64 Cachexia; T83.032A Leakage of nephrostomy catheter, initial encounter; E86.0 Dehydration; C54.1 Malignant neoplasm of endometrium; N32.89 Other specified disorders of bladder; B96.20 Unspecified Escherichia coli [E. coli] as the cause of diseases classified elsewhere; Y84.6 Urinary catheterization as the cause of abnormal reaction of the patient, or of later complication, without mention of misadventure at the time of the procedure; Y92.9 Unspecified place or not applicable; I12.9 Hypertensive chronic kidney disease with stage 1 through stage 4 chronic kidney disease, or unspecified chronic kidney disease; G89.3 Neoplasm related pain (acute) (chronic); N32.81 Overactive bladder; E87.5 Hyperkalemia; E86.1 Hypovolemia; I95.89 Other hypotension; E88.09 Other disorders of plasma-protein metabolism, not elsewhere classified; R43.9 Unspecified disturbances of smell and taste; L89.150 Pressure ulcer of sacral region, unstageable; F41.9 Anxiety disorder, unspecified; E78.5 Hyperlipidemia, unspecified; D63.1 Anemia in chronic kidney disease; N18.30 Chronic kidney disease, stage 3 unspecified; R26.2 Difficulty in walking, not elsewhere classified; R31.9 Hematuria, unspecified; Y73.2 Prosthetic and other implants, materials and accessory gastroenterology and urology devices associated with adverse incidents; E16.2 Hypoglycemia, unspecified; Z66 Do not resuscitate; Z60.2 Problems related to living alone; Z86.16 Personal history of COVID-19; Z90.710 Acquired absence of both cervix and uterus; Z86.711 Personal history of pulmonary embolism; Z86.718 Personal history of other venous thrombosis and embolism; Z87.891 Personal history of nicotine dependence; Z88.2 Allergy status to sulfonamides; Z79.899 Other long term (current) drug therapy; Z95.828 Presence of other vascular implants and grafts; Z68.24 Body mass index [BMI] 24.0-24.9, adult
CPT/HCPCS: 50435; 74176; 80048; 80053; 81003; 81015; 82962; 83605; 83735; 84100; 85025; 85027; 87040; 87070; 87077; 87086; 87154; 87186; 87205; 96361; 96374; 97110; 97163; 97167; 97530; 99284; C1729; C1769; J1335; J2185